=== PATIENT | male | born 1965 | race Caucasian/White ===

== ENCOUNTER 2022-12-15 13:18 | Emergency (ER) | payer MEDICARE, MEDICAID, SELFPAY ==
[2022-12-15 13:21] VITALS: BP 113/82; PULSE 104; RESP 18; TEMP 37; O2SAT 99; BMI 20.5
== END 2022-12-15 14:08 | disposition left against medical advice (07) ==
LOC: ER 13:48
PROVIDERS: Emergency Provider Emergency Medicine; PCP Family Medicine
DX: Z53.21 Procedure and treatment not carried out due to patient leaving prior to being seen by health care provider (principal)
CPT/HCPCS: 99281

== ENCOUNTER 2022-12-24 07:21 | Emergency (ER) | payer MEDICARE, MEDICAID, SELFPAY ==
[2022-12-24] VITALS (12 sets, daily range): BP systolic 109–115; BP diastolic 59–74; PULSE 67–83; RESP 11–22; TEMP 36.8; O2SAT 96–100; BMI 20.9
--- NOTE | 2022-12-24 07:38 | XR_ITS ---
The [address] [address] Patient Name: SIS COUCH MRN: [id number] date: 1965 Sex: M Assigned Patient Location: ER Current Patient Location: ER Accession/Order Number: [id number] Exam Date: 12/24/2022 07:47 Report Date: 12/24/2022 08:03 At the request of: RACHEAL LEHMAN Procedure: XR shoulder LT min 2V HISTORY: Chronic left shoulder pain becoming progressively worse. XR shoulder LT min 2V: 12/24/2022 7:47 AM EDT COMPARISON: None. FINDINGS: 3 views of the left shoulder were obtained. No fracture, dislocation or joint space narrowing is seen. There is a type I acromion. XR/XR shoulder LT min 2V IMPRESSION: Normal radiographs of the left shoulder. Electronically authenticated by: FRANCES PUTNAM Date: 12/24/2022 08:03
--- NOTE | 2022-12-24 07:52 | ED.UPPEXIN1 ---
HPI - Extremity Injury (Upper) General Chief Complaint: Extremity Injury, Upper Stated Complaint: UPPER EXTREMITY PAIN LEFT ARM Time Seen by Provider: 12/24/22 07:42 Source: patient Mode of arrival: walk-in Limitations: no limitations History of Present Illness HPI narrative: 57-year-old male presents for left shoulder pain. He had it for 6-12 months. He's been to an urgent care center. He states he's been having trouble typing on his laptop because of the pain. It's mostly in the shoulder blade region. The pain is moderate and worse with movement. Related Data Home Medications Medication Instructions Recorded Confirmed atorvastatin 40 mg tablet 40 mg PO QDAY 12/24/22 12/24/22 buspirone 10 mg tablet 10 mg PO QDAY 12/24/22 12/24/22 Previous Rx's Medication Instructions Recorded acetaminophen 300 mg-codeine 30 mg 1 tab PO Q6H PRN pain #20 tabs 12/24/22 tablet Allergies Allergy/AdvReac Type Severity Reaction Status Date / Time tramadol Allergy Intermediate Verified 12/15/22 13:26 Review of Systems ROS Narrative A ten point review of systems is negative except as noted above. PFSH PFSH Social History Smoking status: Current every day smoker Exam Narrative Exam Narrative: Nurses note and vital signs reviewed and patient is not hypoxic. General: The patient appears well and in no apparent distress. Patient is resting comfortably on cart. Skin: Warm, dry, no pallor noted. There is no rash noted. Head: Normocephalic, atraumatic Eye: Normal conjunctiva, no drainage Ears, Nose, Mouth, and Throat: oral mucosa is moist. Nares patent. Cardiovascular: Regular Rate and Rhythm Respiratory: Patient is in no distress, no accessory muscle use, lungs are clear to auscultation, no wheezing, rales or rhonchi Back: non-tender GI: soft and nontender Musculoskeletal: left shoulder has no deformity bruise or rash. Range of motion causes discomfort. Neurological: A&O, normal speech Psychiatric: Cooperative Constitutional Vital Signs, click to edit/add: Last Vital Signs Temp 98.2 F 12/24/22 07:24 Pulse 73 12/24/22 07:24 Resp 18 12/24/22 07:24 BP 109/59 12/24/22 07:24 Pulse Ox 98 12/24/22 07:24 O2 Del Method Room Air 12/24/22 07:24 Course Vital Signs Vital signs: Vital Signs Temperature 98.2 F 12/24/22 07:24 Pulse Rate 73 12/24/22 07:24 Respiratory Rate 18 12/24/22 07:24 Blood Pressure 109/59 12/24/22 07:24 Pulse Oximetry 98 12/24/22 07:24 Oxygen Delivery Method Room Air 12/24/22 07:24 Temperature 98.2 F 12/24/22 07:24 Pulse Rate 73 12/24/22 07:24 Respiratory Rate 18 12/24/22 07:24 Blood Pressure 109/59 12/24/22 07:24 Pulse Oximetry 98 12/24/22 07:24 Oxygen Delivery Method Room Air 12/24/22 07:24 MDM - Extremity Injury (Upper) MDM Narrative Medical decision making narrative: x-rays negative per radiologist and he is being referred to orthopedics. He is also prescribed pain medication. I've reviewed his prescription history. Treatment diagnosis and follow-up were discussed with the patient Differential Diagnosis Differential diagnosis: Likely other (shoulder sprain, shoulder strain, adhesive capsulitis, calcific tendinitis, rotator cuff injury, fracture) Imaging Data left shoulder x-ray: Radiologist's impression: x-ray of the left shoulder per radiology shows no acute findings ECG Data Attestation: I personally reviewed and interpreted this ECG as follows: (EKG on my interpretation shows normal sinus rhythm without acute change) Discharge Plan Discharge Chief Complaint: Extremity Injury, Upper Clinical Impression: Chronic left shoulder pain Patient Disposition: Home, Self-Care Time of Disposition Decision: 08:27 Condition: Good Mode of Transportation: Private Vehicle Prescriptions / Home Meds: New acetaminophen-codeine 300-30 mg tablet 1 tab PO Q6H PRN (Reason: pain) Qty: 20 0RF No Action atorvastatin 40 mg tablet 40 mg PO QDAY buspirone 10 mg tablet 10 mg PO QDAY Instructions: Shoulder Pain (ED) Additional Instructions: follow-up with Dr. Conteh Stand Alone Forms: Portal Instructions Referrals: Anthony Colmenares MD [Primary Care Provider] - 1 week
--- NOTE | 2022-12-24 07:57 | ECG_ITS ---
The [facility] Test Date: 2022-12-24 Pat Name: SIS COUCH Department: Room: - Gender: Male [employer]: : 1965 Requested By: FRANCES COHEN Order Number: [id number] Reading MD: FRANCES COHEN Measurements Intervals [place] Rate: 73 P: 75 TX: 122 QRS: 83 QRSD: 104 T: 57 QT: 392 QTc: 417 Interpretive Statements 1100 Sinus rhythm 9110 normal ECG No previous ECG available for comparison Electronically Signed On 12-25-2022 6:35:22 EDT by FRANCES COHEN
== END 2022-12-24 08:44 | disposition home or self-care (01) ==
PROVIDERS: Emergency Provider Emergency Medicine; PCP Family Medicine
DX: M25.512 Pain in left shoulder (principal); G89.29 Other chronic pain; Z79.899 Other long term (current) drug therapy; F17.210 Nicotine dependence, cigarettes, uncomplicated
CPT/HCPCS: 73030; 93005; 99284

== ENCOUNTER 2023-01-03 06:43 | Outpatient (OUT) | payer MEDICARE, MEDICAID, SELFPAY ==
--- NOTE | 2023-01-03 07:25 | MR_ITS ---
[address] [address] Patient Name: SIS COUCH MRN: [id number] date: 1965 Sex: M Assigned Patient Location: MRI Current Patient Location: Accession/Order Number: [id number] Exam Date: 01/03/2023 07:25 Report Date: 01/04/2023 00:11 At the request of: ELIUD MONTOYA Procedure: MR shoulder LT wo con EXAMINATION: MR shoulder LT wo con HISTORY: Left Shoulder Pain M25.512 ; left shoulder pain radiating into arm and hand; no known injury COMPARISON: No relevant comparison available. TECHNIQUE: A variety of imaging planes and parameters were utilized for visualization of suspected pathology. Imaging was performed without or with contrast as indicated by examination type. FINDINGS: ROTATOR CUFF REGION CUFF TENDONS: Minimal increased signal intensity in the supraspinatus tendon indicates tendon degeneration and/or tendinitis. No dwain tear is seen. CUFF MUSCLES: Normal appearing muscles. DELTOID: No significant atrophy or tear. LONG BICEPS TENDON: No abnormal signal, attrition, or tear. LABRUM/BICEPS ANCHOR SUPERIOR: No visible labral tear or biceps anchor pathology. ANTERIOR/INFERIOR: No visible tear or attrition. POSTERIOR: No posterior labrum abnormality. CAPSULE No visible capsular laxity or thickening. AC JOINT REGION AC JOINT: Mild osteoarthropathy with no significant narrowing of the underlying coracoacromial arch. AC LIGAMENTS: Normal acromioclavicular ligament. CC LIGAMENTS: Normal coracoclavicular ligaments. ACROMION: Normal horizontal (Type I) configuration. SUBACROMIAL BURSA: Normal. No significant effusion. HYALINE CARTILAGE: No visible cartilage narrowing or focal defect. OTHER BONES: Normal proximal humerus, glenoid, and coracoid. OTHER OBSERVATIONS: Negative. No other significant findings or glenohumeral effusion. MR/MR shoulder LT wo con IMPRESSION: 1. Limited examination due to significant patient motion artifact. 2. Suspect mild supraspinatus tendinopathy. Electronically authenticated by: ELIUD ALANIZ Date: 01/04/2023 00:11
== END 2023-01-03 06:44 | disposition home or self-care (01) ==
LOC: MRI 06:46
PROVIDERS: PCP Family Medicine; Visit Provider Orthopaedic Surgery
DX: M25.512 Pain in left shoulder (principal)
CPT/HCPCS: 73221

== ENCOUNTER 2023-01-15 10:18 | Outpatient (RCR) | payer MEDICARE, MEDICAID, SELFPAY | END 2023-02-16 13:43 | disposition home or self-care (01) | LOC: PT 10:18 | PROVIDERS: PCP Family Medicine; Visit Provider Orthopaedic Surgery | DX: M54.12 Radiculopathy, cervical region (principal); M75.82 Other shoulder lesions, left shoulder | CPT/HCPCS: 97010; 97012; 97110; 97140; 97161 ==

== ENCOUNTER 2023-06-12 15:16 | Outpatient (OUT) | payer MEDICARE, MEDICAID, SELFPAY ==
--- OUTSIDE RECORDS SUMMARY | 2023-06-12 15:32 | XMS_ITS | CCD ---
Author Name Unknown Address [id number] [facility] [address] [place] [address] Organization [facility] Care Team Providers Care Mill Operator Name Role Phone ENMA PHILLIPS Unavailable Unavailable ENMA PHILLIPS Unavailable Unavailable RAÚL LAI Unavailable Unavailable ENMA PHILLIPS Unavailable Unavailable Saman Jules Unavailable Frances Colmenares Primary Care Physician NOEL .DR DANIELS Primary Care Unavailable HOY ., DR DANIELS Attending Unavailable HOY ., DR DANIELS Admitting Unavailable ROSELYN LUCIANO Consulting UnavailCARMEN Ruiz Attending Unavailable SORIN .CARMEN Admitting Unavailable JAVONY ., DR DANIELS Primary Care Unavailable YOLI KRUEGER Consulting Unavailable DIAB .JUNG Attending Unavailable DIAB ., JUNG Admitting Unavailable HOY ., DR DANIELS Primary Care Unavailable DIAB ., JUNG Consulting Unavailable HOY ., DR DANIELS Consulting Unavailable HOY ., DR DANIELS Primary Care Unavailable HOY ., DR DANIELS Attending Unavailable HOY ., DR DANIELS Admitting Unavailable DR ELIUD ALANIZ Consulting Unavailable HOY ., DR DANIELS Consulting Unavailable HOY ., DR DANIELS Primary Care Unavailable HOY ., DR DANIELS Attending Unavailable HOY ., DR DANIELS Admitting Unavailable HOY ., DR DANIELS Consulting Unavailable HOY ., DR DANIELS Primary Care Unavailable HOY ., DR DANIELS Attending Unavailable HOY ., DR DANIELS Admitting Unavailable HOY ., DR DANIELS Consulting Unavailable HOY ., DR DANIELS Primary Care Unavailable HOY ., DR DANIELS Attending Unavailable HOY ., DR DANIELS Admitting Unavailable FARNAZ FRANK Consulting Unavailable HOY ., DR DANIELS Consulting Unavailable HOY ., DR DANIELS Primary Care Unavailable HOY ., DR DANIELS Attending Unavailable HOY ., DR DANIELS Admitting Unavailable SHANNAN RUBY Consulting Unavailable HOY ., DR DANIELS Primary Care Unavailable HOY ., DR DANIELS Attending Unavailable HOY ., DR DANIELS Admitting Unavailable HOY ., DR DANIELS Consulting Unavailable HOY ., DR DANIELS Primary Care Unavailable HOY ., DR DANIELS Attending Unavailable HOY ., DR DANIELS Admitting Unavailable WEST, DR SYLVESTER Ho Consulting Unavailable Gaetano BA Attending Unavailable Gaetano BA Attending Unavailable Shannan Cary Unavailable FRAN Cary Attending Provider Shannan Cary Attending Unavailable Shannan Cary Admitting Unavailable NON STAFF Primary Care Unavailable Allergies Allergy Classification Reported Allergen(s) Allergy Type Date of Onset Reaction(s) Facility (3 sources) Codeine; Translations: [codeine] Drug Allergy Unknown [facility] (4 sources) traMADol; Translations: [tramadol] Drug Allergy hives [facility] (1 source) traMADol Drug Allergy [address] [facility] (1 source) No Known Medication Allergies; Translations: [No Known Medication Allergies] Propensity to adverse reactions (disorder) [facility] Repository Medications Current Medications Medication Drug Class(es) Dates Sig (Normalized) Sig (Original) acetaminophen 325 mg / HYDROcodone bitartrate 10 mg oral tablet (2 sources) Opioid Agonist Start: 09-19-2017 take 1 tablet by mouth every twelve hours Hydrocodone-Aceta minophen (Alma) 10-325 mg Tablet Active 1 TAB PO Q12H 0 September 19, 2017 12:01pm Start: 09-17-2017 End: 09-19-2017 take 1 tablet by mouth every eight hours Hydrocodone-Acetaminophen (Alma) 10-325 mg Tablet Discontinued 1 TAB PO Q8H September 17, 2017 12:00am September 19, 2017 12:01pm aspirin 81 mg delayed release oral tablet (1 source) Platelet Aggregation Inhibitor, Nonsteroidal Anti-inflammatory Drug Start: 09-17-2017 take 81 mg by mouth once daily Aspirin Active 81 MG PO Daily September 17, 2017 12:00am atorvastatin 40 mg oral tablet (4 sources) HMG-CoA Reductase Inhibitor Start: 09-17-2017 take 1 mg by mouth once daily Lipitor 40 mg Tab mg tab(s), Oral, Daily, Refills(s) 0 Start Date: 12/08/19 Status: Ordered baclofen 10 mg oral tablet (2 sources) gamma-Aminobutyric Acid-ergic Agonist Start: 09-19-2017 take 5 mg by mouth twice daily Baclofen Active 5 MG PO Twice daily 0 September 19, 2017 12:00am Start: 09-17-2017 End: 09-19-2017 take 10 mg by mouth five times daily Baclofen Discontinued 10 MG PO 5 times per day September 17, 2017 12:00am September 19, 2017 11:54am 12 hr buPROPion hydrochloride 100 mg extended release oral tablet (1 source) Aminoketone Start: 09-17-2017 take 1 tablet by mouth once daily Bupropion Hcl (Wellbutrin Sr) 100 mg Tablet Extended Release 12 Hr Active 100 MG PO Daily September 17, 2017 12:00am busPIRone hydrochloride 10 mg oral tablet (4 sources) Start: 08-03-2022 busPIRone 10 mg Tab Refills(s) 0 Start Date: 08/03/22 Status: Ordered calcium carbonate 1250 mg / cholecalciferol 1000 unt / vitamin k 0.4 mg chewable tablet (1 source) Vitamin D Start: 09-17-2017 take 1 tablet by mouth once daily Calcium-Vitamin D3-Vitamin K (Citracal-D3 Soft Chew) 500 mg-1,000 unit-40 mcg Tablet,Chewable Active 1 TAB PO Daily September 17, 2017 12:00am cariprazine 1.5 mg oral capsule (3 sources) Atypical Antipsychotic Start: 12-08-2019 take 1 mg by mouth once daily Vraylar 1.5 mg oral capsule mg cap(s), Oral, Daily, Refills(s) 0 Start Date: 12/08/19 Status: Ordered Vraylar 4.5 MG O ral for 30 Days Active carisoprodol 250 mg oral tablet (3 sources) Muscle Relaxant Start: 08-03-2022 carisoprodol 2 50 mg oral tablet Refills(s) 0 Start Date: 08/03/22 Status: Ordered clonazePAM 0.5 mg oral tablet (2 sources) Benzodiazepine Start: 09-19-2017 take 0.5 mg by mouth twice daily Clonazepam Active 0.5 MG PO Twice daily September 19, 2017 12:00am Start: 09-17-2017 End: 09-19-2017 take 1 tablet by mouth three times daily Clonazepam (Klonopin) 1 mg Tablet Discontinued 1 MG PO Three times daily September 17, 2017 12:00am September 19, 2017 11:54am clopidogrel 75 mg oral tablet (1 source) P2Y12 Platelet Inhibitor Start: 09-17-2017 take 1 tablet by mouth once daily Clopidogrel (Plavix) 75 mg Tablet Active 75 MG PO Daily September 17, 2017 12:00am diazePAM 5 mg oral tablet (3 sources) Benzodiazepine Start: 08-03-2022 diazepam 5 mg Tab Refills(s) 0 Start Date: 08/03/22 Status: Ordered take 1 tablet by ruchi th every twenty-four hours diazePAM 10 MG 1 tablet as needed Orally Once a day Active DULoxetine 60 mg delayed release oral capsule (2 sources) Serotonin and Norepinephrine Reuptake Inhibitor Start: 09-19-2017 take 60 mg by mouth once daily Duloxetine Active 60 MG PO Daily September 19, 2017 12:00am Start: 09-17-2017 End: 09-19-2017 take 3 capsules by mouth once daily in the morning Duloxetine (Cymbalta) 60 mg Capsule,Delayed Release(Dr/Ec) Discontinued 180 MG PO Every morning September 17, 2017 12:00am September 19, 2017 11:54am Fiber (2 sources) Start: 12-08-2019 take 1 capsule by mouth once daily Fiber Fiber, 1 cap, Oral, Daily Start Date: 12/08/19 Status: Ordered lamoTRIgine 100 mg oral tablet (1 source) Mood Stabilizer, Anti-epileptic Agent lamoTRIgine 100 MG Oral for 30 Days Active lurasidone hydrochloride 80 mg oral tablet (1 source) Atypical Antipsychotic Start: 09-17-2017 take 1 tablet by mouth once daily Lurasidone (Latuda) 80 mg Tablet Active 160 MG PO Daily before supper September 17, 2017 12:00am naproxen 500 mg oral tablet (2 sources) Nonsteroidal Anti-inflammatory Drug Start: 09-17-2017 End: 09-19-2017 take 1 tablet by mouth twice daily Naproxen (Naprosyn) 500 mg Tablet Active 500 MG PO Twice daily 0 September 19, 2017 12:01pm With Sumatriptan. Repeat As Directed. predniSONE 20 mg oral tablet (1 source) Start: 12-19-2022 take 1 tablet by mouth every twelve hours predniSONE 20 MG 1 tablet Orally bid for 5 day(s) Dec, Active SUMAtriptan 100 mg oral tablet (3 sources) Serotonin-1b and Serotonin-1d Receptor Agonist Start: 12-17-2019 SUMAtriptan 100 mg Tab 100 mg = 1 tab(s), Oral, PRN Headache, Refills(s) 0 Start Date: 12/17/19 Status: Ordered Start: 09-17-2017 End: 09-19-2017 Sumatriptan Succinate Discon tinued 100 MG PO As Directed September 17, 2017 12:00am September 19, 2017 11:55am At Onset Of Migraine. May Repeat in 2 Hours if Needed. tolterodine tartrate 2 mg oral tablet (2 sources) Cholinergic Muscarinic Antagonist Start: 08-03-2022 take 1 tablet by mouth twice daily tolterodine 2 mg Tab 2 mg = 1 tab(s), Oral, BID, # 60 tab(s), Refills(s) 11, Pharmacy: [facility]/pharmacy #[id number], 170, cm, 08/03/22 8:52:00 EDT, Height/Length Dosing, 62, kg, 08/03/22 8:52:00 EDT, Weight Dosing Start Date: 08/03/22 Status: Ordered traMADol hydrochloride 50 mg oral tablet (6 sources) Opioid Agonist Start: 02-07-2021 take 1 tablet by mouth every eight hours traMADol HCl 50 MG 1 tablet as needed Orally every 8 hours for 7 days Jan, Active Start: 09-17-2017 End: 09-19-2017 take 50 mg by mouth every four to six hours Tramadol Discontinued 50 MG PO EVERY 4-6 HOURS September 17, 2017 12:00am September 19, 2017 11:55am Trazodone (3 sources) Serotonin Reuptake Inhibitor Start: 12-08-2019 take 0.5 tablet by mouth once daily at bedtime trazodone 0.5 tab, Oral, Once a day (at bedtime), 75 mg, Refills(s) 0 Start Date: 12/08/19 Status: Ordered Start: 09-17-2017 End: 09-19-2017 take 75 mg by mouth once daily at bedtime Trazodone Discontinued 75 MG PO Daily at bedtime September 17, 2017 12:00am September 19, 2017 11:55am 24 hr divalproex sodium 500 mg extended release oral tablet (1 source) Mood Stabilizer, Anti-epileptic Agent Start: 09-17-2017 take 1 tablet by mouth once daily at bedtime Divalproex (Depakote Er) 500 mg Tablet Extended Release 24 Hr Active 500 MG PO Daily at bedtime September 17, 2017 12:00am 24 hr venlafaxine 150 mg extended release oral capsule (1 source) Serotonin and Norepinephrine Reuptake Inhibitor Venlafaxine HCl ER 150 MG Oral for 30 Days Active Completed/Discontinued Medications Medication Drug Class(es) Dates Sig (Normalized) Sig (Original) benztropine mesylate 1 mg oral tablet (1 source) Anticholinergic, Antihistamine Start: 09-17-2017 End: 09-19-2017 take 1 mg by mouth twice daily Benztropine Discontinued 1 MG PO Twice daily September 17, 2017 12:00am September 19, 2017 11:54am hydrOXYzine pamoate 50 mg oral capsule (3 sources) Antihistamine Start: 09-17-2017 End: 09-19-2017 take 1 capsule by mouth twice daily Hydroxyzine Pamoate (Vistaril) 50 mg Capsule Discontinued 50 MG PO Twice daily September 17, 2017 12:00am September 19, 2017 11:54am ondansetron 4 mg oral tablet (1 source) Serotonin-3 Receptor Antagonist Start: 09-17-2017 End: 09-19-2017 take 1 tablet by mouth every eight hours Ondansetron Hcl (Zofran (As Hydrochloride)) 4 mg Tablet Discontinued 4 MG PO Q8H September 17, 2017 12:00am September 19, 2017 11:54am Peppermint Oil (Ibgard) 90 mg Capsule,Delayed,Ex tend.Release (1 source) Start: 09-17-2017 End: 09-19-2017 take 1 capsule by mouth once daily Peppermint Oil (Ibgard) 90 mg Capsule,Delayed,Ex tend.Release Discontinued 90 MG PO Daily before supper September 17, 2017 12:00am September 19, 2017 11:54am Toradol 30 mg/ml (1 source) Start: 12-19-2022 Toradol 30 mg/ml Dec, 30 mg varenicline 1 mg oral tablet (1 source) Partial Cholinergic Nicotinic Agonist Start: 09-17-2017 End: 09-19-2017 take 1 tablet by mouth twice daily Varenicline (Chantix) 1 mg Tablet Discontinued 1 MG PO Twice daily September 17, 2017 12:00am September 19, 2017 11:55am Problems Active Problems Problem Classification Problem Date Documented Da te Episodic/Chronic Abdominal pain (10 sources) Epigastric pain; Translations: [Flank pain] Onset: 3 01-03-2021 Episodic Anxiety disorders (3 sources) Generalized anxiety disorder; Translations: [Anxiety disorder, unspecified] Onset: 7 Chronic Calculus of urinary tract (7 sources) Kidney stone; Translations: [Calculus of kidney] Onset: 3 Episodic Deficiency and other anemia (2 sources) Anemia 01-03-2021 Episodic Disorders of lipid metabolism (1 source) Hyperlipidemia, unspecified; Translations: [HYPERLIPIDEMIA UNSPECIFIED] Onset: 2 Chronic Esophageal disorders (2 sources) Gastroesophageal reflux disease 01-03-2021 Chronic Gastrointestinal hemorrhage (4 sources) Hematochezia; Translations: [Rectal hemorrhage] 01-03-2021 Episodic Genitourinary symptoms and ill-defined conditions (3 sources) Urge incontinence; Translations: [Urge incontinence of urine] Onset: 3 Chronic Genitourinary symptoms and ill-defined conditions (4 sources) Nocturia; Translations: [Urgent desire to urinate] 08-23-2021 Episodic Headache, including migraine (2 sources) Migraine, unspecified, not intractable, without status migrainosus; Translations: [Migraine] Onset: 7 09-20-2017 Chronic Headache; including migraine (2 sources) Headache 12-08-2019 Episodic Hyperplasia of prostate (2 sources) Benign prostatic hypertrophy with outflow obstruction 08-23-2020 Chronic Mood disorders (6 sources) Bipolar disorder, current episode depressed, moderate; Translations: [Bipolar disorder] Onset: 5 12-08-2019 Chronic Mood disorders (1 source) Major depressive disorder, single episode, unspecified; Translations: [Major depressive disorder, single episode, unspecified] Onset: 5 Nonspecific chest pain (1 source) Other chest pain; Translations: [OTHER CHEST PAIN] Onset: 3 Episodic Other aftercare (1 source) Other correction (current) drug therapy; Translations: [OTH RETIREMENT CURRENT DRUG THERAPY] Onset: 3 Episodic Other aftercare (1 source) Polypharmacy ; Translations: [Other correction (current) drug therapy] 09-20-2017 Episodic Other and unspecified benign neoplasm (2 sources) History of polyp of colon 01-03-2021 Episodic Other diseases of bladder and urethra (2 sources) Male urethral stricture 07-19-2020 Episodic Other gastrointestinal disorders (1 source) Irritable bowel syndrome without diarrhea; Translations: [IRRITABLE BOWEL SYND W/O DIARRHEA] Onset: 2 Chronic Other gastrointestinal disorders (2 sources) Dysphagia 01-03-2021 Episodic Other injuries and conditions due to external causes (1 source) History of falling; Translations: [HISTORY OF FALLING] Onset: 3 Episodic Other male genital disorders (1 source) Male erectile dysfunction, unspecified; Translations: [Erectile dysfunction] Onset: 3 Chronic Other male genital disorders (3 sources) Induratio penis plastica; Translations: [Induration penis plastica] Onset: 3 Chronic Other male genital disorders (2 sources) Impotence 08-23-2020 Chronic Other non-traumatic joint disorders (1 source) Pain in left shoulder Episodic Other nutritional; endocrine; and metabolic disorders (1 source) Hyperammonemia; Translations: [Disorder of urea cycle metabolism, unspecified] 09-20-2017 Chronic Peripheral and visceral atherosclerosis (4 sources) Peripheral vascular disease, unspecified; Translations: [PERIPHERAL VASCULAR DISEASE UNS] Onset: 3 Chronic Residual codes; unclassified (1 source) Tobacco user; Translations: [Tobacco use] 09-20-2017 Episodic Residual codes; unclassified (1 source) Altered mental status; Translations: [Altered mental status, unspecified] 09-20-2017 Episodic Spondylosis; intervertebral disc disorders; other back problems (1 source) Other intervertebral disc degeneration, lumbosacral region; Translations: [OT IV DISC DEGEN LUMBOSACRAL RGN] Onset: 3 Chronic Spondylosis; intervertebral disc disorders; other back problems (9 sources) Cervicalgia; Translations: [Radiculopathy, site unspecified] Onset: 2 Episodic Sprains and strains (1 source) Unspecified sprain of left shoulder joint, initial encounter Episodic Substance-related disorders (3 sources) Smoker; Translations: [Cannabis abuse] 03-01-2020 Chronic Comment on above: Added secondary to d ocumentation in Social History. Thyroid disorders (1 source) Hyperthyroidism; Translations: [Thyrotoxicosis, unspecified without thyrotoxic crisis or storm] 09-20-2017 Chronic Unclassified (1 source) Mixed irritable bowel syndrome; Translations: [Mixed irritable bowel syndrome] Onset: 7 Unclassified (4 sources) Body mass index 20-24 - normal 01-03-2021 Unclassified (1 source) Pain in left shoulder; Translations: [Pain in left shoulder] Onset: 3 Past or Other Problems Problem Classification Problem Date Documented Da te Episodic/Chronic Deficiency and other anemia (1 source) Anemia, unspecified; Translations: [ANEMIA UNSPECIFIED] Onset: 03-31-2022 Episodic Diabetes mellitus without complication (1 source) Other abnormal glucose; Translations: [OTHER ABNORMAL GLUCOSE] Onset: 03-31-2022 Episodic Fracture of lower limb (3 sources) Other fracture of upper and lower end of right fibula, subsequent encounter for closed fracture with routine healing; Translations: [Other closed fracture of distal end of right fibula with routine healing, subsequent encounter S82.831D] Onset: 02-07-2021 Resolved: 04-06-2021 Episodic Malaise and fatigue (1 source) Other fatigue; Translations: [OTHER FATIGUE] Onset: 12-18-2021 Episodic Nausea and vomiting (1 source) Nausea; Translations: [Nausea] Onset: 03-14-2017 Episodic Other and unspecified benign neoplasm (1 source) Personal history of colonic polyps; Translations: [Personal history of colonic polyps] Onset: 06-14-2014 Episodic Other connective tissue disease (4 sources) Impingement syndrome of left shoulder; Translations: [IMPINGEMENT SYNDROME LEFT SHOULDER] Onset: 02-02-2022 Episodic Other non-traumatic joint disorders (4 sources) Pain in right ankle and joints of right foot; Translations: [Acute right ankle pain M25.571] Onset: 02-07-2021 Resolved: 04-06-2021 Episodic Other non-traumatic joint disorders (4 sources) Pain in left elbow; Translations: [PAIN IN LEFT ELBOW] Onset: 07-30-2022 Episodic Other nutritional; endocrine; and metabolic disorders (5 sources) Abnormal weight loss; Translations: [Abnormal weight loss] Onset: 08-12-2017 Episodic Other screening for suspected conditions (not mental disorders or infectious disease) (3 sources) Encounter for screening for malignant neoplasm of rectum; Translations: [Encounter for screening for malignant neoplasm of prostate] Onset: 12-18-2021 Episodic Residual codes; unclassified (1 source) Insomnia, unspecified; Translations: [INSOMNIA UNSPECIFIED] Onset: 03-31-2022 Episodic Screening and history of mental health and substance abuse codes (1 source) Personal history of nicotine dependence; Translations: [PERSONAL HISTORY OF NICOTINE DEPEND] Onset: 12-18-2021 Episodic Substance-related disorders (1 source) Cannabis use, unspecified, uncomplicated; Translations: [CANNABIS USE UNS UNCOMPLICATED] Onset: 12-18-2021 Episodic Results Test Name Value Interpretation Reference Range Facility XR shoulder LT min 2V*on XR shoulder LT min 2V* [facility] [employer] Other XR shoulder LT min 2V* [facility] [employer] Other XR shoulder LT min 2V* [address] [place] [address] [employer] Other XR shoulder LT min 2V* [place] [address] [employer] Other XR shoulder LT min 2V* XRay Report [employer] Other XR shoulder LT min 2V* Signed [employer] Other XR shoulder LT min 2V* Patient: Sis Dove MR#: [id number] [employer] Other XR shoulder LT min 2V* 5 [employer] Other XR shoulder LT min 2V* : 1965 Acct:[id number] [employer] Other XR shoulder LT min 2V* Age/Sex: 57 / M ADM Date: 12/19/22 [employer] Other XR shoulder LT min 2V* Loc: XDUCLY Room: Type: REG CLI [employer] Other XR shoulder LT min 2V* Attending Dr: Shannan PETERS [employer] Other XR shoulder LT min 2V* Copies to: FRAN Barba [employer] Other XR shoulder LT min 2V* Ordering Provider: FRAN Barba [employer] Other XR shoulder LT min 2V* Date of Service: 12/19/22 [employer] Other XR shoulder LT min 2V* XR/XR shoulder LT min 2V*: Acute pain of left shoulder [employer] Other XR shoulder LT min 2V* XR shoulder LT min 2V* 12/19/2022 10:33 AM [employer] Other XR shoulder LT min 2V* SIGNS AND SYMPTOMS: [employer] Other XR shoulder LT min 2V* Acute pain of left shoulder [employer] Other XR shoulder LT min 2V* PROTOCOL: Frontal, Grashey, and scapular Y views of the left shoulder [employer] Other XR shoulder LT min 2V* COMPARISON: None [employer] Other XR shoulder LT min 2V* FINDINGS: [employer] Other XR shoulder LT min 2V* The acromial clavicular joint is preserved. There is mild narrowing of the glenohumeral joint. There [employer] Other XR shoulder LT min 2V* is no evidence of fracture or dislocation. The visualized left hemithorax is grossly intact. [employer] Other XR shoulder LT min 2V* XR/XR shoulder LT min 2V* [employer] Other XR shoulder LT min 2V* IMPRESSION: [employer] Other XR shoulder LT min 2V* No acute bony injury. [employer] Other XR shoulder LT min 2V* Mild degenerative changes are noted in the glenohumeral joint. [employer] Other XR shoulder LT min 2V* Impression dictated by: Bello Yao M.D.12/19/2022 11:00 AM [employer] Other XR shoulder LT min 2V* Dictation Location: [facility]-- [employer] Other XR shoulder LT min 2V* Transcribed By: CHRISTIAN 12/19/22 1100 [employer] Other XR shoulder LT min 2V* Dictated By: Bello Yao II, MD 12/19/22 1058 [employer] Other XR shoulder LT min 2V* Signed By: [employer] Other XR shoulder LT min 2V* 12/19/22 1100 [employer] Other XR shoulder LT min 2V* [facility] [place] [address] [place] [address] XRay Report Signed Patient: Sis Dove MR#: [id number] 5 : 1965 Acct:[id number] Age/Sex: 57 / M ADM Date: 12/19/22 Loc: XDUCLY Room: Type: [facility] Attending Dr: Shannan PETERS Copies to: FRAN Barba Ordering Provider: FRAN Barba Date of Service: 12/19/22 XR/XR shoulder LT min 2V*: Acute pain of left shoulder XR shoulder LT min 2V* 12/19/2022 10:33 AM SIGNS AND SYMPTOMS: Acute pain of left shoulder PROTOCOL: Frontal, Grashey, and scapular Y views of the left shoulder COMPARISON: None FINDINGS: The acromial clavicular joint is preserved. There is mild narrowing of the glenohumeral joint. There is no evidence of fracture or dislocation. The visualized left hemithorax is grossly intact. XR/XR shoulder LT min 2V* IMPRESSION: No acute bony injury. Mild degenerative changes are noted in the glenohumeral joint. Impression dictated by: Bello Yao M.D.12/19/2022 11:00 AM Dictation Location: [place] [address] Transcribed By: [facility] 12/19/22 1100 Dictated By: Bello Yao II, MD 12/19/22 1058 Signed By: 12/19/22 1100 [facility] Patient Letter FTon 2022 Patient Letter [facility] December 03, 2022 SIS DOVE [address] [address] : 1965 Dear Sis , You missed your scheduled appointment on: 12/03/[address] Gaetano Ba. We tried to call and reschedule however the number that we have on file is no longer in service. Please note our appointment slots fill quickly. When you fail to cancel or reschedule an appointment the office is unable to fill the appointment slot that was reserved for you. In the future, we ask that you call 24 hours in advance to cancel your appointment. Our current reminder system gives you the opportunity to cancel by responding to our reminder text, phone call or email. You can also call the office to reschedule during normal business hours. Our goal is to provide convenient and quality care to all of our patients. We appreciate your consideration regarding any future cancellations. Please update your contact information at the time of rescheduling. Sincerely, [facility] [address] [facility], [place] [address] [facility] Lab Reportson 08-14-2022 Lab Reports [id number]#[id number]:127 [facility] Lab Reports [id number]#1.00CD:127 Normal [facility] RAD - CT Reporton 08-14-2022 RAD - CT Report [id number]:127 Normal [facility] RAD - MISCon 08-14-2022 RAD - MISC [id number]#[id number]:127 Normal [facility] Ambulatory Visit Summaryon 0 08-03-2022 Ambulatory Visit Summary SIS DOVE :1965 Visit Date:08/03/2022 Ambulatory Visit Instructions Your Diagnosis BPH with urinary obstruction Urge incontinence Kidney stone Peyronie disease ED (erectile dysfunction) Tests Performed Urnls Dip Stick Auto w/o Microscopy POC 78495 Your Care Team Attending Physician - LOVE DALAL, Gaetano Posada Primary Care Physician - Frances Colmenares MD This Is Your Medications List mirabegron (Myrbetriq 25 mg oral tablet, extended release) Contact prescribing physician if questions or concerns Non-Formulary Medication (Fiber) atorvastatin (Lipitor 40 mg Tab) busPIRone (busPIRone 10 mg Tab) cariprazine (Vraylar 1.5 mg oral capsule) carisoprodol (carisoprodol 250 mg oral tablet) diazepam (diazepam 5 mg Tab) sumatriptan (SUMAtriptan 100 mg Tab) trazodone Procedures Performed TURP - Transurethral resection of prostate (06/15/2020), Cystoscopy (12/24/2019), Back. Discharge Vitals Heart Rate (Peripheral) 66 Respiratory Rate 16 Blood Pressure 111/68 Height 170 cm Height 67 in Weight 62 kg Weight 136.4 lb BMI 21.45 What to do next You Need to Schedule the Following Appointments Follow Up with LOVE DALAL, MARTINA Nielsen When: Where: [address] [place] [id number]- Medications What How Much When Why Instructions Unchanged mirabegron (Myrbetriq 25 mg oral tablet, extended release) 1 Tablets By Mouth Every day Urge incontinence BPH with urinary obstruction ED (erectile dysfunction) Peyronie disease Unchanged atorvastatin (Lipitor 40 mg Tab) By Mouth Every day Contact prescribing physician if questions or concerns Unchanged busPIRone (busPIRone 10 mg Tab) Contact prescribing physician if questions or concerns Unchanged cariprazine (Vraylar 1.5 mg oral capsule) By Mouth Every day Contact prescribing physician if questions or concerns Unchanged carisoprodol (carisoprodol 250 mg oral tablet) Contact prescribing physician if questions or concerns Unchanged diazepam (diazepam 5 mg Tab) Contact prescribing physician if questions or concerns Unchanged Non-Formulary Medication (Fiber) 1 cap By Mouth Every day Contact prescribing physician if questions or concerns Unchanged sumatriptan (SUMAtriptan 100 mg Tab) 1 Tablets By Mouth As needed for Headache Contact prescribing physician if questions or concerns Unchanged trazodone 0.5 tab By Mouth Once a day (at bedtime) 75 mg Contact prescribing physician if questions or concerns Test Results Urnls Dip Stick Auto w/o Microscopy POC 08459 (08/03/2022) Bilirubin Urine Dipstick - Negative Blood Urine Dipstick - Negative Glucose Urine Dipstick - Negative Ketones Urine Dipstick - Negative Leukocytes Urine Dipstick - Trace Nitrite Urine Dipstick - Negative Protein Urine Dipstick - Negative Specific [place] Urine Dipstick - 1.020 Urine Appearance Urine Dipstick - Clear Urine Color Urine Dipstick - Yellow Urobilinogen Urine Dipstick - Normal 0.2-1 EU/dl pH Urine Dipstick - 7 Allergies codeine (Unknown) traMADol (Unknown) Problems Ongoing - Any problem that you are currently receiving treatment for. Anemia Bipolar depression BMI 23.0-23.9, adult BPH with urinary obstruction Chronic GERD Depression Dysphagia ED (erectile dysfunction) Epigastric pain Headache Hematochezia Kidney stone Personal history of colonic polyps Peyronie disease Rectal bleeding Smoker.. 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 BMI 24.0-24.9, adult Flank pain Nocturia Right flank pain Urgency of urination Education Materials Urinary Incontinence Urinary incontinence refers to a condition in which a person is unable to control where and when to pass urine. A person with this condition will urinate when he or she does not mean to (involuntarily). What are the causes? This condition may be caused by: ? Medicines. ? Infections. ? Constipation. ? Overactive bladder muscles. ? Weak bladder muscles. ? Weak pelvic floor muscles. These muscles provide support for the bladder, intestine, and, in women, the uterus. ? Enlarged prostate in men. The prostate is a gland near the bladder. When it gets too big, it can pinch the urethra. With the urethra blocked, the bladder can weaken and lose the ability to empty properly. ? Surgery. ? Emotional factors, such as anxiety, stress, or post-traumatic stress disorder (PTSD). ? Pelvic organ prolapse. This happens in women when organs shift out of place and into the vagina. This shift can prevent the bladder and urethra from working properly. What increases the risk? The following factors may make you more likely to develop this condition: ? Older age. ? Obesity and physical inactivity. ? and childbirth. ? Menopause. ? Diseases that affect the nerves or spi (more content not included)... Normal [facility] Patient Educationon 08-04-19 Patient Education Urology Urinary Incontinence Urinary incontinence refers to a condition in which a person is unable to control where and when to pass urine. A person with this condition will urinate when he or she does not mean to (involuntarily). What are the causes? This condition may be caused by: ? Medicines. ? Infections. ? Constipation. ? Overactive bladder muscles. ? Weak bladder muscles. ? Weak pelvic floor muscles. These muscles provide support for the bladder, intestine, and, in women, the uterus. ? Enlarged prostate in men. The prostate is a gland near the bladder. When it gets too big, it can pinch the urethra. With the urethra blocked, the bladder can weaken and lose the ability to empty properly. ? Surgery. ? Emotional factors, such as anxiety, stress, or post-traumatic stress disorder (PTSD). ? Pelvic organ prolapse. This happens in women when organs shift out of place and into the vagina. This shift can prevent the bladder and urethra from working properly. What increases the risk? The following factors may make you more likely to develop this condition: ? Older age. ? Obesity and physical inactivity. ? and childbirth. ? Menopause. ? Diseases that affect the nerves or spinal cord (neurological diseases). ? Long-term (chronic) coughing. This can increase pressure on the bladder and pelvic floor muscles. What are the signs or symptoms? Symptoms may vary depending on the type of urinary incontinence you have. They include: ? A sudden urge to urinate, but passing urine involuntarily before you can get to a bathroom (urge incontinence). ? Suddenly passing urine with any activity that forces urine to pass, such as coughing, laughing, exercise, or sneezing (stress incontinence). ? Needing to urinate often, but urinating only a small amount, or constantly dribbling urine (overflow incontinence). ? Urinating because you cannot get to the bathroom in time due to a physical disability, such as arthritis or injury, or communication and thinking problems, such as Alzheimer disease (functional incontinence). How is this diagnosed? This condition may be diagnosed based on: ? Your medical history. ? A physical exam. ? Tests, such as: ? Urine tests. ? X-rays of your kidney and bladder. ? Ultrasound. ? CT scan. ? Cystoscopy. In this procedure, a health care provider inserts a tube with a light and camera (cystoscope) through the urethra and into the bladder in order to check for problems. ? Urodynamic testing. These tests assess how well the bladder, urethra, and sphincter can store and release urine. There are different types of urodynamic tests, and they vary depending on what the test is measuring. To help diagnose your condition, your health care provider may recommend that you keep a log of when you urinate and how much you urinate. How is this treated? Treatment for this condition depends on the type of incontinence that you have and its cause. Treatment may include: ? Lifestyle changes, such as: ? Quitting smoking. ? Maintaining a healthy weight. ? Staying active. Try to get 150 minutes of moderate-intensity exercise every week. Ask your health care provider which activities are safe for you. ? Eating a healthy diet. ? Avoid high-fat foods, like fried foods. ? Avoid refined carbohydrates like white bread and white rice. ? Limit how much alcohol and caffeine you drink. ? Increase your fiber intake. Foods such as fresh fruits, vegetables, beans, and whole grains are healthy sources of fiber. ? Pelvic floor muscle exercises. ? Bladder training, such as lengthening the amount of time between bathroom breaks, or using the bathroom at regular intervals. ? Using techniques to suppress bladder urges. This can include distraction techniques or controlled breathing exercises. ? Medicines to relax the bladder muscles and prevent bladder spasms. ? Medicines to help slow or prevent the growth of a man's prostate. ? Botox injections. These can help relax the bladder muscles. ? Using pulses of electricity to help change bladder reflexes (electrical nerve stimulation). ? For women, using a medical or surgical instrument maker to prevent urine leaks. This is a small, tampon-like, disposable device that is inserted into the urethra. ? Injecting collagen or carbon beads (bulking agents) into the urinary sphincter. These can help thicken tissue and close the bladder opening. ? Surgery. Follow these instructions at home: Lifestyle ? Limit alcohol and caffeine. These can fill your bladder quickly and irritate it. ? Keep yourself clean to help prevent odors and skin damage. Ask your doctor about special skin creams and cleansers that can protect the skin from urine. ? Consider wearing pads or adult diapers. Make sure to change them regularly, and always change them right after experiencing incontinence. General instructions ? Take [id number] and prescription medicines only as (more content not included)... 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 Last seen in our office by HIPOLITO due to Urge Incontinence, BPH, ED & Peyronie's Disease. At that time pt was started on Myrbetriq 25meq QD therapy and Detrol therapy was DC'd. Pt has not been taking the Myrbetriq. Ran out and did not get refill. Incontinence did improve with medication. Pt was also ordered Trimix Injections, and was scheduled for a visit with HIPOLITO to learn how to use. Pt cancelled that appt. Then no showed to his follow up appt in August 2021. CT a/p 07/28/22 KUB 07/23/22 UA & NEG C&S done 07/05/22 PSA F/T done 03/26/22- 0.4 & 50% BMP done 03/26/22 Bilateral flank pain for the past 6m. Can be so bad it brings him to his knees. Denies Hx of Kidney Stones. Denies visible blood in urine. History of Present Illness Tests reviewed: Reviewed UA, CT, KUB, and labs. I have reviewed the previous health record information and history for this patient from Dr. Ba. I have reviewed and verified the staff HPI to be accurate for this encounter. There have been no associated fever, chills, flank pain, or blood in the urine. Denies any urinary infections since last encounter. Review of Systems PHQ Score Initial Depression Screen Score: 0 ROS - Provider Constitutional: denies weight loss, denies hot flashes. Eyes: denies eye problems. Gastrointestinal: denies nausea, denies vomiting. Cardiovascular: denies chest pain or angina. Integumentary: no dryness Musculoskeletal: denies musculoskeletal symptoms. ENMT: denies otolaryngeal symptoms. Respiratory: no shortness of breath. Heme/Lymph: denies easy bleeding tendency, denies easy bruising tendency. Psychiatric: no confusion, no anxiety. Genitourinary: denies dysuria, denies hematuria, denies discharge, denies urinary frequency, denies urinary hesitancy, denies nocturia, denies incontinence, denies genital sores, denies decreased libido, and denies erectile dysfunction. Physical Exam Vitals & Measurements HR: 66(Peripheral) RR: 16 BP: 111/68 HT: 67 in HT: 170 cm WT: 62 kg WT: 136.4 lb BMI: 21.45 General Appearance: alert, no distress, well nourished, well developed male. Genitourinary: normal scrotum, normal testes, normal urethra, normal epididymis, normal vas deferens/spermatic cord. Flank Pain: moderate bilat. Bladder: nonpalpable. Assessment/Plan 1. BPH with urinary obstruction (N40.1: Benign prostatic hyperplasia with lower urinary tract symptoms) S/p TURP 05/2020. Currently not taking any prostate medications. Reports he is up every 2-3 hours during the night w/ the urge to void, does not get a althea's sleep. Does not always feel like he is fully empty. PVR at visit 02/09/21 was 20 mL. UA today neg. PSA 03/26/22 - 0.4 & 50% (ordered by primary care) 2. Urge incontinence (N39.41: Urge incontinence) D/c Tolterodine at last visit and was started on Myrbetriq 25mg daily by Alice Castañeda PA-C. Mentioned he ran out of medication but when he was taking it he did not notice improvement. Notes mild improvement with Tolterodine. Will restart Tolterodine 2mg BID. Discussed the medication side effects, and the patient will monitor closely for these, as well as for symptom improvement. If severe side effects occur, the medication should be stopped and the office notified. -Follow up in 4 months to reassess urinary symptoms. All questions/concerns were discussed. Pt. to call the office if heencounters any issues prior. Pt. acknowledges understanding. 3. Kidney stone (N20.0: Calculus of kidney) Dr. Colmenares ordered CT scan due to flank pain. CT AP w/o contrast 07/25/22 both kidneys contain a 1 mm nonobstructing stone. Unremarkable ureters. KUB 07/20/22 left pelvic calcification, distal ureterolith vs. vascular phlebolith. C/o severe bilateral flank pain, does not worsen with activity. Explained to pt that stones are not the cause of his pain. Could be musculoskeletal. 4. Peyronie disease (N48.6: Induration penis plastica) Per last visit, denies pain. Not sure if it would inhibit intercourse because his erections were not firm enough for penetration. Alice Castañeda PA-C recommended to address impotence and then reassess curvature. 5. ED (erectile dysfunction) (N52.9: Male erectile dysfunction, unspecified) Failed Viagra & Cialis in the past without significant improvement. Pt was interested in additional treatment at last visit. Trimix injections were ordered, appointment was scheduled to learn how to perform injections. Pt cancelled appointment and then no showed the following appointment. Follow-up With When Contact Information Gaetano BA MD, URL [address] [place], [place] [id number]- Additional Instructions: 4 months f/up to [facility] Patient Education Urinary Incontinence I, Nicole Gallegos, personally scribed for Dr. Ba on 08/03/2022 09:12:18. . Documentation recorded by the dc (more content not included)... Normal [facility] Comment on above: Result Comment: Elec tronically Signed By: Gaetano BA MD\.br\Date and Time Signed: 08/03/22 09:17 EDT\.br\Electronically Co-Signed By: Nicole Gallegos\.br\Date and Time Co-Signed: 08/03/22 09:[address] ABD/PELVIS WO CONon 07-25 CT ABD/PELVIS WO CON EXAMINATION: CT ABD/PELVIS WO CON HISTORY: Calculus ; chronic, intermittent bilateral flank pain COMPARISON: No relevant comparison available. TECHNIQUE: Axial, Coronal, and Sagittal images were obtained without and/or with IV contrast as indicated by examination type. Dose reduction techniques were achieved by using automated exposure control and/or adjustment of mA and/or kV according to patient size and/or use of iterative reconstruction technique. FINDINGS: LUNG BASES: No visible pulmonary or pleural disease. LIVER: No enlargement, atrophy, suspicious density, or significant focal lesion. BILIARY: No dilatation or calcification. PANCREAS: No lesion, fluid collection, or abnormal duct dilatation. SPLEEN: No enlargement or focal lesion. ADRENALS: No mass or enlargement. KIDNEYS: Both kidneys contain a 1 mm nonobstructing stone. Unremarkable ureters. BOWEL/MESENTERY: No visible mass, obstruction, or bowel wall thickening. AORTA/VASCULAR: Moderate atherosclerotic narrowing of the distal aorta and common iliac arteries. No aneurysm. RETROPERITONEUM: No mass or adenopathy. LYMPH NODES: No adenopathy. URINARY BLADDER: No visible focal wall thickening, lesion, or calculus. PELVIC ORGANS: No visible mass. Pelvic organs appropriate for patient age. ABDOMINAL WALL: No mass or hernia. BONES: L5-S1 marked disc space narrowing with prominent posterior disc bulging. OTHER: Negative. IMPRESSION: 1.Nonobstructing bilateral nephrolithiasis. 2.Moderate-marked atherosclerotic disease of the distal aorta and common iliac arteries. 3.L5-S1 marked degenerative disc disease. Electronically authenticated by: ELIUD ALANIZ Date: 2022-07-25 10:[address] [facility] XR KUB 1 VIEWon 07-21-2022 XR KUB 1 VIEW EXAMINATION: XR KUB 1 VIEW HISTORY: Abdominal pain COMPARISON: No relevant comparison available. FINDINGS: BOWEL GAS PATTERN: No abnormal dilation or deviation. Moderate stool throughout the colon CALCIFICATIONS: 5 mm left pelvic calcification OTHER: Negative. No abnormal gaseous collections. IMPRESSION: Left pelvic calcification, distal ureterolith versus vascular phlebolith Electronically authenticated by: SYLVESTER PARR Date: 2022-07-21 12:[address] [facility] CULTURE URINEon 02-10-2023 CULTURE URINE Culture Observations : NO GROWTH. Normal [facility] Comment on above: Performed By: #### C EA. #### [facility] [address] [place] [address] Dr. Adan Alexander UA RANDOM W/MICROSCOPICon BACTERIA NONE SEEN Normal NONE SEEN [facility] Comment on above: Performed By: #### U AMIC #### [facility] [address] [place] [address] Dr. Adan Alexander Bilirubin Ql (U) Negative Normal NEGATIVE [facility] Comment on above: Performed By: #### U AMIC #### [facility] [address] [place] [address] Dr. Adan Alexander CAST NONE SEEN Normal NONE SEEN [facility] Comment on above: Performed By: #### U AMIC #### [facility] [address] [place] [address] Dr. Adan Alexander Clarity (U) CLEAR Normal CLEAR [facility] Comment on above: Performed By: #### U AMIC #### [facility] [address] [place] [address] Dr. Adan Alexander Color (U) YELLOW Normal YELLOW [facility] Comment on above: Performed By: #### U AMIC #### [facility] [address] [place] [address] Dr. Adan Alexander Crystals LM Nom (Urine sed) NONE SEEN Normal NONE SEEN [facility] Comment on above: Performed By: #### U AMIC #### [facility] [address] [place] [address] Dr. Adan Alexander Epithelial cells LM Ql (Urine sed) RARE Normal NONE SEEN /RARE [facility] Comment on above: Performed By: #### U AMIC #### [facility] [address] [place] [address] Dr. Adan Alexander Glucose Ql (U) Negative Normal NEGATIVE [facility] Comment on above: Performed By: #### U AMIC #### [facility] [address] [place] [address] Dr. Adan Alexander Hemoglobin Ql (U) Negative Normal NEGATIVE [facility] Comment on above: Performed By: #### U AMIC #### [facility] [address] [address] [address] Adan Alexander Ketones Ql (U) TRACE Abnormal NEGATIVE [facility] Comment on above: Performed By: #### U AMIC #### [facility] [address] [address] [address] Adan Alexander LEUKOCYTES Negative Normal NEGATIVE [facility] Comment on above: Performed By: #### U AMIC #### [facility] [address] [address] [address] Adan Alexander MUCOUS NONE SEEN Normal NONE SEEN [facility] Comment on above: Performed By: #### U AMIC #### [facility] [address] [place] [address] Dr. Adan Alexander Nitrite Ql (U) Negative Normal NEGATIVE [facility] Comment on above: Performed By: #### U AMIC #### [facility] [address] [place] [address] Dr. Adan Alexander pH (U) 6.0 [pH] Normal 5-9 [facility] Comment on above: Performed By: #### U AMIC #### [facility] [address] [place] [address] Dr. Adan Alexander RBC 0-2 Normal 0-[address] [facility] Comment on above: Performed By: #### U AMIC #### [facility] [address] [place] [address] Dr. Adan Alexander SPEC GRAVITY 1.025 Normal 1.005-<=1.[address] [facility] Comment on above: Performed By: #### U AMIC #### [facility] [address] [place] [address] Dr. Adan Alexander UA PROTEIN Negative Normal NEGATIVE/ TRACE [facility] Comment on above: Performed By: #### U AMIC #### [facility] [address] [place] [address] Dr. Adan Alexander Urobilinogen Qn (U) 0.2 {Ofelia'U}/dL Normal 0.2 - 1.[address] [facility] Comment on above: Performed By: #### U AMIC #### [facility] [address] [place] [address] Dr. Adan Alexander WBC NONE SEEN Normal NONE SEEN [facility] Comment on above: Performed By: #### U AMIC #### [facility] [address] [place] [address] Dr. Adan Alexander XR RIBS LT PA Navdeep 3 XR RIBS LT PA CH EXAM: XR RIBS LT PA CH INDICATION: Chest wall pain. COMPARISON: None. TECHNIQUE: Left rib series with frontal view of the chest FINDINGS: No acute displaced rib fracture identified. No osseous lytic or blastic lesion. Normal cardiomediastinal contours. Clear lungs. No pleural effusion or pneumothorax. IMPRESSION: 1. Normal left rib series. 2. No acute cardiopulmonary process. Electronically authenticated by: YOLI KRUEGER Date: 2022-06-09 11:08 Normal [facility] CA 19-9on 03-27-2022 CA 19-9 9 U/mL Normal 0-35 [facility] Comment on above: Result Comment: [employer] Electrochemiluminescence Immunoassay (ECLIA) . Values obtained with different assay methods or kits cannot be used interchangeably. Results cannot be interpreted as absolute evidence of the presence or absence of malignant disease. Performed By: #### P SAFREE #### [facility] [address] [place] [address] Dr. Adan Alexander CEAon 03-27-2022 CEA 3.3 ng/mL Normal 0.0-4.7 [facility] Comment on above: Result Comment: Nons mokers <3.9 Smokers <5.6 . [employer] Electrochemiluminescence Immunoassay (ECLIA) . Values obtained with different assay methods or kits cannot be used interchangeably. Results cannot be interpreted as absolute evidence of the presence or absence of malignant disease. Performed By: #### C EA. #### [facility] [address] [place] [address] Dr. Adan Alexander INSULINon 03-27-2022 Insulin 7.3 uIU/mL Normal 2.6-24.9 [facility] Comment on above: Performed By: #### S EDR #### [facility] [address] [place] [address] Dr. Adan Alexander PSA, FREE AND TOTAL RATIOon 03-27-2022 % Free PSA 50.0 % Normal [facility] Comment on above: Result Comment: The table below lists the probability of prostate cancer for men with non-suspicious TEO results and total PSA between 4 and 10 ng/mL, by patient age (Caitlin et al, ROB 1998, 279:1542). % Free PSA 50-64 yr 65-75 yr 0.00-10.00% 56% 55% 10.01-15.00% 24% 35% 15.01-20.00% 17% 23% 20.01-25.00% 10% 20% >25.00% 5% 9% Please note: Caitlin et al did not make specific recommendations regarding the use of percent free PSA for any other population of men. Performed By: #### P SAFREE #### [facility] [address] [place] [address] Dr. Adan Alexander Prostate specific Ag [Mass/Vol] 0.4 ng/mL Normal 0.0-4.[address] [facility] Comment on above: Result Comment: [employer] ECLIA methodology. . According to the [employer] [employer], Serum PSA should decrease and remain at undetectable levels after radical prostatectomy. The AUA defines biochemical recurrence as an initial PSA value 0.2 ng/mL or greater followed by a subsequent confirmatory PSA value 0.2 ng/mL or greater. Values obtained with different assay methods or kits cannot be used interchangeably. Results cannot be interpreted as absolute evidence of the presence or absence of malignant disease. Performed By: #### P SAFREE #### [facility] [address] [place] [address] Dr. Adan Alexander PSA, Free 0.20 ng/mL Normal N/A [facility] Comment on above: Result Comment: Roch e ECLIA methodology. Performed By: #### P SAFREE #### [facility] [address] [place] [address] Dr. Adan Alexander CBC AUTO DIFFon 03-26-2022 BASO # 0.0 103/ul Normal 0.0-0.[address] [facility] Comment on above: Performed By: #### P SAFREE #### [facility] [address] [address] [address] Adan Alexander Basophils/100 WBC (Bld) 0.2 % Normal 0.2-2.0 [facility] Comment on above: Performed By: #### P SAFREE #### [facility] [address] [place] [address] Dr. Adan Alexander EO # 0.0 103/ul Normal 0.0-0.7 [facility] Comment on above: Performed By: #### P SAFREE #### [facility] [address] [place] [address] Dr. Adan Alexander Eosinophils/100 WBC (Bld) 0.0 % Critically low 0.9-7.0 [facility] Comment on above: Performed By: #### P SAFREE #### [facility] [address] [place] [address] Dr. Adan Alexander Erythrocyte distribution width (RBC) [Ratio] 12.1 % Normal 11.0-15.[address] [facility] Comment on above: Performed By: #### P SAFREE #### [facility] [address] [place] [address] Dr. Adan Alexander Hematocrit (Bld) [Volume fraction] 39.9 % Critically low 42.0-54.[address] [facility] Comment on above: Performed By: #### P SAFREE #### [facility] [address] [place] [address] Dr. Adan Alexander Hemoglobin (Bld) [Mass/Vol] 14.1 g/dL Normal 14.0-18.0 [facility] Comment on above: Performed By: #### P SAFREE #### [facility] [address] [place] [address] Dr. Adan Alexander IG # 0.02 10e3/ul Normal 0.00-0.03 [facility] Comment on above: Performed By: #### P SAFREE #### [facility] [address] [place] [address] Dr. Adan Alexander IG % 0.4 % Normal 0.0-0.5 [facility] Comment on above: Performed By: #### P SAFREE #### [facility] [address] [address] [address] Adan Alexander LYMPH # 1.7 103/ul Normal 1.2-3.8 [facility] Comment on above: Performed By: #### P SAFREE #### [facility] [address] [address] [address] Adan Alexander Lymphocytes/100 WBC (Bld) 32.1 % Normal 20.5-60.[address] [facility] Comment on above: Performed By: #### P SAFREE #### [facility] [address] [address] [address] Adan Alexander MANUAL DIFF REQ NO Normal [facility] Comment on above: Performed By: #### P SAFREE #### [facility] [address] [place] [address] Dr. Adan Alexander MCH (RBC) [Entitic mass] 34.2 pg Critically high 25.9-34.[address] [facility] Comment on above: Performed By: #### P SAFREE #### [facility] [address] [place] [address] Dr. Adan Alexander MCHC (RBC) [Mass/Vol] 35.3 g/dL Critically high 29.9-35.[address] [facility] Comment on above: Performed By: #### P SAFREE #### [facility] [address] [place] [address] Dr. Adan Alexander MCV (RBC) [Entitic vol] 96.8 fL Critically high 80.0-94.[address] [facility] Comment on above: Performed By: #### P SAFREE #### [facility] [address] [address] [address] Adan Alexander MONO # 0.4 103/ul Normal 0.3-0.8 [facility] Comment on above: Performed By: #### P SAFREE #### [facility] [address] [address] [address] Adan Alexander Monocytes/100 WBC (Bld) 8.1 % Normal 1.7-12.[address] [facility] Comment on above: Performed By: #### P SAFREE #### [facility] [address] [address] [address] Adan Alexander NEUT # 3.2 103/ul Normal 1.4-6.5 [facility] Comment on above: Performed By: #### P SAFREE #### [facility] [address] [address] [address] Adan Alexander Neutrophils/100 WBC (Bld) 59.2 % Normal 43.0-75.0 [facility] Comment on above: Performed By: #### P SAFREE #### [facility] [address] [address] [address] Adan Alexander Platelet mean volume (Bld) [Entitic vol] 10.7 fL Normal 9.5-13.5 [facility] Comment on above: Performed By: #### P SAFREE #### [facility] [address] [place] [address] Dr. Adan Alexander PLT 175 103/ul Normal 150-450 [facility] Comment on above: Performed By: #### P SAFREE #### [facility] [address] [place] [address] Dr. Adan Alexander RBC 4.12 106/ul Critically low 4.70-6.10 [facility] Comment on above: Performed By: #### P SAFREE #### [facility] [address] [place] [address] Dr. Adan Alexander WBC 5.4 103/ul Normal 4.0-11.0 [facility] Comment on above: Performed By: #### P SAFREE #### [facility] [address] [place] [address] Dr. Adan Alexander FREE THYROXINE INDEX T7on FTI 2.52 Normal 1.30-4.50 [facility] Comment on above: Performed By: #### S EDR #### [facility] [address] [place] [address] Dr. Adan Alexander T3U 30.0 % Critically low 33.0-40.[address] [facility] Comment on above: Performed By: #### S EDR #### [facility] [address] [address] [address] Adan Alexander T4 [Mass/Vol] 8.40 ug/dL Normal 4.50-12.10 [facility] Comment on above: Performed By: #### S EDR #### [facility] [address] [address] [address] Adan Alexander GLYCOHEMOGLOBIN A1Con 2021 ADA RECOMMENDATION SEE BELOW Normal [facility] Comment on above: Result Comment: ADA RECOMMENDED LIMIT 4.0 - 6.0 ADA THERAPEUTIC TARGET < 7.0 ACTION SUGGESTED > 7.0 Performed By: #### A 1C #### [facility] [address] [address] [address] Adan Alexander Glucose [Mass/Vol] 105 mg/dL Normal [facility] Comment on above: Performed By: #### A 1C #### [facility] [address] [place] [address] Dr. Adan Alexander HbA1c (Bld) [Mass fraction] 5.3 % Normal 4.5-6.[address] [facility] Comment on above: Performed By: #### A 1C #### [facility] [address] [address] [address] Adan Alexander IRONon 03-26-2022 Iron [Mass/Vol] 67.0 ug/dL Normal 65.0-175.0 [facility] Comment on above: Performed By: #### C EA. #### [facility] [address] [place] [address] Dr. Adan Alexander LIPID PROFILEon 03-26-2022 CHOL-HDL RATIO NORM SEE BELOW Normal [facility] Comment on above: Result Comment: 3.3 - 4.4 LOW RISK 4.4 - 7.1 AVERAGE RISK 7.1 - 11.0 MODERATE RISK >11.0 HIGH RISK Performed By: #### S EDR #### [facility] [address] [place] [address] Dr. Adan Alexander Cholesterol [Mass/Vol] 189 mg/dL Normal <=200 [facility] Comment on above: Performed By: #### S EDR #### [facility] [address] [address] [address] Adan Alexander Cholesterol in HDL [Mass/Vol] 53 mg/dL Normal 40-60 [facility] Comment on above: Performed By: #### S EDR #### [facility] [address] [address] [address] Adan Alexander Cholesterol in LDL [Mass/Vol] 119.2 mg/dL Normal [facility] Comment on above: Performed By: #### S EDR #### [facility] [address] [address] [address] Adan Alexander Cholesterol.total/ Cholesterol in HDL [Mass ratio] 3.6 {ratio} Normal [facility] Comment on above: Performed By: #### S EDR #### [facility] [address] [address] [address] Adan Alexander HDL NORMAL > or = 60 mg/dl - LO W CARDIOVASCULAR RISK <40 mg/dl - HIGH CARDIOVASCULAR RISK Normal [facility] Comment on above: Performed By: #### S EDR #### [facility] [address] [address] [address] Adan Alexander LDL CALC NORMAL SEE BELOW Normal [facility] Comment on above: Result Comment: <100 mg/dl OPTIMAL 100 - 129 mg/dl NEAR OR ABOVE OPTIMAL 130 - 159 mg/dl BORDERLINE HIGH 160 - 189 mg/dl HIGH >190 mg/dl VERY HIGH Performed By: #### S EDR #### [facility] [address] [address] [address] Adan Alexander Triglyceride [Mass/Vol] 84 mg/dL Normal <=150 [facility] Comment on above: Performed By: #### S EDR #### [facility] [address] [address] [address] Adan Alexander VLDL CALC 16.8 mg/dL Normal [facility] Comment on above: Performed By: #### S EDR #### [facility] [address] [address] [address] Adan Alexander MAGNESIUMon 03-26-2022 Magnesium [Mass/Vol] 2.2 mg/dL Normal 1.8-2.[address] [facility] Comment on above: Performed By: #### C EA. #### [facility] [address] [place] [address] Dr. Adan Alexander PHOSPHORUSon 03-26-2022 Phosphate [Mass/Vol] 3.1 mg/dL Normal 2.6-4.[address] [facility] Comment on above: Performed By: #### C EA. #### [facility] [address] [place] [address] Dr. Adan Alexander PROF 14(COMP METB)on 022 Albumin [Mass/Vol] 4.0 g/dL Normal 3.4-5.0 [facility] Comment on above: Performed By: #### C EA. #### [facility] [address] [place] [address] Dr. Adan Alexander Albumin/Globulin [Mass ratio] 1.1 {ratio} Normal [facility] Comment on above: Performed By: #### C EA. #### [facility] [address] [place] [address] Dr. Adan Alexander ALP [Catalytic activity/Vol] 131 U/L Critically high 46-[address] [facility] Comment on above: Performed By: #### C EA. #### [facility] [address] [place] [address] Dr. Adan Alexander ALT [Catalytic activity/Vol] 21 U/L Normal 16-[address] [facility] Comment on above: Performed By: #### C EA. #### [facility] [address] [place] [address] Dr. Adan Alexander Anion gap [Moles/Vol] 4.8 mmol/L Normal [facility] Comment on above: Performed By: #### C EA. #### [facility] [address] [place] [address] Dr. Adan Alexander AST [Catalytic activity/Vol] 16 U/L Normal 15-37 [facility] Comment on above: Performed By: #### C EA. #### [facility] [address] [place] [address] Dr. Adan Alexander Bilirubin [Mass/Vol] 0.3 mg/dL Normal 0.2-1.[address] [facility] Comment on above: Performed By: #### C EA. #### [facility] [address] [place] [address] Dr. Adan Alexander Calcium [Mass/Vol] 9.8 mg/dL Normal 8.5-10.1 [facility] Comment on above: Performed By: #### C EA. #### [facility] [address] [place] [address] Dr. Adan Alexander Chloride [Moles/Vol] 100 mmol/L Normal 98-[address] [facility] Comment on above: Performed By: #### C EA. #### [facility] [address] [place] [address] Dr. Adan Alexander CO2 [Moles/Vol] 32.5 mmol/L Critically high 21.0-32.[address] [facility] Comment on above: Performed By: #### C EA. #### [facility] [address] [place] [address] Dr. Adan Alexander Creatinine [Mass/Vol] 0.90 mg/dL Normal 0.70-1.[address] [facility] Comment on above: Performed By: #### C EA. #### [facility] [address] [place] [address] Dr. Adan Alexander EGFR-AF LAO >60 Normal >=60 [facility] Comment on above: Performed By: #### C EA. #### [facility] [address] [place] [address] Dr. Adan Alexander EGFR-NON AF LAO >60 Normal >=60 [facility] Comment on above: Performed By: #### C EA. #### [facility] [address] [place] [address] Dr. Adan Alexander Globulin (S) [Mass/Vol] 3.5 g/dL Normal [facility] Comment on above: Performed By: #### C EA. #### [facility] [address] [place] [address] Dr. Adan Alexander Glucose [Mass/Vol] 97 mg/dL Normal 74-106 [facility] Comment on above: Performed By: #### C EA. #### [facility] [address] [address] [address] Adan Alexander Potassium [Moles/Vol] 4.3 mmol/L Normal 3.5-5.[address] [facility] Comment on above: Performed By: #### C EA. #### [facility] [address] [address] [address] Adan Alexander Protein [Mass/Vol] 7.5 g/dL Normal 6.4-8.2 [facility] Comment on above: Performed By: #### C EA. #### [facility] [address] [address] [address] Adan Alexander Sodium [Moles/Vol] 133 mmol/L Critically low 136-145 [facility] Comment on above: Performed By: #### C EA. #### [facility] [address] [address] [address] Adan Alexander Urea nitrogen [Mass/Vol] 10.0 mg/dL Normal 7.0-18.[address] [facility] Comment on above: Performed By: #### C EA. #### [facility] [address] [address] [address] Adan Alexander Urea nitrogen/Creatinin e [Mass ratio] 11.1 mg/mg Normal [facility] Comment on above: Performed By: #### C EA. #### [facility] [address] [place] [address] Dr. Adan Alexander TSHon 03-26-2022 TSH 1.066 uIU/mL Normal 0.358-3.740 [facility] Comment on above: Performed By: #### S EDR #### [facility] [address] [place] [address] Dr. Adan Alexander XR SHOULDER LT 2V or >on XR SHOULDER LT 2V or > EXAMINATION: XR SHOULDER LT 2V or >, 02/04/2022 10:31 AM CDT INDICATION: Impingement syndrome of shoulder region COMPARISON(S): None available. FINDINGS: Normal bone mineralization. Normal alignment. No fracture. Joint spaces are preserved. Acromion is type II. No soft tissue swelling. The visualized portions of the chest are clear. Degenerative changes of the imaged spine. IMPRESSION: No acute osseous findings. Electronically authenticated by: FARNAZ FRANK Date: 2022-02-04 11:32 Normal [facility] CBC AUTO DIFFon 12-16-2021 BASO # 0.0 103/ul Normal 0.0-0.1 [facility] Comment on above: Performed By: #### C BC #### [facility] [address] [address] [address] Adan Alexander Basophils/100 WBC (Bld) 0.2 % Normal 0.2-2.[address] [facility] Comment on above: Performed By: #### C BC #### [facility] [address] [place] [address] Dr. Adan Alexander EO # 0.0 103/ul Normal 0.0-0.[address] [facility] Comment on above: Performed By: #### C BC #### [facility] [address] [address] [address] Adan Alexander Eosinophils/100 WBC (Bld) 0.2 % Critically low 0.9-7.[address] [facility] Comment on above: Performed By: #### C BC #### [facility] [address] [place] [address] Dr. Adan Alexander Erythrocyte distribution width (RBC) [Ratio] 12.7 % Normal 11.0-15.[address] [facility] Comment on above: Performed By: #### C BC #### [facility] [address] [address] [address] Adan Alexander Hematocrit (Bld) [Volume fraction] 39.3 % Critically low 42.0-54.[address] [facility] Comment on above: Performed By: #### C BC #### [facility] [address] [place] [address] Dr. Adan Alexander Hemoglobin (Bld) [Mass/Vol] 13.7 g/dL Critically low 14.0-18.[address] [facility] Comment on above: Performed By: #### C BC #### [facility] [address] [place] [address] Dr. Adan Alexander IG # 0.01 10e3/ul Normal 0.00-0.[address] [facility] Comment on above: Performed By: #### C BC #### [facility] [address] [place] [address] Dr. Adan Alexander IG % 0.2 % Normal 0.0-0.[address] [facility] Comment on above: Performed By: #### C BC #### [facility] [address] [place] [address] Dr. Adan Alexander LYMPH # 1.6 103/ul Normal 1.2-3.[address] [facility] Comment on above: Performed By: #### C BC #### [facility] [address] [place] [address] Dr. Adan Alexander Lymphocytes/100 WBC (Bld) 24.9 % Normal 20.5-60.[address] [facility] Comment on above: Performed By: #### C BC #### [facility] [address] [place] [address] Dr. Adan Alexander MANUAL DIFF REQ NO Normal [facility] Comment on above: Performed By: #### C BC #### [facility] [address] [place] [address] Dr. Adan Alexander MCH (RBC) [Entitic mass] 33.3 pg Normal 25.9-34.[address] [facility] Comment on above: Performed By: #### C BC #### [facility] [address] [place] [address] Dr. Adan Alexander MCHC (RBC) [Mass/Vol] 34.9 g/dL Normal 29.9-35.[address] [facility] Comment on above: Performed By: #### C BC #### [facility] [address] [place] [address] Dr. Adan Alexander MCV (RBC) [Entitic vol] 95.6 fL Critically high 80.0-94.[address] [facility] Comment on above: Performed By: #### C BC #### [facility] [address] [place] [address] Dr. Adan Alexander MONO # 0.4 103/ul Normal 0.3-0.8 [facility] Comment on above: Performed By: #### C BC #### [facility] [address] [place] [address] Dr. Adan Alexander Monocytes/100 WBC (Bld) 6.7 % Normal 1.7-12.0 [facility] Comment on above: Performed By: #### C BC #### [facility] [address] [place] [address] Dr. Adan Alexander NEUT # 4.3 103/ul Normal 1.4-6.5 [facility] Comment on above: Performed By: #### C BC #### [facility] [address] [place] [address] Dr. Adan Alexander Neutrophils/100 WBC (Bld) 67.8 % Normal 43.0-75.0 [facility] Comment on above: Performed By: #### C BC #### [facility] [address] [place] [address] Dr. Adan Alexander Platelet mean volume (Bld) [Entitic vol] 10.8 fL Normal 9.5-13.5 [facility] Comment on above: Performed By: #### C BC #### [facility] [address] [place] [address] Dr. Adan Alexander PLT 157 103/ul Normal 150-450 [facility] Comment on above: Performed By: #### C BC #### [facility] [address] [place] [address] Dr. Adan Alexander RBC 4.11 106/ul Critically low 4.70-6.10 [facility] Comment on above: Performed By: #### C BC #### [facility] [address] [place] [address] Dr. Adan Alexander WBC 6.3 103/ul Normal 4.0-11.0 [facility] Comment on above: Performed By: #### C BC #### [facility] [address] [place] [address] Dr. Adan Alexander CRPon 12-16-2021 CRP 2.3 mg/dL Critically high <=1.0 [facility] Comment on above: Performed By: #### P SAFREE #### [facility] [address] [place] [address] Dr. Adan Alexander LACTATE/LACTIC ACIDon 2021 Lactate [Moles/Vol] 0.9 mmol/L Normal 0.4-1.[address] [facility] Comment on above: Performed By: #### L ACT #### [facility] [address] [place] [address] Dr. Adan Alexander PROF 14(COMP METB)on 022 Albumin [Mass/Vol] 3.6 g/dL Normal 3.4-5.0 [facility] Comment on above: Performed By: #### P SAFREE #### [facility] [address] [place] [address] Dr. Adan Alexander Albumin/Globulin [Mass ratio] 1.0 {ratio} Normal [facility] Comment on above: Performed By: #### P SAFREE #### [facility] [address] [place] [address] Dr. Adan Alexander ALP [Catalytic activity/Vol] 123 U/L Critically high 46-[address] [facility] Comment on above: Performed By: #### P SAFREE #### [facility] [address] [place] [address] Dr. Adan Alexander ALT [Catalytic activity/Vol] 28 U/L Normal 16-[address] [facility] Comment on above: Performed By: #### P SAFREE #### [facility] [address] [place] [address] Dr. Adan Alexander Anion gap [Moles/Vol] 11.3 mmol/L Normal [facility] Comment on above: Performed By: #### P SAFREE #### [facility] [address] [place] [address] Dr. Adan Alexander AST [Catalytic activity/Vol] 18 U/L Normal 15-[address] [facility] Comment on above: Performed By: #### P SAFREE #### [facility] [address] [place] [address] Dr. Adan Alexander Bilirubin [Mass/Vol] 0.6 mg/dL Normal 0.2-1.[address] [facility] Comment on above: Performed By: #### P SAFREE #### [facility] [address] [place] [address] Dr. Adan Alexander Calcium [Mass/Vol] 9.3 mg/dL Normal 8.5-10.1 [facility] Comment on above: Performed By: #### P SAFREE #### [facility] [address] [address] [address] Adan Alexander Chloride [Moles/Vol] 102 mmol/L Normal 98-[address] [facility] Comment on above: Performed By: #### P SAFREE #### [facility] [address] [place] [address] Dr. Adan Alexander CO2 [Moles/Vol] 30.0 mmol/L Normal 21.0-32.0 [facility] Comment on above: Performed By: #### P SAFREE #### [facility] [address] [place] [address] Dr. Adan Alexander Creatinine [Mass/Vol] 1.03 mg/dL Normal 0.70-1.[address] [facility] Comment on above: Performed By: #### P SAFREE #### [facility] [address] [place] [address] Dr. Adan Alexander EGFR-AF LAO >60 Normal >=[address] [facility] Comment on above: Performed By: #### P SAFREE #### [facility] [address] [place] [address] Dr. Adan Alexander EGFR-NON AF LAO >60 Normal >=[address] [facility] Comment on above: Performed By: #### P SAFREE #### [facility] [address] [address] [address] Adan Alexander Globulin (S) [Mass/Vol] 3.7 g/dL Normal [facility] Comment on above: Performed By: #### P SAFREE #### [facility] [address] [place] [address] Dr. Adan Alexander Glucose [Mass/Vol] 94 mg/dL Normal 74-106 [facility] Comment on above: Performed By: #### P SAFREE #### [facility] [address] [address] [address] Adan Alexander Potassium [Moles/Vol] 3.3 mmol/L Critically low 3.5-5.[address] [facility] Comment on above: Performed By: #### P SAFREE #### [facility] [address] [address] [address] Adan Alexander Protein [Mass/Vol] 7.3 g/dL Normal 6.4-8.2 [facility] Comment on above: Performed By: #### P SAFREE #### [facility] [address] [address] [address] Adan Alexander Sodium [Moles/Vol] 140 mmol/L Normal 136-145 [facility] Comment on above: Performed By: #### P SAFREE #### [facility] [address] [address] [address] Adan Alexander Urea nitrogen [Mass/Vol] 9.0 mg/dL Normal 7.0-18.[address] [facility] Comment on above: Performed By: #### P SAFREE #### [facility] [address] [address] [address] Adan Alexander Urea nitrogen/Creatinin e [Mass ratio] 8.7 mg/mg Normal [facility] Comment on above: Performed By: #### P SAFREE #### [facility] [address] [address] [address] Adan Alexander SED RATE WESTERGRENon 2021 SED RATE 27 mm/hr Critically high <=20 [facility] Comment on above: Performed By: #### S EDR #### [facility] [address] [address] [address] Adan Alexander URIC ACID SERUMon 12-16-2021 Urate [Mass/Vol] 7.1 mg/dL Normal 3.5-7.2 [facility] Comment on above: Performed By: #### P SAFREE #### [facility] [address] [place] [address] Dr. Adan Alexander CA 19-9on 12-14-2021 CA 19-9 7 U/mL Normal 0-[address] [facility] Comment on above: Result Comment: [employer] Electrochemiluminescence Immunoassay (ECLIA) . Values obtained with different assay methods or kits cannot be used interchangeably. Results cannot be interpreted as absolute evidence of the presence or absence of malignant disease. Performed By: #### S EDR #### [facility] [address] [place] [address] Dr. Adan Alexander CEAon 12-14-2021 CEA 2.9 ng/mL Normal 0.0-4.7 [facility] Comment on above: Result Comment: Nons mokers <3.9 Smokers <5.6 . [facility] [employer] Electrochemiluminescence Immunoassay (ECLIA) . Values obtained with different assay methods or kits cannot be used interchangeably. Results cannot be interpreted as absolute evidence of the presence or absence of malignant disease. Performed By: #### C EA. #### [facility] [address] [place] [address] Dr. Adan Alexander INSULINon 12-14-2021 Insulin 5.2 uIU/mL Normal 2.6-24.[address] [facility] Comment on above: Performed By: #### C EA. #### [facility] [address] [place] [address] Dr. Adan Alexander AMYLASEon 12-13-2021 Amylase [Catalytic activity/Vol] 52 U/L Normal 25-[address] [facility] Comment on above: Performed By: #### S EDR #### [facility] [address] [place] [address] Dr. Adan Alexander CBC AUTO DIFFon 12-13-2021 BASO # 0.0 103/ul Normal 0.0-0.[address] [facility] Comment on above: Performed By: #### C BC #### [facility] [address] [place] [address] Dr. Adan Alexander Basophils/100 WBC (Bld) 0.3 % Normal 0.2-2.[address] [facility] Comment on above: Performed By: #### C BC #### [facility] [address] [place] [address] Dr. Adan Alexander EO # 0.0 103/ul Normal 0.0-0.7 [facility] Comment on above: Performed By: #### C BC #### [facility] [address] [place] [address] Dr. Adan Alexander Eosinophils/100 WBC (Bld) 0.2 % Critically low 0.9-7.[address] [facility] Comment on above: Performed By: #### C BC #### [facility] [address] [place] [address] Dr. Adan Alexander Erythrocyte distribution width (RBC) [Ratio] 12.7 % Normal 11.0-15.[address] [facility] Comment on above: Performed By: #### C BC #### [facility] [address] [place] [address] Dr. Adan Alexander Hematocrit (Bld) [Volume fraction] 41.5 % Critically low 42.0-54.[address] [facility] Comment on above: Performed By: #### C BC #### [facility] [address] [place] [address] Dr. Adan Alexander Hemoglobin (Bld) [Mass/Vol] 14.4 g/dL Normal 14.0-18.[address] [facility] Comment on above: Performed By: #### C BC #### [facility] [address] [place] [address] Dr. Adan Alexander IG # 0.01 10e3/ul Normal 0.00-0.[address] [facility] Comment on above: Performed By: #### C BC #### [facility] [address] [place] [address] Dr. Adan Alexander IG % 0.2 % Normal 0.0-0.5 [facility] Comment on above: Performed By: #### C BC #### [facility] [address] [place] [address] Dr. Adan Alexander LYMPH # 1.4 103/ul Normal 1.2-3.8 [facility] Comment on above: Performed By: #### C BC #### [facility] [address] [place] [address] Dr. Adan Alexander Lymphocytes/100 WBC (Bld) 21.6 % Normal 20.5-60.[address] [facility] Comment on above: Performed By: #### C BC #### [facility] [address] [place] [address] Dr. Adan Alexander MANUAL DIFF REQ NO Normal [facility] Comment on above: Performed By: #### C BC #### [facility] [address] [place] [address] Dr. Adan Alexander MCH (RBC) [Entitic mass] 33.1 pg Normal 25.9-34.[address] [facility] Comment on above: Performed By: #### C BC #### [facility] [address] [place] [address] Dr. Adan Alexander MCHC (RBC) [Mass/Vol] 34.7 g/dL Normal 29.9-35.[address] [facility] Comment on above: Performed By: #### C BC #### [facility] [address] [place] [address] Dr. Adan Alexander MCV (RBC) [Entitic vol] 95.4 fL Critically high 80.0-94.[address] [facility] Comment on above: Performed By: #### C BC #### [facility] [address] [place] [address] Dr. Adan Alexander MONO # 0.5 103/ul Normal 0.3-0.[address] [facility] Comment on above: Performed By: #### C BC #### [facility] [address] [place] [address] Dr. Adan Alexander Monocytes/100 WBC (Bld) 8.1 % Normal 1.7-12.[address] [facility] Comment on above: Performed By: #### C BC #### [facility] [address] [place] [address] Dr. Adan Alexander NEUT # 4.6 103/ul Normal 1.4-6.[address] [facility] Comment on above: Performed By: #### C BC #### [facility] [address] [place] [address] Dr. Adan Alexander Neutrophils/100 WBC (Bld) 69.6 % Normal 43.0-75.[address] [facility] Comment on above: Performed By: #### C BC #### [facility] [address] [address] [address] Adan Alexander Platelet mean volume (Bld) [Entitic vol] 11.2 fL Normal 9.5-13.[address] [facility] Comment on above: Performed By: #### C BC #### [facility] [address] [address] [address] Adan Alexander PLT 169 103/ul Normal 150-[address] [facility] Comment on above: Performed By: #### C BC #### [facility] [address] [address] [address] Adan Alexander RBC 4.35 106/ul Critically low 4.70-6.10 [facility] Comment on above: Performed By: #### C BC #### [facility] [address] [place] [address] Dr. Adan Alexander WBC 6.5 103/ul Normal 4.0-11.[address] [facility] Comment on above: Performed By: #### C BC #### [facility] [address] [address] [address] Adan Alexander FREE THYROXINE INDEX T7on FTI 3.23 Normal 1.30-4.[address] [facility] Comment on above: Performed By: #### S EDR #### [facility] [address] [place] [address] Dr. Adan Alexander T3U 34.0 % Normal 33.0-40.[address] [facility] Comment on above: Performed By: #### S EDR #### [facility] [address] [address] [address] Adan Alexander T4 [Mass/Vol] 9.50 ug/dL Normal 4.50-12.10 [facility] Comment on above: Performed By: #### S EDR #### [facility] [address] [place] [address] Dr. Adan Alexander GLYCOHEMOGLOBIN A1Con 2021 ADA RECOMMENDATION SEE BELOW Normal [facility] Comment on above: Result Comment: ADA RECOMMENDED LIMIT 4.0 - 6.0 ADA THERAPEUTIC TARGET < 7.0 ACTION SUGGESTED > 7.0 Performed By: #### P SAFREE #### [facility] [address] [place] [address] Dr. Adan Alexander Glucose [Mass/Vol] 94 mg/dL Normal [facility] Comment on above: Performed By: #### P SAFREE #### [facility] [address] [place] [address] Dr. Adan Alexander HbA1c (Bld) [Mass fraction] 4.9 % Normal 4.5-6.2 [facility] Comment on above: Performed By: #### P SAFREE #### [facility] [address] [place] [address] Dr. Adan Alexander IRONon 12-13-2021 Iron [Mass/Vol] 74.0 ug/dL Normal 65.0-175.0 [facility] Comment on above: Performed By: #### I CHAVO #### [facility] [address] [place] [address] Dr. Adan Alexander LIPASEon 12-13-2021 Lipase [Catalytic activity/Vol] 114.0 U/L Normal 73.0-393.[address] [facility] Comment on above: Performed By: #### P SAFREE #### [facility] [address] [place] [address] Dr. Adan Alexander LIPID PROFILEon 12-13-2021 CHOL-HDL RATIO NORM SEE BELOW Normal [facility] Comment on above: Result Comment: 3.3 - 4.4 LOW RISK 4.4 - 7.1 AVERAGE RISK 7.1 - 11.0 MODERATE RISK >11.0 HIGH RISK Performed By: #### S EDR #### [facility] [address] [place] [address] Dr. Adan Alexander Cholesterol [Mass/Vol] 115 mg/dL Normal <=200 [facility] Comment on above: Performed By: #### S EDR #### [facility] [address] [place] [address] Dr. Adan Alexander Cholesterol in HDL [Mass/Vol] 50 mg/dL Normal 40-[address] [facility] Comment on above: Performed By: #### S EDR #### [facility] [address] [address] [address] Adan Alexander Cholesterol in LDL [Mass/Vol] 48.0 mg/dL Normal [facility] Comment on above: Performed By: #### S EDR #### [facility] [address] [address] [address] Adan Alexander Cholesterol.total/ Cholesterol in HDL [Mass ratio] 2.3 {ratio} Normal [facility] Comment on above: Performed By: #### S EDR #### [facility] [address] [address] [address] Adan Alexander HDL NORMAL > or = 60 mg/dl - LO W CARDIOVASCULAR RISK <40 mg/dl - HIGH CARDIOVASCULAR RISK Normal [facility] Comment on above: Performed By: #### S EDR #### [facility] [address] [address] [address] Adan Alexander LDL CALC NORMAL SEE BELOW Normal [facility] Comment on above: Result Comment: <100 mg/dl OPTIMAL 100 - 129 mg/dl NEAR OR ABOVE OPTIMAL 130 - 159 mg/dl BORDERLINE HIGH 160 - 189 mg/dl HIGH >190 mg/dl VERY HIGH Performed By: #### S EDR #### [facility] [address] [address] [address] Adan Alexander Triglyceride [Mass/Vol] 85 mg/dL Normal <=[address] [facility] Comment on above: Performed By: #### S EDR #### [facility] [address] [address] [address] Adan Alexander VLDL CALC 17.0 mg/dL Normal [facility] Comment on above: Performed By: #### S EDR #### [facility] [address] [address] [address] Adan Alexander PROF 14(COMP METB)on 022 Albumin [Mass/Vol] 4.0 g/dL Normal 3.4-5.0 [facility] Comment on above: Performed By: #### S EDR #### [facility] [address] [place] [address] Dr. Adan Alexander Albumin/Globulin [Mass ratio] 1.1 {ratio} Normal [facility] Comment on above: Performed By: #### S EDR #### [facility] [address] [place] [address] Dr. Adan Alexander ALP [Catalytic activity/Vol] 127 U/L Critically high 46-[address] [facility] Comment on above: Performed By: #### S EDR #### [facility] [address] [place] [address] Dr. Adan Alexander ALT [Catalytic activity/Vol] 28 U/L Normal 16-[address] [facility] Comment on above: Performed By: #### S EDR #### [facility] [address] [place] [address] Dr. Adan Alexander Anion gap [Moles/Vol] 15.6 mmol/L Normal [facility] Comment on above: Performed By: #### S EDR #### [facility] [address] [place] [address] Dr. Adan Alexander AST [Catalytic activity/Vol] 22 U/L Normal 15-[address] [facility] Comment on above: Performed By: #### S EDR #### [facility] [address] [place] [address] Dr. Adan Alexander Bilirubin [Mass/Vol] 0.6 mg/dL Normal 0.2-1.[address] [facility] Comment on above: Performed By: #### S EDR #### [facility] [address] [address] [address] Adan Alexander Calcium [Mass/Vol] 9.6 mg/dL Normal 8.5-10.1 [facility] Comment on above: Performed By: #### S EDR #### [facility] [address] [place] [address] Dr. Adan Alexander Chloride [Moles/Vol] 102 mmol/L Normal 98-[address] [facility] Comment on above: Performed By: #### S EDR #### [facility] [address] [place] [address] Dr. Adan Alexander CO2 [Moles/Vol] 27.6 mmol/L Normal 21.0-32.[address] [facility] Comment on above: Performed By: #### S EDR #### [facility] [address] [place] [address] Dr. Adan Alexander Creatinine [Mass/Vol] 0.87 mg/dL Normal 0.70-1.30 [facility] Comment on above: Performed By: #### S EDR #### [facility] [address] [address] [address] Adan Alexander EGFR-AF LAO >60 Normal >=[address] [facility] Comment on above: Performed By: #### S EDR #### [facility] [address] [place] [address] Dr. Adan Alexander EGFR-NON AF LAO >60 Normal >=[address] [facility] Comment on above: Performed By: #### S EDR #### [facility] [address] [place] [address] Dr. Adan Alexander Globulin (S) [Mass/Vol] 3.7 g/dL Normal [facility] Comment on above: Performed By: #### S EDR #### [facility] [address] [place] [address] Dr. Adan Alexander Glucose [Mass/Vol] 101 mg/dL Normal 74-106 [facility] Comment on above: Performed By: #### S EDR #### [facility] [address] [place] [address] Dr. Adan Alexander Potassium [Moles/Vol] 3.2 mmol/L Critically low 3.5-5.1 [facility] Comment on above: Performed By: #### S EDR #### [facility] [address] [place] [address] Dr. Adan Alexander Protein [Mass/Vol] 7.7 g/dL Normal 6.4-8.2 [facility] Comment on above: Performed By: #### S EDR #### [facility] [address] [place] [address] Dr. Adan Alexander Sodium [Moles/Vol] 142 mmol/L Normal 136-145 [facility] Comment on above: Performed By: #### S EDR #### [facility] [address] [address] [address] Adan Alexander Urea nitrogen [Mass/Vol] 12.0 mg/dL Normal 7.0-18.[address] [facility] Comment on above: Performed By: #### S EDR #### [facility] [address] [address] [address] Adan Alexander Urea nitrogen/Creatinin e [Mass ratio] 13.8 mg/mg Normal [facility] Comment on above: Performed By: #### S EDR #### [facility] [address] [place] [address] Dr. Adan Alexander TSHon 12-13-2021 TSH 2.388 uIU/mL Normal 0.358-3.740 [facility] Comment on above: Performed By: #### S EDR #### [facility] [address] [place] [address] Dr. Adan Alexander Coding Summaryon 11-27-2021 Coding Summary [employer] 64 IbxikqfbOSn8hUy+PGhlYWQ+PE 1KQCBlX47boXUmrA7UH8dKHG3S IIRBYNTOJA2EAE4bcEP8IPgnQ3 VybiAv KuujeFLdZS92OHg3LVU5lKqiRJ gvrA9fdESdY8g8LdPeLB23iV02 OQkvZAMdEzI2VgLetvfwnWPt A7osHgKxqXYvQlq+PHRhYmxlIH clFYGxZPbwHIUkMrQyeNlrYH9t Rp2lACQkCXCkgVujhXSfHlLa b3yzNHHqSOkvXL7gxZekQ7SqvJ E5XJRji9c1Xe30vKP+PHRkIHN0 rAaoQSbyw059MbYib4thTQK8 lPXnTWauZBV3Y93ry1I2EKWvHQ FrKJN2eLB0lT2wsZinwasgR7Fs xSTdYoC8OIO0gOFyhG8lfObl dmgfnY9rFjl+Z03XHG2JVVGXFN 7NPii0T1TyHdxqpGL+OT51ZSKb OP00lKKfeLNxd0ipnTm2RgFu FSQdMUL8pTmbBQynd9ElERWaL7 2tsEEbk0F7CCOpyReatWDoJkKh dWA7bD5aIKilqrlgh5txfbao Nxokb8idok75dZ32N43oSKqdVR SgJPE2OZFoWLXfhCpnfy8emD7i Ii8+KVtkz4okx8stpSh2VsTr YTVmrqKfwXseTXK3v0CvBh84P3 UuhSktc1ElXyt4ug61eTIen3H9 tGB1PQoaTYSutY7hCFuzVeK2 JYNlVhLqqK60vKNsHKmxNw9zdL vhvHacFM1vFOPshiybAYPvsD0z LDJhsXYmcGldAR6jCZGopsnd u158JnYrXGD4WHOqxOUvY6UgsL 3dDbGvUZMzVCTaA8UhnYAzWJvx H925SEusItH6KGMvkwOpL4Cb OZOvmVpoMzM3u3T4Kg1Qd9Nvzn peFVL6KMvfRYF9QzElAsHlRiS2 S8EwMxt7YAXzrGagHH1jB2Sc MFGobepkqqtnsLR4UBYhPFRlyD 13kVJbBVcyBw4wa5X1g487DCKr TNZhhL71Dh4enKefZWXncLQE eT6jpyfkj3jiqptsSwOmAIRiIB h5IRi6PMMgfGpjGrSqSUC2ZvB5 HAI7cTXfbW4xyAqpequsrD6z Oyc+D89vwU8eRTX4XEK7krqjVZ IihsEuJH17NJ59M8YgRmtviGQs bGU+WSFsgoSxrHaeDF6uVgUv j4tte9WvNBgeA6SePRHvSFnjZl a1WMXdFOO3ePF0tF6kXYAeZLxp d2B4yTM5J1MbvlTcug4nl2fz RLWqJMotJ03ceOJre6R7KLZacC C3NEGqaGkkNkYclS56Vcq+PGNv tPtzq8ZbWfhtr2ijb1uweDn1 QrSqJUTsldGvsTwvHXN3g8GaKc 70Y11tAIxuZETxIJGvLRWtTYGz mEjueh5phH1hNf6+PGNvbCB3 ePB0uN9zUDVhZfA8RSgzG964Df LgsDWzFsprr1cgl6wpoAg9HxVe JNOsfbTgbBqfQKT2m2MvTc58 S71lDIznRTGnJYTvHRPbJRPjzA mvzn4wrB1lSt9+BK2sa2hnsl96 hL24iAD+SGMxHYZ8iMjuZBhn JLNnqD5qUGtqXjH9XPAhFtXhwP 32yYDfPKvlEd9dpDktnEewKK3f YKHmnhbmt365WlQpq0olYFBq hOUlADdrEAR7T91nx3I0YOGoIP SzKWG4wIN5dE5zzBbtbgkpkIAf xVbarvGppFxnVBqkHDknK008 IHRvcDsnPlBhdGllbnQgTmFtZT w2S4DnKdx3GHCggBsfZS9ufGFv WVluNg0kjWwjtCdlNU1yKVYo txpxq331TkUfh6krTAGhpLSjAK xnFVN0W11lh2D6JISaAAQyKJB0 aUX4aD2qoXktdhhflFJlbMno jrGlvQuiMNiiETrgK472RUSzyG oqLvAxkpIoKXUttCA3OC58PE24 dQDeg4F5vBR0Y5UhSOGbrehq bpkdmQX1NGWjAXRosC34Sz3biO goMw1rBHXbXCQ3JBJwbGNxW9Gn uB3ePeXyLQOxALTsF1OviRJv URvxX663QGokIjH8KEOmxbDuH7 QgYSOyyYtbMnI7p5H1Om3XF6N2 HO52ZL19fQDzj0C2gBV3F9Js ZTIaqdgcwvymrOS2JERuWBJwtW 25Xo9oeRggPb5eSIEzFDO6REBo fOIcM3EdaS3rLcSbMJShYGHd Y6RtvWViNNgsV901QEihBeQ7DE CesdOvS3RaLCIriCzkWiG7n6Z3 Ez8YDSu4LF63GR02sANcj5Q1 xHN0I8YgEBEwrnzcfvxmsHJ8VK FmLZYogP18Io1shAgvFa5qBAJl GSI5WQHmzESpZ8HarM5vNjEh AXGoOYXvC9CwqJZnODseD663RS fbClH5AKLukwEfB0IcXTDtwFuj AwU7s7H2Kt4ICFXgLU73YHL6 tZW9SN01MT53N8GrSluujWTotB U+PHRhYmxlIHdpZHRoPScxMDAl BqCasNevGM7kMf6hMSNnULUg fGkeyMIvAqQnz7djXDJzCMazPI 9uhXtqE4UkiPT0RXLsh4r3Jy79 F96zY5AouCS+GBRpwIL5qJG7 vL2zQvVqEiN4WKyzR489MtDcsV GhAlckh0gjk2epuFx7SiF3EZKi vcItdRbgIQA8h1ZgRj66Q06h IHdpZHRoPSIxNSUiIHZhbGlnbj 2evI1mPr0+DMNanPO2fJG7nI2p UjRqZtK1UXbeI372MtDgfZQl Qdaiw4tyi3xiwUd7FcWtNEOglr GmzWxoDKZ3r4JkSs36L2OrmIfu o5UyXub1iy72gEJik0E3jKN4 A4HxLJAblfawaONmaGkoUA5oOX CehfpjHDHgrZ7uKAYoC4g7YqAf QgU9NJkpJ3XthbJ3APFhcOEf XGyoUFD7O57nm2P2AAKiFJQwCM Y5pTQ7lY9dsCmxvfrseNLkvFvb jwGqjDmoQXpeKWexD233KANq wBffLRSbbN7oAOJbgMWnzAypJM 7xNWGxybiiYiSUKUQXLUNUIS6D OBWRLH44IK26tBEau7E1qAJ7 F6JgZZXncpqsiifapWW1QLXiYB UcnS40mLLjWQmaNf9es6U4k862 WALyMXMuwI17Jf9aiDfxHFGw kOBBsU5amoqfu1mfbbglRzClPW ZcFVw4OPk3NAGuqNvaNxSmUXE4 FrB8XLD7xHIgyZ8naCcrluoh mC0cPbs+TGblCJwhDWl2PGsebR Q+TYMqAWH8cEseVTmxEMIylF1l GSRgB8v6SlWcIxY1ASftZ3Rj IQTnobthEe32tV5qZsSpJmZ1XV frX9VoryG4UCXzcWBgSJqiCZU6 I85ml1F5RTPmERUyRNT3pDR6 rV0qoUbxuixngGOaaPovgqBccY ktIUwuIQtvK858UGNzzAymFbI3 FImzKNCgNK30LB78jLMah3Z8 rAC8R0RxPDHcybmpdptcpUQ9RK TjWFXjiM99fEZgONzpKd6nc0K8 s522FLOkMBZqxQ36Dp2rcZrb FLPtnWDIfE1vfvqsp3cwjlitOz RmIINcUPd8CJs5WNCxhDvvXgOx KZN1ZzY9PBB4gTFmjW4xeSrn vjlqbR2sVtl+TUFMRTwvdGQ+PH NiUQR4sKvxMWatYQAupY6oUZLm E9u8IiJzPrM7KQcnN9EwBLGr mxbwYh91hO2aWqQpAiT8RAnpB9 KmcyB7IHNdvUAhWKvtPWR5Q42r o7B5HIYcTMJgYOV7wYL4lI4a bGlnbjogbGVmdDsgdmVydGljYW neJLenB998HBExmPltXp1XQG51 JW13V5GmQyqiaDJlnKP+PHRh YmxlIHdpZHRoPScxMDAlJyBzdH hyLP6nMm1rIKEeQTFelGvkuJGq OtWes6uoAJFnGIozPS3tdLnj N2HmgHR5JHFre4f0Pm07T56qF5 JvdXA+CMBaoZI0vOB9kM6sQiBo CvG1LWdaK680CdNblEJaBmxd f9tyg6lcjSu7KgRdLFMjclTamR lsHSJ5g0DeHa46I40hUAhsQDCg EJEsDJLkAPNubAoyqu0ydX6d Ii8+UXUytCE2vWO9rR2xBdXvLc R6KNvjP734KnIspWDhTxttD17e J4VamVH+XHTsKjf8DAVhjTpu OR7jtPHmHIxfMv9uKPJ9GvQoYu PmODsxD3RkKAMxlakqakwkvSP1 IQQwGVYurM84Ms2kwAbnHy4n THGnAOG5MWNfuWSfH4IdvX9lFq HmPLMdFAHtV0VwsSJoVQysH376 LAfjXaD2XEXztfJxJ4RyLTIt wSakBeH7p2Y1Ty3CwYtjbDYbTJ 6jIwEtJYn9N4SgOkf4UCZaiJqh JR9kuXMeXRimSa5jvUiwpAkl BC4iEOJwllorl226TtVzg9vrZC UmxWItNLdqIWL8D49pj7H0YMSz AUGyCRR4dYS3yB9dnUentylc bGVmdDsgdmVydGljYWwtYWxpZ2 32GEXtwUaoHcAMXtd9Z4MdGsi1 NMImlAcqVX7xjMOzFPubDl9m pJuniSygGV0xCJCqfmsmn683Hg Qvy5xtMYJnsKPwWKhuACH4I90q k5R0YXKqPLSmMRK6iQG7uK2d bGlnbjogbGVmdDsgdmVydGljYW xcQXfoF337ONOmjHerIf5VYnv7 P8YpLyu0NFDypSsyHD5viZXk JMufHq0vdElfdKjlCE8eIHRkot hlx514JmHuq4pjUUZydEQoXSpn BOO3F48iq4V8VFQeAIHsSGG8 rBA7cC4yyAebbfiwtZZngYczdr PfjKecOBbpRXkgY483GSOlsBxp PlBheWVyOjwvdGQ+MH84xx00 N6GxYolgEfm3DNErKDU6fGB2iA 7yHWZlKVdii3Z3iUE4P3FvgdJs wd3cn1iqMWBeTJlqQ98jmBZh c2U (more content not included)... [facility] Coding Summary [employer] 64 QeccprnnSSh1tId+PGhlYWQ+PE 1IRDXqT27tjZVodX1LT1jSAQ5X GABSYLSBVD3UII0dfAD2MPnmV7 VybiAv NkpyqGFaIU36JGa6RKZ7wOwrXP tzdH0haEDhO8w2ZzCmOU35wW13 BUcfZJKgNtW5ZtBbbzdauTIc P2deYnPatFGyWvk+PHRhYmxlIH jaSIGdWFufOHOyYpOupLsmXN4n Di0nGOAiCYLbrHwyfWLhEnEh p0jiFILoLUonDG1huMwtX3TgoK G3RSSfa4u1Fw40wRT+PHRkIHN0 bPwqCAiuf996OoNyt2gkLNI1 oSYfACvzWRY3H60jz4K7NOOsSK MhNQR0pJB5hV2zeEeycsmvS6Ru cSOjFrN8UGE5iEKmjP3tdQwl ujyvpZ0rXrr+G57ECB8CTVOITJ 6TIao4A2EcVkisaPN+IJ50UXOi VB61qCAypOHuy8nhhTy2KcMu OOReRJY9aYwsHBxuq9CxEUWxY1 8tsCQis6Y7MHAhrAqcxYRzWpIa tVH0nV7uHBtsgmdgs5hgbwqz Hwxyh6gifn93sB66M31mUGbhQE EgMWQ4ESMfMIPcmXefxu4huN0x Ii8+YRfej4tiv5trxTd6DpAg FYTvjfPidDiqYGS7r8OnIv95L0 TnwCsos9CcDzi6sx82sFUml7L2 xJM0HFuvRNVeeO7xFZbdIiP2 CWWuXdBdlG51gVBjUOkfTo0btV gbxRncOB8kWZDnhyzhOUJvpH6m XBRlgMQfcDezUX1eNWPuzocc t661DmRlYAO3KQXfbLPsD1FftL 7yFnWsLPZhKRVcE7KapCYtALtb R348FHlhSsV7GOItcvMoS0Fz FCJtgHyoViE6o4U4Zi9Cu1Hnuc cnWEX8QAgxOEV0AyVaOrRhPgF6 G7PcTbo4SFYeoUhmNZ2oC3Ak LAQahjmntnqfqHU4CWErJMTphV 91jSPpSWmbWi1cj7L3e336FAVl PUCroB66My6ujSpfRJOyuDWE mQ3xkyvet8uxxepbYcEsTYPlGJ d5HAr0ZNDtwPrrKfDtQFS3FlJ2 VXV6dJGnyT6puFrpddgsjH9i Oyc+L59xkH7bXQJ6WXW2stnsDS KwiuYcQB10YF35L7HsEwzieTHo bGU+XBXirdIngZyyDR9uInCj m1pbw1PwYEdeZ1EnWSGtPPjlDk g9YTGnTZI4yPN1tF2gWIZmECpi k3L1lQE6H4XzwwXudx7ls7of EHIeBBhxT95tlLRay8K2AJBnlG D7MWAreIjjXjMndQ10Yoy+PGNv zZdlg2BvVcfdp9gvb4irrTy9 GiTgQHChqsFotEuhPUP2y3BpCy 04C38pFQndKZUfFGLtGIKjGEOz tArztv4efE6rCo6+PGNvbCB3 iLD5mJ7tWZYfHrB1PShaQ325Jn SnoNChNscze2cgt2yrqCo1XnBy EKGsgqGtoIvaGOB6n6TiSo88 C35fLOzyZVNeCVWyFVZuAMDlaW pldd5eeZ8dAu5+SA7mx1nywx36 dB86wMX+ZWPgYQT5iThwOHvy GPJtjT4hIVkuCdR3HYRoXlObdD 31nGYmTEowNu9bgRdisOksJA3d QEWlymeax475EoWdj4zfXJSy nFAtQTniWDL4B95qk7U8AKJmPW LgTCH4uLP2pD2mdRrsygbauQJn yBwkjbUdaBkxPPvpSQpnE514 IHRvcDsnPlBhdGllbnQgTmFtZT t1M3LwEaa8RZDaiFeeSH0voOQx QKqtHo9xoGcnvTagFH9uARFv pdzrs975FqGav6bgVSKofDZjLQ ooUED1I59zx2W7OWFyTNHdYKS0 jTP7nH1bvZzmybpeiMLjwGjr erXcjIjfIRisNIlwL663IRZldF xpDyUeelMhXIJjiVP8XI09WD72 qUShr8E2hLF3B6XsWWVbprqa qwnoeOO3EHYwCDFloC64Jd2nlS ygIx5kRVNsIHS6YLBcmWYsQ4Dd iB8sMaPwOAMgGEWbJ9OwpYOv ULnsX884TAtqHqR9QKMpreVlA7 UxPXEqzGijPhZ6r5F5Pu1XX2A3 BV62DB91oCMny1C7nAU0S6Hl HIWhcwuqtxjohKO5TWOfFZMdyH 06Qn0tnDhaNr0zQFXoZCO9NJZt uETrL9QnpB2xPdHgFCEhQWDy S0AbgDKrPJlxF266OLhvStG6GX GofrKcU9PlTNXegHleEvI7u0V3 Fr8FEOw1YZ01QN04pDWal1L6 pWM3M1RzXMEqblmjizkmtRH7PE WhLCMrcC96Xh4rpXioGz4kVPCd UAA7PCTpdQFlU7KdhX8bOvUs VOJePXQsZ7NbkFVfLLcyH598MW mgJnU7LLZubrPvJ3JpJUBquBuc EgS4m3U8Im5QCXWeIT47HDM0 fWS3UJ43RL02I7OkMjjeyWRhpO U+PHRhYmxlIHdpZHRoPScxMDAl QcAbsAnqEF7eOe2oUCRhJYDc rEiscPVgYwEjy2fpHFJmFJjsQA 9bkKpkM5DmnXV0ETIqj8e3Yk93 A46nS3DfdSB+GKYvsDM3oSR0 cT0hChAiIvY2BVcpH560YvShoG FzZgqwj1dcn0xhnEd8GzF8VWGb ijYkiUlnEUY4f7LqCa40P38e IHdpZHRoPSIxNSUiIHZhbGlnbj 6kiG4rMh6+QRAgdSX8mFJ6uG7q NmKhNwU4CJunV836VgWdiSYb Sbtms2hqq6cfiMi1BqJfHBLode AetLqiPDJ0l2GhHb17H4TqbXgu r4LcIkh7yv72vGOmi4B0mHV2 O2EoINByezandZYutPcbYD3sOW LxncqfPGCazH3jZCKcK8y9WlJw VbN3ZDkaZ6GfbnW7ZSSnqNPj TCisKMI4Y11tv3M5GERuXLVdXR K4fXI1cA9amAgvyjuotYDrkOjv eqDlyBfbILsyEIzlV001NIXn kBagSZBomN6sGXUyuSBuwMdvEJ 2tIWWinowbPqCWEQCNSUERSS3U GGNSYJ19PG64fEEfs9S6zTC5 V6CiLJMeywsubiyloGX5NDZkHX JwuS80zMMvDObvXq3sz9G8c622 MCVlNTIovK68Jx8glFqcFKYy fEYExI8cvobml2uofiwdQtXuYK BqDRr2HKv7LVUruOwwSbEqXLQ3 ImE3TTO5aWBocD9jpMdvhrny jU7uLjt+QLcjLKqhYXv7RMrmuY Q+NNOoRUK5fMnbMEasVDQgfR4s LTTgN8s1RkFtApP3OPezH9Tu ANQrkbrbYl37qM3iSiVcZoJ2IA lcP1NxauJ1NBNpzUWvHCqsQJT7 P57bw2K0WBFdDAIxIMO9hZM3 uQ3hiHbeqgpspEWkaMvgasPglJ ceFSysWTnaT953AALuhJlxSnQ1 KIzqICUzXN56BP60hHNml3O1 yGE5T3UlDUTwxmolvipckBE1HC HrUMFssE28lWQnZEmmWb4rd0Y5 r680YQLmPAOlpN27Fo4iwCnm ODWysMKRmB1ndwdkm9cvpejkYg UyUQNlCTy6UOo1TAHkqZvsMtPu QLK7JdV2KDC3xXBgbM4wbVpz qrdwoH4vAci+TUFMRTwvdGQ+PH OmQDH5bAxjRAcnWPHfuO4tACYn B9u7JsPcBxT1JWaiF6RpXKDo nhcpYk58hB2aEtDaKqM4KRxiM3 QlixH7KFVazDAqUXayGHF1P30f p3N7JAJoGSKwCWD1nHX9cD2z bGlnbjogbGVmdDsgdmVydGljYW wwATyqJ297UWGmvRaaTpYiIQWs XF9yuUskuSN+AJ13kl24Z2Xb FtjfJwu3OTWfYET0tUX7qX9hVY OnKPsyd5R7fRS7T9XeaeCoxj7c o0myTPRmXTuiC79lgANdj1L1 SVZjkPZ2ELHofAgtRbZpwA48Bi c+FLYhsYjwt5BtJprkq8vlv2bk tPp6FrJsSZDblmDarAasMML2 z6NjVx76U72hXCqmZAGoDSVvIM IfXDFouErzrn7kaN1eNk4+PGNv hDN7eDR3wY1bIeIlDuH6VXio V046YeGayUEnIfwas6waq5nqiC o3YiFcJDWloqSbaPkzQIH1d7Fd Lm65T4CdwXtkd6RuKpv9ls97 yDBdd6N4hUQ6V6GxHPOhzfivkC VijGwpPX4eZLGvswsxTTDjgC8u VBWnC7c0ElKaEiX6WAupX9Gd oqH2AESsiXXpBHSlpHPDxC8ubp vnw9rbaehsPfPiGCZgRZz4CXh7 BJEscXdcSgBeVGP1CyP3WPF4 fEKujI5wxEigdkgnxO7sJfr+UG p3x3mxgEWeGQ5bpOA5VO57UZ22 aJIrj6J4aNK6N6FkOFItnnzs mffqaMY3OYDuUYJavX22Xd8rpO hiIs7gMDGnCEY9NBIyxYFfJ4Yv rX5ySkOfOXIrYZOfZ3EykWOu ZTiiS092PYkpEiD6RTYifdUlA4 LfAFOkdIxxAaN0r5H5Tn4EKD13 ZO57VN48qNAmx8N8oLR6P3Ym MIHbhpsdvmphnEA6NQQbAOEhcY 26Rn4vyMteDm5kJWRcBRO9WPFi jIPwJ0VdcD8uIiJwPWVbIFQh B3OtmWLeMGdwM597NWlyHqN3QV LkykKiT9AvEYPgyCaaTrF5p7P1 Xo7MSo27KB64HB47wDMbq4O0 gIQ8V1DfTMWuacbggttfyUX7FA SjAIRsiZ10Mv8dtNnsKo2oCXGt TBL0MYCoqFWqU7JlbS4mGzRd TVCgPVUkR3HqxZQjZBmmN641AY bqMuT3TZQcdyHcD2YkHMZwaHjl GyM8m1Q7Bx7ERSiczda7Y0Na PjwvdHI+KE85BKZkVL57zXPvuK Eaa1kijDt4OlFeOLMjEEX0oJlg TLmje8LkYQOjI04qjGFej0B8 IGN (more content not included)... [facility] Coding Summary HTMLBase 64 YbfewgcjBWo3yTc+PGhlYWQ+PE 8SOMKaC47mrZDojZ8BS8zODG8F AYPYUWRTDY0ADN0lxYU8UDhpF4 VybiAv CbpavZGhBJ66QBg7RXL2iZelYT gpqX6kzAPxA8e1ZaAgOX21pI60 JUseFDUgCaZ8SrEojryjiYLl F5gvDhIvoVOaYcs+PHRhYmxlIH neHMExSNqrTPXaXcKocDtbAZ2y So2xHTQhHXVrrCigqERtUzCw i9jhGOKcVZnkIL9ilEhoS6BmjS S8KGWie6n5Jm97qXK+PHRkIHN0 mQzpFQrrb843KoLij0btWLE0 lIUtDAcgOVW6M12un9E0YGNoKH OnJQQ7aTP4kB0mvLifujoiC4Pi kHPuVqG2TJW7rYBdsL4ygAns wdgawL7tEgv+H04XDI3IWYGNGL 4KPlp0U7GlLisuzQV+QN95ENGb ZM46qVCxuVWwb6hjfQh3ReLn GJHgLKW5bGtoMPnkl7FeYFZfN5 8urUJpw7L2BMTorMkrdYUfXxIe hOX8sG4iYVkxleevn4eahbmv Dbwxx1iaff54dT33O32gGFfoBG BrMDN3LGUqFLWsbWagnd5myQ9v Ii8+KCvyi3rar2sjqOm2LjVb TLQcctIaqOrqFTB1z9IqFn24U3 ZkaAluj2OeZnm1ke35cVWvr0M8 bDJ3EAngEBIerK6hUMvjJtB0 RVCfHuPbhQ62kCOiXFwdMy6thI jrrOctLU5mVLNiumipRUGplF8y KZYssQKbsGzrCZ4wVDOochfr a698DkRkAOQ0SKNldESaX8LxrH 2pZpSxBRQzOXWyF2FjvPMyZAou U454GDdcPuS3LUJwwaNzF4Ti HEHnrZopJoU4b9H2Gy0Jh6Lzhp dySNJ1TKriKQY8FjWgPfOoHcV3 O1JxTqh8MKHpfCvwTN9fO5Xw OXThdoburniycFF8RWEvSAIzlD 69nVAlIBglSe6ja8P2c621TPJl AHKenZ64Go0pqZsuDRRoqUJB sF0gmbivq8tzbkuvDkXcQXIvLJ m6UHu0XOKhvKdsEqOkSEH1CoT0 NBE7hSOzlG6niBcpuyqkuR4z Oyc+K04exK2dYYX4HCV0jvzdEA ErgzLsXS07LR82X9XlKcitbAIl bGU+ELYddsEtjQqwNH3fTvKi z1suq0ArGJotW0OfNGSbUXrvAh a4UWDoPXL2mHN5qX6xKSEeHTto h6U3iVP6U4MnxrQmdc0qz7gy WYQnMKegK67owFNoh7I0DDGljS R7KRNcpYvgAgJwyY83Pjb+PGNv xCbon9QjOwafd4jyt3xeuCb0 LhJsBRDwyrEurEgvSAM7w6UpJs 73D61mOHxuADAbCDVzZBMgZNMa yOwiuz4woF9iPs9+PGNvbCB3 dRF5pB2aGFBjXiY1ZGfdW382Yi BahZFxUvhzi0zou6kzlOp5MeNg CQEkraCleTcqZJN0w6ZsRs72 I58yQGpkHDJwDLXtFYZsLSJuuA gvnn5jwF8eDm1+LU3ml9qyjr82 uI99xND+ULVnXUZ5rUypVVsd GZJytY3mKVufEkD1GYBkTqYfqZ 31uPBkGJglMb9gkUgzzHcjTJ1o OUUvgrznx954ShIae6exMOGg oWLkDEsgBYN6Z67lx0D1HPElNL FqBTU9iOU6aL0ffOxvftubeECx mLcwssQjkJwiVPruTKpjZ515 IHRvcDsnPlBhdGllbnQgTmFtZT x6V3SyHhp3STCbdLjxGU5xaKMc OOydAq8byFozdKhoSI3fSCPy fqxep907DjZme4vuUBMcoFIqKA iuDYR7Q06qh3X2BTKaIQJbPXT0 oIQ7bH5leAwewmfhzPMhlTqi twFrnIcdCTdnFJhpB737KGFdkX mlPwXsnaIpNXIqeLE5XF46PG01 zQAad9J2hJM1C5VvZQOstbib rmnqkBD9KXZjLXKodH24Ag1jaS luFa8rHFUdZXI5KSBysTVsP5Ix pU4wCgLeRIGnWRUiF9WzcHVn OXiyJ661YUdeMjK1JDOcztCsU9 ScXEYgtFreVcS6p1V4Dc2PY6L2 VB93GI54bQGfe0U3sST6Y1Gj RVDtcvtiefdqqUR8LGIvWNOzrG 93It7lfVltAk2iCVFtJKH1RFDl sYYnH1QwmK9qFrRvZSAiEOYn T1GqlRNaSYvgP322AAdxNpH7UN RhkcPnN5QuVFXvwVepChR3h1O6 Zw0ECRt3SF44OL88bXIwd1J6 fMY6K1DhQZZfykcsgzmlwJW1KR XdRPEapB09Me1siCygYf0lVZVa LQN0LXFvsQTvV7LmeU8mTmYh RSZzNRCtG7PfaSDvEVdwU202XX tlKkC4KKVllxJlF1InLUArlZnj YnG3i9T1Sy6LJFRbFD61MLQ5 oYO1BJ79EJ37O5KhOseuwXHrhS U+PHRhYmxlIHdpZHRoPScxMDAl QlKgtJjmJM0jVx6fEATqOXNe pGhvaBXeVvWgw2wmYZVoLFuxKB 4reSytA2NdgNQ8WQVgd2x3Ib44 R57dR3QcdWN+GTOxmIB9tBC4 dG7gFhJsLtA4VPnuI141UfAoiT LqRtbyp7loq7vyiIp2JrL4FFSa qeCjgFobFVL8x3RaXg87U09i IHdpZHRoPSIxNSUiIHZhbGlnbj 2yqL5oOp9+QVQquHY9jFO3dR4z ByGiGrR2KGyeQ729LcCqfKJd Lrigp5zmj1gjeYh1GfFuSQGyge EthQrbGXE8a4FdJi93N2XtnVqb z4XtNmb9se84yPKoe2U5nHZ9 H7KhMZUobghinUNxeQsxXK2aPV DxhvsjOPYozP8hDKErM2i8HfSr FiJ5UKvhC6ZcemH4RMUdyJTk DUpgOPF2N83mj4P2CYSaYNJdHY L5cEQ4hX8jpAatswrqyCYonQbm klMjtTgdTRwiJKqhQ265TGYe uYlfRXQnlB8fMCInjSXloUlpFG 4rXYPvappvNbYUEPRQRZMRHF5H EEKOMM15XW04rZAha6J0lLT0 Z4DkMIPstccykdrywRB6APLmZT UfsO93iQPbBZshOr7qz8C8o039 WFTaEYFgfV11Hr4noMdvWTDq wEFAbM8isqbtx6oybzzfFhOzRQ XxDUj6DHd9HSGxxVvoXrZtUZV6 YiM5KXP7dLTedC9yaBqfllhr pX6uIvj+WIwuIKvcCNn4NNslcR Q+XFEoTYC8sFnqFNbqYUPqyV2y FYHuH4h9XsAwScJ2QOgtS2Ng LBXhtsajMq87bB9rNnMjTuG4NP dbB0DxzaC7ZYIzrNBwDArfJIA6 B74ol4L7CUKdARAkGCH7bIP4 lT6tiIemserufVDajUvjreQlfX veNIudGLguR280CEKrpTedWeH7 HDycTBWgOY05YT39cAKxs0B9 mHL0H0YrXABxkoebqadzpAN4BL TkYTQsdW68sIKoRDiyZy6gq7I5 j412YLUxCZSpcC05Px6ndKil LTGitWGAhW3qsnuwj7odyukuVn XlOKBdKBd8DVq7DFTvuOpqMoRq UBC8QrF5HPA0uXJivD3hpDjn kqetdU5kJsg+TUFMRTwvdGQ+PH ZaGYG9fItfTUkmZGVtqM9ePYWr Y5u6VoKkKtG9RLxlI6ZuBVSi kfoaHu66oI1hGdDnZtW9YPxiM2 RgoiR8ZMYeuEYbXSkdAUA4A03u k0F7WOFfQBJiVAL9xFN1xO1d bGlnbjogbGVmdDsgdmVydGljYW zuBLxmS446JCEjkKmsKjRqIBJq YN4jnUzgxBO+GQ42rt16O0Af IdyhAno7TSSaOVE7gUF3tK7nRX EvSRmum6Y4dDV0Q9AddhInit7x n2fuGEXkQIfdY17aeMPay5J4 SHQjcJY5LAXzgCybJvDpwE39Io c+OGPdaAfgx2EgGvbug7kls8kk dTw1CuFyBPYmzbFdrSxpKYI1 y1UjSr15C69pSKckIJVmOPSpHK VcKRZyuDbasn8mtJ0aEr0+PGNv oEX7pAS2pP1nCzMkFcQ0CObp Q805LoXuzCGkJnsus9nni3ytdU c1PuOvQJKhiiKoqIquCEM1s1Kz Yv38F3TojVfgr2HgXgw2wo26 aSNhq0A7iTJ0V0FnGZExjeghwT SvwOpeRX9tKDQopiivVAEheI5c VFBuA5a8UzKeVpA1WPleN7An miM3NUKirMJlZFBpvBIMfZ3ojj wfb8uocibgGsJdTZBvGNx1EXv8 PYAtdLyhGhZuSAI5SlL7NAR0 pUUjoA4beIyzrozcbJ0eRaf+UG z4n8pktBNjHL0plDH5CU18OF25 hKKmn3S8bPJ6O1CjEHNfixgq hvmhbUU3RANaQHLveL62Rq4dnL ruLu2iZRIdIJI7SBIyiIWnD6Ys qQ4cCuNyCCXlZESmG0BwgDDq KYjxK347WWvjHnE3FLJxtyWkT8 BlWJEudNgpGdZ9n1Z7Qv0NTG19 EQ80AH56zBIyt5T3bPR4W9Eh JSSmovepyyggnQL6HEMbDHYqwB 96Cs3ixAisQj5gLRDeOHH0JEOm pTGhA3SonA4cXyRsZWLaWLUx M3ZkjRLaCQmcG289SCzzPgH9QV LbyhFnC4GwDWVssAkxOeO3v7Q6 Mu7HZf68ZK14QS30vTFid6R5 hVP2X9WfTQIffrfzbstcqXL8AI OaMGJqtJ41Ni3neRmiZp0aEDYg NQG6GIRflPBmV5MgeM3nLyIf OHGrPXKyW1VimLQfPAbjA826EA igUjD9RKYltdWnF5NwNURfaQes HlW1v6K6Wv5PUDkwkib0Q5Vu PjwvdHI+AM24AVTcSW31iVWluG Kef7qerGh1LuMsGJWzSVW5fRvs CXfla0GvOHIdU89lxTWhc4N4 IGN (more content not included)... [facility] Coding Summary HTMLBase 64 FoxmliqyRUh0wWu+PGhlYWQ+PE 7UMASwE62sgBMroQ9LW4pRSK2N TNWUPMLKTF0YVV5tqUD6BJhyD7 VybiAv AjzliPKfIH70PSu2WCD8pGsoLG liaA4ncIZcS8t6FiNaAD13wE29 FRnhUQQgXhS0JdBtggjtwCRr S2ygNpZprFOkPsy+PHRhYmxlIH jbXGQrQBxqZVQcOaHdgAfsZC4q Oe1sLHIvLLUkiKkypIBhEaCo e8bzPGXvRGkbJS1qrHsdD9RnhQ T3UZOoq9a8Vl04pSL+PHRkIHN0 pBsaHCoun297ChQiy2zsJEC9 kZWsAMgnKWO3T49oj7N3JOBzNA QsBTP3qBT8cB1dzIyvbqyrL4Pw mYJnWxU3PSR7dXDhnO2czMyy tsdviD2eUak+K06FLL1ITYHSYG 9FWbl6M0ByKwissWC+OC03GGBc TQ50qTMcpAJed8tyoFl7IvIf OMIoKCX6zWksMZial3TqNTJwD2 3zpVGpl3R2UHJigKlmxWWvEzEl pPA1yC6uNXgjlutwt1qdopgw Wqhos7kwma03zW41L80yUQsnMA OaNOD4HDFiPSFylSdlrv3nhQ0z Ii8+JJafd3myk5sanSa3SpVd CTTqrwVfeMehZNJ4j9MbHu53Z6 UxgMgue8RdJjh5fk97fYYwm8P3 yLZ8RHoqWWTesP9iPPmwPbQ4 HSQlAoMgrB19dUNxVOiiJw2vlS katUmtCW0tOGLthfvsEMRurB2k EMQimVVmqSabZF7jAZCfjopy c337QzKuXJT1UCEptPYvC7DefU 9cKoHxCODgYKOlC9IdxEBfNWfu P849KTksJuP4PWEszkVhM5Bn NCGbvTrmDtG5b1T8Lr9Ti3Zqnm gcBLI8XVhfETW2LsHuSxQoXaB7 G5WhZyz5EQMcaNsyFK7wZ7Ef MFMjwympcvqooGB3YRYdTLKenD 91xMDbVUfsOo3xa7J5o915WRHr AVKfwA46Sv7gzRxqWYHlcJDI fB9hyfide0zwqxrmYmTrBEFeVF l2MCc5KWQklMfvRdBeBEF6QnK4 DQG6lQPyaJ6zzQywgoiicT0z Oyc+E48jfW8gVLB1OUV0pkfsQY MowlAzLF08KP64X6CcMcvjpCBr bGU+RTGbjsXzeHyfLS2mXmHh c9rxf5UnJHcbC9LmVSEvYXrqKk m5VMExMLQ3iOF1sM5eRWFiLOwi u3U7yXV3Y6XxsxVded7nb9ff OJIhPTbdE69wjMGes2T8NVKdzH T8LHKhpLctYtGehO31Tjm+PGNv mXyjk8GeYompz8yvw4vfjJo2 DqKgBNXgefEnhNgtMME3r9RsGh 95V50dRIxlOBToELTcBCYrGPZi nGvher8zoY3vLf4+PGNvbCB3 pYM5hT3rDPUfDqN2EVmuZ690So ArjGFyRhdec0ipr7aqnWf7RwIl GQTalaQfwAinIVI1j9YkZl22 U80wCTotFQQkTMYkUJWtFQQstB rrfi6etO0zBd5+QM9pd7ufzi35 tR75oGS+IHAzREJ0xZkyMUgh KZJugD2cMKdkKkU8TPXrSdEpdO 98mSFlDWymUo1rhDdcoLjiZU7y QIArtgyyn390YpSma5liPXWc iTTsWBiyUAU4M38no1M0FVMaPR UgJEF6lOR6yE6bbVujhjnwvXYi dZxsxiPzzIrqVRerABecG942 IHRvcDsnPlBhdGllbnQgTmFtZT f5S8ZpUio8DJJyfFtwNQ2qhYWu KCkhAg0wgEstoLxaME4qYZGj pdwuw786VaQnv2gqNEAxpSScHW osBWS9L43mr8F0BQLcYSQwJUS2 xAM3nH6qmPjxeswpqDVzfAsn wePjvEtfBEzkCTdpD128BTDdzP zvXsWrlxTeNCZigHM6GF97GP79 gGHyf0W9oCJ8B0QvQFSmlbbk aavmxAK3GBLdOSRdsL67Ar8kjX mrLy0zSFQpCWU2GFEjvRJgX1Oz iV8uKxTqNRQiKYZyO1XwgGVd VXngZ248SKaiZmP1ATImwfXkR4 CwVNYgqXhuIoI0v5Q3Mj3DM8D9 XG77BQ82cMPwx8T8zUQ4W9Po CTWgssyjwaaavTA9NIUiFHXtvQ 14Tw4grXkqYx9jFKIeBYA6WGNx sOFcP1PhcH1hVaPuQACtODDb C9DclRUzUIelK499GJszSmV2QL EsmuVoK8UjRGUcsOjmHgF4c0W1 Ng1ZWNh7UU83TG41uCIzg8X3 oXU9U3QiBIIfealdgbmqfDM2CE DkTGYbmY22Ms4jtKwmGw6aLNCg BLW0PNKptZLfS9CtaY0mAhPe KDSrTETjS8QllECpSNjwB177JW etEaY6REJwlpImC4BvGBRbqHfd JkL8g3A4Cq0FNKBlGI09PYT7 jVD4XK05EX76S0VdCdgwzVBseA U+PHRhYmxlIHdpZHRoPScxMDAl FoJnkLzqXD1mUf0pQBXdWKAn wWzhlVUkFkIlw3ouWEShWAfoZG 0uhYnsL1QacGK5VOSgh4t1Yy88 Q82aS8RyyNM+KGPfyDU6iDA2 yX4lOlDfNlK0NCocN112LvLgmN NfDfriy7lny8ybjZb3PkP2KYSk gpByoFllOVQ5d6DqMx24O74w IHdpZHRoPSIxNSUiIHZhbGlnbj 5cgO3bZh9+HNJftPG1kWM2yX8q TwHkYhP1RHsoL825PpVdbUVw Oenvt7uwg4dekTz6CzGmHLKliw BhuBtoOCQ2q0JcWf68L9TzuGmr m3ReFnd1fg62pHBsk2Y2bVQ3 S6WqVEQyhfyrdEJnfZooXX1wMX WjmzctIXEsoC7qCNXfS4x5NlMb IlY9QInlE0NjcvL2HBWtuHRy VLgtDQK3R61kb7Y1BNCaNTQwXZ V4gKI2nQ6abCmwclhrcSQzpZjz syXppVmeTNgtVOawO594MNMm tVfsHHRlrW2dEPNcdJXziVdjDZ 4zMVAwiuxnXeIAXZSEAXPBNX6R XZXEXS61PB47mYPha8Z7nZR8 U2WiFHGkrthvaugsfAP6RWVjTZ OxyG78aUNkYLdsVm0lx1V6q668 KKSoSVLrjU12Xk3qkHlzFQNf mXSCpF4pbpznh0uhbvccXvNaPE GdPXx0TSj5PBCdiKzvZyPlRIX1 RgW4FZG2iJOrtU2ytDfvpnip mN3yVxu+CYdzHUvjELm8NOnjyO Q+XTAfSRD5vRtbLAdhQEEvpP3p CWWdT8d9SsDaShD5MGpsY0Uk MEXmqvevCc34yS0hAaSaBhB4UL aiO2PuvzJ5LWSxfEKjCSznAZO3 L72do1E2BLNnVBCxEQO5hGO9 kT4cbPtlslnbzPWqgFgczhZjjM lhUWxgOLqpX966UUEnpAvdPeH5 FSarXQIvDU67AU61aBTbg7H0 sNN5C9JsNIDnuvvmtiqhbOP0WS LsYDZmvQ80eARtDNbyCy9ux2J7 g887CYFaKDReoI25Im9ihVxt XNJjhDPWoJ5bgwauj0ntyyrjSd KwDBVhWLy3EGp3YDMpkPhmTvJh CKN4ImB8VWK8vVUvkF3stEgx xreisF6vJsb+TUFMRTwvdGQ+PH WjBVR9uWcsXBgtNHGsuO3aOKKd B4i7OjWwKrH3LWnvC2BnUFUk mtpkOw83kW3bXxQmFiY3HSsmN5 LrnpP3ESJreYOaNDqnZDV3N64u u5D7RAKfVZEiMOS3tHQ6vD7k bGlnbjogbGVmdDsgdmVydGljYW knRQunK131YFRoeWocIoBeVCZe OV4wiQnqqKM+KA21od06D3Gs OscjJum4YYQcUAT1pFZ8dI9jDC NlZIesq7F2eIU1L8MuvhXewh8q d7ooALZuGUlmW39eyPXsu8W7 SMDisDF0RLXpwDplWdEmxN61Yx c+EARxeIffh6PzTdsin4juf1wi fSl3RzZmDHIpgkBnuRriZIV9 k8ZbXh75K93tRHqkDXPtFGGgMO EdBHXotTzbnn8srZ3cVr7+PGNv jKA7wBV3yV7vOoBhPfC9WJig P430UaYbiVMdQwasd4hlx7wwrT f1PzShLZCkhwAwcBsmYEJ0z1Pg Pn09U1CagSsjd1RqHeq4sh65 aGMck4U0fDI1X0YyKMOoquxifQ XdrHzwKG2fJEHqzuloTZQbeF6b LCLlS8c6BfBhBuM6CByvV9Um xmE0FARcpGLlHAHqcSKIkL6hoq jip6aimhevWoFjBPSrEKa2TLd8 UZFovIxzHiRmRDQ8MwD4HFQ5 uGWtbE6uuLftyiarmK0wNve+UG q3v4cssKVeWU3iaOL5CK05MH76 pFSoa0H9bXY4E9VqIALyorsz higwoAP8BLEdDSOlrS67Pb2ttI mmCx8dYNHwFVJ8JXXmxDUnS4Bl hB1qZrOcETQcJVBwI5HijZZm OVqdR408MDkhBeD5ACMapyApZ9 GoTGRisKoxInE3b5G4Gh5FAD63 JA42ZE08sNFta3B1uAP4K4Ud HPLqcfeknsxnxQE3MRUyGLLndO 60Yt7ogZzxNt3zMOIaAQP8ULTe bYLjX7DthS9wHlBsIQHfPIPa X4ExoVVrQWacR930HKxgIrY7QN AwgiEpG7CsAAXvpLbpUjU7m9A7 Ex2MPk15JY28RS35gWKbt5R2 hNX1B2GlYFPduykenddqlSC7JN XzRKIggT83Uu5etYnlRh9cQYHq CAY6THSbrGUmB9OpdX1kZqAu QPUsWAZhD1ZftVJkANlmN775UY luFoW3OEWdyuRyI9BoGMMapNfv KpV9p3P3Ac5DTArlxrp3Q8Ul PjwvdHI+IH23JYAvGP31vKSvfV Hvc7igpNf4ViJfMUFzZIS6vUgi KKboy4XfFKYdY31baUNyf7U9 IGN (more content not included)... [facility] Coding Summary HTMLBase 64 WiugkwzjXIl7jUg+PGhlYWQ+PE 8JOOMtM43rzHExgP1KT9qPYF7H RMRKEAOTMA1WXQ4utHE9YEirI5 VybiAv LajtmEQaZO28AOb1KRD3eQaxVN gpdR2gvULfK4l9DrTqLZ41zW74 WWvbISLnJrI6ZlHyexemlXEf O7wcGwOplEQwBer+PHRhYmxlIH heLQFpPMgwIYRdWcUnoQzdLB3d Yj1fEJCkSKJscEanbPJzHbGl i3ppZGHuNTqsEZ4duLymL3KyxS U6KDQgm4b3Ju11pLV+PHRkIHN0 lRbhQAdkx454AfNiq5lxNIC3 wBVcIHujUQM8Q93uw4G5NBWeYZ CiIJM1bTS0vJ8uiQgjieleC3Eh vGFgCcF7OFH1xYKgjT3muRgd nzfmjX5tOsc+M85NAD1SBZBJNE 7ZLkf0E6GkUpbhtSR+IJ37AOAr HS00lRXlaNDlx1tntXq2GlFj GNVuENN2oPgzHCtap4AoVQTcQ6 9zrZKbq1I1KRZllLrlyTLmNaGs fLS9dR7gYRpuncmjc0ngtxxy Nohzr6zmyf30lD92E56gPTbgBS PiGWA4EDSzWQIljFlgnu8ynH3o Ii8+TFfnb2unf6ftmQw6MuJv YBCrbeHioLonTZW0l2GeBl32B3 TfgGowu8YnFxm8uz27zCDxd4V8 hLR9UQfjLVZifO6mFKmaNfC1 OQAoCjXkpB61vCUqJWtfAo0joO zseYxjWL7uUHSkbdsaRPBphH4f NFElqEUhyEtrWT5dGFAyvial r362AgFzQOK1CPMktCJfB4YjiV 6sTpDjYQUqGIQpY8PxzOVmIEop W009TPqgFhL1WBFmlkLbL1Aq GQSztZluIhP7j6E2Kl7Lh7Vqlc xaUBQ2UBokCTH6LqCuOoHtXeL6 H0BdFvr9IGAgnZycCT2rM5Vn YDJnytwcpytyfPM5NWQyUWOdjZ 28uWTcWStqOj8wz5X9j521HUGs OHKizC70Pr3irTetJKChmNVM kQ1wpbahi8pvgjbuOmTvRUMyBQ z4FOm7JIWphEapUjHwPVZ3KdS0 MIM6qIUjwU2eoHhnxazdpR3b Oyc+X04ezT4lGWO6ANM4nzjwTO SctgPwML99DO83N8NzCwimfMPy bGU+DFJvylMtuNoxYV3mQhWy m2bvs1DmOTswN2VsVQOsBKabPp h3IZShSOI7qEX6lL6oTDYkSHij j7X0hKA5E2SammCmne8hm7aa FGIsWBgzR60qiMPuv6M1ZFEqxE I3INUuzEcwAmYgjH86Qzs+PGNv dYjuc7HlLwwpw8aqy9ispRl8 XzMrWNQlbkGzhGzsSKP8t3OgGc 18R90lFShbIOHcBANnQUYwCMMc sLvcxz5lhO3nYs0+PGNvbCB3 ePW9cU7iIXRqKxD3ZLoeS738Uz OalSBaXclto1sta4cjdVq7UbLp JORewsIlhXpoZGN9c0LlUc42 H18wKNwzUAOfTJAuPCBjZNVjcA tzus7qcL8lDo6+SS7sk3nfhf50 uQ48gIN+YKYfLKX3nPsyYVmp UMVtiE1lHNjeQsP1HWWkHhYzaU 91cYYmLRpeBr8zvVobaMwgVG0j WWVqwmobk189XmNsq3itJFLe oTQiQJaxVZV3P26ot6G8YFWaEK HtVQK6cYY8aB1msHbrmvujyICm qZazzdRieQprIKusLIlsA335 IHRvcDsnPlBhdGllbnQgTmFtZT q8G7SjSuk8BHWpaZteLM1jlNZr ECgfGf1olIgmzIgqYM5zJXTm pmklx651WgQli7jcGRPyhDKmRY urCYH2N45vj3R1JREvVDRbOKH4 yLW0kC9tmIiktqrniDMurPcy riBppWegQXgaWXtyX414CGIbwM kgWzGureHxKESjcMO5VU88NM94 nAYmb9H9mDK7N0ScZNTyharq qcojuAV0WOPnRCLivP08Iz4dyA vxIr6dTFXdSDT3JPWjfYGyD7Pm qP9qQaQwDOYdDWNiH2XnrXMd NVklJ842XSqrFwA3MFInvbReV1 AiLWWscMezZwS3s8B9Wz8AK1M6 RN93DF31qFYia9T5hZK0B8Kd VIZzewhzttxrxGS0FXDiTQUoiW 90Wx1dgCmnLk0nZZLaOCY7EKUy iIXfB1VaqE0qMuOgODGlUFMg I5BdyBBnJVuaY059OOjcEyM7IZ RgehSdF9VdRAOvzQeiKaM0x8O4 Gy7ZXAn9AH46OR39dGTve0C8 pNF1Z6HmQMCozgpcdggovCE5IT UjYZBroT77Wg8ysRnwIm2kPTDc BAF8VDGhaGGnS8PpuF7kStOu RDEiROHmH3CtzZNdUGgwU089OC nfMpF6LTDeivVqX5AkACMaaXco CkN5a0U8Ha5SNLIrOS38NWB2 fSH1YF56MM14I4ZgVrpveSEvyU U+PHRhYmxlIHdpZHRoPScxMDAl VoVevUerXL4lEw9vCKImTNIj aAuedVOoSsAac9peQVGtSTxsSQ 9cbNugD3IghPB7CZVsn9v3Af68 D64vS0KvqEH+KWUeuHH9hSM2 bB3iPyTgItD2DDpdN515SbKqxB SkPfntq7pxg1vodBr4ArF5VVWl emTtvJzvZAW0m1ExSb19K54x IHdpZHRoPSIxNSUiIHZhbGlnbj 5cxU7qZl6+WPAheGH8gLP7aQ2w QlEgOxD7UWcfY344FiDisFMe Obvjy6yxe8ycvPk1JsIlDZSxsh MeqDsxBBE6s0YoWt64H1LuwDoh x7JxEhu6kk62qLSnj5X6mHY3 N0InUJWnhnrgrUEvpQlzGT8eAR JjtyktMNKzcA6pAXVpT8q5CnXs RoB2VOhbZ5TnupA9WUJvfHAo TYdtFRQ1Q49kd1P2FEXmARGxFB E6xOT8cO3tbQnktcchbGWgoQng juYebCixEHsbNHfnP392LSVz rNyhTIEabG6cAKHnwQJtmEfmWV 5tKONurpxqZdOFORRPPFGDPN1O PCNAKZ32JT53tXYxq4O3qRJ2 S3QvSPIahvjtbwdiuRC9KLUvZK BsuC34zLOyMBfqFu5by6Y9u871 RYWcFCMipR84Gu3njDtcGCVx sGIGnX4ldexfp1aclmdgPeXyGY PoRKu4REr8DVVwrShkIiPgWMB7 EgE5FUK2fGJyjB2niXthyqgl pZ4rWbn+VDtxFNxwUUb1IEjzcL Q+MTIzNLC0bKooLChfQJHajQ5t MTLdQ0u6PrNqBvV4HBiyH7Qi LWMigsudXk73zM0wNdPnYhL7EM tkA5YadnX4GBSaqPMnILgoGWR1 L25uu0D2WUYuRHCqHSX1oSG4 nU5muIojlwuswVLxeNkigxNhkC ycNOohHGetJ023BQJniFafGkD8 AFwgSTEoRK24OJ97gIOov0C0 lEG1L1BaXMMylylxklahlZS3PV LnMGJhuT42jQUjITwqOc3xk4B7 k275HAZdCMSqjT97Zs5tzNkf ALCrdGDMaM4mxprfa1xcjqtoIv KwQJFgWAu7CAy0MTAnxYudJuXk OOY0DnG9VTG4dBRjsR0aqUcq mmmalV7nYzm+TUFMRTwvdGQ+PH KoJOI4tKsySKexJDRwrO0nQSXc N2m6QeWbVyL5UGjkN7QvWAZy vigdEu04fC2dRmPfMlV2ZPpnQ1 BrfiL4HUHvwFUbQBfrSYG5X06l s0H9DWWwOCCiJWT7yPA6jA5z bGlnbjogbGVmdDsgdmVydGljYW npPDcuY867ODNklRrzIjWnVSXj BT0wsKsllZP+NW38qd03I6Zt QpgeEoz4MAPdNPW2gJG1eZ1kHE GmXVkqh3Y2yNK3D5ZhspJlbr8k s6hqDUCmAVhsC95dmPQur2P7 ANFwxRQ4SBQofDowMjVctE42Di c+CRUqsFuic3EqYyisn7bgu1la gBq4LcDzDJKatzHdfXsrXQR0 w1EwBx08U79tIHyiCSUeGGDsGY NzSTKicYrwug0fbE7zOb6+PGNv zKT5jCP1vN1bNdQnYcR5PLwf S560FfHcyQNlPgugl0ugz7mufG r0TrSvUCXbjuXceKfeSET5n4If Ma35V8UoyUgvy1QjLak9jy13 qWDtz2S7mZJ8B8EgTXWapcoswW WhyOoxUZ6gHXVuddckAFVbrN8f SMDoJ8o4QrRkHtU3OKufP8Ly yiE7OGPbsLVbIUGrjQQWmE1mah axj1wihrcgLjIgZQVuLKu8GVl6 QIQzvPlxWkXgBQO7EpH4KZA2 eJAnrA5bkXdvdeyexR9gNep+UG e7c2qrpICxYZ0gwOJ8PR06PE16 uUPds0U7iBM1X5UjSIPjqujg gsiyfNK2ULDlLLZldO84Mm2ryT uqJe3sJFHhPSX7HMXxdPNwU3Lv tB7gUnFcZHUbBTGyM7EptSTe LLcpV180RMtjFrW1SLXiulXaZ7 GwIDUahLeeXoJ8k0P3Tc0ZGS82 NO92KL14iHJau9V2eXB4I6Uh NSZclrcjpxxbuBQ6YRCuNWUaiQ 32Ep1znIzeIq7nUFEgTLF2PIGx kJLfF3JhjE9tNeFaOHCoZPOh V4IwlTIgDCnxI668DCvrNnY0BE WuabQrO5EzOCAedIqqVvA0g2T4 Dw5NLm21NG81GT27rSVdo5V1 xPV4D1RmBRRsawwcdblbpUX9HI CqTZYwyZ47Wy7eeTiuGr6cNVOf GSJ3UDUyvMDfI8GjwQ8bWyHz OXBeOFXrP6YjwEBxNUszY127GI rnSfA9JXEsclWnM2KiPQEdzYlf RrS4i1B8Lt8GVIytlhv7U8Sx PjwvdHI+PW12JKTaKN38uZXfiH Dld7uqlKq1TmMgISDvLLG1qMhi BZrtz5PfVRKlE43wwHRxg6E4 IGN (more content not included)... [facility] Coding Summary HTMLBase 64 XjqusrewPMt8jXe+PGhlYWQ+PE 5WAUNmT16yqAPtpO1IJ7cWZY9H XRMOGFALRU2KID0agFF2XCxlV6 VybiAv ZulboHYnSL27VHa9BXK0nXeuKO gavR4peICtS7f6BkRjWQ54oS12 XVofIEUyAgZ1KpMjmdukbAFf A4abPqXayCCqFwm+PHRhYmxlIH nvFGMpVQrfUYWjUbEjuEpvEE0w Em4tAZKcSCLenNidrZMtIvYr j3kbXFSvBFcaKI4seUggW6HryW D9PMQzw0m3Zj13lMF+PHRkIHN0 iBuoVArhx254BiAla4lgQTP3 fNDuADteMLK6S66ui5R5VRWqTY FyATQ7iZH8xG6fgZucmltjV9Xp jTJcNgC3RSM5hCIinH1rwDhu nhsurR3lUfw+K14QUB1EJCTOTC 5DQhz0G7DzMkpqxKH+PC32PBCk FU62fXUzcVCpy8zqlSg2UgYy OABiEIX0yLsjADpch7DwFPEtO5 5ekLTmi0M6RMHdcXcgdICaYmLd nSK5pN2zDNyykvwnn3pnnjqv Qidpg9krtn38wO86C16rNRbkDS NiUSI5ARPxUGTzwAwpuo9kjG6o Ii8+SVdfw2gzl7enmCv9SgBj VPOyotIxpUlqWHR6a8LvGd38W1 DhwWltt4YoXok1lg49aHOad5C7 nIE0GKzqKLBoyZ5zUDjiWpB1 EXXtGqNijJ36wZCaHYcyWm8pcZ qlnSulLR0xAXNeivpiPALmqJ4n EKNpdHHddLsnIC1oXKFchhqu h291HuPwIJD1JLQnaIDiH3HbuX 1hHdDzQTTeNQYeT9RhuPYwMJtk A678ZAhrPpE3HMBabiFoD0Ls FREotNgjVbC2d5I7Ck4Gb2Pjbl zjUFO9YNbbTBS1FyJaFkOwByS2 X4NuVsm5JNUcgGqwYY7kG1Ab TMEbnjjscseedIT5WEFrLLSwjY 87wVBfIThcSc1ai9C2g733OHVw ZWSbeC11Of6tjLxuAGEzrCNS pO9mcwecq5zsfmakVoOkLVDtYS u4VYu5KPWbwPkhYfQlAGI1VdZ8 ZYI7uTPjrX0fqSyruepqyE3r Oyc+M86zhL3zELO0WCI1gabfKJ QmopNrKO94DS12I3DlQqfegXCq bGU+QXNakxNuwJhrZJ7fLtZt v4jey0UjATkrU0JeCGYyUQnnKv m3YQHkSNY8iXY5lB6sHEBiEVes h4Q1qNK8N7ZudjOtee6iq1hl WCJjBTyfQ48fwFEyn7G1EOAbyA T9KOAyoYcyXbXgsU46Ozx+PGNv uKzof1RxXgphm2csh6levOj9 RyBkQWDbuiQbdAceKNL0f9VtCk 52I68vXJqcTOAcNICxNBLdWXTr xCnusn5rnE7hMn8+PGNvbCB3 vPJ9hM4kTJMwYdV2XKkeO393Rn SbpEDqQtpee4nwk0sgcYp4XiQv AQBqcfWlbJebMRB1m2RdDy60 S12rTJviMNGwVIRzIVGyLCWumV lvas4nqM0rHe1+IJ4dn9dcvw96 nS03bNY+QMJdPBS7hOjtJThb ODYbpF9vNVvcCcZ5GMRcVmUyyF 65xOSbZLmtWp5nrHtuyFqmYM2l QWNjjchlw917DuMkt6ppRBXi tMKgGJvwBNU3O29ho8V2ABMxOY ZjMUO1vIC8fL8zuVbmciurvNEo sZjmdvJgpAcfKEipGHmrN929 IHRvcDsnPlBhdGllbnQgTmFtZT w5Y6LpNhq1CADqyPhpJY9mqDTn IFwuFf3tjRhahEwnDB9xNANy jdgtx280WrJrk2cvKYUtsLNnLJ zbSQY0E64vl2P1STDbMPFrEOA1 fJN3vH9ieFabrmdrpMBcrZky yqZyeGfvXFmgUIexK965DORnoR iyRqBnwqSnYDUoeYW4GS04FB79 hLNvg6O9jNX9A2UmEJVamnhl jfnbpRQ7RSIhZYFgnH51Hv8muF ogSg5oGGTcNSR0POBwxOTxY5Xk eR7vAuYxIUFoGGXsA3OrpMTr NXbxP897KXhaAvW6CYZcfgJkX0 PxAOJssPcpIlE0i6A4Ci9HG0L4 QC62BN05uXMez8E8kDJ6J3Hd ALHnpxucjurxqKK7ZGFfZXLkuO 41Yf9lyKvhJf0bWROpLFQ4LYAi tZXhK5QnqJ1lRbKnKJByCXEe A0FhdMHjKBwiP466MKhjBoY3WZ XzxcAvW7PiXLXrkOnrTsX8n4N8 Fc8WTGh6QJ50TW00iZVyv7J7 lGP0A0HpNWJbhuopjyblnEK5OR NmXGBzfH67Pa1ofYujJd4vVIMz LWQ1ILGssAAxK6LdcT7vJkBz ZNImBZQeG9JumVUhASqpN079YB xnKgY6TSFiozAsT0CxCUDhsUwb VuF0b7K4Rz1TYTPfRW57RDV3 tBO5VN57NY17S7VkBdjqiVZquA U+PHRhYmxlIHdpZHRoPScxMDAl JbYlcUpaJY2oLr0eVDZiXIUl gKkypVRiTmQvw3mqQKDxMBjkKI 8qkEzjK0ZjzHI8DDIaa6v2Gp99 T18pR2FqrRU+NXVpsRX9uJL6 uF9qTqVfHkJ7JUrnC263HlCajT QyQzlvb1rny8vghPy8LrU3CJVt mcKmgInkEER8z7ZrSf60O65g IHdpZHRoPSIxNSUiIHZhbGlnbj 6bpX7vAr1+FHPqmWL8uEX1sI1h HcHyUnO7RAwsK948SdWmyFYi Gzrvj8kbx2jwyZd9UmHeFWBfcj CqqRojFNG3m3WgCg43N4XvrAjw w4MjLad7jj86xMJmy0Q4mVS3 T7GpPUCjapntjFWoaXewBX3bND YagbgtMVKzhQ1bLVXiH1w6MoCp GjQ1HLxwK2RlxeH5MYKqzBOb JZziIUW5L32fe8V2OXVxGKWrIS S9pFC6yR7icNltfhiowXMtkWfw psOeiBrsBPebOAkhF830TSJw fCouPLTksD7pFVPoiXRhpNjyOB 9uLFOxmzfnJyRSMPNFSEDPPR2S YBGMYW52HP33wQKdw5X1fLD0 Z7HmTSRgnuvpnalgzAV3BJHsFX RqxC45wYRyJCmjRj0do0N4r231 UNLqTRIooH67Xw5tsUtmEHBr pECOlN6ucmhyb5efaqbkOmGoGB QbHGu6RFk3UTYhmJcdMzJrQPO4 QkP7LYG9eCQgcS0bcMjiccyx oG0wLxs+FUqiHQwhSIb0CUadmC Q+BIAxVGJ4fKwbOTwtTZCmfN0j OAQpW0j4FrEpDaT4CJuuH6Yw LLPdmkufVc94aD5fNhDgCcS1OW ccC6BgvyI2TAMrgVLpCJioYEH1 F14ic9P9GCSkIPOjIXW3jWU6 wD2ccIszurhdgEYrqTgkczTxwY prBRruJFlkS795JDLrmCkvRcY1 OCtfDIVoAV91UK81nOOkw4G1 nIM3N2CkNPBetwqditekeVK0DJ EpWIFvsB89pELkMMprEc2wh9I8 o255ELTdSCSpxB01Nx5inCde GMTyiHZNwJ4oserpy1tevjqtSp XsHNUvIQf6WZb2XXYvdBuwQdPm QAY7VtV7GJA0uOJwdR1wnPjf iklonA0rJyy+TUFMRTwvdGQ+PH PaPRU8qFekXLfkYXHkiL4cGPBa H6b6HpYtRyW9ZAalU6UvXTOc pvrlXl88tV1nUeVvRqW4XXlgQ3 CgxyY0LPRnxRNpONwsJER7N44n b1G1OBWbZTMzBYN3rGY5nK5u bGlnbjogbGVmdDsgdmVydGljYW onJFrvO752PUYcyZmsEjHkPWTv KK8wlTbdvLQ+TA98jk75R0Bc IfjtDnj6LTTtTLX3lNG2nL9pSA NmCVthm9Y2sZL4O1AyovUdld0f c3wzHSOkIZxtV57epIKar7E2 QDMouKY0VGGymZdtVpIhqM31Ye c+TXZkmIurs5XbFsvql2tii4wm uDu2BeLrXXAsmqXuvKxzNWJ9 q2RnVm68T05tLAgrDAQiJCXlKL CeTJRevOpshp2yfB7uEm2+PGNv qAF9dAI3dL3yLoLeGoY2RZjl L465GpRpxOHpAwwtk6xad6fsrR f3VoIoVQGeraUsgOjpCUM4c1Qb Vh15D9TtmHofa8BpMmm5cp54 vXSzm5W2iPD7W6JsQOKzsvcttF QxkAghPZ3bHJXstsfjGXTbqO8u KXNfU1n0XhQfNiH3ZPqaY3Wz uyY0ZLRplCIpITEprIHKzP8yvs jic2neavtfEaNySEWyYVa4GEi8 UKMkeEwqRzPbXGU8JzD4DUT3 hHOxxX6nwGystuileU4fJao+UG f3k7zftBJbMR5iwJB7QG52XD52 nXLvz8Y0uOG4A3DjTLDueagt mghweMQ4NTCgMKIdzK54Rm6oyC zgNi2nCDFuOXL9HHAtmSDjN6Yz sN7dKpRtHHNdCCSjU9PtcSCh UItzP833MPghVmJ2ZWAymbTqK5 VeBBKklAehDkU8z0F1Zo2UTD01 ZP01SR74xKGmc2S0kIZ2Q4Bo JKRfnzetleowrBG9GZZgIZUgmW 53Hj5bvOqnNn7hAJEmEIV6ACBi jMGzC8JhhX1oXaWhCTEiHOAz V2KmtWZaREzbL296MZiqLiZ7LV NpmxKpQ8LkWLVunWkmXbO6b2Q5 Zw9UGt40QK86TV44yFQws1G4 iYT8V2QaVXNpsiiarzgkkVD7KD WpPWCkiU15Aw6cgKkfLj0uWUNr XAY7NHBhhEDwC3ObvX3kBvXd QXJwILDcS2DpfNAuWZzqA012SX gzWfW7RSCwelAaS7VgYEXwkFqk HnQ2y4Y8Mn0AKZnubhd0L5Iz PjwvdHI+JK47ZRXfLS87hETyiL Yrq5tbjQb8RbEoPUSbZWN0cJyo CXcrh8OsSPXiO23wgJKsj4A7 IGN (more content not included)... Normal [facility] ED Clinical Summaryon 2021 ED Clinical Summary [facility] - Emergency Department [address] [place] [id number] ED Clinical Summary PERSON INFORMATION Name: SIS DOVE Age: 55 Years Sex: MALE : 1965 MRN: Acct#: Visit Reason: Throat foreign body; VOMITING, THROAT PAIN Arrival: 11/16/2021 19:15:42 Discharge: 11/16/2021 21:32:00 LOS: 000 02:17 Check In: 11/16/2021 19:15:42 Checkout:11/16/2021 21:32:00 Address: [address] [place] [address] PCP: FRANCES COLMENARES PROVIDER INFORMATION Provider Role Assigned Unassigned CARROLL MENDIETA ED PA 11/16/2021 19:33:19 Oralia Penn [employer] Nurse 11/16/2021 19:36:08 VITALS INFORMATION Vital Sign Triage Latest Temperature Tympanic Temperature Temporal Artery Pulse Rate 96 bpm 96 bpm O2 Sat 100 % 100 % Respiratory Rate 20 br/min 20 br/min Blood Pressure /96 mmHg /96 mmHg MEDICAL INFORMATION Medications Given: Medication Dose Route glucagon (glucagon recombinant) 1 mg IV LORazepam (Ativan injection) 0.5 mg IV Push Allergy Information: traMADol; acetaminophen-propoxyphene PHYSICIAN DOCUMENTATION Patient: SIS DOVE Age: 55 years Sex: MALE : 1965 Associated Diagnoses: Foreign body in throat Author: CARROLL MENDIETA Basic Information Time seen: Date & time 11/16/2021 19:37:00. History source: Patient. Arrival mode: Private vehicle, walking. Additional information: Chief Complaint from Nursing Triage Note : Chief Complaint 11/16/2021 2:20 EDT Chief Complaint Back Pain . History of Present Illness Patient is 55-year-old male presenting to the emergency department with complaint of food bolus stuck in his throat. Patient states that he was eating steak approximately half an hour prior to arrival when he felt a large bite of steak get stuck in his throat. He states that this caused him to vomit but he still feels as though it is stuck in his throat unable to swallow any spit or fluids down. He states he is breathing without any issues. He does admit that this is happened 2 other times of the last 4 months and has needed scopes secondary to this. 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 He states this feels the same as prior episodes. He denies any crushing chest pains, shortness of breath, abdominal pains or any other problems. Review of Systems Constitutional symptoms: No fever, Skin symptoms: No rash, Eye symptoms: Vision unchanged. ENMT symptoms: Food bolus and throat, no sore throat, no nasal congestion. Respiratory symptoms: No shortness of breath, no cough. Cardiovascular symptoms: No chest pain, no tachycardia. Gastrointestinal symptoms: No abdominal pain, no nausea, no vomiting. Genitourinary symptoms: No dysuria, Musculoskeletal symptoms: No back pain, Neurologic symptoms: No headache, no dizziness. Health Status Allergies: Allergic Reactions (Selected) Severity Not Documented TraMADol- Hives. Nonallergic Reactions (Selected) Severity Not Documented Acetaminophen-propoxyphene - Nausea.. Medications: (Selected) Prescriptions Prescribed predniSONE 1 mg oral tablet: See Instructions, 1 tab(s) PO bid x 3 day, then one daily for three days, 9 tab(s), 0 Refill(s) Documented Medications Documented Effexor: 225 mg, PO, Daily, 0 Refill(s) KlonoPIN 1 mg oral tablet: 1 mg = 1 tab(s), PO, BID, 0 Refill(s) KlonoPIN: PO, TID, 0 Refill(s) Latuda 60 mg oral tablet: 60 mg = 1 tab(s), PO, Daily, 30 tab(s), 0 Refill(s) Soma 350 mg oral tablet: 350 mg = 1 tab(s), PO, TID, 0 Refill(s) Vistaril 50 mg oral capsule: 50 mg = 1 cap(s), PO, QID, PRN: for anxiety, 40 cap(s), 0 Refill(s) Vitamin D3: Daily, 0 Refill(s) Vraylar 4.5 mg oral capsule: 4.5 mg = 1 cap(s), PO, Daily, 0 Refill(s) atorvastatin 40 mg oral tablet: 40 mg = 1 tab(s), PO, Daily, 90 tab(s), 0 Refill(s) indomethacin 20 mg oral capsule: 20 mg = 1 cap(s), PO, TID, 30 cap(s), 0 Refill(s) magnesium oxide 400 mg oral tablet: 400 mg = 1 tab(s), PO, BID, for 14 day(s), 0 Refill(s) traZODone 150 mg oral tablet: 150 mg = 1 tab(s), PO, Once a day (at bedtime), 90 tab(s), 0 Refill(s). Past Medical/ Family/ Social History Medical history: No active or resolved past medical history items have been selected or recorded.. Social history: Social & Psychosocial Habits Alcohol 11/06/2021 Alcohol Use: Never 11/16/2021 Alcohol Use: Never Substance Abuse 11/06/2021 Substance use: Current Type: Marijuana Comment: THC for sleep/legal card - 11/06/2021 12:18 - Monica Corey RN 11/16/2021 Substance use: Current Type: Marijuana Frequency: Several times per day Previous treatment: None IV drug use: No Has drug use interfered with your work or home life: No Ready to change: No Concerns about substance abuse in household: No Tobacco 11/03/2020 Smoking tobacco use: 10 or more cigarettes (11/06/2021 Smokin (more content not included)... [facility] ED Patient Education Noteon 11-17-2021 ED Patient Education Note Education Materials [facility] ED Patient Summaryon 022 ED Patient Summary [facility] - Emergency Department [address] [place] [address] PATIENT DISCHARGE INSTRUCTIONS Patient Information Name: SIS DOVE Age: 55 Years Date of : 1965 Reason For Visit: Throat foreign body; VOMITING, THROAT PAIN Arrival Time: 11/16/2021 19:15:42 Primary Care Physician: FRANCES COLMENARES Attending Physician: Artis Mcneill MD Comment: Visit Diagnosis: Diagnoses This Visit Foreign body in throat (T17.208A) Throat foreign body ([id number]) Prescription Information: If you have been given a prescription for narcotics, seek immediate medical attention if you have any difficulty breathing or any sudden status changes such as confusion and sleepiness. If you or anyone you know is experiencing suicidal thoughts, mental health, alcohol and/or drug addiction problems; contact the [facility] 10/12 Crisis Hotline -Text 9BYYW fz 236400. If you received any narcotics, sedation, or any other medication that causes drowsiness for the next 24 hours, unless otherwise directed: ? Do not drive a car. ? Do not operate machinery such as power tools, lawn mowers, drills, sewing machines, or stoves ? Avoid alcoholic beverages and drugs for allergies, nerves, or sleep ? Do not make important personal or business decisions or sign any legal documents Medication Information: The exam and treatment you received today in the [facility] Emergency Department were for an urgent problem and are not intended as complete care. It is important for you to follow up with a doctor, nurse practitioner, or physician?s energy assistant for ongoing care. If your symptoms become worse or you do not improve as expected and you are unable to reach your usual health care provider, you should return to the Emergency Department, we are available 24 hours a day. For those patients who have received Radiology results, the interpretation of your X-ray as given to you by our Emergency Department physician is only a preliminary report. The Radiologist will review your films and if there is a change in the diagnosis you will be notified by phone. Please make sure you have provided a working phone number so we can reach you if necessary. In the event that you had a lab culture while you were a patient in the Emergency Department, you will be notified by phone if there is a need to change your antibiotic. Please make sure you have provided a working phone number so we can reach you if necessary. [facility] Emergency Department has provided you with a complete list of medications post discharge. Please inform your windows mobile developer/provider of your visit and for further instruction on these medications. Any specific questions regarding your chronic medications and dosages should be discussed with your primary care physician(s) and/or pharmacist. Medications to Continue That Have Not Changed Other Medications atorvastatin (atorvastatin 40 mg oral tablet) 1 tab(s) Oral every day. cariprazine (Vraylar 4.5 mg oral capsule) 1 cap(s) Oral every day. carisoprodol (Soma 350 mg oral tablet) 1 tab(s) Oral 3 times a day. cholecalciferol (Vitamin D3) every day. clonazePAM (KlonoPIN 1 mg oral tablet) 1 tab(s) Oral 2 times a day. clonazePAM (KlonoPIN) Oral 3 times a day. hydrOXYzine (Vistaril 50 mg oral capsule) 1 cap(s) Oral 4 times a day as needed for anxiety. indomethacin (indomethacin 20 mg oral capsule) 1 cap(s) Oral 3 times a day. lurasidone (Latuda 60 mg oral tablet) 1 tab(s) Oral every day. magnesium oxide (magnesium oxide 400 mg oral tablet) 1 tab(s) Oral 2 times a day for 14 Days. predniSONE (predniSONE 1 mg oral tablet) 1 tab(s) PO bid x 3 day, then one daily for three days. Refills: 0. traZODone (traZODone 150 mg oral tablet) 1 tab(s) Oral once a day (at bedtime). venlafaxine (Effexor) 225 Milligram Oral every day. Visit Information Allergies: Substance Reaction Symptoms Type Comments acetaminophen-propoxyphene nausea Drug traMADol hives Drug Vital Signs: Vitals and Measurements this Visit (last charted value for your 11/16/2021 visit) Vital Signs This Visit Temperature Oral: 36.9 DegC Peripheral Pulse Rate: 96 bpm Respiratory Rate: 20 br/min Systolic Blood Pressure: 131 mmHg Diastolic Blood Pressure: 96 mmHg SpO2: 100 % Oxygen Therapy: Room air Measurements This Visit Height/Length Dosin.000 cm Height/Length Estimated: 177.000 cm Weight Dosin.000 kg Weight Estimated: 77.000 kg Problems List: Problem Onset Comments Anxiety bipolar disorder depression suicidal ideation 04/19/09 Patient Education Viruses or Bacteria What?s got you sick? Antibiotics only treat bacterial infections. Viral illnesses cannot be treated with antibiotics. When an antibiotic is not prescribed, ask your healthcare professional for tips on how to relieve symptoms and feel bet (more content not included)... Normal [facility] ED Clinical Summaryon 2021 ED Clinical Summary [facility] - Emergency Department [address] [place] [address] ED Clinical Summary PERSON INFORMATION Name: SIS DOVE Age: 55 Years Sex: MALE : 1965 MRN: Acct#: Visit Reason: Back injury; Back pain; BACK PAIN FROM PREVIOUS ACCIDENT Arrival: 11/16/2021 02:17:12 Discharge: 11/16/2021 04:10:00 LOS: 000 01:53 Check In: 11/16/2021 02:17:12 Checkout:11/16/2021 04:10:00 Address: [address] [place] [address] PCP: FRANCES COLMENARES PROVIDER INFORMATION Provider Role Assigned Unassigned Camilo Fox DO ED Provider 11/16/2021 02:22:42 Oralia Penn [employer] Nurse 11/16/2021 02:37:39 VITALS INFORMATION Vital Sign Triage Latest Temperature Tympanic Temperature Temporal Artery Pulse Rate 83 bpm 83 bpm O2 Sat 99 % 99 % Respiratory Rate 18 br/min 18 br/min Blood Pressure /74 mmHg /74 mmHg MEDICAL INFORMATION Medications Given: Medication Dose Route predniSONE 40 mg PO ketorolac 60 mg IM Allergy Information: traMADol; acetaminophen-propoxyphene PHYSICIAN DOCUMENTATION Patient: SIS DOVE Age: 55 years Sex: MALE : 1965 Associated Diagnoses: Chronic back pain; Contusion of left great toe without damage to nail; Pain management Author: Camilo Fox DO Basic Information Time seen: Date & time 11/16/2021 02:33:00. History source: Patient. Arrival mode: Private vehicle, walking. History limitation: None. History of Present Illness The patient presents with This patient presents to the emergency room for evaluation of right back pain mid lumbar pain, states it is very bad, states its since he had an accident this past week. He states he is preparing for surgery in [place], because he had a nerve separation on the last surgery which is a second back surgery and had, and then he was in an accident this past week and he was seen here and had a CAT scan which showed degenerative process. He states he is having a lot of pain, he states his family doctor, Dr. Colmenares, cannot examine him in the office till next week, over the phone, I did provide him indomethacin. So he states that he is got a lot of things to do this weekend and he wants some additional pain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 Cristobal Appiah FINDINGS: No acute fracture dislocation. 5 lumbar vertebral bodies are identified. The vertebral body heights are maintained. Moderate to severe decrease in the intervertebral disc space at L5-S1. Severe facet arthropathy at the same level. No evidence of instability. The risk of the calcifications of the abdominal aorta. Nonspecific bowel gas pattern. IMPRESSION: Moderate degenerative changes at L5-S1. No evidence of instability. Normal [facility] BASIC MET PANELon 09-13-2018 Anion gap [Moles/Vol] 10 mmol/L Normal 6-18 [facility] Comment on above: Performed By: #### L 500.23140, L500.96467 ####Test performed at: [address] [address] Calcium [Mass/Vol] 8.8 mg/dL Normal 8.5-10.1 [facility] Comment on above: Performed By: #### L 500.02921, L500.74018 ####Test performed at: [address] [address] Chloride [Moles/Vol] 105 mmol/L Normal 98-107 [facility] Comment on above: Performed By: #### L 500.87186, L500.08035 ####Test performed at: [address] [address] CO2 [Moles/Vol] 27 mmol/L Normal 21-32 [facility] Comment on above: Performed By: #### L 500.17128, L500.76830 ####Test performed at: [address] [address] Creatinine [Mass/Vol] 0.793 mg/dL Normal 0.700-1.300 [facility] Comment on above: Performed By: #### L 500.11459, L500.36201 ####Test performed at: [address] [address] Glucose [Mass/Vol] 134 mg/dL High 70-99 [facility] Comment on above: Result Comment: Fast ing GLUCOSE reference range has been updated per (ADA) [place] [employer]'s recommendation. 08/12/2018 Performed By: #### L 500.51865, L500.45412 ####Test performed at: [address] [address] OSM 285 mosm/kg Normal 270-300 [facility] Comment on above: Performed By: #### L 500.80803, L500.36495 ####Test performed at: [address] [address] Potassium [Moles/Vol] 4.1 mmol/L Normal 3.5-5.1 [facility] Comment on above: Performed By: #### L 500.44098, L500.48725 ####Test performed at: [address] [address] Sodium [Moles/Vol] 138 mmol/L Normal 136-145 [facility] Comment on above: Performed By: #### L 500.56316, L500.41640 ####Test performed at: [address] [address] Urea nitrogen [Mass/Vol] 5 mg/dL Low 7-18 [facility] Comment on above: Performed By: #### L 500.84577, L500.29348 ####Test performed at: [address] [address] CBC W/DIFFon 09-13-2018 BASO ABS 0.0 K/uL Normal 0.0-0.2 [facility] Comment on above: Performed By: #### L 200.30538 #### Test performed at: [address] [address] Basophils/100 WBC (Bld) 0.1 % Normal [facility] Comment on above: Performed By: #### L 200.34384 #### Test performed at: [address] [address] EOS ABS 0.0 K/uL Normal 0.0-0.5 [facility] Comment on above: Performed By: #### L 200.51823 #### Test performed at: [address] [address] Eosinophils/100 WBC (Bld) 0.0 % Normal [facility] Comment on above: Performed By: #### L 200.89138 #### Test performed at: [address] [address] Erythrocyte distribution width (RBC) [Ratio] 11.9 % Normal 11.5-14.5 [facility] Comment on above: Performed By: #### L 200.87802 #### Test performed at: [address] [address] Hematocrit (Bld) [Volume fraction] 36.8 % Low 39.0-55.0 [facility] Comment on above: Performed By: #### L 200.94408 #### Test performed at: [address] [address] Hemoglobin (Bld) [Mass/Vol] 12.8 g/dL Low 14.0-16.5 [facility] Comment on above: Performed By: #### L 200.57242 #### Test performed at: [address] [address] IG % 0.6 % Normal [facility] Comment on above: Performed By: #### L 200.28716 #### Test performed at: [address] [address] IG ABS 0.04 K/uL Normal 0-0.05 [facility] Comment on above: Performed By: #### L 200.28019 #### Test performed at: [address] [address] Lymphocytes (Bld) [#/Vol] 0.8 10*3/uL Low 1.2-3.5 [facility] Comment on above: Performed By: #### L 200.03967 #### Test performed at: [address] [address] Lymphocytes/100 WBC (Bld) 11.4 % Normal [facility] Comment on above: Performed By: #### L 200.30680 #### Test performed at: [address] [address] MCH (RBC) [Entitic mass] 32.1 pg Normal 25.4-34.6 [facility] Comment on above: Performed By: #### L 200.59538 #### Test performed at: [address] [address] MCHC (RBC) [Mass/Vol] 34.8 g/dL Normal 31.5-36.5 [facility] Comment on above: Performed By: #### L 200.19414 #### Test performed at: [address] [address] MCV (RBC) [Entitic vol] 92.2 fL Normal 80.0-100.0 [facility] Comment on above: Performed By: #### L 200.39691 #### Test performed at: [address] [address] MONO ABS 0.1 K/uL Normal 0.0-1.0 [facility] Comment on above: Performed By: #### L 200.22317 #### Test performed at: [address] [address] Monocytes/100 WBC (Bld) 1.7 % Normal [facility] Comment on above: Performed By: #### L 200.82779 #### Test performed at: [address] [address] NEUTROPHIL ABS 6.3 K/uL Normal 1.4-6.6 [facility] Comment on above: Performed By: #### L 200.11710 #### Test performed at: [address] [address] Neutrophils/100 WBC (Bld) 86.2 % Normal [facility] Comment on above: Performed By: #### L 200.72039 #### Test performed at: [address] [address] NRBC # 0.000 K/uL Normal 0-0.012 [facility] Comment on above: Performed By: #### L 200.05299 #### Test performed at: [address] [address] NRBC % 0.0 /100 WBC Normal 0-0.2 [facility] Comment on above: Performed By: #### L 200.00089 #### Test performed at: [address] [address] Platelet mean volume (Bld) [Entitic vol] 10.7 fL Normal 8.7-12.4 [facility] Comment on above: Performed By: #### L 200.18092 #### Test performed at: [address] [address] Platelets (Bld) [#/Vol] 144 10*3/uL Normal 140-440 [facility] Comment on above: Performed By: #### L 200.03224 #### Test performed at: [address] [address] RBC (Bld) [#/Vol] 3.99 10*6/uL Normal 3.5-5.5 [facility] Comment on above: Performed By: #### L 200.49445 #### Test performed at: [address] [address] WBC (Bld) [#/Vol] 7.3 10*3/uL Normal 3.9-11.0 [facility] Comment on above: Performed By: #### L 200.63403 #### Test performed at: [place] [address] GFR ESTIMATEon 09-13-2018 IF AMER > 60 Normal > 60 [facility] Comment on above: Result Comment: eGFR (Estimated GFR) Units of measure:mL/min/1.73 meters sq. *CALCULATION REVISED 03/08/2015;IDMS-traceable MDRD equation eGFR is derived from the reexpressed MDRD Study equation using the following parameters: serum creatinine, age, gender and race. An eGFR<60 mL/min/1.73m2 for >3 months is consistent with chronic kidney disease. Refer to KDOQI guidelines for clinical interpretation. Performed By: #### L 500.36811, L500.41103 ####Test performed at: [place] [address] IF non-AFR AMER > 60 Normal > 60 [facility] Comment on above: Performed By: #### L 500.07593, L500.13883 ####Test performed at: [place] [address] CONSULTATION REPORTon 2018 CONSULTATION REPORT NAME: SIS DOVE MR#: [id number] INTERNET MARKETING CONSULTANT: May Chandra MD DATE OF CONSULTATION: 09/13/2018 CONSULTATION Mr. Dove is a 52-year-old gentleman who underwent lumbar spine laminectomy, diskectomy. The patient has past medical history of osteoarthritis, bipolar disorder, PTSD, obstructive sleep apnea. The patient is a current smoker. 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 ALLERGIES: The patient has no known medication allergies. HOME MEDICATIONS: Baclofen, Lipitor, aspirin currently on hold, [place], Klonopin, Depakote, Elavil, Wellbutrin, Desryl, Latuda, Vistaril, Imitrex as needed, Cogentin, fiber, Zofran, and vitamin D3. The patient as mentioned is a current 1 pack a day smoker. He uses alcohol very infrequently. Denies any drug use apart from marijuana. His girlfriend and family will assist him in surgical recovery. REVIEW OF SYSTEMS: The patient denies any shortness of breath, chest pain, lightheadedness, or nausea. His postsurgical pain is well controlled. PHYSICAL EXAMINATION: GENERAL: He is on exam, comfortable, afebrile. VITAL SIGNS: Pulse is 82, respirations 20, blood pressure 114/58, pulse oximetry 95% on room air. BMI of 23.5 kg per square meter. HEENT: His pupils are reactive. There is no pallor, no icterus. NECK: There is no JVD. LUNGS: Clear on auscultation, although there is decreased air entry bilaterally. CARDIOVASCULAR: Unremarkable. ABDOMEN: Not distended. Bowel sounds are present. EXTREMITIES: There is no lower extremity edema or calf tenderness. LABORATORY DATA: Blood work shows hemoglobin of 12.8 today. BUN and creatinine of 5 and 0.79 respectively. ASSESSMENT: Status post lumbar decompressive laminectomy, history of bipolar disease, all medications were resumed, history of GERD. Next patient is a current smoker. Smoking cessation discussed with patient. DVT prophylaxis with pneumatic compression device. He is medically stable to be discharged home. Thank you for involving me in the patient's care. [facility] PT NAME: SIS DOVE MR#: [id number] [address] [place] [address] ACCT: [id number] : 63 CONSULTATION MAY CHANDRA MD [facility]/[id number] E/S: May Chandra MD 09/15/18 1238 Electronically Signed [facility] NAME: SIS DOVE MR#: [id number] [address] [place] [address] ACCT: [id number] : 63 CONSULTATION Normal [facility] OPERATIVE REPORTon 9 OPERATIVE REPORT NAME: SIS DOVE MR#: [id number] SURGEON: Cristobal Appiah MD DATE OF SURGERY: 09/12/2018 OPERATIVE REPORT PREOPERATIVE DIAGNOSIS: Lateral recess stenosis and bulging disk. POSTOPERATIVE DIAGNOSIS: Lateral recess stenosis and bulging disk. OPERATIVE PROCEDURE: Left L5-S1 laminotomy, foraminotomy, decompression with diskectomy. PROCEDURE IN DETAIL: After anesthesia, the patient was placed prone on a spine frame. Care was taken to avoid injury to the eyes, axilla, median, and ulnar nerves. The back was prepped and draped in usual fashion. The incision was planned using a needle and C-arm. A longitudinal incision was made over L5-S1 with sharp dissection of subcutaneous tissues. The fascia and paraspinal muscles were dissected bluntly down to the left L5-S1 interspace and the tubular retractor was inserted and x-ray confirmed position in AP and lateral planes. The left L5 lamina was cleared of soft tissue and directly visualized. Under magnification, the lamina and medial facet was thinned with a bur. Laminotomy was performed removing the inferior aspect of the L5 lamina with Kerrison rongeurs. Partial medial facetectomy was performed with Kerrison rongeurs. The ligamentum was released with a nerve hook and removed with Kerr[place] rongeurs while protecting the dura. The superior aspect of the S1 lamina was removed with Kerrison rongeurs. In doing so, the traversing S1 root was well decompressed. The lateral recess was decompressed with straight and curved Kerrison rongeurs and foraminotomy was performed with curved Kerrison rongeurs. After thorough decompression, the epidural space was palpated with a Cuenca hook. The foramen was patent. The exiting L5 root well decompressed and the lateral recess was well decompressed and the traversing S1 root was well decompressed. During the decompression, we found that there was significant foraminal stenosis as palpated with the Cuenca hook. The dura was then gently retracted toward the midline and the epidural was coagulated with the bipolar. This revealed a moderate-sized herniation. A sharp transverse annulotomy was performed and we found that the herniation was mostly spur with thickened anulus and we did not get much disk material out. We felt that the decompression was adequate to decompress the neurologic structures. The wound was irrigated with saline and Betadine solution. Hemostasis was achieved with FloSeal. The paraspinal muscles were injected with 0.5% Marcaine. The tubular retractor was removed and bleeding coagulated and there was some oozing at the end of the case, so a silastic drain was left deep in the wound exiting through separate stab incision. The fascia, subcutaneous tissues, and skin were closed in the usual manner. Dressings were applied. The patient was turned supine, [facility] NAME: SIS DOVE MR#: [id number] [address] [place] [address] ACCT: [id number] : 63 OPERATIVE REPORT awakened, and taken to recovery room in excellent condition. There were no complications. CRISTOBAL APPIAH MD [facility]/[id number] E/S: Cristobal Appiah MD 11/04/18 1523 Electronically Signed [facility] NAME: SIS DOVE MR#: [id number] [address] [place], [place] [id number] ACCT: [id number] : 63 OPERATIVE REPORT Normal [facility] LUMBAR SPINE 2 OR 3 VIEWSon 09-10-2018 LUMBAR SPINE 2 OR 3 VIEWS Exam: Fluoroscopy lumbar spine Clinical History: LEFT L5-S1 LAMINECTOMY, FORAMINOTOMY, DECOMPRESSION Comparison: None. Findings: Fluoroscopic images of lumbar spine demonstrate surgical instruments posterior to L5-S1. Impression: As above Dictated: 09/12/18 1532 REPORT SIGNATURE ON FILE09/12/18(1532) Reported By: AC WILSON Signed By: AC WILSON Normal [facility] BASIC MET PANELon 09-03-2018 Anion gap [Moles/Vol] 8 mmol/L Normal -18 [facility] Comment on above: Order Comment: CBN: YES [place]: MAIN Performed By: #### L 500.17478, L500.34128 #### Test performed at: [address] [address] Calcium [Mass/Vol] 9.4 mg/dL Normal 8.5-10.1 [facility] Comment on above: Order Comment: CBN: YES [place]: MAIN Performed By: #### L 500.89981, L500.63892 #### Test performed at: [address] [address] Chloride [Moles/Vol] 104 mmol/L Normal 98-107 [facility] Comment on above: Order Comment: CBN: YES [place]: MAIN Performed By: #### L 500.81329, L500.57216 #### Test performed at: [address] [address] CO2 [Moles/Vol] 31 mmol/L Normal 21-32 [facility] Comment on above: Order Comment: CBN: YES [place]: MAIN Performed By: #### L 500.01594, L500.87065 #### Test performed at: [address] [address] Creatinine [Mass/Vol] 1.070 mg/dL Normal 0.700-1.300 [facility] [facility] Comment on above: Order Comment: CBN: YES [place]: MAIN Performed By: #### L 500.54527, L500.63037 #### Test performed at: [address] [address] Glucose [Mass/Vol] 91 mg/dL Normal 70-99 [facility] Comment on above: Order Comment: CBN: YES [place]: MAIN Result Comment: Fast ing GLUCOSE reference range has been updated per (ADA) [place] [employer]'s recommendation. 08/12/2018 Performed By: #### L 500.39514, L500.16299 #### Test performed at: [address] [address] OSM 285 mosm/kg Normal 270-300 [facility] Comment on above: Order Comment: CBN: YES [place]: MAIN Performed By: #### L 500.79188, L500.86593 #### Test performed at: [address] [address] Potassium [Moles/Vol] 4.5 mmol/L Normal 3.5-5.1 [facility] Comment on above: Order Comment: CBN: YES [place]: MAIN Performed By: #### L 500.61729, L500.28286 #### Test performed at: [address] [address] Sodium [Moles/Vol] 138 mmol/L Normal 136-145 [facility] Comment on above: Order Comment: CBN: YES [place]: MAIN Performed By: #### L 500.74978, L500.75338 #### Test performed at: [address] [address] Urea nitrogen [Mass/Vol] 11 mg/dL Normal 7-18 [facility] Comment on above: Order Comment: CBN: YES [place]: MAIN Performed By: #### L 500.36935, L500.35902 #### Test performed at: [address] [address] CBCon 09-03-2018 Erythrocyte distribution width (RBC) [Ratio] 12.1 % Normal 11.5-14.5 [facility] Comment on above: Order Comment: CBN: YES [place]: MAIN Performed By: #### L 200.99479 #### Test performed at: [address] [address] Hematocrit (Bld) [Volume fraction] 43.0 % Normal 39.0-55.0 [facility] Comment on above: Order Comment: CBN: YES [place]: MAIN Performed By: #### L 200.73171 #### Test performed at: [address] [address] Hemoglobin (Bld) [Mass/Vol] 14.6 g/dL Normal 14.0-16.5 [facility] Comment on above: Order Comment: CBN: YES [place]: MAIN Performed By: #### L 200.70838 #### Test performed at: [address] [address] MCH (RBC) [Entitic mass] 32.3 pg Normal 25.4-34.6 [facility] Comment on above: Order Comment: CBN: YES [place]: MAIN Performed By: #### L 200.90255 #### Test performed at: [address] [address] MCHC (RBC) [Mass/Vol] 34.0 g/dL Normal 31.5-36.5 [facility] Comment on above: Order Comment: CBN: YES [place]: MAIN Performed By: #### L 200.70778 #### Test performed at: [address] [address] MCV (RBC) [Entitic vol] 95.1 fL Normal 80.0-100.0 [facility] Comment on above: Order Comment: CBN: YES [place]: MAIN Performed By: #### L 200.78892 #### Test performed at: [place] [id number] NRBC # 0.000 K/uL Normal 0-0.012 [facility] Comment on above: Order Comment: CBN: YES [place]: MAIN Performed By: #### L 200.56820 #### Test performed at: [address] [address] NRBC % 0.0 /100 WBC Normal 0-0.2 [facility] Comment on above: Order Comment: CBN: YES [place]: MAIN Performed By: #### L 200.81291 #### Test performed at: [address] [address] Platelet mean volume (Bld) [Entitic vol] 11.0 fL Normal 8.7-12.4 [facility] Comment on above: Order Comment: CBN: YES [place]: MAIN Performed By: #### L 200.95762 #### Test performed at: [address] [address] Platelets (Bld) [#/Vol] 150 10*3/uL Normal 140-440 [facility] Comment on above: Order Comment: CBN: YES [place]: MAIN Performed By: #### L 200.18989 #### Test performed at: [address] [address] RBC (Bld) [#/Vol] 4.52 10*6/uL Normal 3.5-5.5 [facility] Comment on above: Order Comment: CBN: YES [place]: MAIN Performed By: #### L 200.05031 #### Test performed at: [address] [address] WBC (Bld) [#/Vol] 6.1 10*3/uL Normal 3.9-11.0 [facility] Comment on above: Order Comment: CBN: YES [place]: MAIN Performed By: #### L 200.03874 #### Test performed at: [address] [address] GFR ESTIMATEon 09-03-2018 IF AMER > 60 Normal > 60 [facility] Comment on above: Order Comment: CBN: YES [place]: MAIN Result Comment: eGFR (Estimated GFR) Units of measure:mL/min/1.73 meters sq. *CALCULATION REVISED 03/08/2015;IDMS-traceable MDRD equation eGFR is derived from the reexpressed MDRD Study equation using the following parameters: serum creatinine, age, gender and race. An eGFR<60 mL/min/1.73m2 for >3 months is consistent with chronic kidney disease. Refer to KDOQI guidelines for clinical interpretation. Performed By: #### L 500.23808, L500.04147 #### Test performed at: [address] [address] IF non-AFR AMER > 60 Normal > 60 [facility] Comment on above: Order Comment: CBN: YES [place]: MAIN Performed By: #### L 500.34857, L500.52978 #### Test performed at: [address] [address] LUMB SP COMP W FLEX/EXT 6 VW S>on 09-03-2018 LUMB SP COMP W FLEX/EXT 6 VWS> STUDY: LUMB SP COMP W FLEX/EXT 6 VWS>; 09/03/2018 10:53 am INDICATION: POSSIBLE DISCECTOMY. COMPARISON: None. ACCESSION NUMBER(S): [id number] ORDERING CLINICIAN: Cristobal Appiah FINDINGS: Severe L5-S1 disc height loss with endplate sclerosis and osteophyte formation. Milder disc height loss more superiorly. No fracture subluxation. No spondylolisthesis. Lower lumbar predominant facet arthropathy. No spondylolisthesis. No spondylolysis. No instability on flexion or extension. Atherosclerosis. IMPRESSION: Lower lumbar predominant degenerative changes without dynamic instability. Normal [facility] TSPATon 09-03-2018 ABO and Rh group Nom (Bld) O POSITIVE Normal [facility] Comment on above: Order Comment: CBN: YES [place]: MAIN Transfusion Status: CONSERVATION Blood Bank service requested: TYPE AND SCREEN Specimen Comment: SURG 09/12 Performed By: #### B 100.0201 #### Test performed at: [address] [address] C-Reactive Proteinon 018 C reactive protein (CRP) 0.2 mg/dL Normal <0.9 [facility] Comment on above: Performed By: #### C BCDIF, B12, SERFOL, CMP, CRP, TSH, MMA ####[facility] [place], [place] [phone] CBC and Differentialon 08-12 Abs Baso <0.03 Normal <0.11 [facility] Comment on above: Performed By: #### C BCDIF, B12, SERFOL, CMP, CRP, TSH, MMA ####[place] [address] [address] [place] [phone] Abs Rich 0.60 k/uL Normal <0.87 [facility] Comment on above: Performed By: #### C BCDIF, B12, SERFOL, CMP, CRP, TSH, MMA ####[place] [address] [address] [phone] Abs Neut 3.07 k/uL Normal 1.45-7.50 [facility] Comment on above: Performed By: #### C BCDIF, B12, SERFOL, CMP, CRP, TSH, MMA ####[address] [place] [phone] Basophils/100 WBC Auto (Bld) 0.4 % Normal [facility] Comment on above: Performed By: #### C BCDIF, B12, SERFOL, CMP, CRP, TSH, MMA ####[address] [place] [phone] DTYPE Auto Diff Normal [facility] Comment on above: Performed By: #### C BCDIF, B12, SERFOL, CMP, CRP, TSH, MMA ####[address] [phone] Eosinophils 10*3/uL Normal <0.46 [facility] Comment on above: Performed By: #### C BCDIF, B12, SERFOL, CMP, CRP, TSH, MMA ####[place] [address] [address] [place] [phone] Eosinophils/100 leukocytes 0.0 % Normal [facility] Comment on above: Performed By: #### C BCDIF, B12, SERFOL, CMP, CRP, TSH, MMA ####[place] [address] [address], [place] [phone] Erythrocyte distribution width Auto Ratio (RBC) 12.7 % Normal 11.5-15.0 [facility] Comment on above: Performed By: #### C BCDIF, B12, SERFOL, CMP, CRP, TSH, MMA ####[address] [place] [phone] Erythrocytes (RBC) 0.0 /100 WBC Normal 0 [facility] Comment on above: Performed By: #### C BCDIF, B12, SERFOL, CMP, CRP, TSH, MMA ####[place] [phone] Erythrocytes (RBC) 10*6/uL Normal <0.01 [facility] Comment on above: Performed By: #### C BCDIF, B12, SERFOL, CMP, CRP, TSH, MMA ####[address] [phone] Erythrocytes (RBC) 4.58 10*6/uL Normal 4.20-6.00 [facility] Comment on above: Performed By: #### C BCDIF, B12, SERFOL, CMP, CRP, TSH, MMA ####[address] [phone] Hematocrit (HCT) 43.2 % Normal 39.0-51.0 [facility] Comment on above: Performed By: #### C BCDIF, B12, SERFOL, CMP, CRP, TSH, MMA ####[place] [phone] Hemoglobin mass conc (Bld) 14.3 g/dL Normal 13.0-17.0 [facility] Comment on above: Performed By: #### C BCDIF, B12, SERFOL, CMP, CRP, TSH, MMA ####[address], [place] [phone] Lymphocytes 1.80 10*3/uL Normal 1.00-4.00 [facility] Comment on above: Performed By: #### C BCDIF, B12, SERFOL, CMP, CRP, TSH, MMA ####[place] [address] [address]CN[address], [place] [phone] Lymphocytes/100 leukocytes 32.7 % Normal [facility] Comment on above: Performed By: #### C BCDIF, B12, SERFOL, CMP, CRP, TSH, MMA ####[address] [phone] MCH 31.2 pG Normal 26.0-34.0 [facility] Comment on above: Performed By: #### C BCDIF, B12, SERFOL, CMP, CRP, TSH, MMA ####[address] [phone] MCHC mass conc (RBC) 33.1 g/dL Normal 30.5-36.0 [facility] Comment on above: Performed By: #### C BCDIF, B12, SERFOL, CMP, CRP, TSH, MMA ####[address], [place] [phone] MCV 94.3 fL Normal 80.0-100.0 [facility] Comment on above: Performed By: #### C BCDIF, B12, SERFOL, CMP, CRP, TSH, MMA ####[address] [phone] Monocytes/100 leukocytes 10.9 % Normal [facility] Comment on above: Performed By: #### C BCDIF, B12, SERFOL, CMP, CRP, TSH, MMA ####[place] [address] [address] [place] [phone] Neutrophils/100 WBC Auto (Bld) 56.0 % Normal [facility] Comment on above: Performed By: #### C BCDIF, B12, SERFOL, CMP, CRP, TSH, MMA ####[address] [phone] Platelet mean volume (PMV) 10.2 fL Normal 9.0-12.7 [facility] Comment on above: Performed By: #### C BCDIF, B12, SERFOL, CMP, CRP, TSH, MMA ####[address] [phone] Platelets 228 10*3/uL Normal 150-400 [facility] Comment on above: Performed By: #### C BCDIF, B12, SERFOL, CMP, CRP, TSH, MMA ####[address] [phone] WBC (Leukocytes) 5.50 10*3/uL Normal 3.70-11.00 [facility] Comment on above: Performed By: #### C BCDIF, B12, SERFOL, CMP, CRP, TSH, MMA ####[address] [phone] Roddy 08-12-2017 CNOV Office Visit (GASTA5) SIS DOVE ([id number]) 1965 MDate Time Provider Department08/12/17 4:10 PM ENMA PHILLIPSA5 During your visit today, we recorded the following information about you: Pulse Blood pressure Weight Height 81/minute 113/76 74.9 kg 1.727 Mallory Phillips MD 08/12/2017 5:26 PM SignedFollow Up Visit ??[address] - seen with his significant other, Shana?Discussion and Plan from 03/18/17:DISCUSSION: He appears much improved over the past year. The dentalextractions and new dentures should continue to help him with a more positiveself-image. We discussed that he may always have some issues with diarrheaand/or constipation. The goal will be to make the swings less major so that salomón take these changes more in stride. He is at a much better weight for him,but I encouraged him not to gain too much more weight as he is at the top ofthe healthy range for him. The fact that Dr. Lai is willing to write for hisKlonopin has been a great relief for him, and he will not need to travel allthe way to see me for prescriptions for this. In fact, he can now see me asneeded. I did remind him that he will be due for a Colonoscopy in 2019 which salomón have here or closer to home, but since he has had polyps in the past, thiswill be important for him.PLANPatient has a MyChart account.Continue?IBgard twice a dayMay increase Citrucel to 1 tablespoon twice a day, if he wishesLetter to Dr. Garber 6 months, otherwise PRNNeeds a Colonoscopy in 2019, here or closer to home?CHIEF COMPLAINTFollow up of weight loss, abdominal pain, and diarrhea?HISTORY OF PRESENT ILLNESS Mr. Dove is a 51 yo man who I saw for the first time on 06/14/14. He wasreferred by Dr. Lai for evaluation of weight loss, abdominal pain, anddiarrhea. Apparently over the prior 6 months, he had had a loss of appetite,sensation of early satiety and daily nausea and had lost approximately 45pounds. He had been sent for endoscopies both EGD and colonoscopy which wereapparently negative. He had had significant imaging that apparently includes aCT of the chest, abdomen and pelvis as well as a CT of the neck, the latter fora fixed firm nodule in the left neck (CT did not show any lesion). He had a PMHof depression/ anxiety/bipolar and had been doing well until 1 to 1.5 years agowhen he started having fatigue, loss of appetite, abdominal pain, loss ofweight and diarrhea. Every time that he would eat food, 20-30 minutes after thefood, he would have to have a BM, which would be watery with mucus. Usually thestool was nonbloody, but he had noted have 1 episode of blood about 2 weeksprior to his initial visit. Also, he was having morning nausea, but novomiting. He complained of loss of appetite. He had had abdominal pain in theleft upper quadrant, occasional 3-4 times a week nonradiating, aching incharacter, not related to food. He had lost about 50 pounds in the prior year.He would wake up in the afternoon and would eat only dinner. He had been offhis antidepressant medications for more than 1 month as he said that they werenot helping. He had had an extensive workup from local GI which wasnondiagnostic to explain his symptoms. However, he had been put on Entocort andwas now constipated! He had been taking Dulcolax to have a BM. He was taking 2pills a day of the Entocort; however, he had switched to once every other day.He had been doing Ensure and [employer] Breakfast and had gained fewpounds in the few weeks prior to his initial visit. He also noted dysphagia forsolids, occasionally. He did have a manometry done which according to him wasANDquot;mildly abnormalANDquot;. He had an appointment with new Psychiatrist theday after our visit. During his visit in July 2014, he had tried to consume 1-2 [employer] InstantBreakfasts every day. He was still having some AM nausea and might have severalBMs over the course of the morning that when they would come would make himvery tired. He had also seen his Psychiatrist who had increased his Latuda, butthis appeared to be associated with some jaw tightening that would remain for2-3 hours. He had called to tell her about this, and she prescribed amedication to help with this, but he had not filled it at the time of thevisit. However, he did seem to be in a little better mood. At his visit in October 2014, he reported that he felt better. He said that hehad symptoms about 3-4 days a week, and the symptoms involved nausea, but hedid not vomit. He would wake up with symptoms, and he would have them most ofthe day. He had occasional episodes of severe abdominal pain also located inthe LUQ, and diarrhea which lasted for half the day. His stools were usuallywatery or soft but nonbloody. He denied constipation in between. His appetitewas not the best, but he was trying to eat as much as he could to keep hisweight up. He had gained about 10 lbs since his prior visit, and Marinol washelping his appetite especially in the evenings. Most of his symptoms were inthe morning, and they seemed to improve as the day progresses. His work up hadincluded calprotectin, fecal fat, EGD and colonoscopy with biopsies which hadbeen unremarkable. His jaw clenching was better, and his Psychiatrist wastaking care of that. During his visit in December 2014, he reported that he had fallen back a littlebit because he was back to having some looser stools and that had slowed hiseating. The stools were most prominent after his first meal of the day (usuallyhis biggest at ~5 PM). He would have loose stools 3-60 minutes after. He mighttry to eat small amounts over the next several hours and have more loose stool.He would go to bed in the very skein bander hours, but did not have diarrheathat would wake him up or accidents. However, he would have some loose stoolafter he would wake up. He denied abdominal pain or blood in the stool. At his visit in August 2015, he related that he had been able to control thediarrhea with the Lomotil. He had been able to gain weight because he had beenable to control his chronic nausea better with Marinol. Zofran helped a little,but not as well as the Marinol. His ANDquot;Pain DoctorANDquot;/Neurologist hadbeen giving him Klonopin and Marinol, but now stated that he could not. GettingMarinol approved had been a significant problem lately. He was very afraid thatall of his progress would start to slide. During his visit in May 2016, he reported that he had been doing well. Hehad been able to gain weight and was in his goal range. However, he had nowgone from diarrhea to constipation. He was told to try Colace, but that had nothelped. He had also had difficulty finding a new Physician to write hisKlonopin which had been a major issue for him. He related that he would begetting his teeth attended to very soon also. He wanted some help with hisconstipation. At his visit in October 2016, he recounted that he was still having some episodesof diarrhea and constipation. He was still taking the IBgard at least twice aday. He had been able to maintain his weight. However, he was getting the mostrelief of his nausea and positive appetite effects from marijuana as he had notbeen on Marinol in a long time. He had continued on the Klonopin, and he camefor a visit because his Psychiatrist did not want to prescribe this for him,but reportedly was OK with me writing for it!! He?had tried Vistaril for hisAnxiety/Panic attacks, but stated that it had not helped him like theKlonopin. I had told him that his goal should be to find an alternative to theKlonopin as I thought that the use of Klonopin could be contributing to his gutissues. During his last visit in February 2017, he reported that since his prior visithe had had the remainder of his teeth pulled, and he now had new dentures. Thetransformation was terrific! He had gained some weight as his diet includedmore liquids and ice cream after he had been edentulous prior to the fitting ofhis dentures. He noted that he was still having some alternating diarrhea andconstipation, but the episodes did not seem as severe. He was taking the IBgardat least once a day, and the Citrucel also 1 tablespoon daily instead of twicea day as previously recommended. He told me that his PCP had been nice enoughto now provide him with his prescription for Klonopin. He had made significantimprovement over the prior almost 3 years. He had gained almost 40 pounds andseemed in a much better place.? In June 2017, I received a copy of an Office Visit from Dr. Rajendra mao that he had lost weight again and was struggling with more depression.Today, he states that what Dr. Lai said was true as he had recently lost 2Aunts. One lived close to him and she suddenly of a heart attack and theother lived in [place] and was diagnosed with a cancer and told that she hadabout 1 week to live! So this increased his depression a little, and he did notfeel much like eating because he does a lot of the cooking and clean up athome. He recently saw his Psychiatrist and he added some Wellbutrin to hismedications. He says that he is not sure if that was helping very much. We hada long discussion.I have reviewed the PMH, Social, FH and ROS from the visit on 06/14/14, and Ihave no changes or additions except what is in the HPI.Current Outpatient Prescriptions:traZODone (DESYREL) 150 mg tablet Take 150 mg by mouth daily at bedtime. Disp:Rfl:DULoxetine (CYMBALTA) 60 mg capsule Take 60 mg by mouth once daily. Disp: Rfl:traMADol (ULTRAM) 50 mg tablet Take 50 mg by mouth every 6 hours as needed.Disp: Rfl:hydrOXYzine pamoate (VISTARIL) 50 mg capsule Take 50 mg by mouth twice daily.Disp: Rfl:peppermint oil (IBGARD) 90 mg CECX Take by mouth. Disp: Rfl:linaclotide (LINZESS) 290 mcg cap Take by mouth once daily. Disp: Rfl:naproxen (NAPROSYN) 500 mg tablet Take 500 mg by mouth as needed. Disp: Rfl:SUMAtriptan (IMITREX) 100 mg tablet Take 100 mg by mouth as needed. Disp: Rfl:VARENICLINE TARTRATE (CHANTIX ORAL) Take 1 tablet by mouth twice daily. Disp:Rfl:aspirin, enteric coated (ASPIRIN, ENTERIC COATED) 81 mg EC tablet Take 81 mg bymouth once daily. Disp: Rfl:ondansetron (ZOFRAN) 4 mg tablet take 1 tablet by mouth every 8 hours if neededDisp: 30 tablet Rfl: 5clonazePAM (KLONOPIN) 1 mg tablet Take 1 tablet by mouth three times daily asneeded. Disp: 90 tablet Rfl: 2diphenoxylate-atropine (LOMOTIL) 2.5-0.025 mg per tablet take 1 tablet by mouthbefore meals at bedtime Disp: 120 tablet Rfl: 5LATUDA 60 mg tab tablet 80 mg once daily. Disp: Rfl:dronabinol (MARINOL) 5 mg capsule 5 mg three times daily. Disp: Rfl:HYDROcodone-Acetaminop hen (NORCO) 10-325 mg per tablet Take 1 tablet by mouthevery 8 hours as needed. Disp: Rfl:baclofen (LIORESAL) 10 mg tablet Take 20 mg by mouth four times daily. Disp:Rfl:escitalopram oxalate (LEXAPRO) 10 mg tablet Take 20 mg by mouth once daily.Disp: Rfl:benztropine (COGENTIN) 1 mg tablet Take 1 mg by mouth once daily. Disp: Rfl:famotidine (PEPCID AC) 20 mg tablet Take 20 mg by mouth as needed. Disp: Rfl:divalproex ER 250 mg 24 hr tablet Take 1 tablet by mouth daily at bedtime.Disp: Rfl:SODIUM CITRATE (CITRA PH ORAL) Take by mouth once daily. Disp: Rfl:No current facility-administered medications for this visit.NEW Wellbutrin - most recently added - ?doseALLERGIESNo Known AllergiesWEIGHT HISTORY - Goal Weight = ~150-170 lbs02/02/14 - Weight 130.6 lbs, BMI 19.61; 02/16/14 - Weight 129.4 pounds, BMI19.46; 03/30/14 - Weight 128 lbs, BMI 18.36; 04/14/14 - Weight 134.8 lbs, BMI20.20; 05/27/14 - Weight 125 lbs, BMI 18.62; 06/14/14 - Weight 133 lbs, BMI 19.08;08/02/14 - Weight 137 lbs, BMI 19.66; 11/02/14 - Weight 147?lbs, BMI 21.09;01/04/15 - Weight 141 lbs, BMI 20.23;?09/02/15 - Weight 148 lbs, BMI 21.35;05/29/16 - Weight 162 lbs, BMI 23.27; 10/18/16 - Weight 161 lbs, BMI 23.13;03/18/17 - Weight 171 lbs, BMI 26.01; Today's Weight 165 lbs, BMI 25.12PHYSICAL EXAMINATIONBP 113/76 Pulse 81 Ht 5' 8ANDquot; (1.73m) Wt 165 lb 3.2 oz (74.9kg) XuC442% BMI 25.12 kg/(m2).PREVIOUSLY REVIEWED DATA05/07/14???NM Gastric Emptying Scan. Reason for exam: Loss of appetite,dysphagia. Impression: Unremarkable gastric emptying scintigraphy. Most of theingested activity remains in the stomach up to one hour. A large portion of theactivity empties from the stomach between one hour and 2 hours, with 19.3%activity remaining at 2 hours.... There is 1.5% of the total ingested activityremaining in the stomach at 3 hours.06/18/14?- Small Bowel Video Capsule. Impression: Normal small bowel Amiyswylfdfxfifv23/20/14?- Colonoscopy. Indication: Change in bowel habits. Weight loss.Endoscopic diagnosis: 1. Normal terminal ileum, photograph taken. 2. Normalcolonic mucosa, random biopsies taken. 3. Sessile polyp, 4 mm, in descendingcolon removed completely with cold snare. Pathology: A. Duodenum, biopsy:Duodenal mucosa with no significant pathologic changes. B. Distal esophagitis,biopsy: Squamous mucosa with chronic esophagitis, compatible with reflux. C.Proximal esophagus, biopsy: Squamous mucosa with chronic esophagitis,compatible with reflux. D. Polyp, ascending colon, polypectomy: Tubularadenoma. E. Left colon, random biopsies: Colonic mucosa within normal limits.F. Right colon random biopsies: Colonic mucosa within normal limits.09/28/13?- Fecal Calprotectin ANDlt;16 - normal09/30/14?- Stool Qualitative for Fecal Fat - ANDlt;100 fatty acid globules/hpf -normal?NEW DATA SINCE LAST VISITNothing newAssessmentDISCUSSION: We had a very long discussion about his increase in depressionwhich was caused by the deaths of his 2 Aunts in the same week. This is alittle different from his usual depression and caused by the situation. I lethim discuss his feelings about the deaths and feel that he is making someprogress to deal with this and put it behind him He has lost a few pounds andthinks that he can go home and ry to do a little better job of eating. He saysthat he has not had blood work in a long time so we did some today.IMPRESSIONAbnormal weight lossDepression,Irritable bowel syndrome with both constipation and diarrheaChronic nauseaBipolar affective disorder, currently depressed, moderateGeneralized anxiety disorderHx of adenomatous colonic polyps - Next Colonoscopy 2018?PLANPatient has a [employer] account.Labs as ordered - to download to [employer] - [place] will checkContinue?IBgard twice a dayLetter to Dr. Garber 6 months, otherwise PRNNeeds a Colonoscopy in 2019, here or closer to helenaEnma Phillips, [facility] 2017ANDgt;25 min Uscm-sh-Kelf?Note: Dr. Jorge L Bishop - his [address] [place], [place] [address]Lhqll: [phone]: [phone]?Referring Provider: RAÚL LAI [[id number]]Allergies As of Date: 08/12/2017(No Known Allergies)Date Reviewed: 08/12/2017Reviewed by: Enma Phillips - Fully AssessedReason for Visit: Established Patient [175] Cmt: bowel issuesPrimary Visit Diagnosis:Abnormal weight loss [R63.4] Other Visit Diagnoses:Depression, unspecified depression type [F32.9] Irritable bowel syndrome with both constipation and diarrhea [K58.2] Chronic nausea [R11.0] Bipolar affective disorder, currently depressed, moderate (HCC) [F31.32] Generalized anxiety disorder [F41.1] Hx of adenomatous colonic polyps [Z86.010]Order(s):CBC + DIFF [SQCBCDIF] Order #: [id number] FUTURE COMP METABOLIC PANEL [SQCMP] Order #: [id number] FUTURE C-REACTIVE PROTEIN (CRP) [SQCRP] Order #: [id number] FUTURE FOLATE SERUM [SQSERFOL] Order #: [id number] FUTURE METHYLMALONIC ACID [SQMMA] Order #: [id number] FUTURE VITAMIN B12 BLOOD [SQB12] Order #: [id number] FUTURE TSH BLD [SQTSH] Order #: [id number] FUTUREPrescriptions as of 08/12/2017 Sig: TRAZODONE 150 MG TABLET Take 150 mg by mouth daily at* DULOXETINE 60 MG CAPSULE,LARISSA* Take 60 mg by mouth once mook* TRAMADOL 50 MG TABLET Take 50 mg by mouth every 6 h* HYDROXYZINE PAMOATE 50 MG CAP* Take 50 mg by mouth twice alize* PEPPERMINT OIL DR - ER 90 MG * Take by mouth. LINACLOTIDE 290 MCG CAPSULE Take by mouth once daily. NAPROXEN 500 MG TABLET Take 500 mg by mouth as neede* SUMATRIPTAN 100 MG TABLET Take 100 mg by mouth as neede* CHANTIX ORAL Take 1 tablet by mouth twice * ASPIRIN 81 MG TABLET,DELAYED * Take 81 mg by mouth once mook* ONDANSETRON HCL 4 MG TABLET take 1 tablet by mouth every * CLONAZEPAM 1 MG TABLET Take 1 tablet by mouth three * DIPHENOXYLATE-ATROPINE 2.5 MG* take 1 tablet by mouth before* LATUDA 60 MG TABLET 80 mg once daily. DRONABINOL 5 MG CAPSULE 5 mg three times daily. HYDROCODONE 10 MG-ACETAMINOPH* Take 1 tablet by mouth every * BACLOFEN 10 MG TABLET Take 20 mg by mouth four time* ESCITALOPRAM 10 MG TABLET Take 20 mg by mouth once mook* BENZTROPINE 1 MG TABLET Take 1 mg by mouth once daily. FAMOTIDINE 20 MG TABLET Take 20 mg by mouth as needed. DIVALPROEX ER 250 MG TABLET,E* Take 1 tablet by mouth daily * CITRA PH ORAL Take by mouth once daily.Medication notes this encounter CITRA PH ORAL >> June Bishop Ma 08/12/2017 4:23 PM >> JUNE BISHOP MA SatAug 12, 2017 4:23 PM Not takingProblem List As Of Date 08/12/2017 Noted Resolved Weight loss [R63.4] INVALID FOR* LUQ abdominal pain [R10.12] INVALID FOR* Diarrhea [R19.7] INVALID FOR* Depression [F32.9] INVALID FOR* Bipolar disorder (HCC) [F31.9] INVALID FOR* Migraines [G43.909] INVALID FOR* Hx of adenomatous colonic polyps [Z86.010] INVALID FOR* Generalized anxiety disorder [F41.1] INVALID FOR* Chronic nausea [R11.0] INVALID FOR*Letter TextEncounter Number: [id number] Status:Closed by ENMA PHILLIPS MD on 08/12/17 Normal [facility] Comp Metabolic Panelon 08-12 Alanine aminotransferase (ALT) 11 U/L Normal 10-54 [facility] Comment on above: Performed By: #### C BCDIF, B12, SERFOL, CMP, CRP, TSH, MMA ####[facility] [place], [place] [phone] Albumin 4.4 g/dL Normal 3.9-4.9 [facility] Comment on above: Performed By: #### C BCDIF, B12, SERFOL, CMP, CRP, TSH, MMA ####[address] [place] [phone] Alkaline phosphatase (ALP) 75 U/L Normal 36-108 [facility] Comment on above: Performed By: #### C BCDIF, B12, SERFOL, CMP, CRP, TSH, MMA ####[address] [place] [phone] Anion gap 13 mmol/L Normal 9-18 [facility] Comment on above: Performed By: #### C BCDIF, B12, SERFOL, CMP, CRP, TSH, MMA ####[place] [phone] Aspartate aminotransferase (AST) 16 U/L Normal 14-40 [facility] Comment on above: Performed By: #### C BCDIF, B12, SERFOL, CMP, CRP, TSH, MMA ####[place] [phone] Bilirubin (total) 0.3 mg/dL Normal 0.2-1.3 [facility] Comment on above: Performed By: #### C BCDIF, B12, SERFOL, CMP, CRP, TSH, MMA ####[place] [phone] Calcium 10.0 mg/dL Normal 8.5-10.2 [facility] Comment on above: Performed By: #### C BCDIF, B12, SERFOL, CMP, CRP, TSH, MMA ####[place] [address] [place] [phone] Chloride 97 mmol/L Normal 97-105 [facility] Comment on above: Performed By: #### C BCDIF, B12, SERFOL, CMP, CRP, TSH, MMA ####[facility] AveCNaz[place], [place] [phone] CO2 26 mmol/L Normal 22-30 [facility] Comment on above: Performed By: #### C BCDIF, B12, SERFOL, CMP, CRP, TSH, MMA ####[address], [place] [phone] Creatinine 1.08 mg/dL Normal 0.73-1.22 [facility] Comment on above: Performed By: #### C BCDIF, B12, SERFOL, CMP, CRP, TSH, MMA ####[address], [place] [phone] eGFR (non-black) mL/min/{1.73_m2} Normal [facility] Comment on above: Result Comment: eGFR (Estimated GFR) Units of measure: mL/min/1.73 meters squaredeGFR is derived from the reexpressed MDRD Study equation using the following parameters: serum creatinine, age, gender and race. The creatinine assay has been calibrated to be traceable to IDMS.An eGFR <60 mL/min/1.73m2 for >3 months is consistent with chronic kidney disease. Refer to KDOQI guidelines for clinical interpretation.In patients with unstable renal function, e.g. those with acute kidney injury, the eGFR may not accurately reflect actual GFR. Performed By: #### C BCDIF, B12, SERFOL, CMP, CRP, TSH, MMA ####[facility] [place], [place] [phone] Glucose mass conc 92 mg/dL Normal 74-99 [facility] Comment on above: Result Comment: The [place] [employer] (ADA) provides guidance for cutoff values for fasting glucose and random glucose. The ADA defines fasting as no caloric intake for at least 8 hours. Fasting plasma glucose results between 100 to 125 mg/dL indicate increased risk for diabetes (prediabetes).Fasting plasma glucose results greater than or equal to 126 mg/dL meet the criteria for diagnosis of diabetes. In the absence of unequivocal hyperglycemia, results should be confirmed by repeat testing. In a patient with classic symptoms of hyperglycemia or hyperglycemic crisis, random plasma glucose results greater than or equal to 200 mg/dL meet the criteria for diagnosis of diabetes.Reference: Standards of Medical Care in Diabetes 2016, [place] [employer]. Diabetes Care. 2016.39(Suppl 1). Performed By: #### C BCDIF, B12, SERFOL, CMP, CRP, TSH, MMA ####[place] [phone] Potassium molar conc 4.8 mmol/L Normal 3.7-5.1 [facility] Comment on above: Performed By: #### C BCDIF, B12, SERFOL, CMP, CRP, TSH, MMA ####[place] [phone] Protein 8.1 g/dL High 6.3-8.0 [facility] Comment on above: Performed By: #### C BCDIF, B12, SERFOL, CMP, CRP, TSH, MMA ####[place] [phone] Sodium 136 mmol/L Normal 136-144 [facility] Comment on above: Performed By: #### C BCDIF, B12, SERFOL, CMP, CRP, TSH, MMA ####[address] [phone] Urea nitrogen 9 mg/dL Normal 9-24 [facility] Comment on above: Performed By: #### C BCDIF, B12, SERFOL, CMP, CRP, TSH, MMA ####[address] [phone] Folate, Serumon 08-12-2017 Folate, Serum 10.7 ng/mL Normal >4.7 [facility] Comment on above: Performed By: #### C BCDIF, B12, SERFOL, CMP, CRP, TSH, MMA ####[address] [phone] Methylmalonic Acidon 018 Methylmalonic Acid 259 nmol/L Normal 79-376 [facility] Comment on above: Result Comment: This test was developed and its performance characteristics determined by [facility]'s [facility] Pathology [facility] Medicine [place] ([facility]).It has not been cleared or approved by the FDA. [facility] is regulated under CLIA as qualified to perform high-complexity testing.This test is used for clinical purposes. It should not be regarded as investigational or for research. Performed By: #### C BCDIF, B12, SERFOL, CMP, CRP, TSH, MMA ####[address] [phone] TSHon 08-12-2017 Thyroid stimulating hormone (TSH) 1.470 uU/mL Normal 0.400-5.500 [facility] Comment on above: Performed By: #### C BCDIF, B12, SERFOL, CMP, CRP, TSH, MMA ####[address] [phone] Vitamin B12on 08-12-2017 Cobalamins (Vitamin B12) 403 pg/mL Normal 232-1245 [facility] Comment on above: Performed By: #### C BCDIF, B12, SERFOL, CMP, CRP, TSH, MMA ####[address] [phone] PROGRESSon 08-07-2017 PROGRESS HNO ID: [id number] thor: Enma Kaiser: (none)Author Type: PhysicianType: Progress NotesFiled: 08/12/2017 5:26 PMNote Text:Follow Up Visit ??[address] - seen with his significant other, Shana?Discussion and Plan from 03/18/17:DISCUSSION: He appears much improved over the past year. The dentalextractions and new dentures should continue to help him with a morepositive self-image. We discussed that he may always have some issues withdiarrhea and/or constipation. The goal will be to make the swings lessmajor so that he can take these changes more in stride. He is at a muchbetter weight for him, but I encouraged him not to gain too much moreweight as he is at the top of the healthy range for him. The fact that is willing to write for his Klonopin has been a great relief forhim, and he will not need to travel all the way to see me forprescriptions for this. In fact, he can now see me as needed. I did remindhim that he will be due for a Colonoscopy in 2019 which he can have hereor closer to home, but since he has had polyps in the past, this will beimportant for him.PLANPatient has a [employer] account.Continue?IBgard twice a dayMay increase Citrucel to 1 tablespoon twice a day, if he wishesLetter to Dr. LaiRTJulian 6 months, otherwise PRNNeeds a Colonoscopy in 2019, here or closer to home?CHIEF COMPLAINTFollow up of weight loss, abdominal pain, and diarrhea?HISTORY OF PRESENT ILLNESS Mr. Dove is a 51 yo man who I saw for the first time on 06/14/14. He wasreferred by Dr. Lai for evaluation of weight loss, abdominal pain, anddiarrhea. Apparently over the prior 6 months, he had had a loss ofappetite, sensation of early satiety and daily nausea and had lostapproximately 45 pounds. He had been sent for endoscopies both EGD andcolonoscopy which were apparently negative. He had had significant imagingthat apparently includes a CT of the chest, abdomen and pelvis as well asa CT of the neck, the latter for a fixed firm nodule in the left neck (CTdid not show any lesion). He had a PMH of depression/ anxiety/bipolar andhad been doing well until 1 to 1.5 years ago when he started havingfatigue, loss of appetite, abdominal pain, loss of weight and diarrhea.Every time that he would eat food, 20-30 minutes after the food, he wouldhave to have a BM, which would be watery with mucus. Usually the stool wasnonbloody, but he had noted have 1 episode of blood about 2 weeks prior tohis initial visit. Also, he was having morning nausea, but no vomiting. Hecomplained of loss of appetite. He had had abdominal pain in the leftupper quadrant, occasional 3-4 times a week nonradiating, aching incharacter, not related to food. He had lost about 50 pounds in the prioryear. He would wake up in the afternoon and would eat only dinner. He hadbeen off his antidepressant medications for more than 1 month as he saidthat they were not helping. He had had an extensive workup from local GIwhich was nondiagnostic to explain his symptoms. However, he had been puton Entocort and was now constipated! He had been taking Dulcolax to have aBM. He was taking 2 pills a day of the Entocort; however, he had switchedto once every other day. He had been doing Ensure and [place] InstantBreakfast and had gained few pounds in the few weeks prior to his initialvisit. He also noted dysphagia for solids, occasionally. He did have amanometry done which according to him was mildly abnormal . He had anappointment with new Psychiatrist the day after our visit. During his visit in July 2014, he had tried to consume 1-2 CarnationInstant Breakfasts every day. He was still having some AM nausea and mighthave several BMs over the course of the morning that when they would comewould make him very tired. He had also seen his Psychiatrist who hadincreased his Latuda, but this appeared to be associated with some jawtightening that would remain for 2-3 hours. He had called to tell herabout this, and she prescribed a medication to help with this, but he hadnot filled it at the time of the visit. However, he did seem to be in alittle better mood. At his visit in October 2014, he reported that he felt better. He said thathe had symptoms about 3-4 days a week, and the symptoms involved nausea,but he did not vomit. He would wake up with symptoms, and he would havethem most of the day. He had occasional episodes of severe abdominal painalso located in the LUQ, and diarrhea which lasted for half the day. Hisstools were usually watery or soft but nonbloody. He denied constipationin between. His appetite was not the best, but he was trying to eat asmuch as he could to keep his weight up. He had gained about 10 lbs sincehis prior visit, and Marinol was helping his appetite especially in theevenings. Most of his symptoms were in the morning, and they seemed toimprove as the day progresses. His work up had included calprotectin,fecal fat, EGD and colonoscopy with biopsies which had been unremarkable.His jaw clenching was better, and his Psychiatrist was taking care ofthat. During his visit in December 2014, he reported that he had fallen back alittle bit because he was back to having some looser stools and that hadslowed his eating. The stools were most prominent after his first meal ofthe day (usually his biggest at ~5 PM). He would have loose stools 3-60minutes after. He might try to eat small amounts over the next severalhours and have more loose stool. He would go to bed in the very earlymorning hours, but did not have diarrhea that would wake him up oraccidents. However, he would have some loose stool after he would wake up.He denied abdominal pain or blood in the stool. At his visit in August 2015, he related that he had been able to controlthe diarrhea with the Lomotil. He had been able to gain weight because hehad been able to control his chronic nausea better with Marinol. Zofranhelped a little, but not as well as the Marinol. His PainDoctor /Neurologist had been giving him Klonopin and Marinol, but nowstated that he could not. Getting Marinol approved had been a significantproblem lately. He was very afraid that all of his progress would start toslide. During his visit in May 2016, he reported that he had been doingwell. He had been able to gain weight and was in his goal range. However,he had now gone from diarrhea to constipation. He was told to try Colace,but that had not helped. He had also had difficulty finding a newPhysician to write his Klonopin which had been a major issue for him. Herelated that he would be getting his teeth attended to very soon also. Hewanted some help with his constipation. At his visit in October 2016, he recounted that he was still having someepisodes of diarrhea and constipation. He was still taking the IBgard atleast twice a day. He had been able to maintain his weight. However, hewas getting the most relief of his nausea and positive appetite effectsfrom marijuana as he had not been on Marinol in a long time. He hadcontinued on the Klonopin, and he came for a visit because hisPsychiatrist did not want to prescribe this for him, but reportedly was OKwith me writing for it!! He?had tried Vistaril for his Anxiety/Panicattacks, but stated that it had not helped him like theKlonopin. I had told him that his goal should be to find an alternative tothe Klonopin as I thought that the use of Klonopin could be contributingto his gut issues. During his last visit in February 2017, he reported that since his priorvisit he had had the remainder of his teeth pulled, and he now had newdentures. The transformation was terrific! He had gained some weight ashis diet included more liquids and ice cream after he had been edentulousprior to the fitting of his dentures. He noted that he was still havingsome alternating diarrhea and constipation, but the episodes did not seemas severe. He was taking the IBgard at least once a day, and the Citrucelalso 1 tablespoon daily instead of twice a day as previously recommended.He told me that his PCP had been nice enough to now provide him with hisprescription for Klonopin. He had made significant improvement over theprior almost 3 years. He had gained almost 40 pounds and seemed in a muchbetter place.? In June 2017, I received a copy of an Office Visit from Dr. Euceda said that he had lost weight again and was struggling with moredepression. Today, he states that what Dr. Lai said was true as he hadrecently lost 2 Aunts. One lived close to him and she suddenly of aheart attack and the other lived in [place] and was diagnosed with acancer and told that she had about 1 week to live! So this increased hisdepression a little, and he did not feel much like eating because he doesa lot of the cooking and clean up at home. He recently saw hisPsychiatrist and he added some Wellbutrin to his medications. He says thathe is not sure if that was helping very much. We had a long discussion.I have reviewed the PMH, Social, FH and ROS from the visit on 06/14/14, Ayleen have no changes or additions except what is in the HPI.Current Outpatient Prescriptions:traZODone (DESYREL) 150 mg tablet Take 150 mg by mouth daily at bedtime.Disp: Rfl:DULoxetine (CYMBALTA) 60 mg capsule Take 60 mg by mouth once daily. Disp:Rfl:traMADol (ULTRAM) 50 mg tablet Take 50 mg by mouth every 6 hours asneeded. Disp: Rfl:hydrOXYzine pamoate (VISTARIL) 50 mg capsule Take 50 mg by mouth twicedaily. Disp: Rfl:peppermint oil (IBGARD) 90 mg CECX Take by mouth. Disp: Rfl:linaclotide (LINZESS) 290 mcg cap Take by mouth once daily. Disp: Rfl:naproxen (NAPROSYN) 500 mg tablet Take 500 mg by mouth as needed. Disp:Rfl:SUMAtriptan (IMITREX) 100 mg tablet Take 100 mg by mouth as needed. Disp:Rfl:VARENICLINE TARTRATE (CHANTIX ORAL) Take 1 tablet by mouth twice daily.Disp: Rfl:aspirin, enteric coated (ASPIRIN, ENTERIC COATED) 81 mg EC tablet Take 81mg by mouth once daily. Disp: Rfl:ondansetron (ZOFRAN) 4 mg tablet take 1 tablet by mouth every 8 hours ifneeded Disp: 30 tablet Rfl: 5clonazePAM (KLONOPIN) 1 mg tablet Take 1 tablet by mouth three times dailyas needed. Disp: 90 tablet Rfl: 2diphenoxylate-atropine (LOMOTIL) 2.5-0.025 mg per tablet take 1 tablet bymouth before meals at bedtime Disp: 120 tablet Rfl: 5LATUDA 60 mg tab tablet 80 mg once daily. Disp: Rfl:dronabinol (MARINOL) 5 mg capsule 5 mg three times daily. Disp: Rfl:HYDROcodone-Acetaminop hen (NORCO) 10-325 mg per tablet Take 1 tablet bymouth every 8 hours as needed. Disp: Rfl:baclofen (LIORESAL) 10 mg tablet Take 20 mg by mouth four times daily.Disp: Rfl:escitalopram oxalate (LEXAPRO) 10 mg tablet Take 20 mg by mouth oncedaily. Disp: Rfl:benztropine (COGENTIN) 1 mg tablet Take 1 mg by mouth once daily. Disp:Rfl:famotidine (PEPCID AC) 20 mg tablet Take 20 mg by mouth as needed. Disp:Rfl:divalproex ER 250 mg 24 hr tablet Take 1 tablet by mouth daily at bedtime.Disp: Rfl:SODIUM CITRATE (CITRA PH ORAL) Take by mouth once daily. Disp: Rfl:No current facility-administered medications for this visit.NEW Wellbutrin - most recently added - ?doseALLERGIESNo Known AllergiesWEIGHT HISTORY - Goal Weight = ~150-170 lbs02/02/14 - Weight 130.6 lbs, BMI 19.61; 02/16/14 - Weight 129.4 pounds, BMI19.46; 03/30/14 - Weight 128 lbs, BMI 18.36; 04/14/14 - Weight 134.8 lbs,BMI 20.20; 05/27/14 - Weight 125 lbs, BMI 18.62; 06/14/14 - Weight 133 lbs,BMI 19.08; 08/02/14 - Weight 137 lbs, BMI 19.66; 11/02/14 - Weight 147?lbs,BMI 21.09; 01/04/15 - Weight 141 lbs, BMI 20.23;?09/02/15 - Weight 148 lbs,BMI 21.35; 05/29/16 - Weight 162 lbs, BMI 23.27; 10/18/16 - Weight 161 lbs,BMI 23.13; 03/18/17 - Weight 171 lbs, BMI 26.01; Today's Weight 165 lbs,BMI 25.12PHYSICAL EXAMINATIONBP 113/76 Pulse 81 Ht 5' 8 (1.73m) Wt 165 lb 3.2 oz (74.9kg) MkP150% BMI 25.12 kg/(m2).PREVIOUSLY REVIEWED DATA05/07/14???NM Gastric Emptying Scan. Reason for exam: Loss of appetite,dysphagia. Impression: Unremarkable gastric emptying scintigraphy. Most ofthe ingested activity remains in the stomach up to one hour. A largeportion of the activity empties from the stomach between one hour and 2hours, with 19.3% activity remaining at 2 hours.... There is 1.5% of thetotal ingested activity remaining in the stomach at 3 hours.06/18/14?- Small Bowel Video Capsule. Impression: Normal small bowelCapsule vciekwcah72/20/14?- Colonoscopy. Indication: Change in bowel habits. Weight loss.Endoscopic diagnosis: 1. Normal terminal ileum, photograph taken. 2.Normal colonic mucosa, random biopsies taken. 3. Sessile polyp, 4 mm, indescending colon removed completely with cold snare. Pathology: A.Duodenum, biopsy: Duodenal mucosa with no significant pathologic changes.B. Distal esophagitis, biopsy: Squamous mucosa with chronic esophagitis,compatible with reflux. C. Proximal esophagus, biopsy: Squamous mucosawith chronic esophagitis, compatible with reflux. D. Polyp, ascendingcolon, polypectomy: Tubular adenoma. E. Left colon, random biopsies:Colonic mucosa within normal limits. F. Right colon random biopsies:Colonic mucosa within normal limits.09/28/13?- Fecal Calprotectin <16 - normal09/30/14?- Stool Qualitative for Fecal Fat - <100 fatty acid globules/hpf -normal?NEW DATA SINCE LAST VISITNothing newAssessmentDISCUSSION: We had a very long discussion about his increase indepression which was caused by the deaths of his 2 Aunts in the same week.This is a little different from his usual depression and caused by thesituation. I let him discuss his feelings about the deaths and feel thathe is making some progress to deal with this and put it behind him He haslost a few pounds and thinks that he can go home and ry to do a littlebetter job of eating. He says that he has not had blood work in a longtime so we did some today.IMPRESSIONAbnormal weight lossDepression,Irritable bowel syndrome with both constipation and diarrheaChronic nauseaBipolar affective disorder, currently depressed, moderateGeneralized anxiety disorderHx of adenomatous colonic polyps - Next Colonoscopy 2018?PLANPatient has a [employer] account.Labs as ordered - to download to [employer] - [place] will checkContinue?IBgard twice a dayLetter to Dr. Garber 6 months, otherwise PRNNeeds a Colonoscopy in 2019, here or closer to Jagruti Phillips, [facility] 2017>25 min Wezk-ts-Gogr?Note: Dr. Jorge L Bishop - his [address] [place], [place] [address]Leiml: [phone]: [phone]? Normal [facility] OBSOLETEon 05-12-2017 OBSOLETE Refill (GASTMN) SIS DOVE ([id number]) 1965 MDate Time Provider Wdshhcacgj96/24/17 ENMA PHILLIPS During your visit today, we recorded the following information about you:Stephanie Pride, RN, RN 05/16/2017 1:43 PM SignedPatient's request for medication is as follows:Pending Prescriptions Disp Refills ONDANSETRON HCL 4 MG TABLET 30 tablet 5 Sig: take 1 tablet by mouth every 8 hours if needed WES: YesPrescription(s) as above. Please process accordingly.CAROL Nowakllaylin As of Date: 05/12/2017(No Known Allergies)Date Reviewed: 03/18/2017Reviewed by: Enma Phillips - Fully AssessedReason for Visit: Refill Request [94]Primary Visit Diagnosis:Chronic nausea [R11.0]Prescriptions as of 05/12/2017 Sig: TRAZODONE 150 MG TABLET Take 150 mg by mouth daily at* DULOXETINE 60 MG CAPSULE,LARISSA* Take 60 mg by mouth once mook* TRAMADOL 50 MG TABLET Take 50 mg by mouth every 6 h* HYDROXYZINE PAMOATE 50 MG CAP* Take 50 mg by mouth twice alize* CITRA PH ORAL Take by mouth once daily. PEPPERMINT OIL DR - ER 90 MG * Take by mouth. LINACLOTIDE 290 MCG CAPSULE Take by mouth once daily. NAPROXEN 500 MG TABLET Take 500 mg by mouth as neede* SUMATRIPTAN 100 MG TABLET Take 100 mg by mouth as neede* CHANTIX ORAL Take 1 tablet by mouth twice * ASPIRIN 81 MG TABLET,DELAYED * Take 81 mg by mouth once mook* ONDANSETRON HCL 4 MG TABLET take 1 tablet by mouth every * CLONAZEPAM 1 MG TABLET Take 1 tablet by mouth three * DIPHENOXYLATE-ATROPINE 2.5 MG* take 1 tablet by mouth before* LATUDA 60 MG TABLET 80 mg once daily. DRONABINOL 5 MG CAPSULE 5 mg three times daily. HYDROCODONE 10 MG-ACETAMINOPH* Take 1 tablet by mouth every * BACLOFEN 10 MG TABLET Take 20 mg by mouth four time* ESCITALOPRAM 10 MG TABLET Take 20 mg by mouth once mook* BENZTROPINE 1 MG TABLET Take 1 mg by mouth once daily. FAMOTIDINE 20 MG TABLET Take 20 mg by mouth as needed. DIVALPROEX ER 250 MG TABLET,E* Take 1 tablet by mouth daily *Problem List As Of Date 05/12/2017 Noted Resolved Weight loss [R63.4] INVALID FOR* LUQ abdominal pain [R10.12] INVALID FOR* Diarrhea [R19.7] INVALID FOR* Depression [F32.9] INVALID FOR* Bipolar disorder (HCC) [F31.9] INVALID FOR* Migraines [G43.909] INVALID FOR* Hx of adenomatous colonic polyps [Z86.010] INVALID FOR* Generalized anxiety disorder [F41.1] INVALID FOR* Chronic nausea [R11.0] INVALID FOR* Status:Closed by NETTE ALEJANDRE MD on 05/16/17 [facility] (GASTA5) SIS DOVE ([id number]) 1965 MDate Time Provider Njnyjvczut53/30/17 4:10 PM ENMA PHILLIPS GASTA5 During your visit today, we recorded the following information about you: Pulse Blood pressure Weight Height 71/minute 108/63 77.6 kg 1.727 Mallory Phillips MD 03/18/2017 5:36 PM SignedFollow Up Visit 1.[address] - seen with his significant otherDiscussion and Plan from 10/18/16:DISCUSSION: In general, he has done fairly well. He will try the Citrucel andsee if that helps his stools more. I REALLY want him to try and get off theKlonopin as well as be on the lowest amount of Tramadol and Hydrocodonepossible. However, we both realize that he has significant back issue and thatmay not happen, but we have had the conversation. His significant other did notcome with him, and it would have been better if she had been present.PLANPatient has a [employer] account.Klonopin 1 mg TID prn #90/2 - printed -OARRS report reviewed and is appropriateContinue IBgard twice a dayAdd Citrucel - 1 tablespoon twice a dayLetter and copy of today's note to Dr. Lai and Dr. Stone 3 months if he needs Klonopin or 6 months otherwiseCHIEF COMPLAINTFollow up of weight loss, abdominal pain, and diarrheaHISTORY OF PRESENT ILLNESS Mr. Dove is a 51 yo man who I saw for the first time on 06/14/14. He wasreferred by Dr. Lai for evaluation of weight loss, abdominal pain, anddiarrhea. Apparently over the prior 6 months, he had had a loss of appetite,sensation of early satiety and daily nausea and had lost approximately 45pounds. He had been sent for endoscopies both EGD and colonoscopy which wereapparently negative. He had had significant imaging that apparently includes aCT of the chest, abdomen and pelvis as well as a CT of the neck, the latter fora fixed firm nodule in the left neck (CT did not show any lesion). He had a PMHof depression/ anxiety/bipolar and had been doing well until 1 to 1.5 years agowhen he started having fatigue, loss of appetite, abdominal pain, loss ofweight and diarrhea. Every time that he would eat food, 20-30 minutes after thefood, he would have to have a BM, which would be watery with mucus. Usually thestool was nonbloody, but he had noted have 1 episode of blood about 2 weeksprior to his initial visit. Also, he was having morning nausea, but novomiting. He complained of loss of appetite. He had had abdominal pain in theleft upper quadrant, occasional 3-4 times a week nonradiating, aching incharacter, not related to food. He had lost about 50 pounds in the prior year.He would wake up in the afternoon and would eat only dinner. He had been offhis antidepressant medications for more than 1 month as he said that they werenot helping. He had had an extensive workup from local GI which wasnondiagnostic to explain his symptoms. However, he had been put on Entocort andwas now constipated! He had been taking Dulcolax to have a BM. He was taking 2pills a day of the Entocort; however, he had switched to once every other day.He had been doing Ensure and [employer] and had gained fewpounds in the few weeks prior to his initial visit. He also noted dysphagia forsolids, occasionally. He did have a manometry done which according to him wasANDquot;mildly abnormalANDquot;. He had an appointment with new Psychiatrist theday after our visit. During his visit in July 2014, he had tried to consume 1-2 [employer] InstantBreakfasts every day. He was still having some AM nausea and might have severalBMs over the course of the morning that when they would come would make himvery tired. He had also seen his Psychiatrist who had increased his Latuda, butthis appeared to be associated with some jaw tightening that would remain for2-3 hours. He had called to tell her about this, and she prescribed amedication to help with this, but he had not filled it at the time of thevisit. However, he did seem to be in a little better mood. At his visit in October 2014, he reported that he felt better. He said that hehad symptoms about 3-4 days a week, and the symptoms involved nausea, but hedid not vomit. He would wake up with symptoms, and he would have them most ofthe day. He had occasional episodes of severe abdominal pain also located inthe LUQ, and diarrhea which lasted for half the day. His stools were usuallywatery or soft but nonbloody. He denied constipation in between. His appetitewas not the best, but he was trying to eat as much as he could to keep hisweight up. He had gained about 10 lbs since his prior visit, and Marinol washelping his appetite especially in the evenings. Most of his symptoms were inthe morning, and they seemed to improve as the day progresses. His work up hadincluded calprotectin, fecal fat, EGD and colonoscopy with biopsies which hadbeen unremarkable. His jaw clenching was better, and his Psychiatrist wastaking care of that. During his visit in December 2014, he reported that he had fallen back a littlebit because he was back to having some looser stools and that had slowed hiseating. The stools were most prominent after his first meal of the day (usuallyhis biggest at ~5 PM). He would have loose stools 3-60 minutes after. He mighttry to eat small amounts over the next several hours and have more loose stool.He would go to bed in the very skein bander hours, but did not have diarrheathat would wake him up or accidents. However, he would have some loose stoolafter he would wake up. He denied abdominal pain or blood in the stool. At his visit in August 2015, he related that he had been able to control thediarrhea with the Lomotil. He had been able to gain weight because he had beenable to control his chronic nausea better with Marinol. Zofran helped a little,but not as well as the Marinol. His ANDquot;Pain DoctorANDquot;/Neurologist hadbeen giving him Klonopin and Marinol, but now stated that he could not. GettingMarinol approved had been a significant problem lately. He was very afraid thatall of his progress would start to slide. During his visit in May 2016, he reported that he had been doing well. Hehad been able to gain weight and was in his goal range. However, he had nowgone from diarrhea to constipation. He was told to try Colace, but that had nothelped. He had also had difficulty finding a new Physician to write hisKlonopin which had been a major issue for him. He related that he would begetting his teeth attended to very soon also. He wanted some help with hisconstipation. At his last visit in October 2016, he recounted that he was still having someepisodes of diarrhea and constipation. He was still taking the IBgard at leasttwice a day. He had been able to maintain his weight. However, he was gettingthe most relief of his nausea and positive appetite effects from marijuana lucho had not been on Marinol in a long time. He had continued on the Klonopin,and he came for a visit because his Psychiatrist did not want to prescribe thisfor him, but reportedly was OK with me writing for it!! He had tried Vistarilfor his Anxiety/Panic attacks, but Mr. Dove stated that it had not helped himlike the Klonopin. I had told him that his goal should be to find analternative to the Klonopin as I thought that the use of Klonopin could becontributing to his gut issues.?? Today, he states that since his last visit he had the remainder of his teethpulled, and he now has new dentures. The transformation is terrific! He hasgained some weight as his diet included more liquids and ice cream after he wasedentulous prior to the fitting of his dentures. He notes that he is stillhaving some alternating diarrhea and constipation, but the episodes do not seemas severe. He is taking the IBgard at least once a day, and the Citrucel also 1tablespoon daily instead of twice a day as previously recommended. He tells methat his PCP has been nice enough to now provide him with his prescription forKlonopin. He has made significant improvement over the past almost 3 years. Devin gained almost 40 pounds and seems in a much better place.I have reviewed the PMH, Social, FH and ROS from the visit on 06/14/14, and Ihave no changes or additions except what is in the HPI.Current Outpatient Prescriptions:ondansetron (ZOFRAN) 4 mg tablet take 1 tablet by mouth every 8 hours if neededDisp: 30 tablet Rfl: 5clonazePAM (KLONOPIN) 1 mg tablet Take 1 tablet by mouth three times daily asneeded. Disp: 90 tablet Rfl: 2diphenoxylate-atropine (LOMOTIL) 2.5-0.025 mg per tablet take 1 tablet by mouthbefore meals at bedtime Disp: 120 tablet Rfl: 5LATUDA 60 mg tab tablet 80 mg once daily. Disp: Rfl:dronabinol (MARINOL) 5 mg capsule 5 mg three times daily. Disp: Rfl:HYDROcodone-Acetaminop hen (NORCO) 10-325 mg per tablet Take 1 tablet by mouthevery 8 hours as needed. Disp: Rfl:baclofen (LIORESAL) 10 mg tablet Take 20 mg by mouth four times daily. Disp:Rfl:escitalopram oxalate (LEXAPRO) 10 mg tablet Take 20 mg by mouth once daily.Disp: Rfl:benztropine (COGENTIN) 1 mg tablet Take 1 mg by mouth once daily. Disp: Rfl:famotidine (PEPCID AC) 20 mg tablet Take 20 mg by mouth as needed. Disp: Rfl:divalproex ER 250 mg 24 hr tablet Take 1 tablet by mouth daily at bedtime.Disp: Rfl:HYDROcodone-Acetaminop hen 7.5-325 mg per tablet Take 1 tablet by mouth every 8hours as needed. Disp: Rfl:No current facility-administered medications for this visit.ALLERGIESNo Known AllergiesWEIGHT HISTORY - Goal Weight = ~150-170 lbs02/02/14 - Weight 130.6 lbs, BMI 19.61; 02/16/14 - Weight 129.4 pounds, BMI19.46; 03/30/14 - Weight 128 lbs, BMI 18.36; 04/14/14 - Weight 134.8 lbs, BMI20.20; 05/27/14 - Weight 125 lbs, BMI 18.62; 06/14/14 - Weight 133 lbs, BMI 19.08;08/02/14 - Weight 137 lbs, BMI 19.66; 11/02/14 - Weight 147 lbs, BMI 21.09;01/04/15 - Weight 141 lbs, BMI 20.23; 09/02/15 - Weight 148 lbs, BMI 21.35;05/29/16 - Weight 162 lbs, BMI 23.27; 10/18/16 - Weight 161 lbs, BMI 23.13;Today's Weight 171 lbs, BMI 26.01PHYSICAL EXAMINATIONBP 108/63 Pulse 71 Ht 5' 8ANDquot; (1.73m) Wt 171 lb (77.6kg) SpO2 98% BMI 26.01 kg/(m2).PREVIOUSLY REVIEWED DATA05/07/14 ? NM Gastric Emptying Scan. Reason for exam: Loss of appetite,dysphagia. Impression: Unremarkable gastric emptying scintigraphy. Most of theingested activity remains in the stomach up to one hour. A large portion of theactivity empties from the stomach between one hour and 2 hours, with 19.3%activity remaining at 2 hours.... There is 1.5% of the total ingested activityremaining in the stomach at 3 hours.06/18/14 - Small Bowel Video Capsule. Impression: Normal small bowel Xdchtbddquhbqine25/20/14 - Colonoscopy. Indication: Change in bowel habits. Weight loss.Endoscopic diagnosis: 1. Normal terminal ileum, photograph taken. 2. Normalcolonic mucosa, random biopsies taken. 3. Sessile polyp, 4 mm, in descendingcolon removed completely with cold snare. Pathology: A. Duodenum, biopsy:Duodenal mucosa with no significant pathologic changes. B. Distal esophagitis,biopsy: Squamous mucosa with chronic esophagitis, compatible with reflux. C.Proximal esophagus, biopsy: Squamous mucosa with chronic esophagitis,compatible with reflux. D. Polyp, ascending colon, polypectomy: Tubularadenoma. E. Left colon, random biopsies: Colonic mucosa within normal limits.F. Right colon random biopsies: Colonic mucosa within normal limits.09/28/13 - Fecal Calprotectin ANDlt;16 - normal09/30/14 - Stool Qualitative for Fecal Fat - ANDlt;100 fatty acid globules/hpf -normalNEW DATA SINCE LAST VISITNothing newAssessmentDISCUSSION: He appears much improved over the past year. The dentalextractions and new dentures should continue to help him with a more positiveself-image. We discussed that he may always have some issues with diarrheaand/or constipation. The goal will be to make the swings less major so that salomón take these changes more in stride. He is at a much better weight for him,but I encouraged him not to gain too much more weight as he is at the top ofthe healthy range for him. The fact that Dr. Lai is willing to write for hisKlonopin has been a great relief for him, and he will not need to travel allthe way to see me for prescriptions for this. In fact, he can now see me asneeded. I did remind him that he will be due for a Colonoscopy in 2019 which hecan have here or closer to home, but since he has had polyps in the past, thiswill be important for him.IMPRESSIONIrritable bowel syndrome with both constipation and diarrheaChronic nauseaDepression, unspecified depression typeBipolar affective disorder, currently depressed, moderateNonintractable migraine, unspecified migraine typeHx of adenomatous colonic polyps - Next Colonoscopy 2019Generalized anxiety disorderPLANPatient has a MyChart account.Continue IBgard twice a dayMay increase Citrucel to 1 tablespoon twice a day, if he wishesLetter to Dr. Garber 6 months, otherwise PRNNeeds a Colonoscopy in 2019, here or closer to homeEnma Phillips MDOctober 2016Note: Dr. Jorge L Bishop - his [address] [place], [place] [address]Wrfku: [phone]: [phone] Provider: SELF [200]Allergies As of Date: 03/18/2017(No Known Allergies)Date Reviewed: 03/18/2017Reviewed by: Enma Phillips - Fully AssessedReason for Visit: Established Patient [175] Cmt: chronic nauseaPrimary Visit Diagnosis:Irritable bowel syndrome with both constipation and diarrhea [K58.2] Other Visit Diagnoses:Chronic nausea [R11.0] Hx of adenomatous colonic polyps [Z86.010] Depression, unspecified depression type [F32.9] Bipolar affective disorder, currently depressed, moderate (HCC) [F31.32] Generalized anxiety disorder [F41.1] Migraine without status migrainosus, not intractable, unspecified migraine type [G43.909]Prescriptions as of 03/18/2017 Sig: TRAZODONE 150 MG TABLET Take 150 mg by mouth daily at* DULOXETINE 60 MG CAPSULE,LARISSA* Take 60 mg by mouth once mook* TRAMADOL 50 MG TABLET Take 50 mg by mouth every 6 h* HYDROXYZINE PAMOATE 50 MG CAP* Take 50 mg by mouth twice alize* CITRA PH ORAL Take by mouth once daily. PEPPERMINT OIL DR - ER 90 MG * Take by mouth. LINACLOTIDE 290 MCG CAPSULE Take by mouth once daily. NAPROXEN 500 MG TABLET Take 500 mg by mouth as neede* SUMATRIPTAN 100 MG TABLET Take 100 mg by mouth as neede* CHANTIX ORAL Take 1 tablet by mouth twice * ASPIRIN 81 MG TABLET,DELAYED * Take 81 mg by mouth once mook* ONDANSETRON HCL 4 MG TABLET take 1 tablet by mouth every * CLONAZEPAM 1 MG TABLET Take 1 tablet by mouth three * LATUDA 60 MG TABLET 80 mg once daily. HYDROCODONE 10 MG-ACETAMINOPH* Take 1 tablet by mouth every * BACLOFEN 10 MG TABLET Take 20 mg by mouth four time* BENZTROPINE 1 MG TABLET Take 1 mg by mouth once daily. DIPHENOXYLATE-ATROPINE 2.5 MG* take 1 tablet by mouth before* DRONABINOL 5 MG CAPSULE 5 mg three times daily. ESCITALOPRAM 10 MG TABLET Take 20 mg by mouth once mook* FAMOTIDINE 20 MG TABLET Take 20 mg by mouth as needed. DIVALPROEX ER 250 MG TABLET,E* Take 1 tablet by mouth daily *Problem List As Of Date 03/18/2017 Noted Resolved Weight loss [R63.4] INVALID FOR* LUQ abdominal pain [R10.12] INVALID FOR* Diarrhea [R19.7] INVALID FOR* Depression [F32.9] INVALID FOR* Bipolar disorder (HCC) [F31.9] INVALID FOR* Migraines [G43.909] INVALID FOR* Hx of adenomatous colonic polyps [Z86.010] INVALID FOR* Generalized anxiety disorder [F41.1] INVALID FOR* Chronic nausea [R11.0] INVALID FOR*Medications Discontinued During This Encounter HYDROcodone-Acetaminophen 7.5-325 mg* 12/18/2013 03/18/2017 Class: Med Update Route: ORAL Sig: Take 1 tablet by mouth every 8 hours as needed. Disc: Discontinued by another Health Care ProviderLetter TextEncounter Number: [id number] Status:Closed by ENMA PHILLIPS MD on 03/18/17 [facility] PROGRESSon 03-13-2017 PROGRESS HNO ID: [id number] thor: Enma Kaiser: (none)Author Type: PhysicianType: Progress NotesFiled: 03/18/2017 5:36 PMNote Text:Follow Up Visit 1.[address] - seen with his significant otherDiscussion and Plan from 10/18/16:DISCUSSION: In general, he has done fairly well. He will try the Citruceland see if that helps his stools more. I REALLY want him to try and getoff the Klonopin as well as be on the lowest amount of Tramadol andHydrocodone possible. However, we both realize that he has significantback issue and that may not happen, but we have had the conversation. Hissignificant other did not come with him, and it would have been better ifshe had been present.PLANPatient has a MyChart account.Klonopin 1 mg TID prn #90/2 - printed -OARRS report reviewed and is appropriateContinue IBgard twice a dayAdd Citrucel - 1 tablespoon twice a dayLetter and copy of today's note to Dr. Lai and Dr. Stone 3 months if he needs Klonopin or 6 months otherwiseCHIEF COMPLAINTFollow up of weight loss, abdominal pain, and diarrheaHISTORY OF PRESENT ILLNESS Mr. Dove is a 51 yo man who I saw for the first time on 06/14/14. He wasreferred by Dr. Lai for evaluation of weight loss, abdominal pain, anddiarrhea. Apparently over the prior 6 months, he had had a loss ofappetite, sensation of early satiety and daily nausea and had lostapproximately 45 pounds. He had been sent for endoscopies both EGD andcolonoscopy which were apparently negative. He had had significant imagingthat apparently includes a CT of the chest, abdomen and pelvis as well asa CT of the neck, the latter for a fixed firm nodule in the left neck (CTdid not show any lesion). He had a PMH of depression/ anxiety/bipolar andhad been doing well until 1 to 1.5 years ago when he started havingfatigue, loss of appetite, abdominal pain, loss of weight and diarrhea.Every time that he would eat food, 20-30 minutes after the food, he wouldhave to have a BM, which would be watery with mucus. Usually the stool wasnonbloody, but he had noted have 1 episode of blood about 2 weeks prior tohis initial visit. Also, he was having morning nausea, but no vomiting. Hecomplained of loss of appetite. He had had abdominal pain in the leftupper quadrant, occasional 3-4 times a week nonradiating, aching incharacter, not related to food. He had lost about 50 pounds in the prioryear. He would wake up in the afternoon and would eat only dinner. He hadbeen off his antidepressant medications for more than 1 month as he saidthat they were not helping. He had had an extensive workup from local GIwhich was nondiagnostic to explain his symptoms. However, he had been puton Entocort and was now constipated! He had been taking Dulcolax to have aBM. He was taking 2 pills a day of the Entocort; however, he had switchedto once every other day. He had been doing Ensure and [employer] and had gained few pounds in the few weeks prior to his initialvisit. He also noted dysphagia for solids, occasionally. He did have amanometry done which according to him was mildly abnormal . He had anappointment with new Psychiatrist the day after our visit. During his visit in July 2014, he had tried to consume 1-2 [employer] Breakfasts every day. He was still having some AM nausea and mighthave several BMs over the course of the morning that when they would comewould make him very tired. He had also seen his Psychiatrist who hadincreased his Latuda, but this appeared to be associated with some jawtightening that would remain for 2-3 hours. He had called to tell herabout this, and she prescribed a medication to help with this, but he hadnot filled it at the time of the visit. However, he did seem to be in alittle better mood. At his visit in October 2014, he reported that he felt better. He said thathe had symptoms about 3-4 days a week, and the symptoms involved nausea,but he did not vomit. He would wake up with symptoms, and he would havethem most of the day. He had occasional episodes of severe abdominal painalso located in the LUQ, and diarrhea which lasted for half the day. Hisstools were usually watery or soft but nonbloody. He denied constipationin between. His appetite was not the best, but he was trying to eat asmuch as he could to keep his weight up. He had gained about 10 lbs sincehis prior visit, and Marinol was helping his appetite especially in theevenings. Most of his symptoms were in the morning, and they seemed toimprove as the day progresses. His work up had included calprotectin,fecal fat, EGD and colonoscopy with biopsies which had been unremarkable.His jaw clenching was better, and his Psychiatrist was taking care ofthat. During his visit in December 2014, he reported that he had fallen back alittle bit because he was back to having some looser stools and that hadslowed his eating. The stools were most prominent after his first meal ofthe day (usually his biggest at ~5 PM). He would have loose stools 3-60minutes after. He might try to eat small amounts over the next severalhours and have more loose stool. He would go to bed in the very earlymorning hours, but did not have diarrhea that would wake him up oraccidents. However, he would have some loose stool after he would wake up.He denied abdominal pain or blood in the stool. At his visit in August 2015, he related that he had been able to controlthe diarrhea with the Lomotil. He had been able to gain weight because hehad been able to control his chronic nausea better with Marinol. Zofranhelped a little, but not as well as the Marinol. His PainDoctor /Neurologist had been giving him Klonopin and Marinol, but nowstated that he could not. Getting Marinol approved had been a significantproblem lately. He was very afraid that all of his progress would start toslide. During his visit in May 2016, he reported that he had been doingwell. He had been able to gain weight and was in his goal range. However,he had now gone from diarrhea to constipation. He was told to try Colace,but that had not helped. He had also had difficulty finding a newPhysician to write his Klonopin which had been a major issue for him. Herelated that he would be getting his teeth attended to very soon also. Hewanted some help with his constipation. At his last visit in October 2016, he recounted that he was still havingsome episodes of diarrhea and constipation. He was still taking the IBgardat least twice a day. He had been able to maintain his weight. However, hewas getting the most relief of his nausea and positive appetite effectsfrom marijuana as he had not been on Marinol in a long time. He hadcontinued on the Klonopin, and he came for a visit because hisPsychiatrist did not want to prescribe this for him, but reportedly was OKwith me writing for it!! He had tried Vistaril for his Anxiety/Panicattacks, but Mr. Dove stated that it had not helped him like theKlonopin. I had told him that his goal should be to find an alternative tothe Klonopin as I thought that the use of Klonopin could be contributingto his gut issues.?? Today, he states that since his last visit he had the remainder of histeeth pulled, and he now has new dentures. The transformation is terrific!He has gained some weight as his diet included more liquids and ice creamafter he was edentulous prior to the fitting of his dentures. He notesthat he is still having some alternating diarrhea and constipation, butthe episodes do not seem as severe. He is taking the IBgard at least oncea day, and the Citrucel also 1 tablespoon daily instead of twice a day aspreviously recommended. He tells me that his PCP has been nice enough tonow provide him with his prescription for Klonopin. He has madesignificant improvement over the past almost 3 years. He has gained njoaaj25 pounds and seems in a much better place.I have reviewed the PMH, Social, FH and ROS from the visit on 06/14/14, Ayleen have no changes or additions except what is in the HPI.Current Outpatient Prescriptions:ondansetron (ZOFRAN) 4 mg tablet take 1 tablet by mouth every 8 hours ifneeded Disp: 30 tablet Rfl: 5clonazePAM (KLONOPIN) 1 mg tablet Take 1 tablet by mouth three times dailyas needed. Disp: 90 tablet Rfl: 2diphenoxylate-atropine (LOMOTIL) 2.5-0.025 mg per tablet take 1 tablet bymouth before meals at bedtime Disp: 120 tablet Rfl: 5LATUDA 60 mg tab tablet 80 mg once daily. Disp: Rfl:dronabinol (MARINOL) 5 mg capsule 5 mg three times daily. Disp: Rfl:HYDROcodone-Acetaminop hen (NORCO) 10-325 mg per tablet Take 1 tablet bymouth every 8 hours as needed. Disp: Rfl:baclofen (LIORESAL) 10 mg tablet Take 20 mg by mouth four times daily.Disp: Rfl:escitalopram oxalate (LEXAPRO) 10 mg tablet Take 20 mg by mouth oncedaily. Disp: Rfl:benztropine (COGENTIN) 1 mg tablet Take 1 mg by mouth once daily. Disp:Rfl:famotidine (PEPCID AC) 20 mg tablet Take 20 mg by mouth as needed. Disp:Rfl:divalproex ER 250 mg 24 hr tablet Take 1 tablet by mouth daily at bedtime.Disp: Rfl:HYDROcodone-Acetaminop hen 7.5-325 mg per tablet Take 1 tablet by mouthevery 8 hours as needed. Disp: Rfl:No current facility-administered medications for this visit.ALLERGIESNo Known AllergiesWEIGHT HISTORY - Goal Weight = ~150-170 lbs02/02/14 - Weight 130.6 lbs, BMI 19.61; 02/16/14 - Weight 129.4 pounds, BMI19.46; 03/30/14 - Weight 128 lbs, BMI 18.36; 04/14/14 - Weight 134.8 lbs,BMI 20.20; 05/27/14 - Weight 125 lbs, BMI 18.62; 06/14/14 - Weight 133 lbs,BMI 19.08; 08/02/14 - Weight 137 lbs, BMI 19.66; 11/02/14 - Weight 147 lbs,BMI 21.09; 01/04/15 - Weight 141 lbs, BMI 20.23; 09/02/15 - Weight 148 lbs,BMI 21.35; 05/29/16 - Weight 162 lbs, BMI 23.27; 10/18/16 - Weight 161 lbs,BMI 23.13; Today's Weight 171 lbs, BMI 26.01PHYSICAL EXAMINATIONBP 108/63 Pulse 71 Ht 5' 8 (1.73m) Wt 171 lb (77.6kg) SpO2 98% BMI 26.01 kg/(m2).PREVIOUSLY REVIEWED DATA05/07/14 ? NM Gastric Emptying Scan. Reason for exam: Loss of appetite,dysphagia. Impression: Unremarkable gastric emptying scintigraphy. Most ofthe ingested activity remains in the stomach up to one hour. A largeportion of the activity empties from the stomach between one hour and 2hours, with 19.3% activity remaining at 2 hours.... There is 1.5% of thetotal ingested activity remaining in the stomach at 3 hours.06/18/14 - Small Bowel Video Capsule. Impression: Normal small bowelCapsule [id number]/20/14 - Colonoscopy. Indication: Change in bowel habits. Weight loss.Endoscopic diagnosis: 1. Normal terminal ileum, photograph taken. 2.Normal colonic mucosa, random biopsies taken. 3. Sessile polyp, 4 mm, indescending colon removed completely with cold snare. Pathology: A.Duodenum, biopsy: Duodenal mucosa with no significant pathologic changes.B. Distal esophagitis, biopsy: Squamous mucosa with chronic esophagitis,compatible with reflux. C. Proximal esophagus, biopsy: Squamous mucosawith chronic esophagitis, compatible with reflux. D. Polyp, ascendingcolon, polypectomy: Tubular adenoma. E. Left colon, random biopsies:Colonic mucosa within normal limits. F. Right colon random biopsies:Colonic mucosa within normal limits.09/28/13 - Fecal Calprotectin <16 - normal09/30/14 - Stool Qualitative for Fecal Fat - <100 fatty acid globules/hpf -normalNEW DATA SINCE LAST VISITNothing newAssessmentDISCUSSION: He appears much improved over the past year. The dentalextractions and new dentures should continue to help him with a morepositive self-image. We discussed that he may always have some issues withdiarrhea and/or constipation. The goal will be to make the swings lessmajor so that he can take these changes more in stride. He is at a muchbetter weight for him, but I encouraged him not to gain too much moreweight as he is at the top of the healthy range for him. The fact that is willing to write for his Klonopin has been a great relief forhim, and he will not need to travel all the way to see me forprescriptions for this. In fact, he can now see me as needed. I did remindhim that he will be due for a Colonoscopy in 2019 which he can have hereor closer to home, but since he has had polyps in the past, this will beimportant for him.IMPRESSIONIrritable bowel syndrome with both constipation and diarrheaChronic nauseaDepression, unspecified depression typeBipolar affective disorder, currently depressed, moderateNonintractable migraine, unspecified migraine typeHx of adenomatous colonic polyps - Next Colonoscopy 2018Generalized anxiety disorderPLANPatient has a [employer] account.Continue IBgard twice a dayMay increase Citrucel to 1 tablespoon twice a day, if he wishesLetter to Dr. Garber 6 months, otherwise PRNNeeds a Colonoscopy in 2019, here or closer to homeEnma Phillips MDOctarh [facility] 2016Note: Dr. Jorge L Bishop - his [address] [place], [place] [address]P[place]k: [phone]: [phone] [facility] OBSOLETEon 02-16-2017 OBSOLETE Refill (GASTMN) SIS DOVE ([id number]) 1965 M IPADate Time Provider Department02/16/17 ENMA PHILLIPS During your visit today, we recorded the following information about you:Enma Phillips MD 02/18/2017 12:13 PM SignedApproved and escripted.Enma Phillips MDOctarh [facility] 2016Allergies As of Date: 02/16/2017(No Known Allergies)Date Reviewed: 10/18/2016Reviewed by: Kari Foster Ma - Fully AssessedReason for Visit: Refill Request [94]Primary Visit Diagnosis:Nausea and vomiting, intractability of vomiting not specified, unspecified vomiting type [R11.2]Order(s):ondansetro n (ZOFRAN) 4 mg tablettake 1 tablet by mouth every 8 hours if neededDisp: 30 tabletRfl: 5Prescriptions as of 02/16/2017 Sig: ONDANSETRON HCL 4 MG TABLET take 1 tablet by mouth every * CLONAZEPAM 1 MG TABLET Take 1 tablet by mouth three * DIPHENOXYLATE-ATROPINE 2.5 MG* take 1 tablet by mouth before* LATUDA 60 MG TABLET 80 mg once daily. DRONABINOL 5 MG CAPSULE 5 mg three times daily. HYDROCODONE 10 MG-ACETAMINOPH* Take 1 tablet by mouth every * BACLOFEN 10 MG TABLET Take 20 mg by mouth four time* ESCITALOPRAM 10 MG TABLET Take 20 mg by mouth once mook* BENZTROPINE 1 MG TABLET Take 1 mg by mouth once daily. FAMOTIDINE 20 MG TABLET Take 20 mg by mouth as needed. DIVALPROEX ER 250 MG TABLET,E* Take 1 tablet by mouth daily * HYDROCODONE 7.5 MG-ACETAMINOP* Take 1 tablet by mouth every *Problem List As Of Date 02/16/2017 Noted Resolved Weight loss [R63.4] INVALID FOR* LUQ abdominal pain [R10.12] INVALID FOR* Diarrhea [R19.7] INVALID FOR* Depression [F32.9] INVALID FOR* Bipolar disorder (HCC) [F31.9] INVALID FOR* Migraines [G43.909] INVALID FOR* Hx of adenomatous colonic polyps [Z86.010] INVALID FOR* Generalized anxiety disorder [F41.1] INVALID FOR*Prescriptions ordered this encounter Disp Refills Start End ONDANSETRON HCL 4 MG TABLET 30 t* 5 02/18/2017 Sig: take 1 tablet by mouth every 8 hours if neededMedications Discontinued During This Encounter ondansetron (ZOFRAN) 4 mg tablet 30 t* 5 12/17/2016 02/18/2017 Sig: take 1 tablet by mouth every 8 hours if needed Disc: Reason for discontinue is not on file. Status:Closed by ENMA PHILLIPS MD on 02/18/17 [facility] OBSOLETEon 12-15-2016 OBSOLETE Refill (GASTMN) SIS DOVE ([id number]) 1965 M IPADate Time Provider Department12/15/16 ENMA PHILLIPS GASTMN During your visit today, we recorded the following information about you:Stephanie Pride RN, RN 12/17/2016 2:05 PM SignedPatient's request for medication is as follows:Pending Prescriptions Disp Refills ONDANSETRON HCL 4 MG TABLET 30 tablet 5 Sig: take 1 tablet by mouth every 8 hours if needed WES: YesPrescription(s) as above. Please process accordingly.Mariluz Nowak MD 12/17/2016 3:09 PM SignedApproved and escripted.Enma Phillips MDJuly 2016Allergies As of Date: 12/15/2016(No Known Allergies)Date Reviewed: 10/18/2016Reviewed by: Kari Foster Ma - Fully AssessedReason for Visit: Refill Request [94]Primary Visit Diagnosis:Nausea and vomiting, intractability of vomiting not specified, unspecified vomiting type [R11.2]Order(s):ondansetro n (ZOFRAN) 4 mg tablettake 1 tablet by mouth every 8 hours if neededDisp: 30 tabletRfl: 5Prescriptions as of 12/15/2016 Sig: ONDANSETRON HCL 4 MG TABLET take 1 tablet by mouth every * CLONAZEPAM 1 MG TABLET Take 1 tablet by mouth three * DIPHENOXYLATE-ATROPINE 2.5 MG* take 1 tablet by mouth before* LATUDA 60 MG TABLET 80 mg once daily. DRONABINOL 5 MG CAPSULE 5 mg three times daily. HYDROCODONE 10 MG-ACETAMINOPH* Take 1 tablet by mouth every * BACLOFEN 10 MG TABLET Take 20 mg by mouth four time* ESCITALOPRAM 10 MG TABLET Take 20 mg by mouth once mook* BENZTROPINE 1 MG TABLET Take 1 mg by mouth once daily. FAMOTIDINE 20 MG TABLET Take 20 mg by mouth as needed. DIVALPROEX ER 250 MG TABLET,E* Take 1 tablet by mouth daily * HYDROCODONE 7.5 MG-ACETAMINOP* Take 1 tablet by mouth every *Problem List As Of Date 12/15/2016 Noted Resolved Weight loss [R63.4] INVALID FOR* LUQ abdominal pain [R10.12] INVALID FOR* Diarrhea [R19.7] INVALID FOR* Depression [F32.9] INVALID FOR* Bipolar disorder (HCC) [F31.9] INVALID FOR* Migraines [G43.909] INVALID FOR* Hx of adenomatous colonic polyps [Z86.010] INVALID FOR* Generalized anxiety disorder [F41.1] INVALID FOR*Prescriptions ordered this encounter Disp Refills Start End ONDANSETRON HCL 4 MG TABLET 30 t* 5 12/17/2016 Sig: take 1 tablet by mouth every 8 hours if neededMedications Discontinued During This Encounter ondansetron (ZOFRAN) 4 mg tablet 30 t* 5 10/12/2016 12/17/2016 Sig: take 1 tablet by mouth every 8 hours if needed Disc: Reason for discontinue is not on file. Status:Closed by ENMA PHILLIPS MD on 12/17/16 Normal [facility] Vital Signs Date Time Vital Sign Value Performing Clinician Facility 12-19-2022 09:45-0400 Body height Shannan Cary Other [facility] Other 12-19-2022 09:45-0400 Body mass index (BMI) [Ratio] 21.03 kg/m2 Shannan Cary Other [facility] Other 12-19-2022 09:45-0400 Body weight 64.59 kg Shannan Cary Other [facility] Other 12-19-2022 09:45-0400 Diastolic blood pressure 72 mm[Hg] Shannan Cary Other [facility] Other 12-19-2022 09:45-0400 Respiratory rate 18 /min Shannan Cary Other [facility] Other 12-19-2022 09:45-0400 SaO2% (BldA) [Mass fraction] 99 % Shannan Cary Other [facility] Other 12-19-2022 09:45-0400 Systolic blood pressure 122 mm[Hg] Shannan Cary Other [facility] Other 08-03-2022 08:50-0400 Blood Pressure Location Gaetano BA [facility] 08-03-2022 08:50-0400 Diastolic blood pressure 68 mm[Hg] Gaetanoalee BA [facility] 08-03-2022 08:50-0400 Heart rate 66 /min Gaetano BA [facility] 08-03-2022 08:50-0400 Respiratory rate 16 /min Gaetano BA [facility] 08-03-2022 08:50-0400 Systolic blood pressure 111 mm[Hg] Gaetano BA [facility] 04-06-2021 14:45-0500 Body height Saman Olexa Other [facility] Other 04-06-2021 14:45-0500 Body mass index (BMI) [Ratio] 22.89 kg/m2 Saman Olexa Other [facility] Other 04-06-2021 14:45-0500 Body weight 70.31 kg Saman Olexa Other [facility] Other 03-02-2021 14:00-0400 Body height Saman Olexa Other [facility] Other 03-02-2021 14:00-0400 Body mass index (BMI) [Ratio] 22.89 kg/m2 Saman Olexa Other [facility] Other 03-02-2021 14:00-0400 Body weight 70.31 kg Saman Olexa Other [facility] Other 02-07-2021 15:15-0400 Body height Saman Olexa Other [facility] Other 02-07-2021 15:15-0400 Body mass index (BMI) [Ratio] 22.89 kg/m2 Saman Olexa Other [facility] Other 02-07-2021 15:15-0400 Body weight 70.31 kg Saman Olexa Other [facility] Other Encounters Encounter Date Encounter Type Care Provider Facility Start: 12-19-2022 Office outpatient vi sit 15 minutes Shannan Cary [facility] Start: 12-19-2022 End: 12-19-2022 ambulatory Shannan Cary [facility] Other Start: 12-19-2022 End: 12-19-2022 Patient encounter procedure [facility] [employer] Shannan Cary Work Phone: [facility] Work Phone: Start: 12-03-2022 End: 12-04-2022 ambulatory Gaetano BA Facility:[facility] Start: 12-03-2022 End: 12-03-2022 Patient encounter procedure Gaetano BA [facility] Start: 08-07-2022 End: 08-08-[address] FRANCES COLMENARES . Facility: Start: 08-03-2022 End: 08-04-2022 ambulatory Gaetano BA Facility:[facility] Start: 08-03-2022 End: 08-03-2022 Patient encounter procedure Gaetano BA [facility] Start: 07-25-2022 End: 07-26-[address] FRANCES COLMENARES . Facility:[facility] Start: 07-20-2022 End: 07-21-[address] FRANCES COLMENARES . Facility:[facility] Start: 06-29-2022 End: 06-30-2022 ambulatory SHANNAN RUBY Facility:[facility] Start: 06-09-2022 End: 06-09-2022 ambulatory YOLI KRUEGER Facility:[facility] Start: 03-26-2022 End: 03-27-[address] FRANCES COLMENARES . Facility:[facility] Start: 02-02-2022 End: 02-03-[address] FRANCES COLMENARES . Facility:[facility] Start: 01-05-[address] FRANCES COLMENARES . Facili ty:[facility] Start: 12-16-2021 End: 12-16-2021 ambulatory ROSELYN BOONE . Facility:[facility] Start: 12-13-2021 End: 12-14-[address] FRANCES COLMENARES . Facility:[facility] Start: 04-06-2021 End: 04-06-2021 ambulatory Saman Olexa Other [facility] Other Start: 04-06-2021 Postop follow up vis it related to original px Saman Olexa [facility] Start: 03-02-2021 Postop follow up vis it related to original px Saman Olexa [facility] Start: 02-07-2021 Postop follow up vis it related to original px Saman Olexa [facility] Start: 02-02-2021 Telephone encounter Saman Olexa [facility] Start: 09-12-2018 Patient encounter procedure Facility:[id number] Start: 09-03-2018 Patient encounter procedure Facility:[id number] Start: 08-12-2017 End: 08-12-2017 Ambulatory ENMA PHILLIPS [facility] Start: 03-18-2017 End: 03-18-2017 Ambulatory ENMA PHILLIPS [facility] Procedures Date Procedure Procedure Detail Performing Clinician Start: 12-19-2022 Plain X-ray of left shoulder [employer] Shannan Cary Work Phone: Start: 06-15-2020 Transurethral prostatectomy Gaetano BA Start: 12-24-2019 Cystoscopy Gaetano NOONAN Start: 09-03-2018 Antibody screen Comment on above: Order Comment: CBN: YES [place]: MAIN Transfusion Status: CONSERVATION Blood Bank service requested: TYPE AND SCREEN Specimen Comment: SURG 09/12 Performed By: #### B [id number] #### Test performed at: [place] [id number] Start: 09-03-2018 Electrocardiogram Back structure, excl uding neck (body structure) Gaetano BA Comment on above: 4 months ago Immunizations Immunization Date Immunization Notes Care Provider [facility] 01-25-2022 influenza virus vaccine, unspecified formulation Gaetano BA [facility] 04-27-2021 SARS-CoV-2 (COVID-19 ) mRNA BNT-162b2 vax Gaetano BA [facility] 02-20-2021 influenza virus vaccine, unspecified formulation Gaetano BA [facility] 08-29-2020 SARS-CoV-2 (COVID-19 ) mRNA-1273 vaccine Gaetano BA [facility] 08-23-2020 SARS-CoV-2 (COVID-19 ) mRNA BNT-162b2 vax Gaetano BA [facility] 08-01-2020 SARS-CoV-2 (COVID-19 ) mRNA BNT-162b2 vax Gaetano BA [facility] 07-29-2020 SARS-CoV-2 (COVID-19 ) mRNA-4378 vaccine Gaetanoalee BA [facility] 03-02-2020 influenza virus vaccine, unspecified formulation Gaetano BA [facility] 02-16-2020 influenza virus vaccine, unspecified formulation Gaetanoalee BA [facility] 02-16-2020 zoster vaccine recombinant Gaetano BA [facility] 01-13-2020 influenza virus vaccine, unspecified formulation Gaetano BA [facility] 02-05-2019 influenza virus vaccine, unspecified formulation Gaetanoalee BA [facility] 09-03-2018 hepatitis A vaccine, adult dosage Gaetano BA [facility] 09-03-2018 tetanus toxoid, redu hilary diphtheria toxoid, and acellular pertussis vaccine, adsorbed Gaetano BA [facility] 03-04-2017 influenza, unspecifi ed formulation Gaetano BA [facility] 03-13-2016 influenza virus vaccine, unspecified formulation Gaetano BA [facility] 03-16-2015 influenza virus vaccine, unspecified formulation Gaetano BA [facility] 01-09-2015 zoster vaccine, live Gaetano BA [facility] Payers Date Payer Category Payer Self-pay [id number] 2021 Unknown [id number] 2017 Unknown [id number] 1965 Unknown [id number] 2.16. [id number] 1965 Unknown [id number] 2.16. [id number] 1965 Unknown [id number] 2.16.84 [id number] 1965 Unknown [id number] 2.16.84 0.1.779868.3.579.2.593 1965 Unknown [id number] 2.16.84 0.1.055451.3.579.2.593 1965 Unknown [id number] 2.16.84 0.1.418269.3.579.2.593 1965 Unknown [id number] 2.16.84 0.1.398223.3.579.2.593 1965 Unknown [id number] 2.16.84 0.1.328006.3.579.2.593 1965 Unknown [id number] 2.16.84 0.1.254007.3.579.2.593 1965 Unknown [id number] 2.16.84 0.1.275205.3.579.2.593 1965 Unknown [id number] 2.16.84 0.1.104451.3.579.2.593 1965 Unknown [id number] 2.16.84 0.1.837133.3.579.2.593 1965 Unknown [id number] 2.16.8 40.1.826774.3.579.2.727 1965 Unknown [id number] 2.16.8 40.1.114135.3.579.2.727 1960 Medicaid [id number] Medicare [id number] Medicare Medicare [id number] Unknown [id number] 2.16.8 [id number] Social History Date Type Detail Facility Sex Assigned At [facility] Start: 08-03-2022 Tobacco smoking status Ex-smoker (fi nding) [facility] Start: 09-18-[address] [facility] Start: 1965 Sex Assigned At Male [facility] Functional Status Date Assessment Result Facility 08-03-2022 Functional Status N/A [facility] Clinical Notes 02-07-2021 to 12-19-2022 Note Date & Type Note Facility 12-19-2022 Evaluation note Encounter Date Diagnosis Assessment Notes Dec, Acute pain of left shoulder (ICD-10 - M25.512) Dec, Sprain of left shoulder, unspecified shoulder sprain type, initial encounter (ICD-10 - S43.402A) Shoulder sprain home care material was printed Drink plenty fluids, get plenty of rest. Continue home medications as prescribed. Take the prednisone as prescribed until gone. You may use heat or ice to your shoulder for comfort. Follow-up with your family physician if no improvement in 5 to 7 days. [facility] Other 03-17-2023 Hospital Discharge instructions Follow Up Care 08/03/2022 09:16:26 With:LOVE DALAL, Gaetano Posada, URL Address: [facility] [address] [place] [address]- [phone] When: Unknown [facility] 03-17-2023 Hospital Discharge instructions Patient Education 08/03/2022 09:12:00 Urinary Incontinence Urinary Incontinence Urinary incontinence refers to a condition in which a person is unable to control where and when topass urine. A person with this condition will urinate when he or she does not mean to (involuntarily). What are the causes? This condition may be caused by: Medicines. Infections. Constipation. Overactive bladder muscles. Weak bladder muscles. Weak pelvic floor muscles. These muscles provide support for the bladder, intestine, and, in women,the uterus. Enlarged prostate in men. The prostate is a gland near the bladder. When it gets too big, it can pinch the urethra. With the urethra blocked, the bladder can weaken and lose the ability to empty properly. Surgery. Emotional factors, such as anxiety, stress, or post-traumatic stress disorder (PTSD). Pelvic organ prolapse. This happens in women when organs shift out of place and into the vagina. This shift can prevent the bladder and urethra from working properly. What increases the risk? The following factors may make you more likely to develop this condition: Older age. Obesity and physical inactivity. and childbirth. Menopause. Diseases that affect the nerves or spinal cord (neurological diseases). Long-term (chronic) coughing. This can increase pressure on the bladder and pelvic floor muscles. What are the signs or symptoms? Symptoms may vary depending on the type of urinary incontinence you have. They include: A sudden urge to urinate, but passing urine involuntarily before you can get to a bathroom (urge incontinence). Suddenly passing urine with any activity that forces urine to pass, such as coughing, laughing, exercise, or sneezing (stress incontinence). Needing to urinate often, but urinating only a small amount, or constantly dribbling urine (overflow incontinence). Urinating because you cannot get to the bathroom in time due to a physical disability, such as arthritis or injury, or communication and thinking problems, such as Alzheimer disease (functional incontinence). How is this diagnosed? This condition may be diagnosed based on: Your medical history. A physical exam. Tests, such as: ?Urine tests. ?X-rays of your kidney and bladder. ?Ultrasound. ?CT scan. ?Cystoscopy. In this procedure, a health care provider inserts a tube with a light and camera (cystoscope) through the urethra and into the bladder in order to check for problems. ?Urodynamic testing. These tests assess how well the bladder, urethra, and sphincter can store and release urine. There are different types of urodynamic tests, and they vary depending on what the test is measuring. To help diagnose your condition, your health care provider may recommend that you keep a log of when you urinate and how much you urinate. How is this treated? Treatment for this condition depends on the type of incontinence that you have and its cause. Treatment may include: Lifestyle changes, such as: ?Quitting smoking. ?Maintaining a healthy weight. ?Staying active. Try to get 150 minutes of moderate-intensity exercise every week. Ask your health care provider which activities are safe for you. ?Eating a healthy diet. ?Avoid high-fat foods, like fried foods. ?Avoid refined carbohydrates like white bread and white rice. ?Limit how much alcohol and caffeine you drink. ?Increase your fiber intake. Foods such as fresh fruits, vegetables, beans, and whole grains are healthy sources of fiber. Pelvic floor muscle exercises. Bladder training, such as lengthening the amount of time between bathroom breaks, or using the bathroom at regular intervals. Using techniques to suppress bladder urges. This can include distraction techniques or controlled breathing exercises. Medicines to relax the bladder muscles and prevent bladder spasms. Medicines to help slow or prevent the growth of a man's prostate. Botox injections. These can help relax the bladder muscles. Using pulses of electricity to help change bladder reflexes (electrical nerve stimulation). For women, using a medical or surgical instrument maker to prevent urine leaks. This is a small, tampon-like, disposable device that is inserted into the urethra. Injecting collagen or carbon beads (bulking agents) into the urinary sphincter. These can help thicken tissue and close the bladder opening. Surgery. Follow these instructions at home: Lifestyle Limit alcohol and caffeine. These can fill your bladder quickly and irritate it. Keep yourself clean to help prevent odors and skin damage. Ask your doctor about special skin creams and cleansers that can protect the skin from urine. Consider wearing pads or adult diapers. Make sure to change them regularly, and always change them right after experiencing incontinence. General instructions Take xjti-byw-jjjtjaw and prescription medicines only as told by your health care provider. Use the bathroom about every 3 4 hours, even if you do not feel the need to urinate. Try to empty your bladder completely every time. After urinating, wait a minute. Then try to urinate again. Make sure you are in a relaxed position while urinating. If your incontinence is caused by nerve problems, keep a log of the medicines you take and the times you go to the bathroom. Keep all follow-up visits as told by your health care provider. This is important. Contact a health care provider if: You have pain that gets worse. Your incontinence gets worse. Get help right away if: You have a fever or chills. You are unable to urinate. You have redness in your groin area or down your legs. Summary Urinary incontinence refers to a condition in which a person is unable to control where and when topass urine. This condition may be caused by medicines, infection, weak bladder muscles, weak pelvic floor muscles, enlargement of the prostate (in men), or surgery. The following factors increase your risk for developing this condition: older age, obesity, and childbirth, menopause, neurological diseases, and chronic coughing. There are several types of urinary incontinence. They include urge incontinence, stress incontinence, overflow incontinence, and functional incontinence. This condition is usually treated first with lifestyle and behavioral changes, such as quitting smoking, eating a healthier diet, and doing regular pelvic floor exercises. Other treatment options include medicines, bulking agents, medical devices, electrical nerve stimulation, or surgery. This information is not intended to replace advice given to you by your health care provider. Make sure you discuss any questions you have with your health care provider. Document Released: 06/13/2005 Document Revised: 05/16/2018 Document Reviewed: 08/15/2017 [employer] Patient Education 2020 [employer]. Follow Up Care 07/31/2022 08:36:53 With:LOVE DALAL, Gaetano Posada, URL Address: [address] [place], [place] [id number]- When: Unknown [facility] 07-01-2022 Note [id number]06-30-2022 NoteEducation Materials Orthopedics Chronic Back Pain When back pain lasts longer than 3 months, it is called chronic back pain. Pain may get worse at certain times (flare-ups). There are things you can do at home to manage your pain. Follow these instructions at home: Pay attention to any changes in your symptoms. Take these actions to help with your pain: Managing pain and stiffness ? If told, put ice on the painful area. Your doctor may tell you to use ice for 24?48 hours after the flare-up starts. To do this: ? Put ice in a plastic bag. ? Place a towel between your skin and the bag. ? Leave the ice on for 20 minutes, 2?3 times a day. ? If told, put heat on the painful area. Do this as often as told by your doctor. Use the heat source that your doctor recommends, such as a moist heat pack or a heating pad. ? Place a towel between your skin and the heat source. ? Leave the heat on for 20?30 minutes. ? Take off the heat if your skin turns bright red. This is especially important if you are unable to feel pain, heat, or cold. You may have a greater risk of getting burned. ? Soak in a warm bath. This can help relieve pain. Activity ? Avoid bending and other activities that make pain worse. ? When standing: ? Keep your upper back and neck straight. ? Keep your shoulders pulled back. ? Avoid slouching. ? When sitting: ? Keep your back straight. ? Relax your shoulders. Do not round your shoulders or pull them backward. ? Do not sit or standpipe tender one place for long periods of time. ? Take short rest breaks during the day. Lying down or standing is usually better than sitting. Resting can help relieve pain. ? When sitting or lying down for a long time, do some mild activity or stretching. This will help to prevent stiffness and pain. ? Get regular exercise. Ask your doctor what activities are safe for you. ? Do not lift anything that is heavier than 10 lb (4.5 kg) or the limit that you are told, until your doctor says that it is safe. ? To prevent injury when you lift things: ? Bend your knees. ? Keep the weight close to your body. ? Avoid twisting. ? Sleep on a firm mattress. Try lying on your side with your knees slightly bent. If you lie on your back, put a pillow under your knees. Medicines ? Treatment may include medicines for pain and swelling taken by mouth or put on the skin, prescription pain medicine, or muscle relaxants. ? Take vusv-cxa-jgvmcjc and prescription medicines only as told by your doctor. ? Ask your doctor if the medicine prescribed to you: ? Requires you to avoid driving or using machinery. ? Can cause trouble pooping (constipation). You may need to take these actions to prevent or treat trouble pooping: ? Drink enough fluid to keep your pee (urine) pale yellow. ? Take bikh-dup-uuuscio or prescription medicines. ? Eat foods that are high in fiber. These include beans, whole grains, and fresh fruits and vegetables. ? Limit foods that are high in fat and sugars. These include fried or sweet foods. General instructions ? Do not use any products that contain nicotine or tobacco, such as cigarettes, e-cigarettes, and chewing tobacco. If you need help quitting, ask your doctor. ? Keep all follow-up visits as told by your doctor. This is important. Contact a doctor if: ? Your pain does not get better with rest or medicine. ? Your pain gets worse, or you have new pain. ? You have a high fever. ? You lose weight very quickly. ? You have trouble doing your normal activities. Get help right away if: ? One or both of your legs or feet feel weak. ? One or both of your legs or feet lose feeling (have numbness). ? You have trouble controlling when you poop (have a bowel movement) or pee (urinate). ? You have bad back pain and: ? You feel like you may vomit (nauseous), or you vomit. ? You have pain in your belly (abdomen). ? You have shortness of breath. ? You faint. Summary ? When back pain lasts longer than 3 months, it is called chronic back pain. ? Pain may get worse at certain times (flare-ups). ? Use ice and heat as told by your doctor. Your doctor may tell you to use ice after flare-ups. This information is not intended to replace advice given to you by your health care provider. Make sure you discuss any questions you have with your health care provider. Document Revised: 06/15/2020 Document Reviewed: 06/15/2020 [employer] Patient Education ? 2020 [employer] Acute Back Pain, Adult Acute back pain is sudden and usually short-lived. It is often caused by an injury to the muscles and tissues in the back. The injury may result from: ? A muscle or ligament getting overstretched or torn (strained). Ligaments are tissues that connectbones to each other. Lifting something improperly can cause a back strain. ? Wear and tear (degeneration) of the spinal disks (more content not included)...[facility] [id number] NoteEducation Materials Cardiovascular Hypertension, Adult High blood pressure (hypertension) is when the force of blood pumping through the arteries is too strong. The arteries are the blood vessels that carry blood from the heart throughout the body. Hypertension forces the heart to work harder to pump blood and may cause arteries to become narrow or stiff. Untreated or uncontrolled hypertension can cause a heart attack, heart failure, a stroke, kidneydisease, and other problems. A blood pressure reading consists of a higher number over a lower number. Ideally, your blood pressure should be below 120/80. The first ( top ) number is called the systolic pressure. It is a measure of the pressure in your arteries as your heart beats. The second ( bottom ) number is called the diastolic pressure. It is a measure of the pressure in your arteries as the heart relaxes. What are the causes? The exact cause of this condition is not known. There are some conditions that result in or are related to high blood pressure. What increases the risk? Some risk factors for high blood pressure are under your control. The following factors may make you more likely to develop this condition: ? Smoking. ? Having type 2 diabetes mellitus, high cholesterol, or both. ? Not getting enough exercise or physical activity. ? Being overweight. ? Having too much fat, sugar, calories, or salt (sodium) in your diet. ? Drinking too much alcohol. Some risk factors for high blood pressure may be difficult or impossible to change. Some of these factors include: ? Having chronic kidney disease. ? Having a family history of high blood pressure. ? Age. Risk increases with age. ? Race. You may be at higher risk if you are . ? Gender. Men are at higher risk than women before age 45. After age 65, women are at higher risk than men. ? Having obstructive sleep apnea. ? Stress. What are the signs or symptoms? High blood pressure may not cause symptoms. Very high blood pressure (hypertensive crisis) may cause: ? Headache. ? Anxiety. ? Shortness of breath. ? Nosebleed. ? Nausea and vomiting. ? Vision changes. ? Severe chest pain. ? Seizures. How is this diagnosed? This condition is diagnosed by measuring your blood pressure while you are seated, with your arm resting on a flat surface, your legs uncrossed, and your feet flat on the floor. The cuff of the bloodpressure monitor will be placed directly against the skin of your upper arm at the level of your heart. It should be measured at least twice using the same arm. Certain conditions can cause a difference in blood pressure between your right and left arms. Certain factors can cause blood pressure readings to be lower or higher than normal for a short period of time: ? When your blood pressure is higher when you are in a health care provider's office than when you are at home, this is called white coat hypertension. Most people with this condition do not need medicines. ? When your blood pressure is higher at home than when you are in a health care provider's office, this is called masked hypertension. Most people with this condition may need medicines to control blood pressure. If you have a high blood pressure reading during one visit or you have normal blood pressure with other risk factors, you may be asked to: ? Return on a different day to have your blood pressure checked again. ? Monitor your blood pressure at home for 1 week or longer. If you are diagnosed with hypertension, you may have other blood or imaging tests to help your health care provider understand your overall risk for other conditions. How is this treated? This condition is treated by making healthy lifestyle changes, such as eating healthy foods, exercising more, and reducing your alcohol intake. Your health care provider may prescribe medicine if lifestyle changes are not enough to get your blood pressure under control, and if: ? Your systolic blood pressure is above 130. ? Your diastolic blood pressure is above 80. Your personal target blood pressure may vary depending on your medical conditions, your age, and other factors. Follow these instructions at home: Eating and drinking ? Eat a diet that is high in fiber and potassium, and low in sodium, added sugar, and fat. An example eating plan is called the DASH (Dietary Approaches to Stop Hypertension) diet. To eat this way: ? Eat plenty of fresh fruits and vegetables. Try to fill one half of your plate at each meal with fruits and vegetables. ? Eat whole grains, such as whole-wheat pasta, brown rice, or whole-grain bread. Fill about one fourth of your plate with whole grains. ? Eat or drink low-fat dairy products, such as skim milk or low-fat yogurt. ? Avoid fatty cuts of meat, processed or cured meats, and poultry with skin. Fill about one fourth of your plate with lean proteins, such as fish, chicken without skin, beans, e (more content not included)...[facility] [id number] Evaluation note* Encounter Date Diagnosis Assessment Notes Treatment Notes Treatment Clinical Notes Mar, Acute right ankle pain (ICD-10 - M25.571) Mar, Other closed fracture of distal end of right fibula with routine healing, subsequent encounter (ICD-10 - S82.831D) We will provide a prescription for formal physical therapy. The regular use of exercises may be beneficial in relieving painful symptoms.Call with questions or concerns [employer] Other 10-14-2021 Evaluation note* Encounter Date Diagnosis Assessment Notes Treatment Notes Treatment Clinical Notes Feb, Acute right ankle pain (ICD-10 - M25.571) Feb, Other closed fracture of distal end of right fibula with routine healing, subsequent encounter (ICD-10 - S82.831D) slowly working the way out of the boot 6 weeks to full heal. We discussed and demonstrated gentle ankle motion exericse as well as gentle weight bearing strengthening exercise including biking, leg press and heel raises. [employer] Other 09-21-2021 Evaluation note* Encounter Date Diagnosis Assessment Notes Treatment Notes Treatment Clinical Notes Jan, Acute right ankle pain (ICD-10 - M25.571) Jan, Other closed fracture of distal end of right fibula with routine healing, subsequent encounter (ICD-10 - S82.831D) We discussed and demonstrated gentle motion exericse to be performed daily, multiple times per day. This included ankle flexion and extension as well as gentle pronation and supination motion exercise. Instructed patient to continue non weight bearing. Instructed patient to continue to wear CAM boot [employer] Other Evaluation + Plan note Future Appointments Appointment Date:12/03/2022 01:45:00 PM Scheduled Provider:Gaetano BA MD Location:[facility] Appointment Type:URO Office Visit [facility] Evaluation noteNo InformationNort Motility Count Other Evaluation noteNo assessment information available [facility] Work Phone: [facility] general Narrative - Reported* Type Description Date Medical History bipolar Medical History arthritis in spine [employer] Other [facility] general Narrative - Reported* Type Description Date Medical History bipolar Medical History arthritis in spine Surgical History back surgery 2021 [employer] Other Hospital course Narrative No data available for this section [facility] progress note No data available for this section [facility] Natural Dentist Summary Purpose Family History No Family History Records FoundNo Family History Records FoundNo Family History Records FoundNo Family History Records FoundNo Family History Records FoundNo Family History Records FoundNo Family History Records Found Advance Directives No Advanced Directives Records Found Advance Directive Response Recorded Date/ Time Advance Directives No September 17, 2017 2:15pm Additional Source Comments (unrecognized sect ion and content) No Status Records FoundNo Status Records FoundNo Status Records FoundNo Status Records FoundNo Status Records FoundNo Status Records FoundNo Status Records Found INFORMATION SOURCE (unrecogn ized section and content) DATE CREATED AUTHOR 11/07/2017 [facility] DATE CREATED AUTHOR AUTHOR'S ORGANIZ ATION 09/21/2018 [facility] DATE CREATED AUTHOR AUTHOR'S ORGANIZ ATION 03/26/2019 [facility] DATE CREATED AUTHOR AUTHOR'S ORGANIZ ATION 11/28/2021 [facility] DATE CREATED AUTHOR AUTHOR'S ORGANIZ ATION 08/12/2022 [facility] DATE CREATED AUTHOR AUTHOR'S ORGANIZ ATION 12/04/2022 [facility] DATE CREATED AUTHOR AUTHOR'S ORGANIZ ATION 12/31/2022 [facility] REASON FOR VISIT (unrecogniz ed section and content) RECHECK RT FIB FX HAVING LOT S OF PAIN SWELLINGrx request4 WK4 WEEKSLEFT TOP OF ARM, DOG YANKED HIS ARM WHILE WALKING Patient Care team informatio n (unrecognized section and content) Team Status: Inactive Member Role Status Dates Shannan Cary NP-C Attending Provider Active Goals (unrecognized section and content) Goals may be documented in a n alternate section FOR RECORDS PERTAINING TO PATIENTS WHO ARE OR HAVE BEEN ENROLLED IN A CHEMICAL DEPENDENCY/SUBSTANCEABUSE PROGRAM, SOME INFORMATION MAY BE OMITTED. This clinical summary was aggregated from multiple sources. Caution should be exercised in using it in the provision of clinical care. This summary normalizes information from multiple sources, and as a consequence, information in this document may materially change the coding, format and clinical context of patient data. In addition, data may be omitted in some cases. CLINICAL DECISIONS SHOULD BE BASED ON THE PRIMARY CLINICAL RECORDS. [facility] [employer] provides no warranty or guarantee of the accuracy or completeness of information in this document.
[2023-06-12 16:11] LABS: Amphetamine Screen Urine NEGATIVE (NEGATIVE); Barbiturates Screen Urine NEGATIVE (NEGATIVE); Benzodiazepines Screen Urine POSITIVE (NEGATIVE); Buprenorphine Screen Urine NEGATIVE (NEGATIVE); Cannabinoid Screen Urine POSITIVE (NEGATIVE); Cocaine Screen Urine NEGATIVE (NEGATIVE); Methadone Screen Urine NEGATIVE (NEGATIVE); Methamphetamines Screen Urine NEGATIVE (NEGATIVE); Opiate Screen Urine NEGATIVE (NEGATIVE); Oxycodone Screen Urine NEGATIVE (NEGATIVE); Phencyclidine Screen Urine NEGATIVE (NEGATIVE); Tricyclic Antidepressant Urine NEGATIVE (NEGATIVE)
[2023-06-13 10:10] LABS: Uric Acid, Urine 48.9 mg/dL (Not Estab.)
[2023-06-18 18:08] LABS: Summary Report (Summary) FINAL (.)
== END 2023-06-12 15:17 | disposition home or self-care (01) ==
LOC: LAB 15:19
PROVIDERS: PCP Family Medicine; Visit Provider Family Medicine
DX: Z79.899 Other long term (current) drug therapy (principal)
CPT/HCPCS: 80307; 80326; 80331; 80334; 80337; 80338; 80341; 80344; 80346; 80348; 80353; 80354; 80355; 80357; 80358; 80359; 80360; 80361; 80364; 80365; 80366; 80367; 80368; 80370; 80371; 80372; 80373; 80377; 82570; 83992; 84560

== ENCOUNTER 2023-08-29 23:21 | Emergency (ER) | payer MEDICARE, MEDICAID, SELFPAY ==
--- OUTSIDE RECORDS SUMMARY | 2023-08-29 23:27 | XMS_ITS | CCD ---
Author Organization [facility] Care Team Providers Care Embosser Apprentice Name Role Phone ENMA PHILLIPS F Unavailable Unavailable PHILLIPS, ENMA F Unavailable Unavailable RAÚL LAI Unavailable Unavailable PHILLIPS, ENMA F Unavailable Unavailable Saman Jules Unavailable Frances Colmenares Primary Care Physician NOEL .DR DANIELS Primary Care Unavailable HOY ., DR DANIELS Attending Unavailable HOY ., DR DANIELS Admitting Unavailable GRECHNY .ROSELYN Consulting Unavailronny ROWELL ., CARMEN Attending Unavailable SORIN ., CARMEN Admitting Unavailable JAVONY ., DR DANIELS Primary Care Unavailable YOLI KRUEGER Consulting Unavailable DIAB ., JUNG Attending Unavailable DIAB ., JUNG Admitting Unavailable HOY ., DR DANIELS Primary Care Unavailable DIAB ., JUNG Consulting Unavailable HOY ., DR DANIELS Consulting Unavailable HOY ., DR DANIELS Primary Care Unavailable HOY ., DR DANIELS Attending Unavailable HOY ., DR DANIELS Admelo Unavailable ZIEBER, DR ELIUD Posada Consulting Unavailable HOY ., DR DANIELS Consulting [...] DANIELS Attending Unavailable HOY ., DR DANIELS Admelo Unavailable FARNAZ FRANK Consulting Unavailable HOY ., DR DANIELS Consulting Unavailable HOY ., DR DANIELS Primary Care Unavailable HOY ., DR DANIELS Attending Unavailable HOY ., DR DANIELS Admitting Unavailable SHANNAN RUBY Consulting Unavailable HOY ., DR DANIELS Primary Care Unavailable HOY ., DR DANIELS Attending Unavailable NOEL ., DR DANIELS Admitting Unavailable NOEL ., DR DANIELS Consulting Unavailable NOEL ., DR DANIELS Primary Care Unavailable NOEL ., DR DANIELS Attending Unavailable JAVONY ., DR DANIELS Admitting Unavailable WEST, DR SYLVESTER Ho Consulting Unavailable Gaetano BA Attending Unavailable Gaetano BA Attending Unavailable Shannan Cary Unavailable FRAN Cary Attending Provider Shannan Cary Attending Unavailable Shannan Cary Admitting Unavailable NON STAFF Primary Care Unavailable Allergies Allergy Classification Reported Allergen(s) Allergy Type Date of Onset Reaction(s) Facility (3 sources) Codeine; Translations: [codeine] Drug Allergy Unknown [facility] (4 sources) traMADol; Translations: [tramadol] Drug Allergy hives [facility] (1 source) traMADol Drug Allergy 1 [facility] Repository (1 source) No Known Medication Allergies; Translations: [No Known Medication Allergies] Propensity to adverse reactions (disorder) [facility] Repository Medications Current Medications Medication Drug Class(es) Dates Sig (Normalized) Sig (Original) acetaminophen 325 mg / HYDROcodone bitartrate 10 mg oral tablet (2 sources) Opioid Agonist Start: 09-19-2017 take 1 tablet by mouth every twelve hours Hydrocodone-Aceta minophen (Spring) 10-325 mg Tablet Active 1 TAB PO Q12H 0 September 19, 2017 12:01pm Start: 09-17-2017 End: 09-19-2017 take 1 tablet by mouth every eight hours Hydrocodone-Acetaminophen (Spring) 10-325 mg Tablet Discontinued 1 TAB PO [...] daily Duloxetine Active 60 MG PO Daily 0 September 19, 2017 12:00am Start: 09-17-2017 [...] BID, # 60 tab(s), Refills(s) 11, Pharmacy: 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] Onset: 3 Episodic Other aftercare (1 source) Polypharmacy ; Translations: [Other termite control servicer (current) drug therapy] 09-20-2017 Episodic Other and [...] Other intervertebral disc degeneration, lumbosacral region; Translations: [OTH IV DISC DEGEN LUMBOSACRAL RGN] Onset: 3 [...] elbow; Translations: [PAIN IN LEFT ELBOW] Onset: 12-16-2021 Episodic Other nutritional; endocrine; and metabolic disorders [...] min 2V*on XR shoulder LT min 2V* [facility] [employer] Other XR shoulder LT min 2V* [facility] [employer] Other XR shoulder LT min 2V* [address] [place] [address] [employer] Other XR shoulder LT min 2V* [place] [address] [employer] Other XR shoulder LT min 2V* XRay Report [employer] Other XR shoulder LT min 2V* Signed [employer] Other XR shoulder LT min 2V* Patient: Sis Dove MR#: [id number] [employer] Other XR shoulder LT min 2V* 5 [employer] Other XR shoulder LT min 2V* : 1965 Acct:[id number] [employer] Other XR shoulder LT min 2V* Age/Sex: 57 / M ADM Date: 12/19/22 [employer] Other XR shoulder LT min 2V* Loc: XDUCLY Room: Type: [facility] [employer] Other XR shoulder LT min 2V* Attending Dr: Shannan PETERS [employer] Other XR shoulder LT min 2V* Copies to: FRAN Barba [employer] Other XR shoulder LT min 2V* Ordering Provider: FRAN Barba [employer] Other XR shoulder LT min 2V* Date of Service: 12/19/22 [employer] Other XR shoulder LT min 2V* XR/XR shoulder LT min 2V*: Acute pain of left shoulder [employer] Other XR shoulder LT min 2V* XR shoulder LT min 2V* 12/19/2022 10:33 AM [employer] Other XR shoulder LT min 2V* SIGNS AND SYMPTOMS: [employer] Other XR shoulder LT min 2V* Acute pain of left shoulder [employer] Other XR shoulder LT min 2V* PROTOCOL: Frontal, Grashey, and scapular Y views of the left shoulder [employer] Other XR shoulder LT min 2V* COMPARISON: None [employer] Other XR shoulder LT min 2V* FINDINGS: [employer] Other XR shoulder LT min 2V* The acromial clavicular joint is preserved. There is mild narrowing of the glenohumeral joint. There [employer] Other XR shoulder LT min 2V* is no evidence of fracture or dislocation. The visualized left hemithorax is grossly intact. [employer] Other XR shoulder LT min 2V* XR/XR shoulder LT min 2V* [employer] Other XR shoulder LT min 2V* IMPRESSION: [employer] Other XR shoulder LT min 2V* No acute bony injury. Seeo Other XR shoulder LT min 2V* Mild degenerative changes are noted in the glenohumeral joint. [employer] Other XR shoulder LT min 2V* Impression dictated by: Bello Yao M.D.12/19/2022 11:00 AM [employer] Other XR shoulder LT min 2V* Dictation Location: [facility]-- [employer] Other XR shoulder LT min 2V* Transcribed By: CHRISTIAN 12/19/22 1100 [employer] Other XR shoulder LT min 2V* Dictated By: Bello Yao II, MD 12/19/22 1058 [employer] Other XR shoulder LT min 2V* Signed By: [employer] Other XR shoulder LT min 2V* 12/19/22 1100 [employer] Other XR shoulder LT min 2V* [facility] [employer] [address] [place] [address] XRay Report Signed Patient: Sis Dove MR#: [id number] 5 : 1965 Acct:[id number] Age/Sex: 57 / M ADM Date: 12/19/22 Loc: XDUCLY Room: Type: [facility] Attending Dr: Shannan PETERS Copies [...] Bello Yao M.D.12/19/2022 11:00 AM Dictation Location: [place] [address] Transcribed By: [facility] 12/19/22 1100 Dictated By: Bello Yao II, MD 12/19/22 1058 Signed By: 12/19/22 1100 [facility] Patient Letter FTMCon 2022 Patient [place] [facility] [place] 03, 20[place] SIS DOVE [address] [address] : 1965 Dear Sis , You missed [...] time of rescheduling. Sincerely, [facility] [address] [facility], [place] [address] [facility] Lab Reportson 08-14-2022 Lab Reports [id number]#[id number]:127 [facility] Lab Reports [id number]#[id number]:127 [facility] RAD - CT Reporton 08-14-2022 RAD - CT Report [id number]:127 Normal [facility] RAD - MISCon 08-14-2022 RAD - MISC [id number]:127 Normal [facility] Ambulatory Visit Summaryon 0 08-03-2022 Ambulatory Visit Summary SIS DOVE :1965 Visit Date:08/03/2022 Ambulatory Visit Instructions Your Diagnosis BPH with urinary obstruction Urge incontinence Kidney stone Peyronie disease ED (erectile dysfunction) Tests Performed Urnls Dip Stick Auto w/o Microscopy POC 13668 Your Care Team Attending Physician - Gaetano BA MD Primary Care Physician - Frances Colmenares MD [...] Following Appointments Follow Up with LOVE DALAL, Gaetano Posada, MARTINA When: Where: [address] [place] [address]- Medications What How Much When Why Instructions [...] Urnls Dip Stick Auto w/o Microscopy POC 44174 (08/03/2022) Bilirubin Urine Dipstick - Negative Blood Urine Dipstick - Negative Glucose Urine Dipstick - Negative Ketones Urine Dipstick - Negative Leukocytes Urine Dipstick - Trace Nitrite Urine Dipstick - Negative Protein Urine Dipstick - Negative Specific Wingate Urine Dipstick - 1.020 Urine Appearance Urine [...] or spi (more content not included)... Normal [facility] Patient Educationon 08-04-19 Patient Education Urology Urinary [...] nerve stimulation). ? For women, using a clinical specialist medical device to prevent urine leaks. This is a [...] after experiencing incontinence. General instructions ? Take phny-hot-ogmvdhw and prescription medicines only as (more content not included)... Normal [facility] Urology Office/Clinic Noteon 08-03-2022 Urology Office/Clinic Note [...] When Contact Information Gaetano BA MD, URL [address] [place], [place] [id number]- Additional Instructions: 4 months f/up to [facility] Patient Education Urinary Incontinence I, Nicole Gallegos, personally scribed for Dr. Ba on 08/03/2022 09:12:18. . Documentation recorded by the ak (more content not included)... Normal [facility] Comment on above: Result Comment: Elec tronically Signed By: Gaetano BA MD\.br\Date and Time Signed: 08/03/22 09:17 EDT\.br\Electronically Co-Signed By: Nicole Gallegos.br\Date and Time Co-Signed: 08/03/22 09:[address] ABD/PELVIS WO CONon 03-08 -2023 CT ABD/PELVIS WO CON EXAMINATION: CT ABD/PELVIS [...] by: ELIUD ALANIZ Date: 2022-07-25 10:48 Normal [facility] XR KUB 1 VIEWon 07-21-2022 XR KUB [...] by: SYLVESTER PARR Date: 2022-07-21 12:03 Normal [facility] CULTURE URINEon 06-29-2022 CULTURE URINE Culture Observations : NO GROWTH. Normal [facility] Comment on above: Performed By: #### C EA. #### [facility] [address] [address] [address] Adan Alexander UA RANDOM W/MICROSCOPICon BACTERIA NONE SEEN Normal NONE SEEN [facility] Comment on above: Performed By: #### U AMIC #### [facility] [address] [address] [address] Adan Alexander Bilirubin Ql (U) Negative Normal NEGATIVE [facility] Comment on above: Performed By: #### U AMIC #### [facility] [address] [place] [address] Dr. Adan Alexander CAST NONE SEEN Normal NONE SEEN [facility] Comment on above: Performed By: #### U AMIC #### [facility] [address] [place] [address] Dr. Adan Alexander Clarity (U) CLEAR Normal CLEAR [facility] Comment on above: Performed By: #### U AMIC #### [facility] [address] [place] [address] Dr. Adan Alexander Color (U) YELLOW Normal YELLOW [facility] Comment on above: Performed By: #### U AMIC #### [facility] [address] [address] [address] Adan Alexander Crystals LM Nom (Urine sed) NONE SEEN Normal NONE SEEN [facility] Comment on above: Performed By: #### U AMIC #### [facility] [address] [place] [address] Dr. Adan Alexander Epithelial cells LM Ql (Urine sed) RARE Normal NONE SEEN /RARE [facility] Comment on above: Performed By: #### U AMIC #### [facility] [address] [place] [address] Dr. Adan Alexander Glucose Ql (U) Negative Normal NEGATIVE [facility] Comment on above: Performed By: #### U AMIC #### [facility] [address] [place] [address] Dr. Adan Alexander Hemoglobin Ql (U) Negative Normal NEGATIVE [facility] Comment on above: Performed By: #### U AMIC #### [facility] [address] [place] [address] Dr. Adan Alexander Ketones Ql (U) TRACE Abnormal NEGATIVE [facility] Comment on above: Performed By: #### U AMIC #### [facility] [address] [address] [address] Adan Alexander LEUKOCYTES Negative Normal NEGATIVE [facility] Comment on above: Performed By: #### U AMIC #### [facility] [address] [address] [address] Adan Alexander MUCOUS NONE SEEN Normal NONE SEEN [facility] Comment on above: Performed By: #### U AMIC #### [facility] [address] [address] [address] Adan Alexander Nitrite Ql (U) Negative Normal NEGATIVE [facility] Comment on above: Performed By: #### U AMIC #### [facility] [address] [place] [address] Dr. Adan Alexander pH (U) 6.0 [pH] Normal 5-9 [facility] Comment on above: Performed By: #### U AMIC #### [facility] [address] [address] [address] Adan Alexander RBC 0-2 Normal 0-2 [facility] Comment on above: Performed By: #### U AMIC #### [facility] [address] [place] [address] Dr. Adan Alexander SPEC GRAVITY 1.025 Normal 1.005-<=1.0 25 [facility] Comment on above: Performed By: #### U AMIC #### [facility] [address] [place] [address] Dr. Adan Alexander UA PROTEIN Negative Normal NEGATIVE/ TRACE [facility] Comment on above: Performed By: #### U AMIC #### [facility] [address] [place] [address] Dr. Adan Alexander Urobilinogen Qn (U) 0.2 {Ofelia'U}/dL Normal 0.2 - 1.0 [facility] Comment on above: Performed By: #### U AMIC #### [facility] [address] [address] [address] Adan Alexander WBC NONE SEEN Normal NONE SEEN [facility] Comment on above: Performed By: #### U AMIC #### [facility] [address] [address] [address] Adan Alexander XR RIBS LT PA [...] YOLI KRUEGER Date: 2022-06-09 11:08 Normal [facility] CA 19-9on 03-27-2022 CA 19-9 9 U/mL Normal 0-35 [facility] Comment on above: Result Comment: [employer] Electrochemiluminescence Immunoassay (ECLIA) . Values obtained with different assay methods or kits cannot be used interchangeably. Results cannot be interpreted as absolute evidence of the presence or absence of malignant disease. Performed By: #### P SAFREE #### [facility] [address] [place] [address] Dr. Adan Alexander CEAon 03-27-2022 CEA 3.3 ng/mL Normal 0.0-4.7 [facility] Comment on above: Result Comment: Nons mokers <3.9 Smokers <5.6 . [employer] Electrochemiluminescence Immunoassay (ECLIA) . Values obtained with different assay methods or kits cannot be used interchangeably. Results cannot be interpreted as absolute evidence of the presence or absence of malignant disease. Performed By: #### C EA. #### [facility] [address] [address] [address] Adan Alexander INSULINon 03-27-2022 Insulin 7.3 uIU/mL Normal 2.6-24.9 [facility] Comment on above: Performed By: #### S EDR #### [facility] [address] [address] [address] Adan Alexander PSA, FREE AND TOTAL RATIOon 03-27-2022 % Free PSA 50.0 % Normal [facility] Comment on above: Result Comment: The table [...] men. Performed By: #### P SAFREE #### [facility] [address] [place] [address] Dr. Adan Alexander Prostate specific Ag [Mass/Vol] 0.4 ng/mL Normal 0.0-4.0 [facility] Comment on above: Result Comment: [employer] ECLIA methodology. . According to the [employer] [employer], Serum PSA should decrease and [...] disease. Performed By: #### P SAFREE #### [facility] [address] [place] [address] Dr. Adan Alexander PSA, Free 0.20 ng/mL Normal N/A [facility] Comment on above: Result Comment: Roch e ECLIA methodology. Performed By: #### P SAFREE #### [facility] [address] [place] [address] Dr. Adan Alexander CBC AUTO DIFFon 03-26-2022 BASO # 0.0 103/ul Normal 0.0-0.1 [facility] Comment on above: Performed By: #### P SAFREE #### [facility] [address] [place] [address] Dr. Adan Alexander Basophils/100 WBC (Bld) 0.2 % Normal 0.2-2.0 [facility] Comment on above: Performed By: #### P SAFREE #### [facility] [address] [place] [address] Dr. Adan Alexander EO # 0.0 103/ul Normal 0.0-0.7 [facility] Comment on above: Performed By: #### P SAFREE #### [facility] [address] [place] [address] Dr. Adan Alexander Eosinophils/100 WBC (Bld) 0.0 % Critically low 0.9-7.0 [facility] Comment on above: Performed By: #### P SAFREE #### [facility] [address] [place] [address] Dr. Adan Alexander Erythrocyte distribution width (RBC) [Ratio] 12.1 % Normal 11.0-15.0 [facility] Comment on above: Performed By: #### P SAFREE #### [facility] [address] [place] [address] Dr. Adan Alexander Hematocrit (Bld) [Volume fraction] 39.9 % Critically low 42.0-54.0 [facility] Comment on above: Performed By: #### P SAFREE #### [facility] [address] [place] [address] Dr. Adan Alexander Hemoglobin (Bld) [Mass/Vol] 14.1 g/dL Normal 14.0-18.0 [facility] Comment on above: Performed By: #### P SAFREE #### [facility] [address] [place] [address] Dr. dAan Alexander IG # 0.02 10e3/ul Normal 0.00-0.03 [facility] Comment on above: Performed By: #### P SAFREE #### [facility] [address] [place] [address] Dr. Adan Alexander IG % 0.4 % Normal 0.0-0.5 [facility] Comment on above: Performed By: #### P SAFREE #### [facility] [address] [place] [address] Dr. Adan Alexander LYMPH # 1.7 103/ul Normal 1.2-3.8 [facility] Comment on above: Performed By: #### P SAFREE #### [facility] [address] [place] [address] Dr. Adan Alexander Lymphocytes/100 WBC (Bld) 32.1 % Normal 20.5-60.0 [facility] Comment on above: Performed By: #### P SAFREE #### [facility] [address] [place] [address] Dr. Adan Alexander MANUAL DIFF REQ NO Normal [facility] Comment on above: Performed By: #### P SAFREE #### [facility] [address] [place] [address] Dr. Adan Alexander MCH (RBC) [Entitic mass] 34.2 pg Critically high 25.9-34.0 [facility] Comment on above: Performed By: #### P SAFREE #### [facility] [address] [place] [address] Dr. Adan Alexander MCHC (RBC) [Mass/Vol] 35.3 g/dL Critically high 29.9-35.2 [facility] Comment on above: Performed By: #### P SAFREE #### [facility] [address] [place] [address] Dr. Adan Alexander MCV (RBC) [Entitic vol] 96.8 fL Critically high 80.0-94.0 [facility] Comment on above: Performed By: #### P SAFREE #### [facility] [address] [place] [address] Dr. Adan Alexander MONO # 0.4 103/ul Normal 0.3-0.8 [facility] Comment on above: Performed By: #### P SAFREE #### [facility] [address] [place] [address] Dr. Adan Alexander Monocytes/100 WBC (Bld) 8.1 % Normal 1.7-12.0 [facility] Comment on above: Performed By: #### P SAFREE #### [facility] [address] [place] [address] Dr. Adan Alexander NEUT # 3.2 103/ul Normal 1.4-6.5 [facility] Comment on above: Performed By: #### P SAFREE #### [facility] [address] [place] [address] Dr. Adan Alexander Neutrophils/100 WBC (Bld) 59.2 % Normal 43.0-75.0 [facility] Comment on above: Performed By: #### P SAFREE #### [facility] [address] [place] [address] Dr. Adan Alexander Platelet mean volume (Bld) [Entitic vol] 10.7 fL Normal 9.5-13.5 [facility] Comment on above: Performed By: #### P SAFREE #### [facility] [address] [place] [address] Dr. Adan Alexander PLT 175 103/ul Normal 150-450 [facility] Comment on above: Performed By: #### P SAFREE #### [facility] [address] [place] [address] Dr. Adan Alexander RBC 4.12 106/ul Critically low 4.70-6.10 [facility] Comment on above: Performed By: #### P SAFREE #### [facility] [address] [place] [address] Dr. Adan Alexander WBC 5.4 103/ul Normal 4.0-11.0 [facility] Comment on above: Performed By: #### P SAFREE #### [facility] [address] [place] [address] Dr. Adan Alexander FREE THYROXINE INDEX T7on FTI 2.52 Normal 1.30-4.50 [facility] Comment on above: Performed By: #### S EDR #### [facility] [address] [place] [address] Dr. Adan Alexander T3U 30.0 % Critically low 33.0-40.0 [facility] Comment on above: Performed By: #### S EDR #### [facility] [address] [place] [address] Dr. Adan Alexander T4 [Mass/Vol] 8.40 ug/dL Normal 4.50-12.10 [facility] Comment on above: Performed By: #### S EDR #### [facility] [address] [place] [address] Dr. Adan Alexander GLYCOHEMOGLOBIN A1Con 2021 ADA RECOMMENDATION SEE BELOW Normal [facility] Comment on above: Result Comment: ADA RECOMMENDED LIMIT 4.0 - 6.0 ADA THERAPEUTIC TARGET < 7.0 ACTION SUGGESTED > 7.0 Performed By: #### A 1C #### [facility] [address] [place] [address] Dr. Adan Alexander Glucose [Mass/Vol] 105 mg/dL Normal [facility] Comment on above: Performed By: #### A 1C #### [facility] [address] [place] [address] Dr. Adan Alexander HbA1c (Bld) [Mass fraction] 5.3 % Normal 4.5-6.2 [facility] Comment on above: Performed By: #### A 1C #### [facility] [address] [place] [address] Dr. Adan Alexander IRONon 03-26-2022 Iron [Mass/Vol] 67.0 ug/dL Normal 65.0-175.0 [facility] Comment on above: Performed By: #### C EA. #### [facility] [address] [place] [address] Dr. Adan Alexander LIPID PROFILEon 03-26-2022 CHOL-HDL RATIO NORM SEE BELOW Normal [facility] Comment on above: Result Comment: 3.3 - 4.4 LOW RISK 4.4 - 7.1 AVERAGE RISK 7.1 - 11.0 MODERATE RISK >11.0 HIGH RISK Performed By: #### S EDR #### [facility] [address] [place] [address] Dr. Adan Alexander Cholesterol [Mass/Vol] 189 mg/dL Normal <=200 [facility] Comment on above: Performed By: #### S EDR #### [facility] [address] [place] [address] Dr. Adan Alexander Cholesterol in HDL [Mass/Vol] 53 mg/dL Normal 40-60 [facility] Comment on above: Performed By: #### S EDR #### [facility] [address] [address] [address] Adan Alexander Cholesterol in LDL [Mass/Vol] 119.2 mg/dL Normal [facility] Comment on above: Performed By: #### S EDR #### [facility] [address] [address] [address] Adan Alexander Cholesterol.total/ Cholesterol in HDL [Mass ratio] 3.6 {ratio} Normal [facility] Comment on above: Performed By: #### S EDR #### [facility] [address] [address] [address] Adan Alexander HDL NORMAL > or = 60 mg/dl - LO W CARDIOVASCULAR RISK <40 mg/dl - HIGH CARDIOVASCULAR RISK Normal [facility] Comment on above: Performed By: #### S EDR #### [facility] [address] [place] [address] Dr. Adan Alexander LDL CALC NORMAL SEE BELOW Normal [facility] Comment on above: Result Comment: <100 mg/dl OPTIMAL 100 - 129 mg/dl NEAR OR ABOVE OPTIMAL 130 - 159 mg/dl BORDERLINE HIGH 160 - 189 mg/dl HIGH >190 mg/dl VERY HIGH Performed By: #### S EDR #### [facility] [address] [place] [address] Dr. Adan Alexander Triglyceride [Mass/Vol] 84 mg/dL Normal <=150 [facility] Comment on above: Performed By: #### S EDR #### [facility] [address] [place] [address] Dr. Adan Alexander VLDL CALC 16.8 mg/dL Normal [facility] Comment on above: Performed By: #### S EDR #### [facility] [address] [place] [address] Dr. Adan Alexander MAGNESIUMon 03-26-2022 Magnesium [Mass/Vol] 2.2 mg/dL Normal 1.8-2.4 [facility] Comment on above: Performed By: #### C EA. #### [facility] [address] [place] [address] Dr. Adan Alexander PHOSPHORUSon 03-26-2022 Phosphate [Mass/Vol] 3.1 mg/dL Normal 2.6-4.7 [facility] Comment on above: Performed By: #### C EA. #### [facility] [address] [place] [address] Dr. Adan Alexander PROF 14(COMP METB)on 022 Albumin [Mass/Vol] 4.0 g/dL Normal 3.4-5.0 [facility] Comment on above: Performed By: #### C EA. #### [facility] [address] [place] [address] Dr. Adan Alexander Albumin/Globulin [Mass ratio] 1.1 {ratio} Normal [facility] Comment on above: Performed By: #### C EA. #### [facility] [address] [place] [address] Dr. Adan Alexander ALP [Catalytic activity/Vol] 131 U/L Critically high 46-116 [facility] Comment on above: Performed By: #### C EA. #### [facility] [address] [place] [address] Dr. Adan Alexander ALT [Catalytic activity/Vol] 21 U/L Normal 16-63 [facility] Comment on above: Performed By: #### C EA. #### [facility] [address] [place] [address] Dr. Adan Alexander Anion gap [Moles/Vol] 4.8 mmol/L Normal [facility] Comment on above: Performed By: #### C EA. #### [facility] [address] [place] [address] Dr. Adan Alexander AST [Catalytic activity/Vol] 16 U/L Normal 15-37 [facility] Comment on above: Performed By: #### C EA. #### [facility] [address] [place] [address] Dr. Adan Alexander Bilirubin [Mass/Vol] 0.3 mg/dL Normal 0.2-1.0 [facility] Comment on above: Performed By: #### C EA. #### [facility] [address] [place] [address] Dr. Adan Alexander Calcium [Mass/Vol] 9.8 mg/dL Normal 8.5-10.1 [facility] Comment on above: Performed By: #### C EA. #### [facility] [address] [place] [address] Dr. Adan Alexander Chloride [Moles/Vol] 100 mmol/L Normal 98-107 [facility] Comment on above: Performed By: #### C EA. #### [facility] [address] [place] [address] Dr. Adan Alexander CO2 [Moles/Vol] 32.5 mmol/L Critically high 21.0-32.0 [facility] Comment on above: Performed By: #### C EA. #### [facility] [address] [place] [address] Dr. Adan Alexander Creatinine [Mass/Vol] 0.90 mg/dL Normal 0.70-1.30 [facility] Comment on above: Performed By: #### C EA. #### [facility] [address] [place] [address] Dr. Adan Alexander EGFR-AF MALIAN >60 Normal >=60 [facility] Comment on above: Performed By: #### C EA. #### [facility] [address] [place] [address] Dr. Adan Alexander EGFR-NON AF MALIAN >60 Normal >=60 [facility] Comment on above: Performed By: #### C EA. #### [facility] [address] [place] [address] Dr. Adan Alexander Globulin (S) [Mass/Vol] 3.5 g/dL Normal [facility] Comment on above: Performed By: #### C EA. #### [facility] [address] [place] [address] Dr. Adan Alexander Glucose [Mass/Vol] 97 mg/dL Normal 74-106 [facility] Comment on above: Performed By: #### C EA. #### [facility] [address] [place] [address] Dr. Adan Alexander Potassium [Moles/Vol] 4.3 mmol/L Normal 3.5-5.1 [facility] Comment on above: Performed By: #### C EA. #### [facility] [address] [place] [address] Dr. Adan Alexander Protein [Mass/Vol] 7.5 g/dL Normal 6.4-8.2 [facility] Comment on above: Performed By: #### C EA. #### [facility] [address] [place] [address] Dr. Adan Alexander Sodium [Moles/Vol] 133 mmol/L Critically low 136-145 [facility] Comment on above: Performed By: #### C EA. #### [facility] [address] [place] [address] Dr. Adan Alexander Urea nitrogen [Mass/Vol] 10.0 mg/dL Normal 7.0-18.0 [facility] Comment on above: Performed By: #### C EA. #### [facility] [address] [place] [address] Dr. Adan Alexander Urea nitrogen/Creatinin e [Mass ratio] 11.1 mg/mg Normal [facility] Comment on above: Performed By: #### C EA. #### [facility] [address] [place] [address] Dr. Adan Alexander TSHon 03-26-2022 TSH 1.066 uIU/mL Normal 0.358-3.740 [facility] Comment on above: Performed By: #### S EDR #### [facility] [address] [place] [address] Dr. Adan Alexander XR SHOULDER LT 2V [...] acute osseous findings. Electronically authenticated by: FARNAZ MONIKA Date: 2022-02-04 11:32 Normal [facility] CBC AUTO DIFFon 12-16-2021 BASO # 0.0 103/ul Normal 0.0-0.1 [facility] Comment on above: Performed By: #### C BC #### [facility] [address] [address] [address] Adan Alexander Basophils/100 WBC (Bld) 0.2 % Normal 0.2-2.0 [facility] Comment on above: Performed By: #### C BC #### [facility] [address] [address] [address] Adan Alexander EO # 0.0 103/ul Normal 0.0-0.7 [facility] Comment on above: Performed By: #### C BC #### [facility] [address] [address] [address] Adan Alexander Eosinophils/100 WBC (Bld) 0.2 % Critically low 0.9-7.0 [facility] Comment on above: Performed By: #### C BC #### [facility] [address] [address] [address] Adan Alexander Erythrocyte distribution width (RBC) [Ratio] 12.7 % Normal 11.0-15.0 [facility] Comment on above: Performed By: #### C BC #### [facility] [address] [address] [address] Adan Aelxander Hematocrit (Bld) [Volume fraction] 39.3 % Critically low 42.0-54.0 [facility] Comment on above: Performed By: #### C BC #### [facility] [address] [address] [address] Adan Alexander Hemoglobin (Bld) [Mass/Vol] 13.7 g/dL Critically low 14.0-18.0 [facility] Comment on above: Performed By: #### C BC #### [facility] [address] [address] [address] Adan Alexander IG # 0.01 10e3/ul Normal 0.00-0.03 [facility] Comment on above: Performed By: #### C BC #### [facility] [address] [place] [address] Dr. Adan Alexander IG % 0.2 % Normal 0.0-0.5 [facility] Comment on above: Performed By: #### C BC #### [facility] [address] [place] [address] Dr. Adan Alexander LYMPH # 1.6 103/ul Normal 1.2-3.8 [facility] Comment on above: Performed By: #### C BC #### [facility] [address] [place] [address] Dr. Adan Alexander Lymphocytes/100 WBC (Bld) 24.9 % Normal 20.5-60.0 [facility] Comment on above: Performed By: #### C BC #### [facility] [address] [place] [address] Dr. Adan Alexander MANUAL DIFF REQ NO Normal [facility] Comment on above: Performed By: #### C BC #### [facility] [address] [place] [address] Dr. Adan Alexander MCH (RBC) [Entitic mass] 33.3 pg Normal 25.9-34.0 [facility] Comment on above: Performed By: #### C BC #### [facility] [address] [place] [address] Dr. Adan Alexander MCHC (RBC) [Mass/Vol] 34.9 g/dL Normal 29.9-35.2 [facility] Comment on above: Performed By: #### C BC #### [facility] [address] [place] [address] Dr. Adan Alexander MCV (RBC) [Entitic vol] 95.6 fL Critically high 80.0-94.0 [facility] Comment on above: Performed By: #### C BC #### [facility] [address] [place] [address] Dr. Adan Alexander MONO # 0.4 103/ul Normal 0.3-0.8 [facility] Comment on above: Performed By: #### C BC #### [facility] [address] [place] [address] Dr. Adna Alexander Monocytes/100 WBC (Bld) 6.7 % Normal 1.7-12.0 [facility] Comment on above: Performed By: #### C BC #### [facility] [address] [place] [address] Dr. Adan Alexander NEUT # 4.3 103/ul Normal 1.4-6.5 [facility] Comment on above: Performed By: #### C BC #### [facility] [address] [place] [address] Dr. Adan Alexander Neutrophils/100 WBC (Bld) 67.8 % Normal 43.0-75.0 [facility] Comment on above: Performed By: #### C BC #### [facility] [address] [place] [address] Dr. Adan Alexander Platelet mean volume (Bld) [Entitic vol] 10.8 fL Normal 9.5-13.5 [facility] Comment on above: Performed By: #### C BC #### [facility] [address] [place] [address] Dr. Adan Alexander PLT 157 103/ul Normal 150-450 [facility] Comment on above: Performed By: #### C BC #### [facility] [address] [place] [address] Dr. Adan Alexander RBC 4.11 106/ul Critically low 4.70-6.10 [facility] Comment on above: Performed By: #### C BC #### [facility] [address] [place] [address] Dr. Adan Alexander WBC 6.3 103/ul Normal 4.0-11.0 [facility] Comment on above: Performed By: #### C BC #### [facility] [address] [place] [address] Dr. Adan Alexander CRPon 12-16-2021 CRP 2.3 mg/dL Critically high <=1.0 [facility] Comment on above: Performed By: #### P SAFREE #### [facility] [address] [place] [address] Dr. Adan Alexander LACTATE/LACTIC ACIDon 2021 Lactate [Moles/Vol] 0.9 mmol/L Normal 0.4-1.9 [facility] Comment on above: Performed By: #### L ACT #### [facility] [address] [place] [address] Dr. Adan Alexander PROF 14(COMP METB)on 022 Albumin [Mass/Vol] 3.6 g/dL Normal 3.4-5.0 [facility] Comment on above: Performed By: #### P SAFREE #### [facility] [address] [place] [address] Dr. Adan Alexander Albumin/Globulin [Mass ratio] 1.0 {ratio} Normal [facility] Comment on above: Performed By: #### P SAFREE #### [facility] [address] [place] [address] Dr. Adan Alexander ALP [Catalytic activity/Vol] 123 U/L Critically high 46-116 [facility] Comment on above: Performed By: #### P SAFREE #### [facility] [address] [place] [address] Dr. Adan Alexander ALT [Catalytic activity/Vol] 28 U/L Normal 16-63 [facility] Comment on above: Performed By: #### P SAFREE #### [facility] [address] [place] [address] Dr. Adan Alexander Anion gap [Moles/Vol] 11.3 mmol/L Normal [facility] Comment on above: Performed By: #### P SAFREE #### [facility] [address] [place] [address] Dr. Adan Alexander AST [Catalytic activity/Vol] 18 U/L Normal 15-37 [facility] Comment on above: Performed By: #### P SAFREE #### [facility] [address] [place] [address] Dr. Adan Alexander Bilirubin [Mass/Vol] 0.6 mg/dL Normal 0.2-1.0 [facility] Comment on above: Performed By: #### P SAFREE #### [facility] [address] [address] [address] Adan Alexander Calcium [Mass/Vol] 9.3 mg/dL Normal 8.5-10.1 [facility] Comment on above: Performed By: #### P SAFREE #### [facility] [address] [address] [address] Adan Alexander Chloride [Moles/Vol] 102 mmol/L Normal 98-107 [facility] Comment on above: Performed By: #### P SAFREE #### [facility] [address] [address] [address] Adan Alexander CO2 [Moles/Vol] 30.0 mmol/L Normal 21.0-32.0 [facility] Comment on above: Performed By: #### P SAFREE #### [facility] [address] [place] [address] Dr. Adan Alexander Creatinine [Mass/Vol] 1.03 mg/dL Normal 0.70-1.30 [facility] Comment on above: Performed By: #### P SAFREE #### [facility] [address] [address] [address] Adan Alexander EGFR-AF MALIAN >60 Normal >=60 [facility] Comment on above: Performed By: #### P SAFREE #### [facility] [address] [place] [address] Dr. Adan Alexander EGFR-NON AF MALIAN >60 Normal >=60 [facility] Comment on above: Performed By: #### P SAFREE #### [facility] [address] [address] [address] Adan Alexander Globulin (S) [Mass/Vol] 3.7 g/dL Normal [facility] Comment on above: Performed By: #### P SAFREE #### [facility] [address] [place] [address] Dr. Adan Alexander Glucose [Mass/Vol] 94 mg/dL Normal 74-106 [facility] Comment on above: Performed By: #### P SAFREE #### [facility] [address] [address] [address] Adan Alexander Potassium [Moles/Vol] 3.3 mmol/L Critically low 3.5-5.1 [facility] Comment on above: Performed By: #### P SAFREE #### [facility] [address] [address] [address] Adan Alexander Protein [Mass/Vol] 7.3 g/dL Normal 6.4-8.2 [facility] Comment on above: Performed By: #### P SAFREE #### [facility] [address] [address] [address] Adan Alexander Sodium [Moles/Vol] 140 mmol/L Normal 136-145 [facility] Comment on above: Performed By: #### P SAFREE #### [facility] [address] [address] [address] Adan Alexander Urea nitrogen [Mass/Vol] 9.0 mg/dL Normal 7.0-18.0 [facility] Comment on above: Performed By: #### P SAFREE #### [facility] [address] [address] [address] Adan Alexander Urea nitrogen/Creatinin e [Mass ratio] 8.7 mg/mg Normal [facility] Comment on above: Performed By: #### P SAFREE #### [facility] [address] [address] [address] Adan [facility] mm/hr Critically high <=20 [facility] Comment on above: Performed By: #### S EDR #### [facility] [address] [address] [address] Adan Alexander URIC ACID SERUMon 12-16-2021 Urate [Mass/Vol] 7.1 mg/dL Normal 3.5-7.2 [facility] Comment on above: Performed By: #### P SAFREE #### [facility] [address] [place] [address] Dr. Adan Alexander CA 19-9on 12-14-2021 CA 19-9 7 U/mL Normal 0-35 [facility] Comment on above: Result Comment: [facility] [employer] Electrochemiluminescence Immunoassay (ECLIA) . Values obtained with different assay methods or kits cannot be used interchangeably. Results cannot be interpreted as absolute evidence of the presence or absence of malignant disease. Performed By: #### S EDR #### [facility] [address] [place] [address] Dr. Adan Alexander CEAon 12-14-2021 CEA 2.9 ng/mL Normal 0.0-4.7 [facility] Comment on above: Result Comment: Nons mokers <3.9 Smokers <5.6 . [employer] Electrochemiluminescence Immunoassay (ECLIA) . Values obtained with different assay methods or kits cannot be used interchangeably. Results cannot be interpreted as absolute evidence of the presence or absence of malignant disease. Performed By: #### C EA. #### [facility] [address] [place] [address] Dr. Adan Alexander INSULINon 12-14-2021 Insulin 5.2 uIU/mL Normal 2.6-24.9 [facility] Comment on above: Performed By: #### C EA. #### [facility] [address] [place] [address] Dr. Adan Alexander AMYLASEon 12-13-2021 Amylase [Catalytic activity/Vol] 52 U/L Normal 25-115 [facility] Comment on above: Performed By: #### S EDR #### [facility] [address] [place] [address] Dr. Adan Alexander CBC AUTO DIFFon 12-13-2021 BASO # 0.0 103/ul Normal 0.0-0.1 [facility] Comment on above: Performed By: #### C BC #### [facility] [address] [place] [address] Dr. Adan Alexander Basophils/100 WBC (Bld) 0.3 % Normal 0.2-2.0 [facility] Comment on above: Performed By: #### C BC #### [facility] [address] [place] [address] Dr. Adan Alexander EO # 0.0 103/ul Normal 0.0-0.7 [facility] Comment on above: Performed By: #### C BC #### [facility] [address] [place] [address] Dr. Adan Alexander Eosinophils/100 WBC (Bld) 0.2 % Critically low 0.9-7.0 [facility] Comment on above: Performed By: #### C BC #### [facility] [address] [place] [address] Dr. Adan Alexander Erythrocyte distribution width (RBC) [Ratio] 12.7 % Normal 11.0-15.0 [facility] Comment on above: Performed By: #### C BC #### [facility] [address] [place] [address] Dr. Adan Alexander Hematocrit (Bld) [Volume fraction] 41.5 % Critically low 42.0-54.0 [facility] Comment on above: Performed By: #### C BC #### [facility] [address] [place] [address] Dr. Adan Alexander Hemoglobin (Bld) [Mass/Vol] 14.4 g/dL Normal 14.0-18.0 [facility] Comment on above: Performed By: #### C BC #### [facility] [address] [place] [address] Dr. Adan Alexander IG # 0.01 10e3/ul Normal 0.00-0.03 [facility] Comment on above: Performed By: #### C BC #### [facility] [address] [place] [address] Dr. Adan Alexander IG % 0.2 % Normal 0.0-0.5 [facility] Comment on above: Performed By: #### C BC #### [facility] [address] [place] [address] Dr. Adan Alexander LYMPH # 1.4 103/ul Normal 1.2-3.8 [facility] Comment on above: Performed By: #### C BC #### [facility] [address] [place] [address] Dr. Adan Alexander Lymphocytes/100 WBC (Bld) 21.6 % Normal 20.5-60.0 [facility] Comment on above: Performed By: #### C BC #### [facility] [address] [place] [address] Dr. Adan Alexander MANUAL DIFF REQ NO Normal [facility] Comment on above: Performed By: #### C BC #### [facility] [address] [place] [address] Dr. Adan Alexander MCH (RBC) [Entitic mass] 33.1 pg Normal 25.9-34.0 [facility] Comment on above: Performed By: #### C BC #### [facility] [address] [place] [address] Dr. Adan Alexander MCHC (RBC) [Mass/Vol] 34.7 g/dL Normal 29.9-35.2 [facility] Comment on above: Performed By: #### C BC #### [facility] [address] [place] [address] Dr. Adan Alexander MCV (RBC) [Entitic vol] 95.4 fL Critically high 80.0-94.0 [facility] Comment on above: Performed By: #### C BC #### [facility] [address] [place] [address] Dr. Adan Alexander MONO # 0.5 103/ul Normal 0.3-0.8 [facility] Comment on above: Performed By: #### C BC #### [facility] [address] [place] [address] Dr. Adan Alexander Monocytes/100 WBC (Bld) 8.1 % Normal 1.7-12.0 [facility] Comment on above: Performed By: #### C BC #### [facility] [address] [place] [address] Dr. Adan Alexander NEUT # 4.6 103/ul Normal 1.4-6.5 [facility] Comment on above: Performed By: #### C BC #### [facility] [address] [place] [address] Dr. Adan Alexander Neutrophils/100 WBC (Bld) 69.6 % Normal 43.0-75.0 [facility] Comment on above: Performed By: #### C BC #### [facility] [address] [address] [address] Adan Alexander Platelet mean volume (Bld) [Entitic vol] 11.2 fL Normal 9.5-13.5 [facility] Comment on above: Performed By: #### C BC #### [facility] [address] [address] [address] Adan Alexander PLT 169 103/ul Normal 150-450 [facility] Comment on above: Performed By: #### C BC #### [facility] [address] [address] [address] Adan Alexander RBC 4.35 106/ul Critically low 4.70-6.10 [facility] Comment on above: Performed By: #### C BC #### [facility] [address] [place] [address] Dr. Adan Alexander WBC 6.5 103/ul Normal 4.0-11.0 [facility] Comment on above: Performed By: #### C BC #### [facility] [address] [place] [address] Dr. Aadn Alexander FREE THYROXINE INDEX T7on FTI 3.23 Normal 1.30-4.50 [facility] Comment on above: Performed By: #### S EDR #### [facility] [address] [place] [address] Dr. Adan Alexander T3U 34.0 % Normal 33.0-40.0 [facility] Comment on above: Performed By: #### S EDR #### [facility] [address] [place] [address] Dr. Adan Alexander T4 [Mass/Vol] 9.50 ug/dL Normal 4.50-12.10 [facility] Comment on above: Performed By: #### S EDR #### [facility] [address] [place] [address] Dr. Adan Alexander GLYCOHEMOGLOBIN A1Con 2021 ADA RECOMMENDATION SEE BELOW Normal [facility] Comment on above: Result Comment: ADA RECOMMENDED LIMIT 4.0 - 6.0 ADA THERAPEUTIC TARGET < 7.0 ACTION SUGGESTED > 7.0 Performed By: #### P SAFREE #### [facility] [address] [place] [address] Dr. Adan Alexander Glucose [Mass/Vol] 94 mg/dL Normal [facility] Comment on above: Performed By: #### P SAFREE #### [facility] [address] [place] [address] Dr. Adan Alexander HbA1c (Bld) [Mass fraction] 4.9 % Normal 4.5-6.2 [facility] Comment on above: Performed By: #### P SAFREE #### [facility] [address] [place] [address] Dr. Adan Alexander IRONon 12-13-2021 Iron [Mass/Vol] 74.0 ug/dL Normal 65.0-175.0 [facility] Comment on above: Performed By: #### I CHAVO #### [facility] [address] [place] [address] Dr. Adan Alexander LIPASEon 12-13-2021 Lipase [Catalytic activity/Vol] 114.0 U/L Normal 73.0-393.0 [facility] Comment on above: Performed By: #### P SAFREE #### [facility] [address] [place] [address] Dr. Adan Alexander LIPID PROFILEon 12-13-2021 CHOL-HDL RATIO NORM SEE BELOW Normal [facility] Comment on above: Result Comment: 3.3 - 4.4 LOW RISK 4.4 - 7.1 AVERAGE RISK 7.1 - 11.0 MODERATE RISK >11.0 HIGH RISK Performed By: #### S EDR #### [facility] [address] [place] [address] Dr. Adan Alexander Cholesterol [Mass/Vol] 115 mg/dL Normal <=200 [facility] Comment on above: Performed By: #### S EDR #### [facility] [address] [place] [address] Dr. Adan Alexander Cholesterol in HDL [Mass/Vol] 50 mg/dL Normal 40-60 [facility] Comment on above: Performed By: #### S EDR #### [facility] [address] [address] [address] Adan Alexander Cholesterol in LDL [Mass/Vol] 48.0 mg/dL Normal [facility] Comment on above: Performed By: #### S EDR #### [facility] [address] [address] [address] Adan Alexander Cholesterol.total/ Cholesterol in HDL [Mass ratio] 2.3 {ratio} Normal [facility] Comment on above: Performed By: #### S EDR #### [facility] [address] [address] [address] Adan Alexander HDL NORMAL > or = 60 mg/dl - LO W CARDIOVASCULAR RISK <40 mg/dl - HIGH CARDIOVASCULAR RISK Normal [facility] Comment on above: Performed By: #### S EDR #### [facility] [address] [address] [address] Adan Alexander LDL CALC NORMAL SEE BELOW Normal [facility] Comment on above: Result Comment: <100 mg/dl OPTIMAL 100 - 129 mg/dl NEAR OR ABOVE OPTIMAL 130 - 159 mg/dl BORDERLINE HIGH 160 - 189 mg/dl HIGH >190 mg/dl VERY HIGH Performed By: #### S EDR #### [facility] [address] [place] [address] Dr. Adan Alexander Triglyceride [Mass/Vol] 85 mg/dL Normal <=150 [facility] Comment on above: Performed By: #### S EDR #### [facility] [address] [address] [address] Adan Alexander VLDL CALC 17.0 mg/dL Normal [facility] Comment on above: Performed By: #### S EDR #### [facility] [address] [address] [address] Adan Alexander PROF 14(COMP METB)on 022 Albumin [Mass/Vol] 4.0 g/dL Normal 3.4-5.0 [facility] Comment on above: Performed By: #### S EDR #### [facility] [address] [place] [address] Dr. Adan Alexander Albumin/Globulin [Mass ratio] 1.1 {ratio} Normal [facility] Comment on above: Performed By: #### S EDR #### [facility] [address] [address] [address] Adan Alexander ALP [Catalytic activity/Vol] 127 U/L Critically high 46-116 [facility] Comment on above: Performed By: #### S EDR #### [facility] [address] [address] [address] Adan Alexander ALT [Catalytic activity/Vol] 28 U/L Normal 16-63 [facility] Comment on above: Performed By: #### S EDR #### [facility] [address] [address] [address] Adan Alexander Anion gap [Moles/Vol] 15.6 mmol/L Normal [facility] Comment on above: Performed By: #### S EDR #### [facility] [address] [place] [address] Dr. Adan Alexander AST [Catalytic activity/Vol] 22 U/L Normal 15-37 [facility] Comment on above: Performed By: #### S EDR #### [facility] [address] [address] [address] Adan Alexander Bilirubin [Mass/Vol] 0.6 mg/dL Normal 0.2-1.0 [facility] Comment on above: Performed By: #### S EDR #### [facility] [address] [address] [address] Adan Alexander Calcium [Mass/Vol] 9.6 mg/dL Normal 8.5-10.1 [facility] Comment on above: Performed By: #### S EDR #### [facility] [address] [address] [address] Adan Alexander Chloride [Moles/Vol] 102 mmol/L Normal 98-107 [facility] Comment on above: Performed By: #### S EDR #### [facility] [address] [address] [address] Adan Alexander CO2 [Moles/Vol] 27.6 mmol/L Normal 21.0-32.0 [facility] Comment on above: Performed By: #### S EDR #### [facility] [address] [address] [address] Adan Alexander Creatinine [Mass/Vol] 0.87 mg/dL Normal 0.70-1.30 [facility] Comment on above: Performed By: #### S EDR #### [facility] [address] [address] [address] Adan Alexander EGFR-AF MALIAN >60 Normal >=60 [facility] Comment on above: Performed By: #### S EDR #### [facility] [address] [address] [address] Adan Alexander EGFR-NON AF MALIAN >60 Normal >=60 [facility] Comment on above: Performed By: #### S EDR #### [facility] [address] [place] [address] Dr. Adan Alexander Globulin (S) [Mass/Vol] 3.7 g/dL Normal [facility] Comment on above: Performed By: #### S EDR #### [facility] [address] [address] [address] Adan Alexander Glucose [Mass/Vol] 101 mg/dL Normal 74-106 [facility] Comment on above: Performed By: #### S EDR #### [facility] [address] [address] [address] Adan Alexander Potassium [Moles/Vol] 3.2 mmol/L Critically low 3.5-5.1 [facility] Comment on above: Performed By: #### S EDR #### [facility] [address] [address] [address] Adan Alexander Protein [Mass/Vol] 7.7 g/dL Normal 6.4-8.2 [facility] Comment on above: Performed By: #### S EDR #### [facility] [address] [address] [address] Adan Alexander Sodium [Moles/Vol] 142 mmol/L Normal 136-145 [facility] Comment on above: Performed By: #### S EDR #### [facility] [address] [address] [address] Adan Alexander Urea nitrogen [Mass/Vol] 12.0 mg/dL Normal 7.0-18.0 [facility] Comment on above: Performed By: #### S EDR #### [facility] [address] [address] [address] Adan Alexander Urea nitrogen/Creatinin e [Mass ratio] 13.8 mg/mg Normal [facility] Comment on above: Performed By: #### S EDR #### [facility] [address] [address] [address] Adan Alexander TSHon 12-13-2021 TSH 2.388 uIU/mL Normal 0.358-3.740 [facility] Comment on above: Performed By: #### S EDR #### [facility] [address] [address] [address] Adan Alexander Coding Summaryon 11-27-2021 Coding Summary HTMLBase 64 RzsegbntAZc1tKf+PGhlYWQ+PE 3YKYFiG18pyQGdsS4IS8tLCM2G XSBUQFEIUJ3FPP2plGI4JCobL4 VybiAv DklihAZvPR96ZKt9IJF4zUgvDG bqcV3woSLwJ7v3XtGjOC27vG72 FAwmGXBfIdX9ByTnkpzjzYNa W0wvYlJndEBzXwy+PHRhYmxlIH uvGFEoPMstXRXhSaMriRtbPA5a He6bUQJyTIVmgLxmdSBaCbUs q9vmKFJcNAoyUG5lwPexQ1SqmJ R3XMMqm3v1Gu16tTH+PHRkIHN0 zIsjXTerv838TeUza7udMLP1 pRPcPKpwJMB9S80ed9W8VJQhKR BrTTQ6nMZ1hS9eiAyfjqmpO7Iq vREgHkO3LFP6lQZbhY8csNjh yzmatW6bUdt+E89FUJ7UKSWZPJ 4INwb8R4XpSloxwDJ+UA46QSZq JM18nZKwdQWfd4tvuZf2NrHt MOZwYSS7sCzdZZgsg2ObMHNlV6 8liBGqr7X2RNBfaMcwrXPiUkPi wGF2kE1fSDwceefjw0ejzccn Mnxht4nezh94tO18N59fLNysUN BsLUT5RTQdSGXpbNuubi8ixH3x Ii8+VGbbi7cth0rixJg9GwGd NHGlroLzzReqXPI3m5TfIp07B2 WvsPugv4GkUbk9lx66oWMed3T4 sJZ8ASdjZNLynI1zOAshEqO3 BAAqAiVjvA82kPVxKJfqPf6jiA pyyRxwFG3sOEMfycijKNPtgI3a ZEGgjBUpsVckOF3aATYypziw a117FtTcRTG8CLNuqVJuS0IaeF 7nBrLfWVHhWWGmJ0SljMRpQBec J621NMomKrD6JDIkoxTmE5Un NJYwnEomSiC8v5O3Uo4Lh2Vwkk wlBYO9CPhdKBT0ViOaHjHqNqI4 T6OoZrc5FNFpsWtnST0hW3Va YRWdvhwdfpblvWJ5FQBqZYWczK 31fKShMXfyIf8kf8E3i104YZEd OIRijZ17Th9oiZrvXNJsfCAX yW6weqvci5hgvzopQxLpDWUePI f4MQc3FCFswCrmQqLeMHU0TcE3 FTJ7mFDbxF4rcPuzjmoukH0q Oyc+W36mcD4pOAP0DRE9fhftNE NlrcSpQB27KY23S2YoRobbyQNt bGU+HNBpzbDdwKafYQ2aVmFv i5qpg2PnXEthK7XjWEMhAJwwDg e3GZHsERX0wEG4lL9aGRXyMUfh x1O1bYB8V7UzkuTcvj2vx3bs VKNtNGlnH89lpSOyh8P7ZGMizC Y2HCRzyHltDjTruJ76Wom+PGNv lReix6SgAzwzn5gyu8rdpMu5 EbLgPEGurgWdgQmpQTS4w3SuCe 17S89gPGnjIDGpEDOyNSHyFDMv xMbhtu2pqO0uLl1+PGNvbCB3 hJS4sA9oYJBzWmF8SPodQ719Zj YocXBjNyzwq6dhm6zjpWi5TtMd RMVmlvTnzJquDEF1t9HuIn41 S40sRDtsZRRrOTQaPSGvJRNdsM ygif7ezP1sSb1+EV3un0pxzq48 tN47dNB+XRFbPLR1oUojMOzu OMXghB0iKUvcGmS5VBRnVoQffS 82yANvVHoaKw0alZccxEdzCY7a GPOtjjaom457FpNan3pzWWQb zTWgLJesMVY2I28lb8U5WMDjLT XmREA6wZY1jU7xeOivhofwpWYt gEpoptWvoCfrHXzpYKhkE988 IHRvcDsnPlBhdGllbnQgTmFtZT e1B7FoQos0HKMkqYoqPO4xiLEy CMyyQh0vlSxszYojSD1dTJTm gtpiw981JzXvo9soMPDiiCHbGG btOBI4X28ym7E4KEMbZZXjFJH1 uDY0sT4xsSqnvvzhxCGzdDhi hgUylNykYFsnLNfpX163ZFOelS muHyHajpAmEAZhbQQ1VK80OW10 bKBko5C0vUS0G4JjJRJtxfxp lqcqsMR9UHOmGYVgoG52Gi4tgY tqVn0rLBSwRVN5LJMphSOfW7Rm gT0rMoQvBLZsZBPqB8WkvTYm MXmhO444XEjxMeV8PWQbawVtX5 LaRIHnbZnzFeW9y3G7Dh3TU1K9 OS15BC66iNKqh9A2pWU6R2Mc WLPeiaxnpokwqJL8HMTkKOVuhC 45Bs5vzEfiLs8aHTMoKTX9ROKl bVIfZ4GyyE6cUfXxTBXyLPJo K7QacLEqOEagO949VMreWbI7EX BnkgFgF4NgOMXzrRhkEtO6d5L0 Ct2XTMg0ZX20BU08mLTyo2S5 lTD9U2GdSLZxwqmhbluzfST6NU WqWCUwdO17Uv3igQrvOz4mCOXk KFN9YZEkqQWwB6QsdK8xDzQl UPQcPYLmU9WlvWMnZLvhU075ZJ hcUyJ9ROXseeLtN5GwGCXuhCaq LyN4i5P8Fu0UIVPgMQ60CSC4 iFZ4KD77OY75I2FeAmjvwRDxzC U+PHRhYmxlIHdpZHRoPScxMDAl YfBchXhxGG3fZz7aOBGiWJHy kVvddZMrXyOyn2fgRFLtMSvnGA 1qkPdjN6MpaJO7GEXpv3o3Ei16 F11sV8JtvSK+TBBhwPC2mJQ3 mZ6zDfPcEqH4YNqxX944FyBveY KwYlthm3koq8osbNy3LwZ1CLTh fxTnlUwhBTE9f0HjNy24G88j IHdpZHRoPSIxNSUiIHZhbGlnbj 4jnU2yYz3+JXReuSO5rMI2vM6k GsUzDyN2AFhuZ045HnRnuPHi Nnwjw9tug2hopWd1ZhCsUALsuv KcwCisHOB2b8CiPc88O0AmiAkv u5IhCnu0pu95gNZkt6E3oED6 H3AoTMAbctzuyEFchHqrVW0cCY UlqkbcTISjeP6vLIAlY1u2HjYi EiE8ETdvZ7LcuyL6AIDcpDHt ZSapFRA0J69hs9L2EHFaWCHuCW X1gAT4bF6cvFlyodvacPNwrZez ncAtcVlkVDmiKLokC938CFOe bSlxCPGnuI0dZYGhwEPrkTkpQA 5nPSOoicmpKwYMFEZRMRENCT7C GKSGND45RO00hWGdc2A2jKU9 M0UmCRLlwrsmijudsHQ1VNIiSO VolR92nJXjFLuuZp5mt7Z5u310 JXOhXTJpbH48Fx9kaDynRYTl oXYAyW0pdxjhp5ggtkynFtNfLM UjXZt0IIe8ZHAdjIrgVuHbGWS7 JaQ6LEG1wKGelD5eePswqupn eK1rMgk+WToaKByzOLa3XSimwZ Q+OGUjCIF4yQktWZbnEYOrqC5m FARqI0g0LfMgRrZ7DAisR0Mf TGLckpjoHr36qD7dQtYnPcA4ZO rzI9VwwcZ0GTZlbMIkEEozSOH4 H26nm1C7QLYqZOSeJEV7mYE1 iR2nnTbxnrpiaSSlnMguwgYcyB mkQQvvJFghK183KVBouSgdDmU1 DEebHZRgWP35HU32hTXhv3N9 kPA9O4YoZPQrdwktpaqsaQG0YY FvOIDdoZ17gMDuXRwmPt2ox9K4 r369UNGkJKDviQ04By6onWek DOBuuKJKzS7dwrxkl6lylipuVn XsGGZtYBz0SJp9RVXwkXxySeDq CLX9ZjK0VYZ4oDGgzL4pdQqa zqtmcH6wDie+TUFMRTwvdGQ+PH JnOSO3cLdnLTloTZLaoK4vJCQp R3f5JaCaKmO8QZpiJ2UaYIBb llycLp79tZ1gMkNzBhQ1VViuN1 GkzbH4WSCfsMZdFCpxUYL0R27m d2E1ZFKbYHGsCVY5iAH1nY7m bGlnbjogbGVmdDsgdmVydGljYW ukUWrvF512FTGbdQgoBn2JWT91 DL31E3ZzLkogqAYziBW+PHRh YmxlIHdpZHRoPScxMDAlJyBzdH sdBP2lIp2yRZUpPHJlpIzqsOLc PjXpg3pdBASjWZjiJF0xiVzg X4BygHR2LPGaq4c1Ro40A89lQ3 JvdXA+STIvdIO7qDR4qG4aFuNa KrQ5FQdiN726HhYsfBGkAtcq h6jme4noxGq4XdHoOULfsnHxsL vmOUH1t6DvJk33L68iLFsoSZVh MJLkHMJyWGYhhAjkqw4vwM2p Ii8+EURacTZ9dDC7iJ3qYuScFi O5YXbsM998IhTuzHXhEvqoY30o W6NvtYP+STWbXub4ENIwcVsh QG1anVFgRXquEr8yOCV2PxSwGy UgTPlcQ3YoQGWjrbmwbaqyjIM7 JHWiNSVzeY41Al7fhCyaUs2j GFLkLTQ3XIPqgOLsA0IghR9iBq NvQGLcLSIkP8AhiPJaNJyoJ537 UZnrMfW4QBKbkyVsO0CsREKj iYwzLzQ1t8X8Np6LvBiibDXiAY 3aSgAxGBt7Q9DuTbn0AVZpcDnl MW0uqBOeCEimMd5lpMwmeIiq SB2kGKVguknxw046GmRae2tfOM JeoOVlQSjqYAK5O20we4O9JSVz SXMfVOU3qOW1lH8lqJoxwhkk bGVmdDsgdmVydGljYWwtYWxpZ2 86PGMieXyxTuHJIrr8W2BrYjs0 EFDkzIdvNX9hnOYyQBmoBe8t xWyenAjoOE4hQUFvbfpgx132Qr Mma5kqZPWntGDaCNyhINS0T09a d4K9ZOVmVRMkNKK9tHR8pH9q bGlnbjogbGVmdDsgdmVydGljYW xxZYjqE726IGBvvAlwJf7DIdu2 Z1HtTpj4AYOdgTfvKX2fiJPa KXwgFh7biWsrcFlhFU9fJCXkms eue535OvDrf2ysCFGljTRsJRko GZZ1D91gg0Z3NIFpHRZnGSQ4 jTP0eB5iaZybexzrjWPalEozmf UroKuyPBvkFKdmU576ZEBslIrr PlBheWVyOjwvdGQ+TV34eh25 Q9CcQorqPlm4UIAaJEC4aJK6xC 4hKGFyQTglp2G0wQF9O8DlpgOs vp0yo2beYZDvBJulO66koMZs c2U (more content not included)... [facility] Coding Summary HTMLBase 64 OgrsvfmjVYh1eDu+PGhlYWQ+PE 9UOMAuZ92dyOIqfL6KV2vNGA9L GTKGOVQMAE5WQM6flYO0SVimL0 VybiAv AtekvLEgJE31GXs7WYH4zBilXC zrtP4pxPNdR7f9QwUhIN88jJ03 GOzlZYIyJgM5TlYoedprnVGy G8wpQkTujEUdGma+PHRhYmxlIH zgPINlNSbyRKGwEmErkEmvEU5a Wn8pHPYyGCOsoVfcoYKgGsGw j8xsOQImADlzDZ3mfUsoA1CnqJ B0JZThm7r0Vi82wAK+PHRkIHN0 yLauSMaif072FsBmt5yhQHE1 pFBiFYgeARE3L73kg3X8FDZdNX EuBZQ8cUK9yS6hkShikrlkW8Ui eOPdFyO7XYC8uQJdyM3dsFqv ukbqnH6dSco+Q18XUK5TYUQKHH 1ZGuj9F9XkThxwgXE+UF56OZHo XA85qPBjqRKat2vheTw0FsWn RGXrBTV2sOnoGOwpq0CrUSAsC6 5xkZGev2E1PEIsuCxmhIIzFbRt fGS0lJ8vHHuldfjjk4gpeswb Yxvko7kikg92fS23C21tUCesEI WuOIO8HLEkSEPqtBjibc7ebO8h Ii8+FIqqb9oha5cuvRf2HaKe JRDejbXyvXdbOUI4y7DxGp37F4 QlgWxyf3UkEag7nl98rCPsn1Q4 yLF8FBtbIMRvoI5cBJonNgE1 EDRhUiYphI42qTHeQTfzKu6vqN rgsKkjGS5bBFWadaonBHMljX9t UZKdvHPusFofGR7xDBAmdinv u012ZdNxHPU1ZPJntKLzV4TsiL 2fWyNhEJViTATfG5GebPLhYDyn Q768NUnoAzF8KIMnoqTcY6Iw WYCcvVldNtM1b1U3Dc8Or3Ekza pmAWO0AUznJQS7PiOxIdWrXyC4 L3LsXcp3WHWgeDdyPH9xA3Sc IBWwgzvuhgqswZI6DYEbLFYdlM 20aCCyWKvlMx5yf3L9t860MVSq PRGywL88Ox4jxQbpZZMkjGVA bH4yoqlya1shdrnzYuKxZCYdGV l4PJh6RQKlhOksFxVzBCC0XnX3 VWX8aQUdcJ9ipVvsqhpozO8h Oyc+H07fcC2uAQO3MVR5mnjjFC XtufJrDN06SG62A8EhAnsfnVRg bGU+URFthhQbsJlnYY2aItDy o9sce8RcUMipU9PzGFWpJDidAv a9WDVdEUQ8bSY0yS8qRIRiXSsx f9J4vJS5A2KtceRacq6yp1ln KIXqLGceF30aoZTog8X1AAXveK H1CHYupDlpNnCncV93Ejf+PGNv jIxiv9SoObruj6kol9rygDe4 EoYdBNXfnzWxhQzdUFS9t7DyVt 64L51mIUkwRBReLLKrUCQzAFMn nNrllv0tqT0lKg6+PGNvbCB3 dVG8kC7oJVVkXiY7ADdrN855Yq IafVDdYcgsk6bih5whxFo9WeQx HGDvteSnkHwqRBO3d1OyLy32 G60uCLrgBWAhRJDgWCTeWJGbuQ avtq5voJ0zMx4+DN5dm1pvhn67 qE95bFF+QYUfOIH5kManOJlb XNUeqS6lZPbjFvO4ZHTgWiNttW 74bKYvQOjqAc4mhTegtWotDV1q IPEuwcvfb645DzFvk5geVFXm bXZdXMreQWT5M05si6G7JXMdXK VuCBL6lGM6gA7jePyzrreseVLc sZkszpZbeDlhNHyvDVevU793 IHRvcDsnPlBhdGllbnQgTmFtZT o3N9WhTys2PVYacAsjQL0naJFx RMsuOj5twNtorYobXP6cKMDp xqtns604BhWoy4zsQXGvuHWlBT mcLOM9P14fk7L6NYEuJUDhIYD7 hNM9sM4orFnlittyoIIerQld lhVpkEbpQHkwJWijR857KOEekB xlWrMgorVoRFPovIR1FA06IX49 dRYss4U7pOK1H6LzIAFalhcj jxotsEG3OIElSRPgxB75Ft1onZ veYp4pPGLwHQN4DZHjxWVgV1Ni wM6kOeZmPCLwJEJkI3TooHDf EBhaC290EUdzIaZ7JWBquwViL5 DvHLLraFfyNlO4t3G6Cv4VR0X5 SJ97HZ87tVOwc5R2pMC7W6Yv WFVtakzxawohwXU5GHQlBRXweN 18Uq1kbXxqMp2tHXOxWFC1GKZd dIBdY9CxmR7gYzNuOXTxPPUy E0RbgWOgWHuwZ857DZymJeQ8GG FvzsMwT0TtUMFflKcxPnF3x8S3 Ni7COJm2XD26SC94qXKim2V6 pII2G7OcUQNudwjnsteqoEG4NR ZxUJGkqS91Hk3teNqzDx9eKSEn GOJ4ZRLvhYVjB1MwdZ7kZeGe LOEoMKWrD0PthIFzUNiuL930QE qqIrV3JMPfmtIdF3TrSIJfoWaf XcR3i8N7Eg2BCVSxCH57EOS4 tZS1GE43ON28E6IlRdhmwIVcvF U+PHRhYmxlIHdpZHRoPScxMDAl MaRcsLmeIP1xNt9vLPMrDRMx wMuqnZIxMrSzi9ekLHTkCHprMZ 8phYipI8IbkOC2HLHox4w1Hn05 A59sC3RkwDF+CTVztSK6fPA7 sM8mAjAcBbJ8DCmeV270DtDudZ BmXxeiu1ebt6tbnKr3NgF7POJb rnDmcTgeAYA5r1MgGd71S60z IHdpZHRoPSIxNSUiIHZhbGlnbj 5rsP7wKr1+RLPdkIB7cHX8wH2k DsBzGyI1QLviH191TtVuwLZl Qrzkt7dzf6nweUa8QdGdSFVvqw GtyJkbMFT6e1UeQo71R5PhqPje s6OdXbk6ve77vOMeg7X5hFP2 Q3KbCJCnfqaouPTdyMyqMY8aHT IbhpdrMIAffP3hSNDiA6b3BpLv TjP0GSjnN8YwmdT6LWYgnWXc ULwpIKT0Q15hg6V6WAWbIQYoAH F5iKR5aT2nkEljcmyygWMwwCtb gqIqaXsgILmxUYjzX628GFUu tWnrKKQnvA7sXEKrhQOipPshCG 7zHAVfblszOcGEQXAMUKTOKB3V BHXJDN84OH82pOQog4U7iWM1 O8JmNOGbbqhwqvshdER1DSPqTH MenP93xLDnFGrzIs7bv9B4h346 OSDrPEKwvC08Bb7rpBcoFTGd tAJRbX7zvgsiz4crdlrxBlYpEO IcZZl2FKx5ZCUtyTgyIsQgRFN5 ExR2ALJ0xGQrxC1tiIvsmhqo fP6hRcu+CZepBQzbZNg0ACazhS Q+FNQyIZJ8aTtdEBrqFGKxbY6r TAUwJ3d3OtZgRmU0DGqzL9Ev LVEcysylFv76qK0uRgTpArU8GQ mqH7UkxkZ6MMVwgNUiGDvrROL2 K49fq2G7TFIuHFXnOLF7eML9 yF3xvXnwganmjWRivVqcoaTsbP opIPnhSIrmE149DXDuoTzyRtD4 NLfkNZBfYE13ET60ySVhe5I5 dZV6A7NrCIEwhblsqctjgVJ5ER SaYNYhnH92gFHmCHvfGt1mz3O8 b760ENLiUTQxyI91Qw9dqYcg HLMndQEFdM8oktiph3uiwzjdUw XgUONpRTu3PQq6FTGwpHuuTjUy LGL1KiP6BBA7zSLgtV7pwIor lqiovC3sPuu+TUFMRTwvdGQ+PH YnXJX0aIcdRLvgZPBplX4sJSWz A0x4AcOlZiW6CVuqU1GoQOUm ohjkTx24lC6eHhVqJzI4WXxqH2 ZbxmY9TRRtrWBqNQlgAHE1D53y g6T2OWGwEHQwPCA3bBF7kZ5l bGlnbjogbGVmdDsgdmVydGljYW wePWprY456XSBbmOobImAiEUVl FH0oaSqetOE+LI12zv57M1Ek TtqxFgh3GZRdSEZ3gKZ7pW9jVB RhAElhi8K2oDP4J3WcptHwwe5l g8hwCMJrPNhlA46sgLYth9L9 SWOnvHX8RTJblIvrPpBzvI96Gn c+SQTvlNzyq3DxCwvhx4xmx4iz sCh9TmNmBYMildAjqZmwYSI2 s9CqEg60R19wUHozPVAlWCWsID HaSBDeuPwshc4dpT0wMr1+PGNv yJR1qLK2gS1xNqIkWbP0RSoc U171BlSakGRxEvgcb2fkv5jhpV c0BzFrFKYcfxVdbPqzHQY5f1Iy Zy81Y4RpzZwmf7OpRny7yf10 kOCvs4M7oXY0W9SbWIClnjwkqJ UmcVrxVN4qAFMfkiajDZEswD8l LIVuI9r9JlVuImJ7NTyxS2Hi moN9AORdoLMeMDVyfUIXtD3qxr ywa0buzaxoMxJnZECrIJt4RNo5 CHNgdMgeHiSkKDG7VrE0VCQ8 mBDahG1qbBayjdlzwA8iNxm+UG e2i6fomNRkLY4scWG6ZX87RI95 cWHdp3D8qKL1Q6PhXKHvbswe jbdrhNQ3WLMtUQCiyA25Zq5tdK uiCm7jASYmGYF4AJWuiXXhL3Eb wR1vRcBaTOCfJCViE3JskXXo KKddJ391URfjZlX9PONblnHiN1 DfQKPamNmgAvQ9a1U9Gh5EKC24 QI27RA82kCCuv5Y5sZM3X4Qy POIviwsxnhidcVP7SYGpHWGycF 24Ld9oiDvzPd6gYIVmBPA2KWPi wRGmL1FwjM7sFjSvNHLgGQYe H7GcxRBgWGhkG906UCxeWuF0IP MoxjPuK2GuLVFghPofZjD3x5W0 Ip8JQc87HF66OD16uLYbc1S2 lMN7M9GeTROfncamcngjhHQ4QE UhSWZezI42Ga1mzKsbZf3zZKUu GJC6PVNfmJUhE3TbiF3eJfEe RLQqAYMjG9MdrOYrNWecI615RK srNfB3INKixgGeF3VyYWGicTpw NlR7r1A9Vs8EMAwwxgy0X4Ef PjwvdHI+DZ90NWPkHW81uBBolM Dor1gslHf4RuPbGTMnVCT3dQgj ALlja3EhEKRqB58jyJFfa8C0 IGN (more content not included)... [facility] Coding Summary HTMLBase 64 BtklcrsyUDw0gSf+PGhlYWQ+PE 8VAODtI08auESadZ3GT8fVSE5C YJXYFNYVAA7DDZ7riBW1MKzqJ0 VybiAv QobcqKNsCJ08KPm0RAS7sTvpMV vlwT8twGWbD1s7EcQaJW48sQ70 GKmqPAXcYhZ1VwBrgmtraDZo T5xcChTozZByMun+PHRhYmxlIH xuPBFyGCfkZUZrPzEibBoeBE9b Pe8yHGMpPBAogSpnnMNfMrBq l7lcOYIdAArlLN3wcDjjJ5MifF B1XIFas5q8Il22dPL+PHRkIHN0 oGmtPBawz080QvJoa1mdKHQ9 kDZrIApnINJ1U45vt3T3CHHtUT NeLNO2dUF8gP7dxHjpdzmdJ8Sb nQIzSxL3HUU5lDWdnB6lrQou uhibdO7mNou+A36SZM1MOHRJVU 2PEyx6K8NiEriheRB+TX89EUCn IO17dZBvaNUaz4drvEj6UbQx MNXhZUC2dHjdTWvrd9JzMQLhA6 3erRLlj8V2CMMkdFmbbCEyOqUd vQS8gY4rVCxpmftty6auygwf Gjrxw6dsnr34sN72E29tWKtaFB IrKTK6EMQmFXGnyLvamu4qfR2l Ii8+MHswf6qqq4pzvCn1EqEa KOBfwkWyvPoqPVE8p3LtLo83A4 XriQssd4FvAle6zq07lQUjo7C4 xFJ3QQhiFEQutZ6sVXvnAnV8 VPXlQyLuuF03rRXsTMqrBl5zhL wseKbyRU6hIECporkaNBKajA5c PCPygIXukDvmEC4jATUrqicu v715UxHwAPK6QKMweCIrB3QawV 4yQxChJEEbKFSnK3HnlVXwXVxl E321BKkeLhJ3BDMzacAsC5Hf LVBlzWifIfO7n6K3Jv6Jz7Yplu ttJAJ4JNivHTH6VlEpOmMfVvQ9 P8CvBvx9KQDdrGdmTS0jM3Jf KWPzkotirkuzkCU5KMVbXEFpcI 72iVXxEGwqRt0ut0M0v498ZWYk EYAyaE16Lr2rzUtiVTQwpTBG wH8jhkaqq7tmdethJaKkYZNiOR r8QIu9GROacJgwWySvYAC9MdZ9 QGN5xNVddB2lvOrozwgisU8l Oyc+K37dtV0cHVW2SPD3kuzeOZ NwucGaPQ48IU66U5ZvWhffuNQi bGU+KKIfdtBbdZugRM3uSwMw h4kbp3MrSUktS9GqYLDySBlqSq b7AWRhDTM8kTA6sW7oZKCcERcw f6W5dPI4F0CmvjQqez5yj6tm YLWrESctY47xcVLbc4W4PPXgaL P8AKTgpDtlIjWdyD01Esy+PGNv dHftz9ReEcdhj5ruk9gpmTv1 QuFwQDGmysJnyNbcJRV0o0QcEc 72Y29fAYwwCCGqQCWlBVOzUTBm aLpbdb5atI8hSr8+PGNvbCB3 tQX8lP9lVLZoWiI5WGdzV023Uo XoxNUnKdepc2gyv0axhKg3RfGa ZBBvjxVptFpsIBL9r3AtYc52 J72xRLnqQROiDSEdSTKpIQZilA kkrt1arB6cKg9+RU1fd3hnlk35 uN06aSM+RYCiUFA1wCiuCGjr ODKuxR0eBDmaHlC8UJVfHgNrrA 75uXFrTQuuXs2fvHgdjQpvHV5p UEJqokrvd584JhSjz6vyPEAt nYUwABnnEZD4T36kl4N0QKQpHA PgUPV0vTJ0bX5aiCarwwsmqPLj qZbtdwQdlTpqOIgxWOelS982 IHRvcDsnPlBhdGllbnQgTmFtZT r8C5CpEyg0VDDcaRpeFI0nyZUt YRgvNb8alNaiaQdfIB3iAHEc chanz965AxEvl3jmSCIvpZGfRR wzKML0H74vn2B8DGTfVJWkTYU0 gFX6aC5roVscgzjwyMTbwXfl agTgiDcbMNefBPwaH963CZZigJ vtKkWtdwCgFXItfAI1PU09JB11 yRNlw4N5lHH6V4NyBNXtmoai oirziTU4DTQbEDZjzG75Mc5sqM spWn3rJTLfTVL3IOOtwCDzZ9Zk dE1xChXvEHUrCKZaB6NyiPWf COwaZ532QFfkAuI7EXPjktShP3 VwFZEhlZmkFhA1l3K7Pw3EX0Q5 TN06JG30eKLjq0U9nFS3B1Mv WBWcrjkvsuthbQK4ECPdOQAhtP 51Fo2pqDsdPl0pDXLuGHP6KAWt uGPuA6AqyX6wIfLzEVZlRNOw V0OxaLSiMObfP369CTyuAvQ8BQ DyliUuP1ZqONXdaEwdYiN5b7Q5 Mq0QWDf1DS04XE95sRRbr3S5 yCJ6P3XqELNsptfdpphdgFI0CW PfUESgpM44Pr7luCwjAw6mVACw VRK6BWVikFClD8CmgO4rKwRv PEDcFVPdV3ZakAGySVvcK247TW hgEqV9BLClywTcX0NhKWTqcAaa AhQ4t8X1Ny9BZKShEG53UOJ0 iWT3HG45FU98X0LjDufdfINpkU U+PHRhYmxlIHdpZHRoPScxMDAl WeCsdLguLF4uWv9zHCWfZUYt lWqxjVEoGqSnj5rdCVHjWNllLX 8bmNhiP2YkiXE0XHHoa5o3Ll37 M94hI7JroQH+HNMzmON7iBN3 uX0sWsFeSzJ5HCwuU574XhJerJ XcNuptf8wqf7tgsRp4DrW9UWVz ddKidKisXCH8g4ShYb94Y72i IHdpZHRoPSIxNSUiIHZhbGlnbj 2akG8jLy2+EJVvaNG0pEE5zD2k WfZaHhA8PQhzB706KiNmjEMe Bvafa7kll8kgvSt1PcPzEDUduq BtbPthENX4w8QlUj45C3BzhYfy c2BaJiz7jw91zJQqh3M0vIU6 X6TxMBZuwydxjLEzpYzvDG4cHJ OxoexdRZXkrW5aJYWyI4r8TfQt YwP5IZckY2QsiuN7SFScpUOv JUdqWAQ4J02hn3T7PQQuIZDwHQ C5xCD9pP4znGqaotgkqQEpcFoj uvGzbLluBVfhJKpoF323UZLq jGlkETBayL3dHJQzbWQopVgiAO 9mXHLbjirlYlQKYZJQMMMIVU4I KPQPYF75VP90zCYpg8V2kXY5 L1RxOVSgjuqjtatcbKS9CRKfSN QwxY22bWCaEVqmKv0zy6H7q795 CZWvVRLcvD23Kv3tiDjwKOMu iIHAmP0ahjknh9citojePxUdBZ GbDRk1GTg1OIJuqXoqKrHdCTM1 HuR7DZD8mYKlcM0swDxvejxm dD5mEew+YEuhNAwlCHm8AOdorV Q+KJEdZJB6xCvtMWavASFpzM7s NGOrO6k5YhMgVsL1UFcuQ4Iy WEKcnnwbSz18tT1zMqBtQmM7DB dmW5YhysP2XGSqsJOeMPwrNTN1 I77yp7A6TQMqDBMvHJK2mNU3 rY8guTdkzugngZMirGlhntShxA puGRcuDCseS490SBOuyMqwFmD5 PFhfQIUbRI89HX79uMBpr9B7 rZE9Y5QpGTNljizlzcgvpKN6KG MqUAXqdY24uNFfKHjlPv5ue8K2 s203FKCyZNFjnT83Ub7kpJlg EALhdTEYeZ9njldxe6lpfshkYp VwCPRgBDs4ZQt2OPRfqIexZcQu OJL5MsA1RFN7dTLgcV8mdIla gygeiW3tTkx+TUFMRTwvdGQ+PH YlVMU1zVhwZBwzOXEllN6bTWTs M5n7MqXqWiV2XFukY5KpORFn ycofIn28lT6iXwHlOiP2NHriI8 AzzsT5SZEaeFVuXWgiZFF5D43d s1Q5IEWfHXBvVEF1hQG9gU0t bGlnbjogbGVmdDsgdmVydGljYW mqCTjfT076CCSlcHjsUnMsJNHm EI5iyFthzNW+KN68jr53T5Rn ZmplHzq9QEJcUWR6aRL6rW9tBT KqMQziz3U2lWG1A9AmjfJkss9k h7dnXSRtHXmdE55ziTLvv6C4 DKCxdME6OAPxvUypOhKdnB50Bl c+WPTewOkwb0HaBigxm9tyz6ts mSr1QvTjATJrozZcpXuxJLP1 x5JfBg19Z83eVTjaSJJtLQEmEX JtDNKcsApbgw6axM4qLv8+PGNv fKR5hQS6dC2bGzYjAwB4YYjb A558ZtCvvNYgNkoej3ojw8kiaE j6VeUkYKEnttGwzWcxEWR7y3Zi Gk44B3DljZhqu5TmOod6nj52 lNPpj3K7dSM3T8EcJKXkhxbeuL UkoFadOO4bBZMyilckSWCuoJ4u ZDNfB5g0WkOzJmB9MIofF6Xd ioX0EHJbyIVzPWZdeBJMyE3jsq gav8qbgutaVgNwLOWuSVb5QIx1 RXOnsHolQsYfLIV0RbB3HFU3 eQGuiW0ldWxziyhmjY3wMgu+UG g1o3ihcQYbNH8pbDJ1LN56TQ81 oCBgg4Q2iBK0X2VgZUDqajic unsrcJN9XTTnNBVkyP03Uz0bxQ lmXs5zYHVvHMS9CMXvoTYmL7Db eR6sIwClBWAwHGAzA7CdnKGe UOulA287JEhaRzM5NKPyhgLzX6 TxTOHrbVqmTmU0b9Q1Zw1XHV13 TP16IU31jSWcf6G5mBT3V4Tf ZFDynedtpvynwHW8HEOhMWTqmG 15Is1klLrnQu7jFZGoWIV6GPZw dLUcN1OmtX4gYgQdDRAyEUQn L4YgjUKfNXvlY292NHgcNeW1GI JiipDxN7PuBQFghEpyLwU4r6L1 Qd4ORv60EK10QM24qWTdo7L7 cXD9P0AhVWSiilqhusxgqDJ0RG PkYGQqyY55Qg8scKtqBq6eJGNl JOY3TWAqxVLpP1PrsK0qJhIv FRMdWSQyI8XhdXWtNFnvB171RF fyZrD6YVKdpdGpO6NyBRCcbOnp JcR2r8E8Mk2DCFbltpq3L8Sh PjwvdHI+LL15FJLxWY47tEQlcF Dxb7mrnCw3XcObXWGoYIL0iOwc WFdih4GtVHGbJ11odGGqb0C2 IGN (more content not included)... [facility] Coding Summary HTMLBase 64 OlysiitkSZe8fUb+PGhlYWQ+PE 6ACTKcQ13nmNJzvR8RE9jJTQ5Z QDZDPJNCWV1DOF0mmHY4DQzsY7 VybiAv QbtzqSIhBZ51BIg9ETS5gJmrUI cfgW8mdIVlM5p2PvKyDY57lS97 CYspIWAuCoE3OiHocietlXQb D3tjEySpsNDnTgv+PHRhYmxlIH wuXOBlVHloCFVcTwGzqPyfNQ2q Qe3yUNUoMERmfFtygSUvVbIp c7ffIMRxZWjpDT4riApeW8JdkH P2EZHgg6w9Dd18rAX+PHRkIHN0 sFqgRSfhu910HoVqt2bwKHG4 gRYvONubBAL7B80hy0X1LDVxRK BnTMF2iIG8jU6tlUzmjzdpH7Hw fRXdCqD1QEC1xYZumO4ptLbe mndezI2kQle+U80JHB4KZDSRLH 4HGdk0X6JcWswmgGF+VA93SJKy RJ33dNRopHStg8ebxKx6FiAj AYVlGZU4cXtvOQdno6WdSCToY1 1hnNApl3I7GHSumBqrmBKeYaBr rPI0nP8kCPqpqordp2zultav Esyrm3buhm89xM35O20nSIkrSG XkYSS3JIEhHZPpxMwxkn1eaS1s Ii8+MCyts0die0pdcCe0FtHm AGPnmtWuhTwxGHC5o5SzUs22Z4 YmxRool4CmEzk4rt68nCKqh7E9 gVX0TCahOQJwgK9kPGunPzZ6 SHSfRnQnjR55hBMyKLawXo3bbN ruxVtaZQ1cVPAatqtdVPXpyX4y SXNloGDdzHdgSZ1yGPThxjcm p537ZoRlBJJ8DXSkhTCwD2UqmH 9eXpHjFGMpNTAtG0JgwPUjCTjo H500IBcfMhU6ZXGmpfFwN8Zq YTVxaMsrAtS3a3J2Vi6Ey1Uaas voLYJ6YTkwARN3EyCvXhTyObF8 Z1XzKie2SIQauWprBL0qF8Ha IDNudkhepijfqCJ3BSJrFAGhlA 02lKFeCZxnDr2uo4Q2y718SLUx SFCsnJ22Jk9twMkiNWHxtYYG iB3avnqie2vhnbjtGpRcLZGmVK v7PFr4VCObjEgcTxQySPI4QgK6 NEH6wJExsS3wtElphdaryQ9w Oyc+D34zkA3jNOD5ARA4ksdkXC IpnfTsSU60WS50R3BuYgsonDWd bGU+BNKovlUgzFykHR4sOeHp z2voe2KhUHipB6SiVSQbQLvtFv d5PZWeVCO6zEE7vB6eFBXyECnk i0S1zTF6G0NcqiOehm8nj2ne DPQnPLysT29pnAYvs3O7LNKbmL P2YEYroIciBzCdhK59Lep+PGNv qMkdo1WzNiwxq9doi5vuaWh3 CbPyEELcptXrrKmeBDZ5h5BxDr 10M59uMReaEQEiKVRzAUXkABUd nQjmem3fxV5sWc8+PGNvbCB3 vHK2sA3nPADsVsL8CQtnO572Rs YnnMYsCvsir1ork6emkFd8UkIh QWOjhpOmaKxlWGL4p6LvGj18 B32oCKhtJRNxEFGrIUHyMCUauH jxmg9axB6eLu7+SA0ua7ircz26 yF95mDB+MIMoTBF2nEkiNGrm UPLmvQ7hLZjnRaF6YJReCsLouJ 21iDXbFAkpNc8mrEadzAkhXY5f QXFmeglcq611AlJsa8hlHHDn jIVtZWmxAYV8L08ws1K1IZZqXQ EdSNU0hDW2zA5fuRjherudzVNm fSmfrtZijKyxNZogCBbmT203 IHRvcDsnPlBhdGllbnQgTmFtZT l2U5KbEmv6NNFmpLmnCE3urSTo ICzhMl8qxJvzeXuwDX7pIFLc sjrbm904YhCtn4ofZMFbsUJqXW gtPWG7A09nz3G7BXYtPFIjUCB4 vGG9pN8zxQlxpugmbOEfgYfo kzMaaDsmTTdwEYbqV092CIAdbB isSkBffoFpNWQahEC9EM66LA59 xITux7Y8tWZ0T9GoUAJynwdv bvfhtAJ1HAIjLGCpgH17Th3rjS jiMu9fXMDqMPT0JUXtzLFwV6Qj vS4cXwKqUTFuXGXtO5ZzyULn AWakS087ARxnJgT1MVUuobKgI3 SyFABsuIslLlY7a0T7Ll0SY3M7 LG57NH77cGQdu9J8lZF7U3Vn BKJuaifpwgdueZZ5MXEaJOGrdM 88Ef3wzUeaXy8wIVWzSBZ0SHEr iHZiU5IsgE6kLoIgYUVqWFMp Y7JwzNRmBUupR356WYhuDsM1LL HxmdIdP9MnZVOsyPqhSrJ4n6I8 Pa6SKZa8FG77CD24iEKzs8W9 gHK1I5ApRGIqacboizdefCH2AL JrVAPthE17Mi5qhIulOu7tMCYa WIH9GPMdvUXeR3NknK5wXuIp EAGvKOPoQ6ZgcIDtDOppV783YF fvXoC7UYXlztInG7CnKZHxwWsx YnQ0r8K1Zt6IYMBkPG91REH5 sSU1SB61FO61S6DrYparnATkmA U+PHRhYmxlIHdpZHRoPScxMDAl FuKppPlvQL0zWa2pOROnQEKw gPdymJQoShNcz4wjPBLtPFldIT 4wpKfxV7LtxOE9NEFbt5d5Hm06 G48kI6EhbMK+XJZjtOM0aAY8 dC6sJrTsDiZ5CWhyH555ZhOgqM HfGyhyh3xxe1ldaGz6ZaT2NMQz goWkzHulQNG9t2DsEd59Q33b IHdpZHRoPSIxNSUiIHZhbGlnbj 9auX8pWd5+BQLahOL8iCF8iS6q HyOeTiR9TSytV466BsXlkEXl Kyeaq6zcr3mpoNq4MjHpKGHlfm MwhKyjHAS5t4BxDj37Z4YepEqh q6RzWnk2sd09yOIfy0J9wIC2 F4QvOWYofjdwhKZlfPrlOX0bYU YdibafLHGreQ0tTXWxX6f2YmSj TyC9UZxxE8KwinY2SGUwfUXo QIhmASD6A87et2E8ZCPkAJKmVK J2lEE8mE7hgWpyzgfwhTRinHhs dnMpfLnfLQvuVFuhW553OPPx oOxpYWIevD8dIHOxtFFryEnpKR 3pNNWghnfwEiJLOUYKSCQKWD5T WMUCDT63XK86dNVhm6J0vRD6 J3EmZHKosovcaxrqrXP2EVXjYN SpkK57yERoDDmnNd8db3O9s426 JNItPNLqpB45Nk5ocAggWPRp fNZNjO7qebxao8fewgafEiOlON PaGKc8DQr6XVSyhUbkSpWiOUE0 WlF5VOH4sZCvbK1wuQfyvxzn lG9kZpg+ZIynAVliUFm9SPfjnX Q+JKXzJIK9lYugTVokSJDdbG0c HCUeN1h7KdMrYnN2FOweC2Pc EVNubatjIz00xU1hDgEnSiA7RK kiN8VlhoQ5FHMhrTKhFIooZGE5 E06rj5B5YLCaMSOpOSX9uSV7 vR4viUatxekhlKZblMqsuwEjkV efESmmEUwlX956DVUerTbyHeB3 QZdvKMJdVZ63FF94dQNdg5L4 oJA7M8VnMSWhmclbnetvqXP0EF XwGTVuzD25bZKhRCgcBt3wk3O3 l831MPHtHTGkuR58Md6xgWjx WUPybHRKnY6dasauu1bjarysTn UmDECfEPr3DWj5ARVdgRjxDlIc DLH5EfC0RRH7cZTibL9jhCid jwsysI9uJsm+TUFMRTwvdGQ+PH EfXNM3jFjwRKdwLKQubW2tHHBf H2a0XjZhHcJ5WBpxW9UmOWCn jmtoHn41cH9fWhGhCnQ9OUgmW4 IobuB6TBMhuBTrHAyrQDB6M39k z4D1FMGzLJYhTCX8hZI8mI2y bGlnbjogbGVmdDsgdmVydGljYW dtFPdsQ357ASQxpHvxMwExUKFf XS5rqQuptYK+DQ82vq09R4Lm HtfuQze3YBSmHRG6hTI6yD6pAC JuCUbtr0L1nED0F6EcmiJnug2g h9smLHNbRXytE71ilONoe3F7 HQBcrXF4LICxzVhtPcIcsU17Zs c+EGKioPckq6HuXojgs7exz1fi sXg3KePhJMRqijZrjRaeYRJ4 b5XgXt60H15aFMbvSAIpERBoQF RuPWYvmJqyen8dsK1tFm6+PGNv mIN4nUU2pN5qClPxIwL3WOiu Y062GjLceKJmIqufe6jsq5xjvJ d2XdHlWQCaxfDddInnTEZ1x2Pe Na30I4ZlrLgql0UbDnd2ha73 fUJly8R1uQY3B2ZsMODeqswryL PbtRcsJK8vNGRcdydvBUMmzI7h VLGfQ7j2UwNrYtY1IRwaT9Rr ahI4FXKrfRHnQGHanBDRdC6udt hbc1mtnkzvCnHuIEIfDBg9SZx6 FEMwzWpqDeXzMUR8UfW8PQV2 qJRyfQ0mhCgyolauvC6bCvi+UG y3d9ovkDAwWW3nfFQ2PL02FI07 gDTsm6F8wBW8Y3EmWWNsblon rubfrGH0MPZiTVEbwY24Ir6ziG utSh8nZBYnUPH0PRAcrPLiN7Jg jT5uIsLvVILiTWWsI1CgnCJw NQboY153FNyqPhN3EGBxddKjT9 ZsINTimPsfHgA7m8G9Sr4XLD66 IW95WS87fBGmq1Y6xRL6G4Kp OMXbmtohjzbqmSU8BSGvIYNlkJ 67Cv5xiSveCe5wYMIrTCY2YUVb pXGjZ6DxpY4rQzStZHFoLSYq W7UfrDCxEJvrN036DYvhYfS6ZG ApbfNoC4NqLZJpzVwzRjP6d9Z5 Hb2AMx33RE85QF01vPUly8C6 zWC8E6WiJFXfntahbofsdWA0CR UcDFCbzG24Xd6pwCxsVj7xPDQa ATU3UUGskRNgD2LrhD2vZfKq REYdTKZcS7PjvPLjSYbnG298KH rxIoG3AVBhuwPqG0LpFPLkzRfd VvM3u7L5Bp7IEKibdoh0U2Qe PjwvdHI+VF87YIYzOE24sKRpoT But1mypPn0DlFqOGUzXBN7hJkp ZFugw2RmKJAdG02xsVUda5V8 IGN (more content not included)... [facility] Coding Summary HTMLBase 64 CkenbqdpSXr5lOs+PGhlYWQ+PE 1YEYBzY57wyLNmgP0AX6xGXN7X VSCPWJEXOH1YRM3hdUT0RQlaO1 VybiAv RiiuiZBdGR59AHe6KGH8uAujUV afqX4jiVMkJ8d2FsYfFK80sM37 QGvpEEDcNeW6UfLmhnkqiJCz F0fjRpRfeYPdIya+PHRhYmxlIH glHNGcPOptLCYjNzTrvKckEC4k Gy6aNUOlQQUpqOyofLBfKjFx n7xuMDFmVXypOQ0mnJwnL6DuyB W9PZMvf5l1Yh41fCA+PHRkIHN0 oNezUKoei168PfHip1ixEMF5 wSIeEUkdOZE9J85iw3A4UDSzYH OzZOG4cHS0qW9saKdwozdoB8Za aJOiJrW6NYQ8mAYtgH0lwAya mqkngK5uCts+O12DEM5HHFCQJO 8CFrp1O5PvJjgbsBA+OJ96UNPy YF41fSMnmBHjo0mqbIm4XvZv UTPeUKT8nUooHFhqg5LeJWMmN6 7frFUmy3T5HZSjnIcquCInHqEb iXZ0kB5cHYohptcfn1bbmirh Qafyk7jlli45rZ89C55fPAwzLU ZzQRT5UZUxCEJxeWyngg8avS2u Ii8+QTydy2xyn1ailPa5ZxWr USWvdvPslQzsQGA3w2HiVc32R3 MgfZxok1MtDgr6be53xABzi7S7 hJE2HLerPFPsvY9nVZqePnS1 QDRtIkVywF44uGScZFucIz6dgY prdXccXE2zAXBcahbrSMCscF1s TCYkxIPafPjcCZ6aIHPfewfd w348WqTfKLN2JDPhcNEfV6NvyC 6pFmPzZLPkASMrT2IvnVDiSOjg S197KZsfQyP8FHFlymKwP0Bb ZEUorEnaXpA0h2S7Jb2Zq3Ysko qnMRO1IGyxBHJ8QxQvNfNgMfB7 L1XxXtf1ATLvpGhlYL5gR9Bs TJZjagxbxxdkhKW9HAXdXASocB 22wHWdBQjwHx8zv1A1u770NATh MPClsX51Ae7mrKwyQGJwjLQF eG7wtawqr3aqrcttDtAeMEFxMI p3ZNi3IXUlwPaaNbVqFDY8UjZ3 SAT8vWDptH8toXjpvcxhkA3j Oyc+A97pbJ9eOWO5VAZ4epxeEC ZgzgHiKG76AS14P0AsMjuteYZw bGU+WAQemuHmeYphPC9hQbNc f1nxj8GuXKyoP6CfQGZnVRdfOd y8DVNhVNR1wUS0rZ3lZXNdYIwc o6R7pFN1H4NogrPpwb1zs9yu WEOmKQktG56vaVPpv0M6DWEfmN O7JYEawYohVcWzaT25Bpo+PGNv zLlfq2GhWitvg9lti8vsgPq2 HzBpUQVeiyBavHiuBQV1w9EcAs 71U51dCOupKJJwUWEnVDXyXCWy eHxetm5gdE3wUg9+PGNvbCB3 uMK6pU8jFGAwAtX7KXalH704Lz VrlUBzCzcwn4kpc4ncbZa4IxEd QOBtohGnjBtnPYE7z6JiGm19 E41nLYxbEFDkAURqJWFjEKKokJ npbm7yoY7pYm6+XD9dr3wlze45 pY91cHB+ESTxDEV0oQruSMhe DODzxE4vWRnvZeH8NCTrNcKdsW 69uCVoIOnzFi1jgXnczAznPO6p JUWldndid205KpDup4xaSOCn zOSdAXfhLRG7O76et2V8JKMkUY XuXNF4zRZ6oM8ulMmuituasWLj rWequnGfgVmgQLznRTdsK335 IHRvcDsnPlBhdGllbnQgTmFtZT r9G4ZkAkl2JUQbePtyPA2pfZBz NKjbOl5iqGvrcAhoXQ4vXBAu nqhhr741YvJdg6neIUHnkBNcVS akEGE1W31zx0U5APCeOGUbICR0 uHD4tV4vyEijptmxgYAaiIzm qeOciSsyIQnyDLumT955OODciO ffMaTjmkKkNRMnrND2RT44SO04 xQSro0K3bVV5R2HkPOKdrhyh osuiwXN0NCWhVQTgfT92Vg4iyM mvCc0wCPJyTXE0OPRsrPUnR3Tg jA1yPwVjZZVuPRKgN7QeuZWd YQjtW216ZZucJyL5HHYzhtFaD1 ZwFWYdtRrjKrJ4f3C4Gv7PM6Z3 XE11OX19rXCoj5O1kKW6W5Om UXHdkfcznqcusDY8LGQmIGGuoX 23Ao7wqQfcPs6aBYElXFC9EFMt wJKkG0GfqL2uDvZdBDTvOPFu M2SqjYLgARtkK903HXtvQtZ1XR IbqcMkH2DlFOBwiEhoKvE0b0V3 Lx2WGJq6BX69WC29fIKvf3V8 nQI3T0VqHTKitvmhvftwnMQ3NG HyYQYkdP17Ro3tqOunXd1oRZCd OWL4NAIyeTAeN9QokC8dLeTd APLsDPCyA2RleFMyBWuhJ328OA otMmE2KHTlqhYbQ6DcKTDfwUxb CmR1q7P4Pz0VCWUrEB60DMJ5 hHO1XM47XW76T4KkIjlbiTPunN U+PHRhYmxlIHdpZHRoPScxMDAl AmJsdOacCB3uEl0aPSMpRYKv bQpgvZKaAhHea2tiPVQkGOhsPV 7umWirA3IazAG3GHXwn0l5Sd84 Z26fJ9AhdDJ+FMNqxDQ4xYI2 fS9cAnRrKkC8XPduW711IhEstK EvRbqii1rhs8ohcUb4ZbO4GQFo wbNwnDzfDQP2d8ZtEx15C47w IHdpZHRoPSIxNSUiIHZhbGlnbj 9gbA6iAd7+SRSsiJY6hCB5sY4w LfUeErA5NOxkA404OqKopLIv Ihacx4fct6lbyFg7IcKfFSRftu NuxXsrFFB0o9TtDw66X2WfpXrv h4ThMck9xj97mRGqo3J8vYR9 M6WoIESbehhhgGKkiUefZO4cET UcfhfaJILdkH6cDOClP4y7RwUk QrU1YTkvA1HkksH0GBKblGZn HDmlWWL1E24mj1C8ZYQkZBMiSH E5wXP8wV6fnXyhamckeUTmjUuw xkPyiBwlVPlwTCwjH241YXAh rLivQOJneH9lSAArjNMsaBtmUT 4rTCBqhnpuKeSCFTCGYWJLRT2J CFZHYL98RJ55lWEwi8F1hFW9 H0OmKEJpriixxxmiwMJ4YWMkUZ WyxD98xQHlGZggAi8pk8L1i314 HABdIMUmfS23Ke4hsQrtFKSh kBTEjI4nijfhg1ccbwfhUpNkSK CwIBt6DEn8HQAdcFxbGrShFWT6 CbW1QKK9yRAujK5llBgfcxgr sE3dZqz+CFkzHWfuUSk8SDwzkS Q+SKZsLCG7yUdaFSzcHYLcoI4f NLXwS1p8QoWeJrY5LIibA6Ah CPZmhydiDy34nG3kNzAvLbR0LZ xiM8TjkoS8QIHhcYBiKHueUQL6 I76zj9H7UMRzVZMhPDH1mQB8 tQ6leDvnhnaegBJojSbpxhIujP olYXdzGOwwH776KLOyfYqdWuA4 THnbYGNrDQ73FF21eMWje9N5 dED7F6HbDNWcqrjvksysvRS9DG QwWIZtdW22uYPnWFsxRc1rt0X8 n097VHSsXVVqcL23Na6zbGws YMUkwTPArI5wwmliy6sajxjjAp NkIYYpWYw4UMe8XGOtlAabDlTw LYQ8JjU3YGH0dOSjnK9avRtu shzjjI2uZxp+TUFMRTwvdGQ+PH UfAOD6uTbvATlwVGOsvV5dWXRq R2a1SaYnKgE6USffF3IhYVFb ucldSq40mV9tUhDhDjF6NSbwS3 KttrP4HEKbcITfBLypXYV5B56r i2E9GSPtNZBhDBW4tND9vM6q bGlnbjogbGVmdDsgdmVydGljYW xkNWpdO741IEIxsVxpUjAmYEIg TR1bsSpupPL+HZ06vw85P8Ak VsjnVcb8CJLiGWG1cOX0gP4sAQ MzVGrjt1K1nCP9M3SrxlAqts6b h1voHICgQBmcO19fkTQuh5P7 NXPxjJE8UKYdbRvvJxRntT49Zn c+SKOctEhxh7PeQznfz6ile1ez fOa2DmHhYDXqljQvzNpmAOB2 o3NjYl25V55aANhwBDNfGUKpGE GsEKCjqVclwk8isE6vMg8+PGNv yEJ8aJH1nB6jGnAzTrD6XRxc S904BcFeeEQlWivbx9cxm4hgtX w8UdKmFHMsocOoeAfyAUY9q6Pn Cx66N4AhxYbem3ElYjm8mr93 qFGus2P3uPR8H2UmNXFkbfohwB BdqVeuWH4mQOHfwbglTCAfsL7p MUGpU5j5NqIbHaU8OEskT0Si snL3OKUrgTZoZONzgIPGwZ3usx lai6wtkhyoLbUbQNWtYMf3UDo1 IJNcrMlhOrGtHMU0ExC9VLU5 yVEwqM9jjHkdjnulgD4lNga+UG b8k2tlkXXaGO4ddGS8YT50AQ97 uEYnn4N1lAY6P9ScTYRrxmsk ktqqeAC9PYGkFIUytE97Mi9ssD tvWd5zHNNfFIA4JSDymULdZ5Mi dK0iDeVzDXDpKGUeK5UpxQAp IJkbT594NHabCgQ9FMGencWuM1 LmQDKqdDjoOvY8r8X0Zh8CGM32 LH48FH34mSHzo3D4tRQ8I0Zo VFBcgsmcpswjgIW1SNRzCRStsF 08My2dpIoiDs3qLPRhWNA7WEDa tSXrY5EofM0hFpVsUOEmWGUh Y5WymMGfVFxcD749TImkCrK3DP AqsdPxY4WvLALuoFyaEyZ2v6Q4 Ce2PGf37DB66PN20eIFmk4E6 hQT4V8YxYKFnohoygtfztZX8XT OxFDQygE15Yy5ihBqbAq8iXOSu WTA9ZJGsbCWhV4JuqE4eQaVi QWMbDLBeA7LjwDHsRYkmO739RN fwXxA0ROLhxnZkB4OdCCVpzWrl ZpW9o8H4Eq3EDClyflv5M3Hm PjwvdHI+AW79HKElYU22mRCmqG Izh2qwqNa2AfKtTWZpLYD2kBoy VMptg7OaREUdJ34coURfk6M2 IGN (more content not included)... [facility] Coding Summary HTMLBase 64 XesxqpjxVXj1bYb+PGhlYWQ+PE 4EWCGjL36yrMGcsA7CK8bZEA1N WHRQQFCSBV9VHB1doRM8YIqqU7 VybiAv EevrvTFbXG08AOu1PZF0nWbzHL oexS9skVAdT3n6YyUfZV49xG27 VAifULQwWoJ3PsIjqdoepCMr R3kcKtAezJUiPel+PHRhYmxlIH gkEVFyLFgbPDQlTnLbdDqxKC0i Kz3bQZCpLAHtjAdqjQLgYfTw c4yeWBZzWLnhCT2hrPhwC0NdkB Y6TGIih7l3Jt59qJG+PHRkIHN0 jTomHPkcm893FeTjy5rvQET8 yCRqURvvJWE7G71ac7Q9HDTqEG QqVAB8mHZ1tY2hgViqcfqtU3Tm mQWdIyP6MXU1nKLmlS9goHcm twwicS1sYqf+Q61GXV8LIDXRYY 9BKii8Z4CjMvamsXC+GE15MJSt QF85vHKrvEMsq7rlcDk5GbIp FXNbIQO8kEmaENski0CcNFMfI2 9ccTAlx1P5IZQnrXosyONpNqBm yLD1cA7pBUlxxzuxc9sabdib Zqwmq6wgwy51eY88N83cPTcbZA AsMCX0BQGaJPCuuFnmpx3ovG6b Ii8+TPbbj3utq9zirEq6IsIh YTIsovVapUfbLTL0s6FfLe41A9 JgaDboa9NfVpf8ju75kYIkc5D4 dZM8DCmuAVIpvM7rQUhiPzH7 LQAyHvGxeQ10vBSsRXiyVa5avH dosRdbZA5dSNHimlciCRWncJ0h ZPEyvHKnlQnzLH2bZBJxvfxd y465AeNeENF0BDPbfSEnA5EbdR 9gOzZrAAHiQZSwS1MnyLPkFSxz Q484UIvkTzS8ULUqolXtX5Ax KDMbtSngNeU4h2N5Su7Vh3Cfbe ifUFC2EGujUEP0ScBtBuNqVrL5 P9WaStc9TXMzcLliAY0pS6Ai GZAjunhlxugowDB6XEPgUPUxfV 75qAOeDQthSt5nh3Z1e263ZVDw LHCuqS77Aa1muXteEPXunPYP rH4gdzbrw2gzadbtPqJfPSHmDA a5GZd7YWAytRxxXxFvKKQ6ObJ4 MUC5cWCvxN1doIyywbpyoW8z Oyc+F13ieA3dAMD6HCD7awzwIN PiwnOoMZ09GU12R0KiLuhoyQJy bGU+OWDyuwMbqVwhBH9fIaSi x2hld7WqJKpqO5AlFMAdMGakSf w5NHXfQMX9nXZ1xF6iXHPtCIah i9W4hUC3M3AsmtMsdl0gl1ep EVEeXIspN25pqHXwh7S7ALOdxQ H2NYQvqGqmZdPhiN93Dgb+PGNv uPrxf4EeTureh4aqo4exoDe5 CeVcPDFqmnKsnVwlQVD8q6IkBr 11V65qTZalDRSkTZHiMJYbWBRl fFmwsz6nhN7cPo2+PGNvbCB3 cLP4gX4oBCOqYaO0RKflZ846Vq LpzJXrPyuvw1xus4qlpTz6NfEx WWGhgkDytRefBKU9u4JpTp27 N36yBNzoYMNhPJAsWQKeCTVxlR eybb3yjK0tQx6+QH9zu6szae86 dK08qPI+ATUpGCX5wOerZPlc SUUtiT9yABhpRpY8HFZyLhAkoO 40jKZeSBmiUk1rjThbeJraTX1g HYHkiwufd205XrGus5jsHMOv qLRgTVtiEPK5V32cm3N9PUOxOB XxSVO3dVN2eA9ytXnenrhpgQYe rKenfuKgeZcnNVaxXYjpU880 IHRvcDsnPlBhdGllbnQgTmFtZT r2W8QxXmc7NRMmbTwqRQ8arAVl OFdfVu2zaUotwQkaYH0qKKYr gjgqh239XrUnr5loQLLdvNUwCU vxLTS2J91oa4Q4ESHtTMKrLQG7 wIB3cG7vtHzicbaxaNGoqKke ijKkhDppTGxoNBvjC199SSRzbD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 or any sudden status changes such as confusion and sleepiness. If you or anyone you know is experiencing suicidal thoughts, mental health, alcohol and/or drug addiction problems; contact the Mental Health & Recovery Board [facility] 10/12 Crisis Hotline -Text 4HEET eh 201393. If you received any narcotics, sedation, or [...] legal documents With: Address: When: FRANCES COLMENARES [address] [place] [address] [place] [address] Business (1) Within 1 to 2 days [...] and treatment you received today in the [facility] Emergency Department were for an urgent problem and are not intended as complete care. It is important for you to follow up with a doctor, nurse practitioner, or physician?s assistant executive housekeeper for ongoing care. If your symptoms become [...] so we can reach you if necessary. [facility] Emergency Department has provided you with a complete list of medications post discharge. Please inform your account maintenance representative/provider of your visit and for further instruction [...] day. Vis (more content not included)... Normal [facility] SP COMP W FLEX/EXT 6 VW Son 03-18-2019 [facility] SP COMP W FLEX/EXT 6 VWS STUDY: [facility] SP COMP W FLEX/EXT 6 VWS ;; 03/18/2019 12:20 pm INDICATION: PAIN. COMPARISON: None. ACCESSION NUMBER(S): [id number] ORDERING CLINICIAN: Cristobal Appiah FINDINGS: No acute [...] at L5-S1. No evidence of instability. Normal [facility] BASIC MET PANELon 09-13-2018 Anion gap [Moles/Vol] 10 mmol/L Normal 6-18 [facility] Comment on above: Performed By: #### L 500.29625, L500.15749 ####Test performed at: [address] [address] Calcium [Mass/Vol] 8.8 mg/dL Normal 8.5-10.1 [facility] Comment on above: Performed By: #### L 500.84656, L500.38271 ####Test performed at: [address] [address] Chloride [Moles/Vol] 105 mmol/L Normal 98-107 [facility] Comment on above: Performed By: #### L 500.99727, L500.73152 ####Test performed at: [address] [address] CO2 [Moles/Vol] 27 mmol/L Normal 21-32 [facility] Comment on above: Performed By: #### L 500.82006, L500.38851 ####Test performed at: [address] [address] Creatinine [Mass/Vol] 0.793 mg/dL Normal 0.700-1.300 [facility] Comment on above: Performed By: #### L 500.42927, L500.63533 ####Test performed at: [address] [address] Glucose [Mass/Vol] 134 mg/dL High 70-99 [facility] Comment on above: Result Comment: Fast ing GLUCOSE reference range has been updated per (ADA) [place] [employer]'s recommendation. 08/12/2018 Performed By: #### L 500.08064, L500.51374 ####Test performed at: [address] [address] OSM 285 mosm/kg Normal 270-300 [facility] Comment on above: Performed By: #### L 500.16105, L500.24010 ####Test performed at: [address] [address] Potassium [Moles/Vol] 4.1 mmol/L Normal 3.5-5.1 [facility] Comment on above: Performed By: #### L 500.20970, L500.23610 ####Test performed at: [address] [address] Sodium [Moles/Vol] 138 mmol/L Normal 136-145 [facility] Comment on above: Performed By: #### L 500.76407, L500.19382 ####Test performed at: [address] [address] Urea nitrogen [Mass/Vol] 5 mg/dL Low 7-18 [facility] Comment on above: Performed By: #### L 500.71674, L500.51946 ####Test performed at: [address] [address] CBC W/DIFFon 09-13-2018 BASO ABS 0.0 K/uL Normal 0.0-0.2 [facility] Comment on above: Performed By: #### L 200.66896 #### Test performed at: [address] [address] Basophils/100 WBC (Bld) 0.1 % Normal [facility] Comment on above: Performed By: #### L 200.01511 #### Test performed at: [address] [address] EOS ABS 0.0 K/uL Normal 0.0-0.5 [facility] Comment on above: Performed By: #### L 200.32620 #### Test performed at: [address] [address] Eosinophils/100 WBC (Bld) 0.0 % Normal [facility] Comment on above: Performed By: #### L 200.24510 #### Test performed at: [address] [address] Erythrocyte distribution width (RBC) [Ratio] 11.9 % Normal 11.5-14.5 [facility] Comment on above: Performed By: #### L 200.05423 #### Test performed at: [address] [address] Hematocrit (Bld) [Volume fraction] 36.8 % Low 39.0-55.0 [facility] Comment on above: Performed By: #### L 200.88347 #### Test performed at: [address] [address] Hemoglobin (Bld) [Mass/Vol] 12.8 g/dL Low 14.0-16.5 [facility] Comment on above: Performed By: #### L 200.17960 #### Test performed at: [address] [address] IG % 0.6 % Normal [facility] Comment on above: Performed By: #### L 200.13935 #### Test performed at: [address] [address] IG ABS 0.04 K/uL Normal 0-0.05 [facility] Comment on above: Performed By: #### L 200.76508 #### Test performed at: [address] [address] Lymphocytes (Bld) [#/Vol] 0.8 10*3/uL Low 1.2-3.5 [facility] Comment on above: Performed By: #### L 200.36194 #### Test performed at: [address] [address] Lymphocytes/100 WBC (Bld) 11.4 % Normal [facility] Comment on above: Performed By: #### L 200.69801 #### Test performed at: [address] [address] MCH (RBC) [Entitic mass] 32.1 pg Normal 25.4-34.6 [facility] Comment on above: Performed By: #### L 200.74852 #### Test performed at: [address] [address] MCHC (RBC) [Mass/Vol] 34.8 g/dL Normal 31.5-36.5 [facility] Comment on above: Performed By: #### L 200.21388 #### Test performed at: [address] [address] MCV (RBC) [Entitic vol] 92.2 fL Normal 80.0-100.0 [facility] Comment on above: Performed By: #### L 200.40551 #### Test performed at: [address] [address] MONO ABS 0.1 K/uL Normal 0.0-1.0 [facility] Comment on above: Performed By: #### L 200.36346 #### Test performed at: [address] [address] Monocytes/100 WBC (Bld) 1.7 % Normal [facility] Comment on above: Performed By: #### L 200.14411 #### Test performed at: [address] [address] NEUTROPHIL ABS 6.3 K/uL Normal 1.4-6.6 [facility] Comment on above: Performed By: #### L 200.63164 #### Test performed at: [address] [address] Neutrophils/100 WBC (Bld) 86.2 % Normal [facility] Comment on above: Performed By: #### L 200.12978 #### Test performed at: [address] [address] NRBC # 0.000 K/uL Normal 0-0.012 [facility] Comment on above: Performed By: #### L 200.19624 #### Test performed at: [address] [address] NRBC % 0.0 /100 WBC Normal 0-0.2 [facility] Comment on above: Performed By: #### L 200.72460 #### Test performed at: [address] [address] Platelet mean volume (Bld) [Entitic vol] 10.7 fL Normal 8.7-12.4 [facility] Comment on above: Performed By: #### L 200.00448 #### Test performed at: [address] [address] Platelets (Bld) [#/Vol] 144 10*3/uL Normal 140-440 [facility] Comment on above: Performed By: #### L 200.56332 #### Test performed at: [address] [address] RBC (Bld) [#/Vol] 3.99 10*6/uL Normal 3.5-5.5 [facility] Comment on above: Performed By: #### L 200.34209 #### Test performed at: [address] [address] WBC (Bld) [#/Vol] 7.3 10*3/uL Normal 3.9-11.0 [facility] Comment on above: Performed By: #### L 200.86254 #### Test performed at: [place] [address] GFR ESTIMATEon 09-13-2018 IF AMER > 60 Normal > 60 [facility] Comment on above: Result Comment: eGFR (Estimated GFR) Units of measure:mL/min/1.73 meters sq. *CALCULATION REVISED 03/08/2015;IDMS-traceable MDRD equation eGFR is derived from the reexpressed MDRD Study equation using the following parameters: serum creatinine, age, gender and race. An eGFR<60 mL/min/1.73m2 for >3 months is consistent with chronic kidney disease. Refer to KDOQI guidelines for clinical interpretation. Performed By: #### L 500.71333, L500.35684 ####Test performed at: [place] [address] IF non-AFR AMER > 60 Normal > 60 [facility] Comment on above: Performed By: #### L 500.45288, L500.78166 ####Test performed at: [place] [address] CONSULTATION REPORTon 2018 CONSULTATION REPORT NAME: SIS DOVE MR#: [id number] INDUSTRIAL FURNACE FABRICATOR: May Chandra MD DATE OF CONSULTATION: 09/13/2018 [...] MEDICATIONS: Baclofen, Lipitor, aspirin currently on hold, Spring, Klonopin, Depakote, Elavil, Wellbutrin, Desryl, Latuda, Vistaril, [...] for involving me in the patient's care. [facility] PT NAME: SIS DOVE MR#: [id number] [address] [place] [address] ACCT: [id number] : 63 CONSULTATION MAY CHANDRA MD /[facility]/[id number] E/S: May Chandra MD 09/15/18 1238 Electronically Signed [facility] PT NAME: SIS DOVE MR#: [id number] [address] [place] [id number] ACCT: [id number] : 63 CONSULTATION Normal [facility] OPERATIVE REPORTon 9 OPERATIVE REPORT NAME: SIS DOVE MR#: [id number] SURGEON: Cristobal Appiah MD DATE OF SURGERY: [...] were applied. The patient was turned supine, [facility] PT NAME: SIS DOVE MR#: [id number] [address] [place], [place] [address] ACCT: [id number] : 63 OPERATIVE REPORT awakened, and taken to recovery room in excellent condition. There were no complications. CRISTOBAL APPIAH MD JFS/MODL/[id number] E/S: Cristobal Appiah MD 11/04/18 1523 Electronically Signed [facility] PT NAME: SIS DOVE MR#: [id number] [address] [place], [place] [address] ACCT: [id number] : 63 OPERATIVE REPORT Normal [facility] LUMBAR SPINE 2 OR 3 VIEWSon 09-10-2018 LUMBAR SPINE 2 OR 3 VIEWS Exam: Fluoroscopy lumbar spine Clinical History: LEFT L5-S1 LAMINECTOMY, FORAMINOTOMY, DECOMPRESSION Comparison: None. Findings: Fluoroscopic images of lumbar spine demonstrate surgical instruments posterior to L5-S1. Impression: As above Dictated: 09/12/18 1532 REPORT SIGNATURE ON FILE09/12/18(1532) Reported By: AC WILSON Signed By: AC WILSON Normal [facility] BASIC MET PANELon 09-03-2018 Anion gap [Moles/Vol] 8 mmol/L Normal -18 [facility] Comment on above: Order Comment: CBN: YES Comfort: MAIN Performed By: #### L 500.54859, L500.32497 #### Test performed at: [address] [address] Calcium [Mass/Vol] 9.4 mg/dL Normal 8.5-10.1 [facility] Comment on above: Order Comment: CBN: YES Comfort: MAIN Performed By: #### L 500.62883, L500.92081 #### Test performed at: [address] [address] Chloride [Moles/Vol] 104 mmol/L Normal 98-107 [facility] Comment on above: Order Comment: CBN: YES Comfort: MAIN Performed By: #### L 500.60797, L500.68099 #### Test performed at: [address] [address] CO2 [Moles/Vol] 31 mmol/L Normal 21-32 [facility] Comment on above: Order Comment: CBN: YES Comfort: MAIN Performed By: #### L 500.45079, L500.00475 #### Test performed at: [address] [address] Creatinine [Mass/Vol] 1.070 mg/dL Normal 0.700-1.300 [facility] Comment on above: Order Comment: CBN: YES Comfort: MAIN Performed By: #### L 500.74431, L500.40865 #### Test performed at: [address] [address] Glucose [Mass/Vol] 91 mg/dL Normal 70-99 [facility] Comment on above: Order Comment: CBN: YES Comfort: MAIN Result Comment: Fast ing GLUCOSE reference range has been updated per (ADA) [place] Diabetes Association's recommendation. 08/12/2018 Performed By: #### L 500.55219, L500.72862 #### Test performed at: [address] [address] OSM 285 mosm/kg Normal 270-300 [facility] Comment on above: Order Comment: CBN: YES Comfort: MAIN Performed By: #### L 500.94507, L500.89221 #### Test performed at: [address] [address] Potassium [Moles/Vol] 4.5 mmol/L Normal 3.5-5.1 [facility] Comment on above: Order Comment: CBN: YES Comfort: MAIN Performed By: #### L 500.96555, L500.69079 #### Test performed at: [address] [address] Sodium [Moles/Vol] 138 mmol/L Normal 136-145 [facility] Comment on above: Order Comment: CBN: YES Comfort: MAIN Performed By: #### L 500.75303, L500.15723 #### Test performed at: [address] [address] Urea nitrogen [Mass/Vol] 11 mg/dL Normal 7-18 [facility] Comment on above: Order Comment: CBN: YES Comfort: MAIN Performed By: #### L 500.14380, L500.30722 #### Test performed at: [address] [address] CBCon 09-03-2018 Erythrocyte distribution width (RBC) [Ratio] 12.1 % Normal 11.5-14.5 [facility] Comment on above: Order Comment: CBN: YES Comfort: MAIN Performed By: #### L 200.53948 #### Test performed at: [address] [address] Hematocrit (Bld) [Volume fraction] 43.0 % Normal 39.0-55.0 [facility] Comment on above: Order Comment: CBN: YES Comfort: MAIN Performed By: #### L 200.87916 #### Test performed at: [address] [address] Hemoglobin (Bld) [Mass/Vol] 14.6 g/dL Normal 14.0-16.5 [facility] Comment on above: Order Comment: CBN: YES Comfort: MAIN Performed By: #### L 200.32627 #### Test performed at: [address] [address] MCH (RBC) [Entitic mass] 32.3 pg Normal 25.4-34.6 [facility] Comment on above: Order Comment: CBN: YES Comfort: MAIN Performed By: #### L 200.86912 #### Test performed at: [place] [address] MCHC (RBC) [Mass/Vol] 34.0 g/dL Normal 31.5-36.5 [facility] Comment on above: Order Comment: CBN: YES Comfort: MAIN Performed By: #### L 200.62382 #### Test performed at: [address] [address] MCV (RBC) [Entitic vol] 95.1 fL Normal 80.0-100.0 [facility] Comment on above: Order Comment: CBN: YES Comfort: MAIN Performed By: #### L 200.03979 #### Test performed at: [place] [address] NRBC # 0.000 K/uL Normal 0-0.012 [facility] Comment on above: Order Comment: CBN: YES Comfort: MAIN Performed By: #### L 200.27084 #### Test performed at: [place] [address] NRBC % 0.0 /100 WBC Normal 0-0.2 [facility] Comment on above: Order Comment: CBN: YES Comfort: MAIN Performed By: #### L 200.55528 #### Test performed at: [place] [address] Platelet mean volume (Bld) [Entitic vol] 11.0 fL Normal 8.7-12.4 [facility] Comment on above: Order Comment: CBN: YES Comfort: MAIN Performed By: #### L 200.37007 #### Test performed at: [address] [address] Platelets (Bld) [#/Vol] 150 10*3/uL Normal 140-440 [facility] Comment on above: Order Comment: CBN: YES Comfort: MAIN Performed By: #### L 200.35697 #### Test performed at: [address] [address] RBC (Bld) [#/Vol] 4.52 10*6/uL Normal 3.5-5.5 [facility] Comment on above: Order Comment: CBN: YES Comfort: MAIN Performed By: #### L 200.96719 #### Test performed at: [address] [address] WBC (Bld) [#/Vol] 6.1 10*3/uL Normal 3.9-11.0 [facility] Comment on above: Order Comment: CBN: YES Comfort: MAIN Performed By: #### L 200.48515 #### Test performed at: [address] [address] GFR ESTIMATEon 09-03-2018 IF AMER > 60 Normal > 60 [facility] Comment on above: Order Comment: CBN: YES Comfort: MAIN Result Comment: eGFR (Estimated GFR) Units of measure:mL/min/1.73 meters sq. *CALCULATION REVISED 03/08/2015;IDMS-traceable MDRD equation eGFR is derived from the reexpressed MDRD Study equation using the following parameters: serum creatinine, age, gender and race. An eGFR<60 mL/min/1.73m2 for >3 months is consistent with chronic kidney disease. Refer to KDOQI guidelines for clinical interpretation. Performed By: #### L 500.72299, L500.57546 #### Test performed at: [address] [address] IF non-AFR AMER > 60 Normal > 60 [facility] Comment on above: Order Comment: CBN: YES Comfort: MAIN Performed By: #### L 500.24861, L500.76922 #### Test performed at: [address] [address] LUMB SP COMP W FLEX/EXT 6 VW S>on 09-03-2018 LUMB SP COMP W FLEX/EXT 6 VWS> STUDY: LUMB SP COMP W FLEX/EXT 6 VWS>; 09/03/2018 10:53 am INDICATION: POSSIBLE DISCECTOMY. COMPARISON: None. ACCESSION NUMBER(S): [id number] ORDERING CLINICIAN: Cristobal Appiah FINDINGS: Severe L5-S1 disc height loss with endplate sclerosis and osteophyte formation. Milder disc height loss more superiorly. No fracture subluxation. No spondylolisthesis. Lower lumbar predominant facet arthropathy. No spondylolisthesis. No spondylolysis. No instability on flexion or extension. Atherosclerosis. IMPRESSION: Lower lumbar predominant degenerative changes without dynamic instability. Normal [facility] TSPATon 09-03-2018 ABO and Rh group Nom (Bld) O POSITIVE Normal [facility] Comment on above: Order Comment: CBN: YES Comfort: MAIN Transfusion Status: CONSERVATION Blood Bank service requested: TYPE AND SCREEN Specimen Comment: SURG 09/12 Performed By: #### B 100.0201 #### Test performed at: [address] [address] C-Reactive Proteinon 018 C reactive protein (CRP) 0.2 mg/dL Normal <0.9 [facility] Comment on above: Performed By: #### C BCDIF, B12, SERFOL, CMP, CRP, TSH, MMA ####[facility] [address] [place], [place] [phone] CBC and Differentialon 08-12 Abs Baso <0.03 Normal <0.11 [facility] Comment on above: Performed By: #### C BCDIF, B12, SERFOL, CMP, CRP, TSH, MMA ####[place] [address] [address] [phone] Abs Frio 0.60 k/uL Normal <0.87 [facility] Comment on above: Performed By: #### C BCDIF, B12, SERFOL, CMP, CRP, TSH, MMA ####[place] [address] [address] [phone] Abs Neut 3.07 k/uL Normal 1.45-7.50 [facility] Comment on above: Performed By: #### C BCDIF, B12, SERFOL, CMP, CRP, TSH, MMA ####[place] [address] [address] [place] [phone] Basophils/100 WBC Auto (Bld) 0.4 % Normal [facility] Comment on above: Performed By: #### C BCDIF, B12, SERFOL, CMP, CRP, TSH, MMA ####[place] [phone] DTYPE Auto Diff Normal [facility] Comment on above: Performed By: #### C BCDIF, B12, SERFOL, CMP, CRP, TSH, MMA ####[address] [place] [phone] Eosinophils 10*3/uL Normal <0.46 [facility] Comment on above: Performed By: #### C BCDIF, B12, SERFOL, CMP, CRP, TSH, MMA ####[place] [address] [address] [phone] Eosinophils/100 leukocytes 0.0 % Normal [facility] Comment on above: Performed By: #### C BCDIF, B12, SERFOL, CMP, CRP, TSH, MMA ####[place] [address] [address] [place] [phone] Erythrocyte distribution width Auto Ratio (RBC) 12.7 % Normal 11.5-15.0 [facility] Comment on above: Performed By: #### C BCDIF, B12, SERFOL, CMP, CRP, TSH, MMA ####[place] [address] [address] [phone] Erythrocytes (RBC) 0.0 /100 WBC Normal [address] [facility] Comment on above: Performed By: #### C BCDIF, B12, SERFOL, CMP, CRP, TSH, MMA ####[place] [address] [address] [phone] Erythrocytes (RBC) 10*6/uL Normal <0.01 [facility] Comment on above: Performed By: #### C BCDIF, B12, SERFOL, CMP, CRP, TSH, MMA ####[place] [address] [address] [place] [phone] Erythrocytes (RBC) 4.58 10*6/uL Normal 4.20-6.[address] [facility] Comment on above: Performed By: #### C BCDIF, B12, SERFOL, CMP, CRP, TSH, MMA ####[place] [address] [address] [place] [phone] Hematocrit (HCT) 43.2 % Normal 39.0-51.0 [facility] Comment on above: Performed By: #### C BCDIF, B12, SERFOL, CMP, CRP, TSH, MMA ####[place] [address] [address] [place] [phone] Hemoglobin mass conc (Bld) 14.3 g/dL Normal 13.0-17.0 [facility] Comment on above: Performed By: #### C BCDIF, B12, SERFOL, CMP, CRP, TSH, MMA ####[place] [address] [address] [place] [phone] Lymphocytes 1.80 10*3/uL Normal 1.00-4.00 [facility] Comment on above: Performed By: #### C BCDIF, B12, SERFOL, CMP, CRP, TSH, MMA ####[address] [place] [phone] Lymphocytes/100 leukocytes 32.7 % Normal [facility] Comment on above: Performed By: #### C BCDIF, B12, SERFOL, CMP, CRP, TSH, MMA ####[address] [place] [phone] MCH 31.2 pG Normal 26.0-34.0 [facility] Comment on above: Performed By: #### C BCDIF, B12, SERFOL, CMP, CRP, TSH, MMA ####[place] [phone] MCHC mass conc (RBC) 33.1 g/dL Normal 30.5-36.0 [facility] Comment on above: Performed By: #### C BCDIF, B12, SERFOL, CMP, CRP, TSH, MMA ####[place] [phone] MCV 94.3 fL Normal 80.0-100.0 [facility] Comment on above: Performed By: #### C BCDIF, B12, SERFOL, CMP, CRP, TSH, MMA ####[place] [phone] Monocytes/100 leukocytes 10.9 % Normal [facility] Comment on above: Performed By: #### C BCDIF, B12, SERFOL, CMP, CRP, TSH, MMA ####[address] [place] [phone] Neutrophils/100 WBC Auto (Bld) 56.0 % Normal [facility] Comment on above: Performed By: #### C BCDIF, B12, SERFOL, CMP, CRP, TSH, MMA ####[facility] [place], [place] [phone] Platelet mean volume (PMV) 10.2 fL Normal 9.0-12.7 [facility] Comment on above: Performed By: #### C BCDIF, B12, SERFOL, CMP, CRP, TSH, MMA ####[place] [address] [place], [place] [phone] Platelets 228 10*3/uL Normal 150-400 [facility] Comment on above: Performed By: #### C BCDIF, B12, SERFOL, CMP, CRP, TSH, MMA ####[place] [address] [place], [place] [phone] WBC (Leukocytes) 5.50 10*3/uL Normal 3.70-11.00 [facility] Comment on above: Performed By: #### C BCDIF, B12, SERFOL, CMP, CRP, TSH, MMA ####[facility] [place], [place] [phone] CNOVon 08-12-2017 CNOV Office Visit (GASTA5) SIS DOVE ([id number]) 1965 MDate Time Provider Department08/12/17 4:10 PM ENMA PHILLIPS GASTA5 During your [...] other day.He had been doing Ensure and Hollywood Instant Breakfast and had gained fewpounds in the few weeks prior to his initial visit. He also noted dysphagia forsolids, occasionally. He did have a manometry done which according to him wasANDquot;mildly abnormalANDquot;. He had an appointment with new Psychiatrist theday after our visit. During his visit in July 2014, he had tried to consume 1-2 Hollywood InstantBreakfasts every day. He was still having [...] would go to bed in the very miller kiln dried salt hours, but did not have diarrheathat would [...] a heart attack and theother lived in [place] and was diagnosed with a cancer and [...] (1.73m) Wt 165 lb 3.2 oz (74.9kg) KuH058% BMI 25.12 kg/(m2).PREVIOUSLY REVIEWED DATA05/07/14???NM Gastric Emptying [...] Bowel Video Capsule. Impression: Normal small bowel Gaxwilwuwtmtgdrg67/20/14?- Colonoscopy. Indication: Change in bowel habits. Weight [...] polyps - Next Colonoscopy 2018?PLANPatient has a dynaTrace software account.Labs as ordered - to download to dynaTrace software - Galva will checkContinue?IBgard twice a dayLetter to Dr. TobeyRTC 6 months, otherwise PRNNeeds a Colonoscopy in 2019, here or closer to Jagruti Phillips, [facility] 2017ANDgt;25 min Yhzk-ty-Wsge?Note: Dr. Jorge L Bishop - his [address] [place] [address]Dcywt: [phone]: [phone]?Referring Provider: RAÚL LAI [[id number]]Allergies As of Date: 08/12/2017(No Known Allergies)Date Reviewed: [...] polyps [Z86.010]Order(s):CBC + DIFF [SQCBCDIF] Order #: [id number] FUTURE COMP METABOLIC PANEL [SQCMP] Order #: [id number] FUTURE C-REACTIVE PROTEIN (CRP) [SQCRP] Order #: [id number] FUTURE FOLATE SERUM [SQSERFOL] Order #: [id number] FUTURE METHYLMALONIC ACID [SQMMA] Order #: [id number] FUTURE VITAMIN B12 BLOOD [SQB12] Order #: [id number] FUTURE TSH BLD [SQTSH] Order #: [id number] FUTUREPrescriptions as of 08/12/2017 Sig: TRAZODONE 150 [...] 08/12/2017 4:23 PM >> JUNE BISHOP MA [facility] Aug 12, 2017 4:23 PM Not takingProblem List As Of Date 08/12/2017 Noted Resolved Weight loss [R63.4] INVALID FOR* LUQ abdominal pain [R10.12] INVALID FOR* Diarrhea [R19.7] INVALID FOR* Depression [F32.9] INVALID FOR* Bipolar disorder (HCC) [F31.9] INVALID FOR* Migraines [G43.909] INVALID FOR* Hx of adenomatous colonic polyps [Z86.010] INVALID FOR* Generalized anxiety disorder [F41.1] INVALID FOR* Chronic nausea [R11.0] INVALID FOR*Letter TextEncounter Number: [id number] Status:Closed by ENMA PHILLIPS MD on 08/12/17 Normal [facility] Comp Metabolic Panelon 08-12 Alanine aminotransferase (ALT) 11 U/L Normal 10-54 [facility] Comment on above: Performed By: #### C BCDIF, B12, SERFOL, CMP, CRP, TSH, MMA ####[facility] [address] [place], [place] [phone] Albumin 4.4 g/dL Normal 3.9-4.9 [facility] Comment on above: Performed By: #### C BCDIF, B12, SERFOL, CMP, CRP, TSH, MMA ####[place] [phone] Alkaline phosphatase (ALP) 75 U/L Normal 36-108 [facility] Comment on above: Performed By: #### C BCDIF, B12, SERFOL, CMP, CRP, TSH, MMA ####[address] [place] [phone] Anion gap 13 mmol/L Normal 9-18 [facility] Comment on above: Performed By: #### C BCDIF, B12, SERFOL, CMP, CRP, TSH, MMA ####[place] [phone] Aspartate aminotransferase (AST) 16 U/L Normal 14-40 [facility] Comment on above: Performed By: #### C BCDIF, B12, SERFOL, CMP, CRP, TSH, MMA ####[place] [phone] Bilirubin (total) 0.3 mg/dL Normal 0.2-1.3 [facility] Comment on above: Performed By: #### C BCDIF, B12, SERFOL, CMP, CRP, TSH, MMA ####[place] [phone] Calcium 10.0 mg/dL Normal 8.5-10.2 [facility] Comment on above: Performed By: #### C BCDIF, B12, SERFOL, CMP, CRP, TSH, MMA ####[address] [place] [phone] Chloride 97 mmol/L Normal 97-105 [facility] Comment on above: Performed By: #### C BCDIF, B12, SERFOL, CMP, CRP, TSH, MMA ####[address] AvJohn [place] [phone] CO2 26 mmol/L Normal 22-30 [facility] Comment on above: Performed By: #### C BCDIF, B12, SERFOL, CMP, CRP, TSH, MMA ####[facility] [place], [place] [phone] Creatinine 1.08 mg/dL Normal 0.73-1.22 [facility] Comment on above: Performed By: #### C BCDIF, B12, SERFOL, CMP, CRP, TSH, MMA ####[facility] [place], [place] [phone] eGFR (non-black) mL/min/{1.73_m2} Normal [facility] Comment on above: Result Comment: eGFR (Estimated [...] BCDIF, B12, SERFOL, CMP, CRP, TSH, MMA ####[facility] [place], [place] [phone] Glucose mass conc 92 mg/dL Normal 74-99 [facility] Comment on above: Result Comment: The [place] Diabetes Association (ADA) provides guidance for cutoff [...] Standards of Medical Care in Diabetes 2016, [place] Diabetes Association. Diabetes Care. 2016.39(Suppl 1). Performed By: #### C BCDIF, B12, SERFOL, CMP, CRP, TSH, MMA ####[address] [phone] Potassium molar conc 4.8 mmol/L Normal 3.7-5.1 [facility] Comment on above: Performed By: #### C BCDIF, B12, SERFOL, CMP, CRP, TSH, MMA ####[address] [phone] Protein 8.1 g/dL High 6.3-8.0 [facility] Comment on above: Performed By: #### C BCDIF, B12, SERFOL, CMP, CRP, TSH, MMA ####[address] [phone] Sodium 136 mmol/L Normal 136-144 [facility] Comment on above: Performed By: #### C BCDIF, B12, SERFOL, CMP, CRP, TSH, MMA ####[address] [phone] Urea nitrogen 9 mg/dL Normal 9-24 [facility] Comment on above: Performed By: #### C BCDIF, B12, SERFOL, CMP, CRP, TSH, MMA ####[address] [phone] Folate, Serumon 08-12-2017 Folate, Serum 10.7 ng/mL Normal >4.7 [facility] Comment on above: Performed By: #### C BCDIF, B12, SERFOL, CMP, CRP, TSH, MMA ####[address] [phone] Methylmalonic Acidon 018 Methylmalonic Acid 259 nmol/L Normal 79-376 [facility] Comment on above: Result Comment: This test was developed and its performance characteristics determined by [facility]'s Rey Osorio [facility] [place] ([facility]).It has not been cleared or approved by the FDA. [facility] is regulated under CLIA as qualified to perform high-complexity testing.This test is used for clinical purposes. It should not be regarded as investigational or for research. Performed By: #### C BCDIF, B12, SERFOL, CMP, CRP, TSH, MMA ####[place] [address] [place], [place] [phone] TSHon 08-12-2017 Thyroid stimulating hormone (TSH) 1.470 uU/mL Normal 0.400-5.500 [facility] Comment on above: Performed By: #### C BCDIF, B12, SERFOL, CMP, CRP, TSH, MMA ####[place] [address] [place], [place] [phone] Vitamin B12on 08-12-2017 Cobalamins (Vitamin B12) 403 pg/mL Normal 232-1245 [facility] Comment on above: Performed By: #### C BCDIF, B12, SERFOL, CMP, CRP, TSH, MMA ####[place] [address] [place], [place] [phone] PROGRESSon 08-07-2017 PROGRESS HNO ID: [id number] thor: Enma Kaiser: (none)Author Type: PhysicianType: Progress [...] this will beimportant for him.PLANPatient has a [employer] account.Continue?IBgard twice a dayMay increase Citrucel to [...] day. He had been doing Ensure and Hollywood InstantBreakfast and had gained few pounds in [...] aheart attack and the other lived in [place] and was diagnosed with acancer and told [...] had a long discussion.I have reviewed the [facility], Social, FH and ROS from the visit [...] (1.73m) Wt 165 lb 3.2 oz (74.9kg) QtT382% BMI 25.12 kg/(m2).PREVIOUSLY REVIEWED DATA05/07/14???NM Gastric Emptying [...] Bowel Video Capsule. Impression: Normal small bowelCapsule osiqnwuzj13/20/14?- Colonoscopy. Indication: Change in bowel habits. Weight [...] polyps - Next Colonoscopy 2018?PLANPatient has a dynaTrace software account.Labs as ordered - to download to dynaTrace software - Galva will checkContinue?IBgard twice a dayLetter to Dr. Garber 6 months, otherwise PRNNeeds a Colonoscopy in 2019, here or closer to Jagruti Phillips, [facility] 2017>25 min Pmpj-dt-Xqwi?Note: Dr. Jorge L Bishop - his [address] [place], [place] [address]Kzrid: [phone]: [phone]? Normal [facility] OBSOLETEon 05-12-2017 OBSOLETE Refill (GASTMN) SIS DOVE ([id number]) 1965 MDate Time Provider Eddpqosdjj74/24/17 ENMA PHILLIPS During your visit today, we recorded the following information about you:Stephanie Pride, RN, RN 05/16/2017 1:43 PM SignedPatient's request for medication is as follows:Pending Prescriptions Disp Refills ONDANSETRON HCL 4 MG TABLET 30 tablet 5 Sig: take 1 tablet by mouth every 8 hours if needed WES: YesPrescription(s) as above. Please process accordingly.Benito Nowak As of Date: 05/12/2017(No Known Allergies)Date Reviewed: [...] Status:Closed by NETTE ALEJANDRE MD on 05/16/17 [facility] CNOVon 03-18-2017 CNOV Office Visit (GASTA5) SIS DOVE ([id number]) 1965 MDate Time Provider Yecefhllbt12/30/17 4:10 PM ENMA PHLILIPS GASTA5 During your visit today, we recorded [...] if she had been present.PLANPatient has a [employer] account.Klonopin 1 mg TID prn #90/2 - [...] other day.He had been doing Ensure and Hollywood Instant Breakfast and had gained fewpounds in the few weeks prior to his initial visit. He also noted dysphagia forsolids, occasionally. He did have a manometry done which according to him wasANDquot;mildly abnormalANDquot;. He had an appointment with new Psychiatrist theday after our visit. During his visit in July 2014, he had tried to consume 1-2 Hollywood InstantBreakfasts every day. He was still having [...] would go to bed in the very miller kiln dried salt hours, but did not have diarrheathat would [...] Bowel Video Capsule. Impression: Normal small bowel Jonocsuavwhtdika17/20/14 - Colonoscopy. Indication: Change in bowel habits. [...] Next Colonoscopy 2018Generalized anxiety disorderPLANPatient has a MyChart account.Continue IBgard twice a dayMay increase Citrucel to 1 tablespoon twice a day, if he wishesLetter to Dr. Garber 6 months, otherwise PRNNeeds a Colonoscopy in 2019, here or closer to homeEnma Phillips MDOctober 2016Note: Dr. Jorge L Bishop - his [address] [place], [place] [address]Ooxde: [phone]: [phone] Provider: SELF [[id number]]Allergies As of Date: 03/18/2017(No [...] by another Health Care ProviderLetter TextEncounter Number: [id number] Status:Closed by ENMA PHILLIPS MD on 03/18/17 [facility] PROGRESSon 03-13-2017 PROGRESS HNO ID: [id number] thor: Enma Kaiser: (none)Author Type: PhysicianType: Progress [...] day. He had been doing Ensure and Hollywood InstantBreakfast and had gained few pounds in [...] past almost 3 years. He has gained cjebmw46 pounds and seems in a much better [...] Bowel Video Capsule. Impression: Normal small bowelCapsule nmzzmhxta22/20/14 - Colonoscopy. Indication: Change in bowel habits. [...] Next Colonoscopy 2019Generalized anxiety disorderPLANPatient has a [employer] account.Continue IBgard twice a dayMay increase Citrucel to 1 tablespoon twice a day, if he wishesLetter to Dr. Garber 6 months, otherwise PRNNeeds a Colonoscopy in 2019, here or closer to homeEnma Phillips MDOctcaverna memorial hospital 2016Note: Dr. Jorge L Bishop - his [address] [place], [place] [address]Xpeoz: [phone]: [phone] Normal [facility] OBSOLETEon 02-16-2017 OBSOLETE Refill (GASTMN) SIS DOVE ([id number]) 1965 M IPADate Time Provider Department02/16/17 ENMA PHILLIPS During your visit today, we recorded the following information about you:Enma Phillpis MD 02/18/2017 12:13 PM SignedApproved and escripted.Enma Phillips MDOctcaverna memorial hospital 2016Allergies As of Date: 02/16/2017(No Known [...] Status:Closed by ENMA PHILLIPS MD on 02/18/17 [facility] [facility] OBSOLETEon 12-15-2016 OBSOLETE Refill (GASTMN) SIS DOVE ([id number]) 1965 M IPADate Time Provider Department12/15/16 ENMA PHILLIPS During your visit today, we [...] by ENMA PHILLIPS MD on 12/17/16 Normal [facility] Vital Signs Date Time Vital Sign Value Performing Clinician Facility 12-19-2022 09:45-0400 Body height Shannan Cary Other [facility] Other 12-19-2022 09:45-0400 Body mass index (BMI) [Ratio] 21.03 kg/m2 Shannan Cary Other [facility] Other 12-19-2022 09:45-0400 Body weight 64.59 kg Shannan Cary Other [facility] Other 12-19-2022 09:45-0400 Diastolic blood pressure 72 mm[Hg] Shannan Cary Other [facility] Other 12-19-2022 09:45-0400 Respiratory rate 18 /min Shannan Cary Other [facility] Other 12-19-2022 09:45-0400 SaO2% (BldA) [Mass fraction] 99 % Shannan Cary Other [facility] Other 12-19-2022 09:45-0400 Systolic blood pressure 122 mm[Hg] Shannan Cary Other [facility] [employer] Other 08-03-2022 08:50-0400 Blood Pressure Location Gaetano BA [facility] 08-03-2022 08:50-0400 Diastolic blood pressure 68 mm[Hg] Gaetano BA [facility] 08-03-2022 08:50-0400 Heart rate 66 /min Gaetano BA [facility] 08-03-2022 08:50-0400 Respiratory rate 16 /min Gaetano BA [facility] 08-03-2022 08:50-0400 Systolic blood pressure 111 mm[Hg] Gaetano BA [facility] 04-06-2021 14:45-0500 Body height Saman Olexa Other [facility] [facility] [employer] Other 04-06-2021 14:45-0500 Body mass index (BMI) [Ratio] 22.89 kg/m2 Saman Olexa Other [facility] Other 04-06-2021 14:45-0500 Body weight 70.31 kg Saman Olexa Other [facility] Other 03-02-2021 14:00-0400 Body height Saman Olexa Other [facility] Other 03-02-2021 14:00-0400 Body mass index (BMI) [Ratio] 22.89 kg/m2 Saman Olexa Other [facility] Other 03-02-2021 14:00-0400 Body weight 70.31 kg Saman Olexa Other [facility] Other 02-07-2021 15:15-0400 Body height Saman Haddadxa Other [facility] Other 02-07-2021 15:15-0400 Body mass index (BMI) [Ratio] 22.89 kg/m2 Saman Haddadxa Other [facility] Other 02-07-2021 15:15-0400 Body weight 70.31 kg Saman Haddadxa Other [facility] Other Encounters Encounter Date Encounter Type Care Provider Facility Start: 12-19-2022 Office outpatient vi sit 15 minutes Shannan [facility] Start: 12-19-2022 End: 12-19-2022 ambulatory Shannan Cary [facility] Other Start: 12-19-2022 End: 12-19-2022 Patient encounter procedure [facility] Shannan Cary Work Phone: [facility] Work Phone: Start: 12-03-2022 End: 12-04-2022 ambulatory Gaetano BA Facility:[facility] Start: 12-03-2022 End: 12-03-2022 Patient encounter procedure Gaetano BA [facility] Start: 08-07-2022 End: 08-08-[address] FRANCES COLMENARES . Facility: Start: 08-03-2022 End: 08-04-2022 ambulatory Gaetano BA Facility:[facility] Start: 08-03-2022 End: 08-03-2022 Patient encounter procedure Gaetano BA [facility] Start: 07-25-2022 End: 07-26-[address] FRANCES [...] 04-06-2021 End: 04-06-2021 ambulatory Saman Olexa Other [facility] Other Start: 04-06-2021 Postop follow up vis it related to original px Saman Olexa [facility] Start: 03-02-2021 Postop follow up vis it related to original px Saman Olexa [facility] Start: 02-07-2021 Postop follow up vis it related to original px Saman Olexa [facility] [place] Start: 02-02-2021 Telephone encounter Saman Olexa [facility] Start: 09-12-2018 Patient encounter procedure Facility:[id number] Start: 09-03-2018 Patient encounter procedure Facility:[id number] Start: 08-12-2017 End: 08-12-2017 Ambulatory ENMA PHILLIPS [facility] Start: 03-18-2017 End: 03-18-2017 Ambulatory ENMA PHILLIPS [facility] Procedures Date Procedure Procedure Detail Performing Clinician Start: 12-19-2022 Plain X-ray of left shoulder DIRECTOR MEDICAL AFFAIRS-[facility] Shannan Cary Work Phone: Start: 06-15-2020 Transurethral prostatectomy Gaetano LOVE Start: 12-24-2019 Cystoscopy Gaetano NOONAN Start: 09-03-2018 Antibody screen Comment on above: Order Comment: CBN: YES Comfort: MAIN Transfusion Status: CONSERVATION Blood Bank service requested: TYPE AND SCREEN Specimen Comment: SURG 09/12 Performed By: #### B [id number] #### Test performed at: [address] [address] Start: 09-03-2018 Electrocardiogram Back structure, excl uding neck (body structure) Gaetano BA Comment on above: 4 months ago Immunizations Immunization Date Immunization Notes Care Provider Alison perez 01-25-2022 influenza virus vaccine, unspecified formulation Gaetano BA [facility] 04-27-2021 SARS-CoV-2 (COVID-19 ) mRNA BNT-162b2 vax Gaetano BA [facility] 02-20-2021 influenza virus vaccine, unspecified formulation Gaetano BA [facility] 08-29-2020 SARS-CoV-2 (COVID-19 ) mRNA-1273 vaccine Gaetano BA [facility] 08-23-2020 SARS-CoV-2 (COVID-19 ) mRNA BNT-162b2 vax Gaetano BA [facility] 08-01-2020 SARS-CoV-2 (COVID-19 ) mRNA BNT-162b2 vax Gaetano BA [facility] 07-29-2020 SARS-CoV-2 (COVID-19 ) mRNA-1273 vaccine Gaetano BA [facility] 03-02-2020 influenza virus vaccine, unspecified formulation Gaetano BA [facility] 02-16-2020 influenza virus vaccine, unspecified formulation Gaetano BA [facility] 02-16-2020 zoster vaccine recombinant Gaetano BA [facility] 01-13-2020 influenza virus vaccine, unspecified formulation Gaetano BA [facility] 02-05-2019 influenza virus vaccine, unspecified formulation Gaetano BA [facility] 09-03-2018 hepatitis A vaccine, adult dosage Gaetano BA [facility] 09-03-2018 tetanus toxoid, redu hilary diphtheria toxoid, and acellular pertussis vaccine, adsorbed Gaetanoalee BA [facility] 03-04-2017 influenza, unspecifi ed formulation Gaetanoalee BA [facility] 03-13-2016 influenza virus vaccine, unspecified formulation Gaetano BA [facility] 03-16-2015 influenza virus vaccine, unspecified formulation Gaetano BA [facility] 01-09-2015 zoster vaccine, live Gaetanoalee BA [facility] Payers Date Payer Category Payer Self-pay [id number] 2021 Unknown [id number] 2017 Unknown [id number] 1965 Unknown [id number] 2.16. [id number] 1965 Unknown [id number] 2.16. [id number] 1965 Unknown [id number] 2.16.84 0.1.937161.3.579.2.593 1965 Unknown [id number] 2.16.84 0.1.195189.3.579.2.593 1965 Unknown [id number] 2.16.84 0.1.469849.3.579.2.593 1965 Unknown [id number] 2.16.84 0.1.051587.3.579.2.593 1965 Unknown [id number] 2.16.84 0.1.668325.3.579.2.593 1965 Unknown [id number] 2.16.84 0.1.150903.3.579.2.593 1965 Unknown [id number] 2.16.84 0.1.930860.3.579.2.593 1965 Unknown [id number] 2.16.84 0.1.834290.3.579.2.593 1965 Unknown [id number] 2.16.84 0.1.520219.3.579.2.593 1965 Unknown [id number] 2.16.84 0.1.443951.3.579.2.593 1965 Unknown [id number] 2.16.8 40.1.058519.3.579.2.727 1965 Unknown [id number] 2.16.8 40.1.604116.3.579.2.727 1960 Medicaid [id number] Medicare [id number] Medicare Medicare [id number] Unknown [id number] 2.16.8 [id number] Social History Date Type Detail Facility Sex Assigned At [facility] Start: 08-03-2022 Tobacco smoking status Ex-smoker (fi nding) [facility] Start: 09-18-2017 Tobacco smoking stat [facility] Smoker (finding) [facility] Start: 1965 Sex Assigned At Male F [facility] Functional Status Date Assessment Result Facility 08-03-2022 Functional Status N/A [facility] Clinical Notes 02-07-2021 to 12-19-2022 Note Date [...] no improvement in 5 to 7 days. [facility] Other 03-17-2023 Hospital Discharge instructions Follow Up Care 08/03/2022 09:16:26 With:LOVE DALAL, Gaetano Posada, URL Address: [facility] [address] , [place] [address]- [phone] When: Unknown [facility] 03-17-2023 Hospital Discharge instructions Patient Education 08/03/2022 [...] (electrical nerve stimulation). For women, using a clinical specialist medical device to prevent urine leaks. This is a [...] right after experiencing incontinence. General instructions Take uwpb-stf-bpniftx and prescription medicines only as told by [...] 06/13/2005 Document Revised: 05/16/2018 Document Reviewed: 08/15/2017 [employer] Patient Education 2020 [employer]. Follow Up Care 07/31/2022 08:36:53 With:LOVE DALAL, Gaetano Posada, URL Address: [address] [place] [address]- When: Unknown [facility] 07-01-2022 Note [id number]06-30-2022 NoteEducation Materials Orthopedics Chronic Back Pain When [...] them backward. ? 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 [...] pain medicine, or muscle relaxants. ? Take zuyj-xnt-ayqxogb and prescription medicines only as told by your doctor. ? Ask your doctor if the medicine prescribed to you: ? Requires you to avoid driving or using machinery. ? Can cause trouble pooping (constipation). You may need to take these actions to prevent or treat trouble pooping: ? Drink enough fluid to keep your pee (urine) pale yellow. ? Take guip-yxn-hiwbyef or prescription medicines. ? Eat foods that [...] provider. Document Revised: 06/15/2020 Document Reviewed: 06/15/2020 [employer] Patient Education ? 2020 [employer] Acute Back Pain, Adult Acute back [...] of the spinal disks (more content not included)...[id number] NoteEducation Materials Cardiovascular Hypertension, Adult High blood [...] without skin, beans, e (more content not included)...[id number] Evaluation note* Encounter Date Diagnosis Assessment Notes Treatment Notes Treatment Clinical Notes Mar, Acute right ankle pain (ICD-10 - M25.571) Mar, Other closed fracture of distal end of right fibula with routine healing, subsequent encounter (ICD-10 - S82.831D) We will provide a prescription for formal physical therapy. The regular use of exercises may be beneficial in relieving painful symptoms.Call with questions or concerns [facility] Other 10-14-2021 Evaluation note* Encounter Date Diagnosis [...] including biking, leg press and heel raises. [facility] Other 09-21-2021 Evaluation note* Encounter Date Diagnosis [...] patient to continue to wear CAM boot [facility] Other Evaluation + Plan note Future Appointments Appointment Date:12/03/2022 01:45:00 PM Scheduled Provider:Gaetano BA MD Location:[facility] Appointment Type:URO Office Visit [facility] evaluation noteNo InformationNortMob.ly Other Evaluation noteNo assessment information available [facility] Work Phone: [facility] general Narrative - Reported* Type Description Date Medical History bipolar Medical History arthritis in spine [employer] [facility] [employer] Other [facility] general Narrative - Reported* Type Description Date Medical History bipolar Medical History arthritis in spine Surgical History back surgery 2021 [employer] [facility] [employer] Other Hospital course Narrative No data available for this section [facility] progress note No data available for this section [facility] Summary Purpose Family History No Family History [...] section and content) DATE CREATED AUTHOR 11/07/2017 [facility] DATE CREATED AUTHOR AUTHOR'S ORGANIZ ATION 09/21/2018 [facility] DATE CREATED AUTHOR AUTHOR'S ORGANIZ ATION 03/26/2019 [facility] DATE CREATED AUTHOR AUTHOR'S ORGANIZ ATION 11/28/2021 [facility] DATE CREATED AUTHOR AUTHOR'S ORGANIZ ATION 08/12/2022 [facility] [place] [facility] DATE CREATED AUTHOR AUTHOR'S ORGANIZ ATION 12/04/2022 [facility] DATE CREATED AUTHOR AUTHOR'S ORGANIZ ATION 12/31/2022 [facility] REASON FOR VISIT (unrecogniz ed section and content) RECHECK RT FIB FX HAVING LOT S OF PAIN SWELLINGrx request4 WK4 WEEKSLEFT TOP OF ARM, DOG YANKED HIS ARM WHILE WALKING Patient Care team informatio n (unrecognized section and content) Team Status: Inactive Member Role Status Dates FRAN [place] Attending Provider Active Goals (unrecognized section and [...] BE BASED ON THE PRIMARY CLINICAL RECORDS. [facility] [employer] [facility]. provides no warranty or guarantee of the accuracy or completeness of information in this document.
[2023-08-30 00:02] VITALS: BP 128/79; PULSE 95; TEMP 36.8; O2SAT 99; BMI 21.5
--- NOTE | 2023-08-30 00:12 | PC.NURSE ---
States has lump at lower right gumline. Has no teeth. No redness or swelling noted or palpated
--- NOTE | 2023-08-30 00:27 | ED_ITS ---
HPI - Dental/Oral General Chief complaint: Dental/Oral Stated complaint: abscess Time Seen by Provider: 08/30/23 00:14 Source: patient Mode of arrival: walk-in History of Present Illness HPI Narrative: This 57-year-old male who wears lower dentures presents for evaluation of a painful swelling adjacent to tooth #26. Symptoms started 2 days ago. He is concerned that he is developing an abscess. He is not having any fevers or chills. He has a firm, tender, mildly erythematous nodule at this area at that is likely a developing abscess. He states that he is having trouble wearing his dentures due to the discomfort in this area. He is not having trismus or drooling. He has no difficulty swallowing. No additional injuries or complaints. He states he called his family physician but could not get in for the next several days and does not want to go through the weekend without being on some antibiotics. Related Data Home Medications ?Medication ?Instructions ?Recorded ?Confirmed atorvastatin 40 mg tablet 40 mg PO QDAY 12/24/22 08/30/23 hydroxyzine pamoate 50 mg capsule 50 mg PO Q6H 08/30/23 08/30/23 lamotrigine 100 mg tablet 100 mg PO DAILY 08/30/23 08/30/23 pantoprazole 40 mg tablet,delayed 40 mg PO DAILY 08/30/23 08/30/23 release sumatriptan succinate 100 mg tablet 100 mg PO Q2H PRN migraine headache 08/30/23 08/30/23 trazodone 300 mg tablet 300 mg PO DAILY 08/30/23 08/30/23 venlafaxine 150 mg 150 mg PO DAILY 08/30/23 08/30/23 capsule,extended release 24 hr Previous Rx's ?Medication ?Instructions ?Recorded acetaminophen 300 mg-codeine 30 mg 1 tab PO Q6H PRN pain #20 tabs 12/24/22 tablet Allergies Allergy/AdvReac Type Severity Reaction Status Date / Time tramadol Allergy Intermediate Verified 08/30/23 00:05 Review of Systems ROS Status of ROS 10 or more systems reviewed and unremark able except as noted in history and below PFSH PFSH Social History Smoking status: Current every day smoker Exam Narrative Exam Narrative: Nurses note and vital signs reviewed and patient is not hypoxic. General: The patient appears well and in no apparent distress. Patient is resting comfortably on cart. Skin: Warm, dry, no pallor noted. There is no rash noted. Head: Normocephalic, atraumatic Eye: Normal conjunctiva, no drainage, EOMI. PERRL Ears, Nose, Mouth, and Throat: oral mucosa is moist. There is an approximately 1 cm firm, tender, mildly erythematous nodule adjacent to the area where tooth #26 would have been prior to its extraction. There is no sign of necrotizing gingivitis. No additional dental infections are noted. There is no swelling of the tongue, uvula or pharyngeal soft tissues. Cardiovascular: Regular Rate and Rhythm Respiratory: Patient is in no distress, no accessory muscle use, lungs are clear to auscultation, no wheezing, rales or rhonchi Neurological: A&O x4, normal speech Psychiatric: Cooperative Constitutional Vital Signs, click to edit/add: Last Vital Signs Temp 98.3 F 08/30/23 00:02 Pulse 95 H 08/30/23 00:02 Resp 16 08/30/23 00:02 BP 128/79 08/30/23 00:02 Pulse Ox 99 08/30/23 00:02 O2 Del Method Room Air 08/30/23 00:02 Course Vital Signs Vital signs: Vital Signs Temperature 98.3 F 08/30/23 00:02 Pulse Rate 95 H 08/30/23 00:02 Respiratory Rate 16 08/30/23 00:02 Blood Pressure 128/79 08/30/23 00:02 Pulse Oximetry 99 08/30/23 00:02 Oxygen Delivery Method Room Air 08/30/23 00:02 Temperature 98.3 F 08/30/23 00:02 Pulse Rate 95 H 08/30/23 00:02 Respiratory Rate 16 08/30/23 00:02 Blood Pressure 128/79 08/30/23 00:02 Pulse Oximetry 99 08/30/23 00:02 Oxygen Delivery Method Room Air 08/30/23 00:02 MDM - Dental/Oral MDM Narrative Medical decision making narrative: This 57 year old male presents with a tender firm nodule adjacent to tooth #26 where he believes he is developing a dental abscess. He has not had a fever. He is otherwise well-appearing. He is edentulous and wears lower dentures. He has not been able wears dentures due to this discomfort. He was medicated emergency department with a dose of Pen-Vee K and will be discharged home with prescription for Pen-Vee K. He has been rinsing his mouth with hydrogen peroxide and is otherwise well-appearing and stable for discharge. Discharge Plan Discharge Stand Alone Forms: Portal Instructions Chief Complaint: Dental/Oral Clinical Impression: Abscess, dental Patient Disposition: Home, Self-Care Time of Disposition Decision: 00:26 Condition: Good Prescriptions / Home Meds: No Action atorvastatin 40 mg tablet 40 mg PO QDAY acetaminophen-codeine 300-30 mg tablet 1 tab PO Q6H PRN (Reason: pain) Qty: 20 0RF hydroxyzine pamoate 50 mg capsule 50 mg PO Q6H lamotrigine 100 mg tablet 100 mg PO DAILY pantoprazole 40 mg tablet,delayed release (DR/EC) 40 mg PO DAILY sumatriptan succinate 100 mg tablet 100 mg PO Q2H PRN (Reason: migraine headache) trazodone 300 mg tablet 300 mg PO DAILY venlafaxine 150 mg capsule,extended release 24hr 150 mg PO DAILY Print Language: Japanese Instructions: Dental Abscess (ED) Referrals: Anthony Colmenares MD [Primary Care Provider] - 1 week
[2023-08-30] MEDS: PENICILLIN V POTASSIUM 250 MG TABLET 500 MG PO (00:32)
== END 2023-08-30 00:40 | disposition home or self-care (01) ==
PROVIDERS: Emergency Provider Emergency Medicine; PCP Family Medicine
DX: K04.7 Periapical abscess without sinus (principal); Z79.899 Other long term (current) drug therapy; F17.210 Nicotine dependence, cigarettes, uncomplicated
CPT/HCPCS: 99283